=== PATIENT | male | born 1940 | race Caucasian/White ===

== ENCOUNTER 2018-01-10 22:44 | Inpatient (IN) | payer MEDICARE, MEDICAID ==
[~2018-01-10] VITALS: Ht 175.3 cm; Wt 79.4 kg
[2018-01-10 22:50] VITALS: BP 144/75
[2018-01-10] MEDS ORDERED: Isovue-300 100ml vial INJ PRN (23:00)
[2018-01-10 23:45] LABS: BASOPHILS % (AUTO) 0.6 % (0.0-2.0); EOSINOPHILS % (AUTO) 2.5 % (0.0-3.0); HEMATOCRIT 52.2 % (42.0-52.0); HEMOGLOBIN 17.7 G/DL (14.2-18.0); LYMPHOCYTES % (AUTO) 14.5 % (20.0-45.0); MEAN CORPUSCULAR VOLUME 88 FL (80-99); MONOCYTES % (AUTO) 5.3 % (1.0-10.0); NEUTROPHILS % (AUTO) 77.1 % (45.0-75.0); PLATELET COUNT 267 K/UL (150-450); RED BLOOD COUNT 5.91 M/UL (4.70-6.10); RED CELL DISTRIBUTION WIDTH 12.8 % (11.6-14.8); WHITE BLOOD COUNT 11.2 K/UL (4.8-10.8)
[2018-01-10 23:56] LABS: APPEARANCE,URINE CLEAR; BILIRUBIN, URINE NEGATIVE (NEGATIVE); GLUCOSE, URINE (UA) 1+ (NEGATIVE); KETONES,URINE NEGATIVE (NEGATIVE); LEUKOCYTE ESTERASE ,URINE NEGATIVE (NEGATIVE); NITRITE,URINE NEGATIVE (NEGATIVE); PH,URINE 5 (4.5-8.0); PROTEIN,URINE 4+ (NEGATIVE); UROBILINOGEN,URINE NORMAL MG/DL (0.0-1.0)
[2018-01-10 23:57] LABS: ANION GAP 14 mmol/L (5-15); BLOOD UREA NITROGEN 60 mg/dL (7-18); CALCIUM 9.1 MG/DL (8.5-10.1); CARBON DIOXIDE 23 MMOL/L (21-32); CHLORIDE 101 MMOL/L (98-107); CREATININE 2.3 MG/DL (0.55-1.30); POTASSIUM 4.5 MMOL/L (3.5-5.1); SODIUM 138 MMOL/L (136-145)
[2018-01-11 00:01] LABS: ALANINE AMINOTRANSFERASE 31 U/L (12-78); ALBUMIN 3.1 G/DL (3.4-5.0); ALBUMIN/GLOBULIN RATIO 0.5 (1.0-2.7); ALKALINE PHOSPHATASE 80 U/L (46-116); ASPARTATE AMINO TRANSFERASE 36 U/L (15-37); BILIRUBIN,TOTAL 0.6 MG/DL (0.2-1.0)
--- NOTE | 2018-01-11 00:06 | Emergency Room Report ---
History of Present Illness General Chief Complaint: Abdominal Pain Source: Patient Present Illness HPI Patient presents with complaints of abdominal pain reports decreased bowel movement Increased nausea but denies any vomiting Denies any chest pain or shortness of breath Denies any fevers or chills patient has had previous significant abdominal surgery Chronicly debilitated Allergies: Coded Allergies: ATORVASTATIN (Unverified Allergy, Unknown, 01/10/18) ROSUVASTATIN (Unverified Allergy, Unknown, 01/10/18) SITAGLIPTIN (Unverified Allergy, Unknown, 01/10/18) Patient History Past Medical History: see triage record Pertinent Family History: none Reviewed Nursing Documentation: PMH: Agreed; PSxH: Agreed Review of Systems All Other Systems: negative except mentioned in HPI Physical Exam Vital Signs Date Time Temp Pulse Resp B/P (MAP) Pulse Ox O2 Delivery O2 Flow Rate FiO2 01/10/18 22:37 97.9 70 16 144/75 92 Room Air Sp02 EP Interpretation: reviewed, normal General Appearance: no apparent distress Head: normocephalic, atraumatic Eyes: bilateral eye PERRL, bilateral eye EOMI ENT: hearing grossly normal, normal pharynx Neck: supple Respiratory: lungs clear, normal breath sounds Cardiovascular #1: irregularly irregular Gastrointestinal: other - Somewhat distended abdomen decreased bowel sounds significant previous surgical scars Musculoskeletal: other - Skin wounds from previous moving upper extremities equally Neurologic: alert, oriented x3, responsive Skin: other - Multiple skin breakdowns Lymphatic: no adenopathy Medical Decision Making Diagnostic Impression: Primary Impression: Abdominal pain Additional Impression: Adynamic ileus ER Course With the history exam and presentation, multiple differentials considered, including but not limited to appendicitis, gastritis, cholecystitis, diverticulitis CT imaging reveals some questionable ileus versus colitis Patient remains otherwise asymptomatic NG tube has not been placed given the findings And the patient requires further inpatient care Labs Test 01/10/18 23:00 01/10/18 23:06 Urine Color Yellow Urine Appearance Clear Urine pH 5 (4.5-8.0) Urine Specific [place] 1.025 (1.005-1.035) Urine Protein 4+ (NEGATIVE) Urine Glucose (UA) 1+ (NEGATIVE) Urine Ketones Negative (NEGATIVE) Urine Blood Negative (NEGATIVE) Urine Nitrite Negative (NEGATIVE) Urine Bilirubin Negative (NEGATIVE) Urine Urobilinogen Normal MG/DL (0.0-1.0) Urine Leukocyte Esterase Negative (NEGATIVE) Urine RBC 0 /HPF (0 - 0) Urine WBC 0-2 /HPF (0 - 0) Urine Squamous Epithelial Cells None /LPF (NONE/OCC) Urine Amorphous Sediment Many /LPF (NONE) Urine Bacteria Many /HPF (NONE) White Blood Count 11.2 K/UL (4.8-10.8) Red Blood Count 5.91 M/UL (4.70-6.10) Hemoglobin 17.7 G/DL (14.2-18.0) Hematocrit 52.2 % (42.0-52.0) Mean Corpuscular Volume 88 FL (80-99) Mean Corpuscular Hemoglobin 29.9 PG (27.0-31.0) Mean Corpuscular Hemoglobin Concent 33.9 G/DL (32.0-36.0) Red Cell Distribution Width 12.8 % (11.6-14.8) Platelet Count 267 K/UL (150-450) Mean Platelet Volume 7.4 FL (6.5-10.1) Neutrophils (%) (Auto) 77.1 % (45.0-75.0) Lymphocytes (%) (Auto) 14.5 % (20.0-45.0) Monocytes (%) (Auto) 5.3 % (1.0-10.0) Eosinophils (%) (Auto) 2.5 % (0.0-3.0) Basophils (%) (Auto) 0.6 % (0.0-2.0) Sodium Level 138 MMOL/L (136-145) Potassium Level 4.5 MMOL/L (3.5-5.1) Chloride Level 101 MMOL/L (98-107) Carbon Dioxide Level 23 MMOL/L (21-32) Anion Gap 14 mmol/L (5-15) Blood Urea Nitrogen 60 mg/dL (7-18) Creatinine 2.3 MG/DL (0.55-1.30) Estimat Glomerular Filtration Rate mL/min (>60) Glucose Level 308 MG/DL (74-106) Calcium Level 9.1 MG/DL (8.5-10.1) Total Bilirubin 0.6 MG/DL (0.2-1.0) Aspartate Amino Transf (AST/SGOT) 36 U/L (15-37) Alanine Aminotransferase (ALT/SGPT) 31 U/L (12-78) Alkaline Phosphatase 80 U/L (46-116) Total Protein 8.9 G/DL (6.4-8.2) Albumin 3.1 G/DL (3.4-5.0) Globulin 5.8 g/dL Albumin/Globulin Ratio 0.5 (1.0-2.7) Lipase 385 U/L (73-393) CT/MRI/US Diagnostic Results CT/MRI/US Diagnostic Results : Impression CT abdomen pelvis: Ileus versus colitis, referred to the final report for full specifics Last Vital Signs Date Time Temp Pulse Resp B/P (MAP) Pulse Ox O2 Delivery O2 Flow Rate FiO2 01/10/18 22:50 70 16 Room Air 01/10/18 22:50 97.9 144/75 92 Status: improved Disposition: ADMITTED INPATIENT Condition: Serious Referrals: JOSÉ MIGUEL GILES (PCP) Tomasa Dixon DO Jan 11, 2018 00:06
[2018-01-11 00:13] LABS: COLOR,URINE YELLOW
[2018-01-11] MEDS ORDERED: COLACE100 MG ORAL (00:30)
[2018-01-11] MEDS ORDERED: TOPIRAMATE25 M1 ORAL (00:30)
[2018-01-11] MEDS ORDERED: HUMALOG100 UNIT/4 SUBQ (00:30)
[2018-01-11] MEDS ORDERED: LIDOCAINE700 M1 TP (00:30)
[2018-01-11] MEDS ORDERED: ALLOPURINOL100 M1 ORAL (00:30)
[2018-01-11] MEDS ORDERED: LANTUS SOL100 UNIT/1 SUBQ (00:30)
[2018-01-11] MEDS ORDERED: NEURONTIN300 MG ORAL (00:30)
[2018-01-11] MEDS ORDERED: CORRECTOL5 MG PO (00:30)
[2018-01-11] MEDS ORDERED: PRAVASTATIN SOD40 M1 ORAL (00:30)
[2018-01-11] MEDS ORDERED: MIRALAX17 G2 ORAL (00:30)
[2018-01-11] MEDS ORDERED: ASPIR 8181 MG ORAL (00:30)
[2018-01-11] MEDS ORDERED: LATANOPROST 0.7.5 ML OP (00:30)
[2018-01-11 01:40] VITALS: BP 146/74
[2018-01-11 04:00] VITALS: BP 143/62
[2018-01-11] MEDS ORDERED: Promethazine HCl 12.5 MG in NS 55 ML IV PRN (06:30)
[2018-01-11] MEDS ORDERED: Metoclopramide 10mg/2ml Inj IVP PRN (06:30)
[2018-01-11] MEDS ORDERED: Miralax 17gm pkt ORAL PRN (06:30)
[2018-01-11] MEDS ORDERED: Nitroglycerin Subl 0.4mg tab SL PRN (06:30)
[2018-01-11] MEDS ORDERED: Morphine Sulfate 2mg/ml Inj IVP PRN (06:30)
[2018-01-11] MEDS ORDERED: Mylanta II UD 30ml ORAL PRN (06:30)
[2018-01-11] MEDS ORDERED: LORazepam Inj 2mg/ml 1ml IV PRN (06:30)
[2018-01-11] MEDS ORDERED: Promethazine HCl 25 MG in NS 55 ML IV PRN (06:30)
[2018-01-11] MEDS ORDERED: D5 1/2NS 1,000 ML IV SCH (07:00)
[2018-01-11] MEDS ORDERED: Promethazine HCl 25 MG in NS 55 ML IVPB PRN (07:15)
[2018-01-11 08:00] VITALS: BP 142/78
[2018-01-11] MEDS: Heparin 5000 units/ml inj SUBQ SCH ×2 (08:37→20:53)
[2018-01-11] MEDS: NovoLOG Insulin Flexpen SUBQ SCH ×4 (08:38→20:54)
--- NOTE | 2018-01-11 08:53 | Diagnostic Imaging Report ---
Indication: Abdominal pain for 3 days Technique: Spiral acquisitions obtained through the abdomen and pelvis. No oral contrast utilized, per emergency room physician request No IV contrast utilized, per referring physician request.. Multiplanar reconstructions were generated. Total dose length product 937.59 mGycm. CTDIvol(s) 18.6 mGy. Dose reduction achieved using automated exposure control Comparison: None Findings: The appendix is normal. There is no evidence of diverticulosis or diverticulitis. Distal jejunal loops are mildly dilated and fluid-filled. There is gradual tapering to normal caliber or collapsed distal small bowel, without an abrupt transition point. There is a small umbilical hernia which contains only fat. No free or loculated intraperitoneal gas or fluid is evident. The distal esophagus, stomach, duodenum are unremarkable. A small amount of dense material is seen within the stomach, small bowel, and colon, could indicate earlier contrast study at an outside facility. There is a small left inguinal hernia which contains only fat. The liver is unremarkable. The gallbladder is surgically absent. Bile ducts are nondilated. The pancreas, spleen, adrenals are unremarkable. The left kidney demonstrates an upper pole cyst. It demonstrates a few subcentimeter lesions of varying attenuation, too small to characterize. The right kidney demonstrates subcentimeter low-attenuation lesions which are too small to characterize no retroperitoneal or mesenteric mass or adenopathy. The prostate is mildly prominent. The included lung bases demonstrate mild dependent atelectatic changes. The bones demonstrate degenerative spondylosis changes. Impression: Mildly dilated fluid-filled mid to distal jejunal small bowel loops without definite transition point. Findings most likely represent ileus or enteritis changes. Possibility of a low-grade small bowel obstruction not completely excludable, however. Surgically absent gallbladder Bilateral subcentimeter low-attenuation renal lesions, too small to characterize, most likely benign simple cysts. Higher attenuation subcentimeter left renal lesion most likely represents a hyperdense cyst Other findings as noted, including basilar atelectatic changes, degenerative spondylosis, fat-containing left inguinal and umbilical hernias, prominent prostate This agrees with the preliminary interpretation provided overnight by [facility] teleradiology service. The CT scanner at [facility] is accredited by the [employer] and the scans are performed using protocols designed to limit radiation exposure to as low as reasonably achievable to attain images of sufficient resolution adequate for diagnostic evaluation.
--- NOTE | 2018-01-11 09:34 | Consultation ---
Consult Note Consult Note asked to eval for renal failure- Patient presents with complaints of abdominal pain reports decreased bowel movement Increased nausea but denies any vomiting Denies any chest pain or shortness of breath Denies any fevers or chills patient has had previous significant abdominal surgery Chronicly debilitated Allergies: Coded Allergies: ATORVASTATIN (Unverified Allergy, Unknown, 01/10/18) ROSUVASTATIN (Unverified Allergy, Unknown, 01/10/18) SITAGLIPTIN (Unverified Allergy, Unknown, 01/10/18) examined poor historian data reviewed Assessment/Plan Abdominal pain / Ileus Renal failure ( Acute on Chronic) DM / Proteinuria CAD s/p CABGS plan: alicia 1/2 NS Glucose check IV protonox monitor renal parameters urine studies TSH level Per GI discussed with Adan Banerjee MD Jan 11, 2018 09:34
[2018-01-11] MEDS: Pantoprazole Inj IVP SCH (10:31)
--- NOTE | 2018-01-11 11:34 | GI Initial Consult Note ---
History of Present Illness General Date patient seen: Jan 11, 2018 Time patient seen: 11:28 Reason for Hospitalization: Abdominal Pain Referring physician: COLEMAN BERGMAN Reason for Consultation: ABDOMINAL PAIN Present Illness HPI Patient presents with complaints of abdominal pain reports decreased bowel movement Increased nausea but denies any vomiting Denies any chest pain or shortness of breath Denies any fevers or chills patient has had previous significant abdominal surgery Chronically debilitated GI consulted for abdominal pain. Pt seen, NAD noted with mod to severe abdominal distention, firm and tympanic. No reported BM since admission. Labs reviewed; mild leukocytosis, no anemia, renal insufficiency. CT reviewed noted with mildly dilated fluid-filled mid to distal jejunal small bowel loops without definite transition point. Findings most likely represent ileus or enteritis changes with possibility of a low-grade small bowel obstruction. Unknown history of endoscopy, colonoscopy. Home Meds Reported Medications Latanoprost/Pf (Latanoprost 0.005% Eye Drop) 7.5 Ml Drops, 7.5 ML OP QHS, ML 01/11/18 Topiramate (TOPIRAMATE) 25 Mg Cap.sprink, 25 MG ORAL DAILY, #30 CAP 0 Refills 01/11/18 Pravastatin Sod (PRAVASTATIN SOD) 40 Mg Tablet, 40 MG ORAL BEDTIME, TAB 01/11/18 Lidocaine (Lidocaine) 1 Each Adh..patch, 700 MG TP DAILY, PATCH 01/11/18 Gabapentin (Neurontin) 300 Mg Capsule, 300 MG ORAL THREE TIMES A DAY, #15 CAP 0 Refills 01/11/18 Polyethylene Glycol 3350* (MIRALAX*) 17 Gm Powd.pack, 17 GM ORAL DAILY, PACKET 01/11/18 Docusate Sodium* (COLACE*) 100 Mg Capsule, 200 MG ORAL DAILY, CAP 01/11/18 Bisacodyl (CORRECTOL) 5 Mg Tablet, 5 MG PO, TAB 01/11/18 Aspirin* (ASPIR 81*) 81 Mg Tablet.dr, 81 MG ORAL DAILY, TAB 01/11/18 Allopurinol* (ALLOPURINOL*) 100 Mg Tablet, 200 MG ORAL DAILY, TAB 01/11/18 Insulin Glargine (LANTUS) 100 Unit/1 Ml Insuln.pen, 50 SUBQ BID, #1 EA 0 Refills 01/11/18 Insulin Lispro (HUMALOG) 100 Unit/1 Ml Cartridge, 35 SUBQ TID, #1 UNITS 0 Refills 01/11/18 Med list reviewed/reconciled: Yes Allergies: Coded Allergies: ATORVASTATIN (Unverified Allergy, Unknown, 01/10/18) ROSUVASTATIN (Unverified Allergy, Unknown, 01/10/18) SITAGLIPTIN (Unverified Allergy, Unknown, 01/10/18) Patient History History Provided By: Patient, Medical Record PMH Narrative Past Medical History: see triage record Pertinent Family History: none Reviewed Nursing Documentation: PMH: Agreed; PSxH: Agreed Review of Systems All Other Systems: limited Physical Exam Vital Signs Date Time Temp Pulse Resp B/P (MAP) Pulse Ox O2 Delivery O2 Flow Rate FiO2 01/10/18 22:37 97.9 70 16 144/75 92 Room Air Sp02 EP Interpretation: reviewed, normal Labs Laboratory Tests Test 01/10/18 23:00 01/10/18 23:06 01/11/18 06:30 01/11/18 10:20 Urine Color Yellow Urine Appearance Clear Urine pH 5 (4.5-8.0) Urine Specific [place] 1.025 (1.005-1.035) Urine Protein 4+ (NEGATIVE) H Urine Glucose (UA) 1+ (NEGATIVE) H Urine Ketones Negative (NEGATIVE) Urine Blood Negative (NEGATIVE) Urine Nitrite Negative (NEGATIVE) Urine Bilirubin Negative (NEGATIVE) Urine Urobilinogen Normal MG/DL (0.0-1.0) Urine Leukocyte Esterase Negative (NEGATIVE) Urine RBC 0 /HPF (0 - 0) Urine WBC 0-2 /HPF (0 - 0) Urine Squamous Epithelial Cells None /LPF (NONE/OCC) Urine Amorphous Sediment Many /LPF (NONE) H Urine Bacteria Many /HPF (NONE) H White Blood Count 11.2 K/UL (4.8-10.8) H Red Blood Count 5.91 M/UL (4.70-6.10) Hemoglobin 17.7 G/DL (14.2-18.0) Hematocrit 52.2 % (42.0-52.0) H Mean Corpuscular Volume 88 FL (80-99) Mean Corpuscular Hemoglobin 29.9 PG (27.0-31.0) Mean Corpuscular Hemoglobin Concent 33.9 G/DL (32.0-36.0) Red Cell Distribution Width 12.8 % (11.6-14.8) Platelet Count 267 K/UL (150-450) Mean Platelet Volume 7.4 FL (6.5-10.1) Neutrophils (%) (Auto) 77.1 % (45.0-75.0) H Lymphocytes (%) (Auto) 14.5 % (20.0-45.0) L Monocytes (%) (Auto) 5.3 % (1.0-10.0) Eosinophils (%) (Auto) 2.5 % (0.0-3.0) Basophils (%) (Auto) 0.6 % (0.0-2.0) Sodium Level 138 MMOL/L (136-145) Potassium Level 4.5 MMOL/L (3.5-5.1) Chloride Level 101 MMOL/L (98-107) Carbon Dioxide Level 23 MMOL/L (21-32) Anion Gap 14 mmol/L (5-15) Blood Urea Nitrogen 60 mg/dL (7-18) H Creatinine 2.3 MG/DL (0.55-1.30) H Estimat Glomerular Filtration Rate mL/min (>60) Glucose Level 308 MG/DL (74-106) H Calcium Level 9.1 MG/DL (8.5-10.1) Total Bilirubin 0.6 MG/DL (0.2-1.0) Aspartate Amino Transf (AST/SGOT) 36 U/L (15-37) Alanine Aminotransferase (ALT/SGPT) 31 U/L (12-78) Alkaline Phosphatase 80 U/L (46-116) Total Protein 8.9 G/DL (6.4-8.2) H Albumin 3.1 G/DL (3.4-5.0) L Globulin 5.8 g/dL Albumin/Globulin Ratio 0.5 (1.0-2.7) L Lipase 385 U/L (73-393) C-Reactive Protein, Quantitative 3.2 mg/dL (0.00-0.90) H Hemoglobin A1c 8.4 % (4.3-6.0) H Test 01/11/18 10:35 Urine Random Sodium < 20 mmol/L (20-110) L General Appearance: no apparent distress Head: normocephalic EENT: PERRL/EOMI, normal ENT inspection Neck: supple Respiratory: normal breath sounds, no respiratory distress Cardiovascular: normal rate Gastrointestinal: normal inspection, non tender, soft, normal bowel sounds, non -distended, distended Rectal: deferred Genitourinary: deferred Musculoskeletal: normal inspection, back normal Neurologic: normal inspection, alert, oriented x3, responsive Psychiatric: judgement/insight normal Skin: normal inspection, normal color, no rash, warm/dry, palpation normal, well hydrated Lymphatic: normal inspection, no adenopathy Current Medications Current Medications Medications (Trade) Dose Ordered Sig/Diana Route PRN Reason Start Time Stop Time Status Last Admin Dose Admin Acetaminophen (Tylenol) 650 mg Q4H PRN ORAL fever 01/11/18 06:30 02/10/18 06:29 Dextrose (Dextrose 50%) 25 ml Q30M PRN IV Hypoglycemia 01/11/18 06:30 02/10/18 06:29 Dextrose (Dextrose 50%) 50 ml Q30M PRN IV Hypoglycemia 01/11/18 06:30 02/10/18 06:29 Diphenhydramine HCl (Benadryl) 25 mg Q6H PRN ORAL Itching/Pruritis 01/11/18 06:30 02/10/18 06:29 Heparin Sodium (Porcine) (Heparin 5000 units/ml) 5,000 units EVERY 12 HOURS SUBQ 01/11/18 09:00 02/10/18 08:59 01/11/18 08:37 Insulin Aspart (NovoLOG) BEFORE MEALS AND HS SUBQ 01/11/18 07:30 02/10/18 07:29 01/11/18 08:38 Iopamidol (Isovue-300 100ml) 100 ml NOW PRN INJ Radiology Procedure 01/10/18 23:00 Lorazepam (Ativan 2mg/ml 1ml) 1 mg Q4H PRN IV agitation 01/11/18 06:30 01/18/18 06:29 Morphine Sulfate (Morphine Sulfate) 2 mg Q4H PRN IVP severe Pain (Pain Scale 7-10) 01/11/18 06:30 01/18/18 06:29 Nitroglycerin (Ntg) 0.4 mg Q5M X 3 DOSES PRN SL Prn Chest Pain 01/11/18 06:30 02/10/18 06:29 Ondansetron HCl (Zofran) 4 mg Q6H PRN IVP Nausea & Vomiting 01/11/18 06:30 02/10/18 06:29 Pantoprazole (Protonix) 40 mg DAILY IVP 01/11/18 09:32 02/10/18 09:31 01/11/18 10:31 Polyethylene Glycol (Miralax) 17 gm HSPRN PRN ORAL Constipation 01/11/18 06:30 02/10/18 06:29 Promethazine HCl (Phenergan) 25 mg Q6H PRN IM REFRACTORY NV 01/11/18 09:45 02/10/18 09:44 Sodium Chloride 1,000 ml @ 100 mls/hr Q10H IV 01/11/18 09:35 02/10/18 09:34 01/11/18 10:30 Temazepam (Restoril) 15 mg HSPRN PRN ORAL Insomnia 01/11/18 06:30 01/18/18 06:29 GI: Plan Problems: (1) Enteritis (2) Ileus (3) Small bowel obstruction (4) Abdominal pain Plan CT reviewed noted with mildly dilated fluid-filled mid to distal jejunal small bowel loops without definite transition point. Findings most likely represent ileus or enteritis changes with possibility of a low-grade small bowel obstruction. severe abdominal distention concerning for possible SBO >> SBFT ordered trial of non operative management, ex lap if fails. fu surgical recs NPO + IVFs bowel decompression if positive for SBO on SBFT >> NGT to LIS pain mgmt serial monitoring repeat imaging prn abx fu labs Discussed with Dr. Marmolejo. Thank you for this patient referral, we will follow. The patient was seen and examined at bedside and all new and available data was reviewed in the patients chart. I agree with the above findings, impression and plan. (Patient seen earlier today. Signature stamp does not reflect patient encounter time.). - MD Faustina Palumbo,[facility] [employer] Jan 11, 2018 11:34
[2018-01-11 12:00] VITALS: BP 134/78
--- NOTE | 2018-01-11 12:02 | History and Physical ---
History of Present Illness General Date patient seen: Jan 11, 2018 Reason for Hospitalization: Abdominal Pain Present Illness HPI 77 year old male with hx of DM, CAD, CVA, intestinal perforation, Chronically debilitated, half-way resident presented to ER with complaints of abdominal pain reports , decreased bowel movement Increased nausea but denies any vomiting. A CT of abdomen showed Mildly dilated fluid-filled mid to distal jejunal small bowel loops without definite transition point. Findings most likely represent ileus or enteritis changes. Possibility of a low-grade small bowel obstruction not completely excludable. Allergies: Coded Allergies: ATORVASTATIN (Unverified Allergy, Unknown, 01/10/18) ROSUVASTATIN (Unverified Allergy, Unknown, 01/10/18) SITAGLIPTIN (Unverified Allergy, Unknown, 01/10/18) Medication History Scheduled Allopurinol* (Allopurinol*), 200 MG ORAL DAILY, (Reported) Aspirin* (Aspir 81*), 81 MG ORAL DAILY, (Reported) Docusate Sodium* (Colace*), 200 MG ORAL DAILY, (Reported) Gabapentin (Neurontin), 300 MG ORAL THREE TIMES A DAY, (Reported) Insulin Glargine (Lantus), 50 SUBQ BID, (Reported) Insulin Lispro (Humalog), 35 SUBQ TID, (Reported) Latanoprost/Pf (Latanoprost 0.005% Eye Drop), 7.5 ML OP QHS, (Reported) Lidocaine (Lidocaine), 700 MG TP DAILY, (Reported) Polyethylene Glycol 3350* (Miralax*), 17 GM ORAL DAILY, (Reported) Pravastatin Sod (Pravastatin Sod), 40 MG ORAL BEDTIME, (Reported) Topiramate (Topiramate), 25 MG ORAL DAILY, (Reported) Miscellaneous Medications Bisacodyl (Correctol), 5 MG PO, (Reported) Patient History Healthcare decision maker Resuscitation status Full Code Advanced Directive on File No Past Medical/Surgical History Past Medical/Surgical History: (1) History of intestinal surgery (2) HTN (hypertension) (3) Major depression (4) CVA (cerebral vascular accident) (5) Diabetes mellitus (6) CKD (chronic kidney disease) (7) CAD (coronary artery disease) Review of Systems All Other Systems: negative except mentioned in HPI Physical Exam General Appearance: WD/WN Lines, tubes and drains: peripheral HEENT: normocephalic, atraumatic Neck: non-tender, normal alignment Respiratory/Chest: chest wall non-tender, lungs clear Breasts: no masses Cardiovascular/Chest: normal peripheral pulses Abdomen: decreased bowel sounds, tender Genitourinary/Rectal: normal genital exam, normal prostate exam Extremities: normal range of motion Last 24 Hour Vital Signs Date Time Temp Pulse Resp B/P (MAP) Pulse Ox O2 Delivery O2 Flow Rate FiO2 01/11/18 08:22 Room Air 01/11/18 08:00 98.0 77 18 142/78 (99) 94 01/11/18 04:00 97.9 69 17 143/62 (89) 95 01/11/18 02:16 Room Air 01/11/18 01:40 97.6 90 16 144/75 98 Room Air 01/11/18 01:40 97.7 68 16 146/74 (98) 94 01/10/18 22:50 70 16 Room Air 01/10/18 22:50 97.9 96 16 144/75 92 Room Air 01/10/18 22:37 97.9 70 16 144/75 92 Room Air Laboratory Tests Test 01/10/18 23:00 01/10/18 23:06 01/11/18 06:30 01/11/18 10:20 Urine Color Yellow Urine Appearance Clear Urine pH 5 (4.5-8.0) Urine Specific [place] 1.025 (1.005-1.035) Urine Protein 4+ (NEGATIVE) H Urine Glucose (UA) 1+ (NEGATIVE) H Urine Ketones Negative (NEGATIVE) Urine Blood Negative (NEGATIVE) Urine Nitrite Negative (NEGATIVE) Urine Bilirubin Negative (NEGATIVE) Urine Urobilinogen Normal MG/DL (0.0-1.0) Urine Leukocyte Esterase Negative (NEGATIVE) Urine RBC 0 /HPF (0 - 0) Urine WBC 0-2 /HPF (0 - 0) Urine Squamous Epithelial Cells None /LPF (NONE/OCC) Urine Amorphous Sediment Many /LPF (NONE) H Urine Bacteria Many /HPF (NONE) H White Blood Count 11.2 K/UL (4.8-10.8) H Red Blood Count 5.91 M/UL (4.70-6.10) Hemoglobin 17.7 G/DL (14.2-18.0) Hematocrit 52.2 % (42.0-52.0) H Mean Corpuscular Volume 88 FL (80-99) Mean Corpuscular Hemoglobin 29.9 PG (27.0-31.0) Mean Corpuscular Hemoglobin Concent 33.9 G/DL (32.0-36.0) Red Cell Distribution Width 12.8 % (11.6-14.8) Platelet Count 267 K/UL (150-450) Mean Platelet Volume 7.4 FL (6.5-10.1) Neutrophils (%) (Auto) 77.1 % (45.0-75.0) H Lymphocytes (%) (Auto) 14.5 % (20.0-45.0) L Monocytes (%) (Auto) 5.3 % (1.0-10.0) Eosinophils (%) (Auto) 2.5 % (0.0-3.0) Basophils (%) (Auto) 0.6 % (0.0-2.0) Sodium Level 138 MMOL/L (136-145) Potassium Level 4.5 MMOL/L (3.5-5.1) Chloride Level 101 MMOL/L (98-107) Carbon Dioxide Level 23 MMOL/L (21-32) Anion Gap 14 mmol/L (5-15) Blood Urea Nitrogen 60 mg/dL (7-18) H Creatinine 2.3 MG/DL (0.55-1.30) H Estimat Glomerular Filtration Rate mL/min (>60) Glucose Level 308 MG/DL (74-106) H Calcium Level 9.1 MG/DL (8.5-10.1) Total Bilirubin 0.6 MG/DL (0.2-1.0) Aspartate Amino Transf (AST/SGOT) 36 U/L (15-37) Alanine Aminotransferase (ALT/SGPT) 31 U/L (12-78) Alkaline Phosphatase 80 U/L (46-116) Total Protein 8.9 G/DL (6.4-8.2) H Albumin 3.1 G/DL (3.4-5.0) L Globulin 5.8 g/dL Albumin/Globulin Ratio 0.5 (1.0-2.7) L Lipase 385 U/L (73-393) C-Reactive Protein, Quantitative 3.2 mg/dL (0.00-0.90) H Hemoglobin A1c 8.4 % (4.3-6.0) H Test 01/11/18 10:35 Urine Random Sodium < 20 mmol/L (20-110) L Microbiology Date/Time Source Procedure Growth Status 01/11/18 01:20 Rectum Received Height (Feet): 5 Height (Inches): 9.00 Weight (Pounds): 200 Medications Current Medications Medications (Trade) Dose Ordered Sig/Diana Route PRN Reason Start Time Stop Time Status Last Admin Dose Admin Acetaminophen (Tylenol) 650 mg Q4H PRN ORAL fever 01/11/18 06:30 02/10/18 06:29 Dextrose (Dextrose 50%) 25 ml Q30M PRN IV Hypoglycemia 01/11/18 06:30 02/10/18 06:29 Dextrose (Dextrose 50%) 50 ml Q30M PRN IV Hypoglycemia 01/11/18 06:30 02/10/18 06:29 Diphenhydramine HCl (Benadryl) 25 mg Q6H PRN ORAL Itching/Pruritis 01/11/18 06:30 02/10/18 06:29 Heparin Sodium (Porcine) (Heparin 5000 units/ml) 5,000 units EVERY 12 HOURS SUBQ 01/11/18 09:00 02/10/18 08:59 01/11/18 08:37 Insulin Aspart (NovoLOG) BEFORE MEALS AND HS SUBQ 01/11/18 07:30 02/10/18 07:29 01/11/18 08:38 Iopamidol (Isovue-300 100ml) 100 ml NOW PRN INJ Radiology Procedure 01/10/18 23:00 Lorazepam (Ativan 2mg/ml 1ml) 1 mg Q4H PRN IV agitation 01/11/18 06:30 01/18/18 06:29 Morphine Sulfate (Morphine Sulfate) 2 mg Q4H PRN IVP severe Pain (Pain Scale 7-10) 01/11/18 06:30 01/18/18 06:29 Nitroglycerin (Ntg) 0.4 mg Q5M X 3 DOSES PRN SL Prn Chest Pain 01/11/18 06:30 02/10/18 06:29 Ondansetron HCl (Zofran) 4 mg Q6H PRN IVP Nausea & Vomiting 01/11/18 06:30 02/10/18 06:29 Pantoprazole (Protonix) 40 mg DAILY IVP 01/11/18 09:32 02/10/18 09:31 01/11/18 10:31 Polyethylene Glycol (Miralax) 17 gm HSPRN PRN ORAL Constipation 01/11/18 06:30 02/10/18 06:29 Promethazine HCl (Phenergan) 25 mg Q6H PRN IM REFRACTORY NV 01/11/18 09:45 02/10/18 09:44 Sodium Chloride 1,000 ml @ 100 mls/hr Q10H IV 01/11/18 09:35 02/10/18 09:34 01/11/18 10:30 Temazepam (Restoril) 15 mg HSPRN PRN ORAL Insomnia 01/11/18 06:30 01/18/18 06:29 Assessment/Plan Problem List: (1) Enteritis ICD Codes: K52.9 - Noninfective gastroenteritis and colitis, unspecified SNOMED: 04574114 (2) Ileus ICD Codes: K56.7 - Ileus, unspecified SNOMED: 237030218 (3) Small bowel obstruction ICD Codes: K56.609 - Unspecified intestinal obstruction, unspecified as to partial versus complete obstruction SNOMED: 079647361 (4) CAD (coronary artery disease) ICD Codes: I25.10 - Atherosclerotic heart disease of [place] coronary artery without angina pectoris SNOMED: 71985187 (5) CKD (chronic kidney disease) ICD Codes: N18.9 - Chronic kidney disease, unspecified SNOMED: 171358630 (6) Diabetes mellitus ICD Codes: E11.9 - Type 2 diabetes mellitus without complications SNOMED: 80988049 (7) CVA (cerebral vascular accident) ICD Codes: I63.9 - Cerebral infarction, unspecified SNOMED: 467661940 (8) Major depression ICD Codes: F32.9 - Major depressive disorder, single episode, unspecified SNOMED: 666853715 (9) HTN (hypertension) ICD Codes: I10 - Essential (primary) hypertension SNOMED: 32969552 Assessment/Plan npo iv fluids symptomatic treatment check electrolytes sliding scale monitor BP dvt prophylaxis Leslie Campbell MD Jan 11, 2018 12:02
--- NOTE | 2018-01-11 12:16 | Diagnostic Imaging Report ---
Indication: Abdominal pain, vomiting, abnormal lipase Technique: Burnette-scale and duplex images of the upper abdomen were obtained. Doppler interrogation of the hepatic and pancreatic vessels. Comparison: Reference made to CT scan 01/10/2018 Findings: Gallbladder is surgically absent. Common bile duct measures 6 mm in diameter. No intrahepatic biliary ductal dilatation. Liver demonstrates equivocally slightly increased echogenicity, no focal abnormality. Portal vein and hepatic veins are patent. Pancreas is incompletely visualized due to overlying bowel gas, visualized portions are unremarkable. Spleen is unremarkable. Left kidney measures 11.1 cm in length. Right kidney measures 11.8 cm length. Both kidneys demonstrate normal echogenicity. There is no hydronephrosis. There are small cysts seen in the kidneys bilaterally. . Abdominal aorta is obscured by bowel gas . Impression: Surgically absent gallbladder. Negative for dilated ducts Equivocally slightly increased hepatic echogenicity, could indicate hepatocellular disease if real Limited exam; note that and abdominal aorta and portions of the pancreas are obscured by bowel gas Incidental finding bilateral renal cysts
--- NOTE | 2018-01-11 15:55 | Diagnostic Imaging Report ---
Indication: Abdominal pain x3 days, small bowel dilatation demonstrated on recent CT scan Technique: Patient ingested water-soluble contrast, and serial overhead images obtained Comparison: Reference made to CT scan 01/10/2018 Findings: Job Compositor film demonstrates an unusual clip at the superior aspect of the duodenal bulb, possibly an endoluminal GI clip versus unusual cholecystectomy clip in patient status post cholecystectomy. Contrast from presumably an earlier outside bowel contrast study is seen within the colon. A few small bowel loops are mildly distended with gas. A Chamberlain catheter is present within the bladder After contrast ingestion, contrast is seen in highly to moderately dilated proximal small bowel loops. Distal small bowel loops subsequently fill, are less dilated. However, contrast is definitely seen in the colon at 2 hours and probably within the colon at 90 minutes. Impression: Dilated proximal small bowel loops. However, rapid transit of contrast into the colon despite this indicates that small bowel dilatation is probably functional in nature and there is no evidence of small bowel obstruction Other findings as noted
[2018-01-11 16:00] VITALS: BP 132/83
[2018-01-11 20:00] VITALS: BP 139/74
--- NOTE | 2018-01-11 21:31 | Consultation ---
History of Present Illness General Date patient seen: Jan 11, 2018 Chief Complaint: Abdominal Pain Referring physician: COLEMAN BERGMAN Reason for Consultation: ABDOMINAL PAIN Present Illness HPI 77 yo male presents with complaints of abdominal pain reports decreased bowel movement Increased nausea but denies any vomiting. the pt has hx of depression and anxiety. the pt has depressed mood, low energy and anxiety Allergies: Coded Allergies: ATORVASTATIN (Unverified Allergy, Unknown, 01/10/18) ROSUVASTATIN (Unverified Allergy, Unknown, 01/10/18) SITAGLIPTIN (Unverified Allergy, Unknown, 01/10/18) Medication History Scheduled Allopurinol* (Allopurinol*), 200 MG ORAL DAILY, (Reported) Aspirin* (Aspir 81*), 81 MG ORAL DAILY, (Reported) Docusate Sodium* (Colace*), 200 MG ORAL DAILY, (Reported) Gabapentin (Neurontin), 300 MG ORAL THREE TIMES A DAY, (Reported) Insulin Glargine (Lantus), 50 SUBQ BID, (Reported) Insulin Lispro (Humalog), 35 SUBQ TID, (Reported) Latanoprost/Pf (Latanoprost 0.005% Eye Drop), 7.5 ML OP QHS, (Reported) Lidocaine (Lidocaine), 700 MG TP DAILY, (Reported) Polyethylene Glycol 3350* (Miralax*), 17 GM ORAL DAILY, (Reported) Pravastatin Sod (Pravastatin Sod), 40 MG ORAL BEDTIME, (Reported) Topiramate (Topiramate), 25 MG ORAL DAILY, (Reported) Miscellaneous Medications Bisacodyl (Correctol), 5 MG PO, (Reported) Patient History Limited by: medical condition History Provided By: Patient, Medical Record, PMD Healthcare decision maker Resuscitation status Full Code Advanced Directive on File No Past Medical/Surgical History Past Medical/Surgical History: (1) Adynamic ileus (2) Enteritis (3) Ileus (4) Small bowel obstruction (5) Abdominal pain (6) CAD (coronary artery disease) (7) CKD (chronic kidney disease) (8) Diabetes mellitus (9) CVA (cerebral vascular accident) (10) Major depression (11) HTN (hypertension) Review of Systems Psychiatric: Reports: prior hx, anxiety, depressed feelings Physical Exam General Appearance: no apparent distress, alert Neurologic: oriented x 3, responsive, depressed affect Last 24 Hour Vital Signs Date Time Temp Pulse Resp B/P (MAP) Pulse Ox O2 Delivery O2 Flow Rate FiO2 01/11/18 21:00 Room Air 01/11/18 20:00 97.3 81 20 139/74 (95) 93 01/11/18 16:00 98.4 63 18 132/83 (99) 94 01/11/18 12:00 98.2 71 18 134/78 (96) 94 01/11/18 08:22 Room Air 01/11/18 08:00 98.0 77 18 142/78 (99) 94 01/11/18 04:00 97.9 69 17 143/62 (89) 95 01/11/18 02:16 Room Air 01/11/18 01:40 97.6 90 16 144/75 98 Room Air 01/11/18 01:40 97.7 68 16 146/74 (98) 94 01/10/18 22:50 70 16 Room Air 01/10/18 22:50 97.9 96 16 144/75 92 Room Air 01/10/18 22:37 97.9 70 16 144/75 92 Room Air Intake and Output 01/10/18 01/11/18 18:59 06:59 # Bowel Movements 2 Laboratory Tests Test 01/10/18 23:00 01/10/18 23:06 01/11/18 06:30 01/11/18 10:20 Urine Color Yellow Urine Appearance Clear Urine pH 5 (4.5-8.0) Urine Specific [place] 1.025 (1.005-1.035) Urine Protein 4+ (NEGATIVE) H Urine Glucose (UA) 1+ (NEGATIVE) H Urine Ketones Negative (NEGATIVE) Urine Blood Negative (NEGATIVE) Urine Nitrite Negative (NEGATIVE) Urine Bilirubin Negative (NEGATIVE) Urine Urobilinogen Normal MG/DL (0.0-1.0) Urine Leukocyte Esterase Negative (NEGATIVE) Urine RBC 0 /HPF (0 - 0) Urine WBC 0-2 /HPF (0 - 0) Urine Squamous Epithelial Cells None /LPF (NONE/OCC) Urine Amorphous Sediment Many /LPF (NONE) H Urine Bacteria Many /HPF (NONE) H White Blood Count 11.2 K/UL (4.8-10.8) H Red Blood Count 5.91 M/UL (4.70-6.10) Hemoglobin 17.7 G/DL (14.2-18.0) Hematocrit 52.2 % (42.0-52.0) H Mean Corpuscular Volume 88 FL (80-99) Mean Corpuscular Hemoglobin 29.9 PG (27.0-31.0) Mean Corpuscular Hemoglobin Concent 33.9 G/DL (32.0-36.0) Red Cell Distribution Width 12.8 % (11.6-14.8) Platelet Count 267 K/UL (150-450) Mean Platelet Volume 7.4 FL (6.5-10.1) Neutrophils (%) (Auto) 77.1 % (45.0-75.0) H Lymphocytes (%) (Auto) 14.5 % (20.0-45.0) L Monocytes (%) (Auto) 5.3 % (1.0-10.0) Eosinophils (%) (Auto) 2.5 % (0.0-3.0) Basophils (%) (Auto) 0.6 % (0.0-2.0) Sodium Level 138 MMOL/L (136-145) Potassium Level 4.5 MMOL/L (3.5-5.1) Chloride Level 101 MMOL/L (98-107) Carbon Dioxide Level 23 MMOL/L (21-32) Anion Gap 14 mmol/L (5-15) Blood Urea Nitrogen 60 mg/dL (7-18) H Creatinine 2.3 MG/DL (0.55-1.30) H Estimat Glomerular Filtration Rate mL/min (>60) Glucose Level 308 MG/DL (74-106) H Calcium Level 9.1 MG/DL (8.5-10.1) Total Bilirubin 0.6 MG/DL (0.2-1.0) Aspartate Amino Transf (AST/SGOT) 36 U/L (15-37) Alanine Aminotransferase (ALT/SGPT) 31 U/L (12-78) Alkaline Phosphatase 80 U/L (46-116) Total Protein 8.9 G/DL (6.4-8.2) H Albumin 3.1 G/DL (3.4-5.0) L Globulin 5.8 g/dL Albumin/Globulin Ratio 0.5 (1.0-2.7) L Lipase 385 U/L (73-393) C-Reactive Protein, Quantitative 3.2 mg/dL (0.00-0.90) H Hemoglobin A1c 8.4 % (4.3-6.0) H Test 01/11/18 10:35 Urine Random Sodium < 20 mmol/L (20-110) L Microbiology Date/Time Source Procedure Growth Status 01/11/18 01:20 Rectum Received Height (Feet): 5 Height (Inches): 9.00 Weight (Pounds): 200 Medications Current Medications Medications (Trade) Dose Ordered Sig/Diana Route PRN Reason Start Time Stop Time Status Last Admin Dose Admin Acetaminophen (Tylenol) 650 mg Q4H PRN ORAL fever 01/11/18 06:30 02/10/18 06:29 Allopurinol (Zyloprim) 200 mg DAILY ORAL 01/12/18 09:00 02/11/18 08:59 Dextrose (Dextrose 50%) 25 ml Q30M PRN IV Hypoglycemia 01/11/18 06:30 02/10/18 06:29 Dextrose (Dextrose 50%) 50 ml Q30M PRN IV Hypoglycemia 01/11/18 06:30 02/10/18 06:29 Diphenhydramine HCl (Benadryl) 25 mg Q6H PRN ORAL Itching/Pruritis 01/11/18 06:30 02/10/18 06:29 Gabapentin (Neurontin) 600 mg DAILY ORAL 01/11/18 13:00 02/10/18 12:59 01/11/18 15:02 Heparin Sodium (Porcine) (Heparin 5000 units/ml) 5,000 units EVERY 12 HOURS SUBQ 01/11/18 09:00 02/10/18 08:59 01/11/18 20:53 Insulin Aspart (NovoLOG) BEFORE MEALS AND HS SUBQ 01/11/18 07:30 02/10/18 07:29 01/11/18 20:54 Iopamidol (Isovue-300 100ml) 100 ml NOW PRN INJ Radiology Procedure 01/10/18 23:00 Lorazepam (Ativan 2mg/ml 1ml) 1 mg Q4H PRN IV agitation 01/11/18 06:30 01/18/18 06:29 Morphine Sulfate (Morphine Sulfate) 2 mg Q4H PRN IVP severe Pain (Pain Scale 7-10) 01/11/18 06:30 01/18/18 06:29 Nitroglycerin (Ntg) 0.4 mg Q5M X 3 DOSES PRN SL Prn Chest Pain 01/11/18 06:30 02/10/18 06:29 Ondansetron HCl (Zofran) 4 mg Q6H PRN IVP Nausea & Vomiting 01/11/18 06:30 02/10/18 06:29 Pantoprazole (Protonix) 40 mg DAILY IVP 01/11/18 09:32 02/10/18 09:31 01/11/18 10:31 Polyethylene Glycol (Miralax) 17 gm HSPRN PRN ORAL Constipation 01/11/18 06:30 02/10/18 06:29 Promethazine HCl (Phenergan) 25 mg Q6H PRN IM REFRACTORY NV 01/11/18 09:45 02/10/18 09:44 Sodium Chloride 1,000 ml @ 100 mls/hr Q10H IV 01/11/18 09:35 02/10/18 09:34 01/11/18 20:51 Temazepam (Restoril) 15 mg HSPRN PRN ORAL Insomnia 01/11/18 06:30 01/18/18 06:29 Assessment/Plan Problem List: (1) Major depression ICD Codes: F32.9 - Major depressive disorder, single episode, unspecified SNOMED: 182866464 Assessment/Plan lexapro 10mg qam remeron prn Manny Kim MD Jan 11, 2018 21:31
[2018-01-12] VITALS: BP 149/71
[2018-01-12 04:00] VITALS: BP 145/77
[2018-01-12 05:38] LABS: BASOPHILS % (AUTO) 1.1 % (0.0-2.0); EOSINOPHILS % (AUTO) 5.1 % (0.0-3.0); HEMATOCRIT 48.8 % (42.0-52.0); HEMOGLOBIN 15.8 G/DL (14.2-18.0); LYMPHOCYTES % (AUTO) 29.7 % (20.0-45.0); MEAN CORPUSCULAR VOLUME 88 FL (80-99); MONOCYTES % (AUTO) 7.3 % (1.0-10.0); NEUTROPHILS % (AUTO) 56.8 % (45.0-75.0); PLATELET COUNT 225 K/UL (150-450); RED BLOOD COUNT 5.55 M/UL (4.70-6.10); RED CELL DISTRIBUTION WIDTH 12.9 % (11.6-14.8); WHITE BLOOD COUNT 7.6 K/UL (4.8-10.8)
[2018-01-12 06:06] LABS: ALANINE AMINOTRANSFERASE 35 U/L (12-78); ALBUMIN 2.8 G/DL (3.4-5.0); ALBUMIN/GLOBULIN RATIO 0.5 (1.0-2.7); ALKALINE PHOSPHATASE 66 U/L (46-116); AMYLASE 74 U/L (25-115); ANION GAP 9 mmol/L (5-15); ASPARTATE AMINO TRANSFERASE 22 U/L (15-37); BILIRUBIN,TOTAL 0.4 MG/DL (0.2-1.0); BLOOD UREA NITROGEN 49 mg/dL (7-18); CALCIUM 8.6 MG/DL (8.5-10.1); CARBON DIOXIDE 29 MMOL/L (21-32); CHLORIDE 105 MMOL/L (98-107); CHOLESTEROL 125 MG/DL (< 200); HDL CHOLESTEROL 29 MG/DL (40-60); POTASSIUM 3.2 MMOL/L (3.5-5.1); SODIUM 143 MMOL/L (136-145); TRIGLYCERIDES 256 MG/DL (30-150)
[2018-01-12] MEDS: NovoLOG Insulin Flexpen SUBQ SCH ×4 (06:08→20:54)
[2018-01-12 06:27] LABS: PHOSPHORUS 3.4 MG/DL (2.5-4.9)
[2018-01-12 08:00] VITALS: BP 137/72
[2018-01-12] MEDS: Pantoprazole Inj IVP SCH (09:36)
[2018-01-12] MEDS: Allopurinol 100mg Tab ORAL SCH (09:37)
[2018-01-12] MEDS: Heparin 5000 units/ml inj SUBQ SCH ×2 (09:46→20:53)
--- NOTE | 2018-01-12 10:23 | Nephrology Progress Note ---
Assessment/Plan Problem List: (1) CKD (chronic kidney disease) (2) Ileus (3) Diabetes mellitus Assessment: & proteinuria (4) CAD (coronary artery disease) Assessment Abdominal pain / Ileus Renal failure ( Acute on Chronic) DM / Proteinuria CAD s/p CABGS Plan alicia 1/2 NS Glucose check IV protonox monitor renal parameters urine studies TSH level Per GI discussed with RN Subjective ROS Limited/Unobtainable: No Constitutional: Reports: malaise, weakness Objective Objective Last 24 Hour Vital Signs Date Time Temp Pulse Resp B/P (MAP) Pulse Ox O2 Delivery O2 Flow Rate FiO2 01/12/18 08:00 97.0 70 20 137/72 (93) 97 01/12/18 04:00 97.2 72 20 145/77 (99) 93 01/12/18 00:00 97.6 75 20 149/71 (97) 92 01/11/18 21:00 Room Air 01/11/18 20:00 97.3 81 20 139/74 (95) 93 01/11/18 16:00 98.4 63 18 132/83 (99) 94 01/11/18 12:00 98.2 71 18 134/78 (96) 94 Intake and Output 01/11/18 01/12/18 19:00 07:00 Intake Total 880 ml 1350 ml Output Total 700 ml 500 ml Balance 180 ml 850 ml Intake Oral 380 ml 250 ml IV Total 500 ml 1100 ml Output Urine Total 700 ml 500 ml # Bowel Movements 3 Laboratory Tests 01/11/18 10:35: Urine Random Sodium < 20L 01/12/18 05:10: White Blood Count 7.6, Red Blood Count 5.55, Hemoglobin 15.8, Hematocrit 48.8, Mean Corpuscular Volume 88, Mean Corpuscular Hemoglobin 28.5, Mean Corpuscular Hemoglobin Concent 32.4, Red Cell Distribution Width 12.9, Platelet Count 225, Mean Platelet Volume 6.9, Neutrophils (%) (Auto) 56.8, Lymphocytes (%) (Auto) 29.7, Monocytes (%) (Auto) 7.3, Eosinophils (%) (Auto) 5.1H, Basophils (%) (Auto ) 1.1, Erythrocyte Sedimentation Rate 26H, Activated Partial Thromboplast Time 30, Sodium Level 143, Potassium Level 3.2L, Chloride Level 105, Carbon Dioxide Level 29, Anion Gap 9, Blood Urea Nitrogen 49H, Creatinine 2.0H, Estimat Glomerular Filtration Rate , Glucose Level 186#H, Uric Acid 8.5H, Calcium Level 8.6, Phosphorus Level 3.4, Magnesium Level 1.9, Total Bilirubin 0.4, Aspartate Amino Transf (AST/SGOT) 22, Alanine Aminotransferase (ALT/SGPT) 35, Alkaline Phosphatase 66, Troponin I 0.053, C-Reactive Protein, Quantitative 3.0H, Pro-B- Type Natriuretic Peptide 500H, Total Protein 8.0, Albumin 2.8L, Globulin 5.2, Albumin/Globulin Ratio 0.5L, Triglycerides Level 256H, Cholesterol Level 125, LDL Cholesterol 67, HDL Cholesterol 29L, Cholesterol/HDL Ratio 4.3, Amylase Level 74, Lipase 402H, Thyroid Stimulating Hormone (TSH) 0.800 Height (Feet): 5 Height (Inches): 9.00 Weight (Pounds): 200 General Appearance: no apparent distress, lethargic Cardiovascular: tachycardia Respiratory/Chest: decreased breath sounds Abdomen: distended Adan Guzman MD Jan 12, 2018 10:22
[2018-01-12 12:00] VITALS: BP 137/61
[2018-01-12 16:00] VITALS: BP 112/64
--- NOTE | 2018-01-12 17:44 | General Progress Note ---
Assessment/Plan Assessment/Plan Assessment (1) Enteritis (2) Ileus (3) Small bowel obstruction (4) Abdominal pain Plan continue clear liquid diet follow exam surgical fu d/c narcotics PRN serial monitoring repeat KUB fu labs Subjective Allergies: Coded Allergies: ATORVASTATIN (Unverified Allergy, Unknown, 01/10/18) ROSUVASTATIN (Unverified Allergy, Unknown, 01/10/18) SITAGLIPTIN (Unverified Allergy, Unknown, 01/10/18) Subjective above noted does not voice complaints on clears - tolerating abd visibly distended Objective Last 24 Hour Vital Signs Date Time Temp Pulse Resp B/P (MAP) Pulse Ox O2 Delivery O2 Flow Rate FiO2 01/12/18 16:48 97.9 01/12/18 16:00 98.1 73 18 112/64 (80) 93 01/12/18 12:00 97.9 95 16 137/61 (86) 95 01/12/18 09:00 Room Air 01/12/18 08:00 97.0 70 20 137/72 (93) 97 01/12/18 04:00 97.2 72 20 145/77 (99) 93 01/12/18 00:00 97.6 75 20 149/71 (97) 92 01/11/18 21:00 Room Air 01/11/18 20:00 97.3 81 20 139/74 (95) 93 Intake and Output 01/11/18 01/12/18 19:00 07:00 Intake Total 880 ml 1350 ml Output Total 700 ml 500 ml Balance 180 ml 850 ml Intake Oral 380 ml 250 ml IV Total 500 ml 1100 ml Output Urine Total 700 ml 500 ml # Bowel Movements 3 Laboratory Tests 01/12/18 05:10: White Blood Count 7.6, Red Blood Count 5.55, Hemoglobin 15.8, Hematocrit 48.8, Mean Corpuscular Volume 88, Mean Corpuscular Hemoglobin 28.5, Mean Corpuscular Hemoglobin Concent 32.4, Red Cell Distribution Width 12.9, Platelet Count 225, Mean Platelet Volume 6.9, Neutrophils (%) (Auto) 56.8, Lymphocytes (%) (Auto) 29.7, Monocytes (%) (Auto) 7.3, Eosinophils (%) (Auto) 5.1H, Basophils (%) (Auto ) 1.1, Erythrocyte Sedimentation Rate 26H, Activated Partial Thromboplast Time 30, Sodium Level 143, Potassium Level 3.2L, Chloride Level 105, Carbon Dioxide Level 29, Anion Gap 9, Blood Urea Nitrogen 49H, Creatinine 2.0H, Estimat Glomerular Filtration Rate , Glucose Level 186#H, Uric Acid 8.5H, Calcium Level 8.6, Phosphorus Level 3.4, Magnesium Level 1.9, Total Bilirubin 0.4, Aspartate Amino Transf (AST/SGOT) 22, Alanine Aminotransferase (ALT/SGPT) 35, Alkaline Phosphatase 66, Troponin I 0.053, C-Reactive Protein, Quantitative 3.0H, Pro-B- Type Natriuretic Peptide 500H, Total Protein 8.0, Albumin 2.8L, Globulin 5.2, Albumin/Globulin Ratio 0.5L, Triglycerides Level 256H, Cholesterol Level 125, LDL Cholesterol 67, HDL Cholesterol 29L, Cholesterol/HDL Ratio 4.3, Amylase Level 74, Lipase 402H, Thyroid Stimulating Hormone (TSH) 0.800 Height (Feet): 5 Height (Inches): 9.00 Weight (Pounds): 200 Objective WDWN NCAT supple CTA RRR abd distended, tympanitic no edema Chelsea Reed MD Jan 12, 2018 17:44
--- NOTE | 2018-01-12 18:55 | Pulmonology Progress Note ---
Assessment/Plan Assessment/Plan Pulmonary Follow Up HPI 77 year old male with hx of DM, CAD, CVA, intestinal perforation, Chronically debilitated, [facility] resident presented to ER with complaints of abdominal pain reports , decreased bowel movement Increased nausea but denies any vomiting. A CT of abdomen showed Mildly dilated fluid-filled mid to distal jejunal small bowel loops without definite transition point. Findings most likely represent ileus or enteritis changes. Possibility of a low-grade small bowel obstruction not completely excludable. Allergies: Coded Allergies: ATORVASTATIN (Unverified Allergy, Unknown, 01/10/18) ROSUVASTATIN (Unverified Allergy, Unknown, 01/10/18) SITAGLIPTIN (Unverified Allergy, Unknown, 01/10/18) Medication History Scheduled Allopurinol* (Allopurinol*), 200 MG ORAL DAILY, (Reported) Aspirin* (Aspir 81*), 81 MG ORAL DAILY, (Reported) Docusate Sodium* (Colace*), 200 MG ORAL DAILY, (Reported) Gabapentin (Neurontin), 300 MG ORAL THREE TIMES A DAY, (Reported) Insulin Glargine (Lantus), 50 SUBQ BID, (Reported) Insulin Lispro (Humalog), 35 SUBQ TID, (Reported) Latanoprost/Pf (Latanoprost 0.005% Eye Drop), 7.5 ML OP QHS, (Reported) Lidocaine (Lidocaine), 700 MG TP DAILY, (Reported) Polyethylene Glycol 3350* (Miralax*), 17 GM ORAL DAILY, (Reported) Pravastatin Sod (Pravastatin Sod), 40 MG ORAL BEDTIME, (Reported) Topiramate (Topiramate), 25 MG ORAL DAILY, (Reported) Miscellaneous Medications Bisacodyl (Correctol), 5 MG PO, (Reported) Patient History Healthcare decision maker Resuscitation status Full Code Advanced Directive on File No Past Medical/Surgical History Past Medical/Surgical History: (1) History of intestinal surgery (2) HTN (hypertension) (3) Major depression (4) CVA (cerebral vascular accident) (5) Diabetes mellitus (6) CKD (chronic kidney disease) (7) CAD (coronary artery disease) Review of Systems All Other Systems: negative except mentioned in HPI Physical Exam General Appearance: WD/WN Lines, tubes and drains: peripheral HEENT: normocephalic, atraumatic Neck: non-tender, normal alignment Respiratory/Chest: chest wall non-tender, lungs clear Breasts: no masses Cardiovascular/Chest: normal peripheral pulses Abdomen: bowel sounds noted, sofet, no rebound Genitourinary/Rectal: nd Extremities: normal range of motion Vital Signs Noted Laboratory Tests Test 01/10/18 23:00 01/10/18 23:06 01/11/18 06:30 01/11/18 10:20 Urine Color Yellow Urine Appearance Clear Urine pH 5 (4.5-8.0) Urine Specific [place] 1.025 (1.005-1.035) Urine Protein 4+ (NEGATIVE) H Urine Glucose (UA) 1+ (NEGATIVE) H Urine Ketones Negative (NEGATIVE) Urine Blood Negative (NEGATIVE) Urine Nitrite Negative (NEGATIVE) Urine Bilirubin Negative (NEGATIVE) Urine Urobilinogen Normal MG/DL (0.0-1.0) Urine Leukocyte Esterase Negative (NEGATIVE) Urine RBC 0 /HPF (0 - 0) Urine WBC 0-2 /HPF (0 - 0) Urine Squamous Epithelial Cells None /LPF (NONE/OCC) Urine Amorphous Sediment Many /LPF (NONE) H Urine Bacteria Many /HPF (NONE) H White Blood Count 11.2 K/UL (4.8-10.8) H Red Blood Count 5.91 M/UL (4.70-6.10) Hemoglobin 17.7 G/DL (14.2-18.0) Hematocrit 52.2 % (42.0-52.0) H Mean Corpuscular Volume 88 FL (80-99) Mean Corpuscular Hemoglobin 29.9 PG (27.0-31.0) Mean Corpuscular Hemoglobin Concent 33.9 G/DL (32.0-36.0) Red Cell Distribution Width 12.8 % (11.6-14.8) Platelet Count 267 K/UL (150-450) Mean Platelet Volume 7.4 FL (6.5-10.1) Neutrophils (%) (Auto) 77.1 % (45.0-75.0) H Lymphocytes (%) (Auto) 14.5 % (20.0-45.0) L Monocytes (%) (Auto) 5.3 % (1.0-10.0) Eosinophils (%) (Auto) 2.5 % (0.0-3.0) Basophils (%) (Auto) 0.6 % (0.0-2.0) Sodium Level 138 MMOL/L (136-145) Potassium Level 4.5 MMOL/L (3.5-5.1) Chloride Level 101 MMOL/L (98-107) Carbon Dioxide Level 23 MMOL/L (21-32) Anion Gap 14 mmol/L (5-15) Blood Urea Nitrogen 60 mg/dL (7-18) H Creatinine 2.3 MG/DL (0.55-1.30) H Estimat Glomerular Filtration Rate mL/min (>60) Glucose Level 308 MG/DL (74-106) H Calcium Level 9.1 MG/DL (8.5-10.1) Total Bilirubin 0.6 MG/DL (0.2-1.0) Aspartate Amino Transf (AST/SGOT) 36 U/L (15-37) Alanine Aminotransferase (ALT/SGPT) 31 U/L (12-78) Alkaline Phosphatase 80 U/L (46-116) Total Protein 8.9 G/DL (6.4-8.2) H Albumin 3.1 G/DL (3.4-5.0) L Globulin 5.8 g/dL Albumin/Globulin Ratio 0.5 (1.0-2.7) L Lipase 385 U/L (73-393) C-Reactive Protein, Quantitative 3.2 mg/dL (0.00-0.90) H Hemoglobin A1c 8.4 % (4.3-6.0) H Test 01/11/18 10:35 Urine Random Sodium < 20 mmol/L (20-110) L Microbiology Date/Time Source Procedure Growth Status 01/11/18 01:20 Rectum Received Height (Feet): 5 Height (Inches): 9.00 Weight (Pounds): 200 Medications Current Medications Medications (Trade) Dose Ordered Sig/Diana Route PRN Reason Start Time Stop Time Status Last Admin Dose Admin Acetaminophen (Tylenol) 650 mg Q4H PRN ORAL fever 01/11/18 06:30 02/10/18 06:29 Dextrose (Dextrose 50%) 25 ml Q30M PRN IV Hypoglycemia 01/11/18 06:30 02/10/18 06:29 Dextrose (Dextrose 50%) 50 ml Q30M PRN IV Hypoglycemia 01/11/18 06:30 02/10/18 06:29 Diphenhydramine HCl (Benadryl) 25 mg Q6H PRN ORAL Itching/Pruritis 01/11/18 06:30 02/10/18 06:29 Heparin Sodium (Porcine) (Heparin 5000 units/ml) 5,000 units EVERY 12 HOURS SUBQ 01/11/18 09:00 02/10/18 08:59 01/11/18 08:37 Insulin Aspart (NovoLOG) BEFORE MEALS AND HS SUBQ 01/11/18 07:30 02/10/18 07:29 01/11/18 08:38 Iopamidol (Isovue-300 100ml) 100 ml NOW PRN INJ Radiology Procedure 01/10/18 23:00 Lorazepam (Ativan 2mg/ml 1ml) 1 mg Q4H PRN IV agitation 01/11/18 06:30 01/18/18 06:29 Morphine Sulfate (Morphine Sulfate) 2 mg Q4H PRN IVP severe Pain (Pain Scale 7-10) 01/11/18 06:30 01/18/18 06:29 Nitroglycerin (Ntg) 0.4 mg Q5M X 3 DOSES PRN SL Prn Chest Pain 01/11/18 06:30 02/10/18 06:29 Ondansetron HCl (Zofran) 4 mg Q6H PRN IVP Nausea & Vomiting 01/11/18 06:30 02/10/18 06:29 Pantoprazole (Protonix) 40 mg DAILY IVP 01/11/18 09:32 02/10/18 09:31 01/11/18 10:31 Polyethylene Glycol (Miralax) 17 gm HSPRN PRN ORAL Constipation 01/11/18 06:30 02/10/18 06:29 Promethazine HCl (Phenergan) 25 mg Q6H PRN IM REFRACTORY NV 01/11/18 09:45 02/10/18 09:44 Sodium Chloride 1,000 ml @ 100 mls/hr Q10H IV 01/11/18 09:35 02/10/18 09:34 01/11/18 10:30 Temazepam (Restoril) 15 mg HSPRN PRN ORAL Insomnia 01/11/18 06:30 01/18/18 06:29 Assessment/Plan Problem List: (1) Enteritis ICD Codes: K52.9 - Noninfective gastroenteritis and colitis, unspecified SNOMED: 09529433 (2) Ileus ICD Codes: K56.7 - Ileus, unspecified SNOMED: 649695848 (3) Small bowel obstruction ICD Codes: K56.609 - Unspecified intestinal obstruction, unspecified as to partial versus complete obstruction SNOMED: 985676475 (4) CAD (coronary artery disease) ICD Codes: I25.10 - Atherosclerotic heart disease of [place] coronary artery without angina pectoris SNOMED: 26639916 (5) CKD (chronic kidney disease) ICD Codes: N18.9 - Chronic kidney disease, unspecified SNOMED: 229187996 (6) Diabetes mellitus ICD Codes: E11.9 - Type 2 diabetes mellitus without complications SNOMED: 14342118 (7) CVA (cerebral vascular accident) ICD Codes: I63.9 - Cerebral infarction, unspecified SNOMED: 721216423 (8) Major depression ICD Codes: F32.9 - Major depressive disorder, single episode, unspecified SNOMED: 220193393 (9) HTN (hypertension) ICD Codes: I10 - Essential (primary) hypertension SNOMED: 97709427 Assessment/Plan Per GI advance diet as tolerated iv fluids symptomatic treatment monitor electrolytes sliding scale monitor BP dvt prophylaxis Subjective ROS Limited/Unobtainable: No Allergies: Coded Allergies: ATORVASTATIN (Unverified Allergy, Unknown, 01/10/18) ROSUVASTATIN (Unverified Allergy, Unknown, 01/10/18) SITAGLIPTIN (Unverified Allergy, Unknown, 01/10/18) Objective Last 24 Hour Vital Signs Date Time Temp Pulse Resp B/P (MAP) Pulse Ox O2 Delivery O2 Flow Rate FiO2 01/12/18 16:48 97.9 01/12/18 16:00 98.1 73 18 112/64 (80) 93 01/12/18 12:00 97.9 95 16 137/61 (86) 95 01/12/18 09:00 Room Air 01/12/18 08:00 97.0 70 20 137/72 (93) 97 01/12/18 04:00 97.2 72 20 145/77 (99) 93 01/12/18 00:00 97.6 75 20 149/71 (97) 92 01/11/18 21:00 Room Air 01/11/18 20:00 97.3 81 20 139/74 (95) 93 Intake and Output 01/11/18 01/12/18 19:00 07:00 Intake Total 880 ml 1350 ml Output Total 700 ml 500 ml Balance 180 ml 850 ml Intake Oral 380 ml 250 ml IV Total 500 ml 1100 ml Output Urine Total 700 ml 500 ml # Bowel Movements 3 Microbiology Date/Time Source Procedure Growth Status 01/11/18 01:20 Nasal Nares MRSA Culture - Final Staphylococcus Aureus - Mrsa Complete 01/11/18 09:00 Stool Clostridium difficile Toxin Assay - Final Complete 01/10/18 23:00 Urine,Clean Catch Urine Culture - Preliminary Gram Negative Gordon Resulted 01/11/18 01:20 Rectum Received Laboratory Tests 01/12/18 05:10: White Blood Count 7.6, Red Blood Count 5.55, Hemoglobin 15.8, Hematocrit 48.8, Mean Corpuscular Volume 88, Mean Corpuscular Hemoglobin 28.5, Mean Corpuscular Hemoglobin Concent 32.4, Red Cell Distribution Width 12.9, Platelet Count 225, Mean Platelet Volume 6.9, Neutrophils (%) (Auto) 56.8, Lymphocytes (%) (Auto) 29.7, Monocytes (%) (Auto) 7.3, Eosinophils (%) (Auto) 5.1H, Basophils (%) (Auto ) 1.1, Erythrocyte Sedimentation Rate 26H, Activated Partial Thromboplast Time 30, Sodium Level 143, Potassium Level 3.2L, Chloride Level 105, Carbon Dioxide Level 29, Anion Gap 9, Blood Urea Nitrogen 49H, Creatinine 2.0H, Estimat Glomerular Filtration Rate , Glucose Level 186#H, Uric Acid 8.5H, Calcium Level 8.6, Phosphorus Level 3.4, Magnesium Level 1.9, Total Bilirubin 0.4, Aspartate Amino Transf (AST/SGOT) 22, Alanine Aminotransferase (ALT/SGPT) 35, Alkaline Phosphatase 66, Troponin I 0.053, C-Reactive Protein, Quantitative 3.0H, Pro-B- Type Natriuretic Peptide 500H, Total Protein 8.0, Albumin 2.8L, Globulin 5.2, Albumin/Globulin Ratio 0.5L, Triglycerides Level 256H, Cholesterol Level 125, LDL Cholesterol 67, HDL Cholesterol 29L, Cholesterol/HDL Ratio 4.3, Amylase Level 74, Lipase 402H, Thyroid Stimulating Hormone (TSH) 0.800 Current Medications Medications (Trade) Dose Ordered Sig/Diana Route PRN Reason Start Time Stop Time Status Last Admin Dose Admin Acetaminophen (Tylenol) 650 mg Q4H PRN ORAL fever 01/11/18 06:30 02/10/18 06:29 Allopurinol (Zyloprim) 200 mg DAILY ORAL 01/12/18 09:00 02/11/18 08:59 01/12/18 09:37 Dextrose (Dextrose 50%) 25 ml Q30M PRN IV Hypoglycemia 01/11/18 06:30 02/10/18 06:29 Dextrose (Dextrose 50%) 50 ml Q30M PRN IV Hypoglycemia 01/11/18 06:30 02/10/18 06:29 Diphenhydramine HCl (Benadryl) 25 mg Q6H PRN ORAL Itching/Pruritis 01/11/18 06:30 02/10/18 06:29 Gabapentin (Neurontin) 600 mg DAILY ORAL 01/11/18 13:00 02/10/18 12:59 01/12/18 09:37 Heparin Sodium (Porcine) (Heparin 5000 units/ml) 5,000 units EVERY 12 HOURS SUBQ 01/11/18 09:00 02/10/18 08:59 01/12/18 09:46 Insulin Aspart (NovoLOG) BEFORE MEALS AND HS SUBQ 01/11/18 07:30 02/10/18 07:29 01/12/18 16:23 Iopamidol (Isovue-300 100ml) 100 ml NOW PRN INJ Radiology Procedure 01/10/18 23:00 Lorazepam (Ativan 2mg/ml 1ml) 1 mg Q4H PRN IV agitation 01/11/18 06:30 01/18/18 06:29 Mirtazapine (Remeron) 7.5 mg BEDTIME PRN ORAL insomnia 01/11/18 21:45 02/10/18 21:44 Nitroglycerin (Ntg) 0.4 mg Q5M X 3 DOSES PRN SL Prn Chest Pain 01/11/18 06:30 02/10/18 06:29 Ondansetron HCl (Zofran) 4 mg Q6H PRN IVP Nausea & Vomiting 01/11/18 06:30 02/10/18 06:29 Pantoprazole (Protonix) 40 mg DAILY IVP 01/11/18 09:32 02/10/18 09:31 01/12/18 09:36 Polyethylene Glycol (Miralax) 17 gm HSPRN PRN ORAL Constipation 01/11/18 06:30 02/10/18 06:29 Promethazine HCl (Phenergan) 25 mg Q6H PRN IM REFRACTORY NV 01/11/18 09:45 02/10/18 09:44 Sodium Chloride 1,000 ml @ 100 mls/hr Q10H IV 01/11/18 09:35 02/10/18 09:34 01/12/18 15:58 Ottoniel Jiang MD Jan 12, 2018 18:55
[2018-01-12 20:00] VITALS: BP 131/68
--- NOTE | 2018-01-12 22:40 | General Progress Note ---
Assessment/Plan Problem List: (1) Major depression ICD Codes: F32.9 - Major depressive disorder, single episode, unspecified SNOMED: 906391902 Status: stable Assessment/Plan lexapro 10mg qam remeron prn Subjective Neurologic/Psychiatric: Reports: anxiety, depressed Allergies: Coded Allergies: ATORVASTATIN (Unverified Allergy, Unknown, 01/10/18) ROSUVASTATIN (Unverified Allergy, Unknown, 01/10/18) SITAGLIPTIN (Unverified Allergy, Unknown, 01/10/18) Objective Last 24 Hour Vital Signs Date Time Temp Pulse Resp B/P (MAP) Pulse Ox O2 Delivery O2 Flow Rate FiO2 01/12/18 20:00 99.0 64 20 131/68 (89) 95 01/12/18 16:48 97.9 01/12/18 16:00 98.1 73 18 112/64 (80) 93 01/12/18 12:00 97.9 95 16 137/61 (86) 95 01/12/18 09:00 Room Air 01/12/18 08:00 97.0 70 20 137/72 (93) 97 01/12/18 04:00 97.2 72 20 145/77 (99) 93 01/12/18 00:00 97.6 75 20 149/71 (97) 92 Intake and Output 01/11/18 01/12/18 19:00 07:00 Intake Total 880 ml 1350 ml Output Total 700 ml 500 ml Balance 180 ml 850 ml Intake Oral 380 ml 250 ml IV Total 500 ml 1100 ml Output Urine Total 700 ml 500 ml # Bowel Movements 3 Laboratory Tests 01/12/18 05:10: White Blood Count 7.6, Red Blood Count 5.55, Hemoglobin 15.8, Hematocrit 48.8, Mean Corpuscular Volume 88, Mean Corpuscular Hemoglobin 28.5, Mean Corpuscular Hemoglobin Concent 32.4, Red Cell Distribution Width 12.9, Platelet Count 225, Mean Platelet Volume 6.9, Neutrophils (%) (Auto) 56.8, Lymphocytes (%) (Auto) 29.7, Monocytes (%) (Auto) 7.3, Eosinophils (%) (Auto) 5.1H, Basophils (%) (Auto ) 1.1, Erythrocyte Sedimentation Rate 26H, Activated Partial Thromboplast Time 30, Sodium Level 143, Potassium Level 3.2L, Chloride Level 105, Carbon Dioxide Level 29, Anion Gap 9, Blood Urea Nitrogen 49H, Creatinine 2.0H, Estimat Glomerular Filtration Rate , Glucose Level 186#H, Uric Acid 8.5H, Calcium Level 8.6, Phosphorus Level 3.4, Magnesium Level 1.9, Total Bilirubin 0.4, Aspartate Amino Transf (AST/SGOT) 22, Alanine Aminotransferase (ALT/SGPT) 35, Alkaline Phosphatase 66, Troponin I 0.053, C-Reactive Protein, Quantitative 3.0H, Pro-B- Type Natriuretic Peptide 500H, Total Protein 8.0, Albumin 2.8L, Globulin 5.2, Albumin/Globulin Ratio 0.5L, Triglycerides Level 256H, Cholesterol Level 125, LDL Cholesterol 67, HDL Cholesterol 29L, Cholesterol/HDL Ratio 4.3, Amylase Level 74, Lipase 402H, Thyroid Stimulating Hormone (TSH) 0.800 Height (Feet): 5 Height (Inches): 9.00 Weight (Pounds): 200 General Appearance: no apparent distress, alert Neurologic: responsive, depressed affect Manny Kim MD Jan 12, 2018 22:40
[2018-01-13] VITALS: BP 144/76
[2018-01-13 04:00] VITALS: BP 152/77
[2018-01-13] MEDS: NovoLOG Insulin Flexpen SUBQ SCH ×4 (06:08→21:28)
[2018-01-13 08:00] VITALS: BP 158/76
[2018-01-13] MEDS ORDERED: 1/2 NS 1000ml IV ONE (08:16)
[2018-01-13] MEDS: Pantoprazole Inj IVP SCH (09:03)
[2018-01-13] MEDS: Allopurinol 100mg Tab ORAL SCH (09:03)
[2018-01-13] MEDS: Heparin 5000 units/ml inj SUBQ SCH ×2 (09:09→21:29)
--- NOTE | 2018-01-13 10:20 | Diagnostic Imaging Report ---
INDICATION: Abdominal distention COMPARISON: X-ray dated 01/11/18 FINDINGS: Two views of the abdomen demonstrates prominent segments of small bowel throughout, correlation can be obtained with CT. Postoperative changes are noted within the pelvis. Contrast is seen within the rectum. Atherosclerotic vascular disease. No evidence of organomegaly, abnormal calcifications or obvious soft tissue masses. The osseous structures are intact. IMPRESSION: Prominent segments of small bowel throughout, correlation can be obtained with CT. Postoperative changes within the pelvis. Contrast is seen within the rectum.
[2018-01-13 11:20] LABS: ANION GAP 11 mmol/L (5-15); BLOOD UREA NITROGEN 25 mg/dL (7-18); CALCIUM 8.2 MG/DL (8.5-10.1); CARBON DIOXIDE 23 MMOL/L (21-32); CHLORIDE 107 MMOL/L (98-107); CREATININE 1.3 MG/DL (0.55-1.30); POTASSIUM 3.6 MMOL/L (3.5-5.1); SODIUM 141 MMOL/L (136-145)
[2018-01-13 11:24] LABS: ALANINE AMINOTRANSFERASE 27 U/L (12-78); ALBUMIN 2.5 G/DL (3.4-5.0); ALBUMIN/GLOBULIN RATIO 0.5 (1.0-2.7); ALKALINE PHOSPHATASE 64 U/L (46-116); ASPARTATE AMINO TRANSFERASE 20 U/L (15-37); BILIRUBIN,TOTAL 0.5 MG/DL (0.2-1.0); PHOSPHORUS 2.1 MG/DL (2.5-4.9)
[2018-01-13 12:00] VITALS: BP 168/78
--- NOTE | 2018-01-13 13:08 | Nephrology Progress Note ---
Assessment/Plan Problem List: (1) CKD (chronic kidney disease) (2) Ileus (3) Diabetes mellitus Assessment: & proteinuria (4) CAD (coronary artery disease) Assessment Abdominal pain / Ileus Renal failure ( Acute on Chronic) DM / Proteinuria CAD s/p CABGS Plan alicia 1/2 NS Glucose check IV protonox monitor renal parameters urine studies TSH level Per GI discussed with RN Subjective ROS Limited/Unobtainable: No Constitutional: Reports: malaise Objective Objective Last 24 Hour Vital Signs Date Time Temp Pulse Resp B/P (MAP) Pulse Ox O2 Delivery O2 Flow Rate FiO2 01/13/18 09:00 Room Air 01/13/18 08:00 97.4 51 21 158/76 (103) 96 01/13/18 04:00 97.4 77 20 152/77 (102) 93 01/13/18 00:00 99.0 66 18 144/76 (98) 95 01/12/18 21:00 Room Air 01/12/18 20:00 99.0 64 20 131/68 (89) 95 01/12/18 16:48 97.9 01/12/18 16:00 98.1 73 18 112/64 (80) 93 Intake and Output 01/12/18 01/13/18 19:00 07:00 Intake Total 2080 ml 1100 ml Output Total 700 ml 1650 ml Balance 1380 ml -550 ml Intake Oral 680 ml IV Total 1400 ml 1100 ml Output Urine Total 700 ml 1650 ml # Voids 1 # Bowel Movements 1 Laboratory Tests 01/13/18 10:50: Sodium Level 141, Potassium Level 3.6, Chloride Level 107, Carbon Dioxide Level 23, Anion Gap 11, Blood Urea Nitrogen 25H, Creatinine 1.3, Estimat Glomerular Filtration Rate , Glucose Level 174H, Calcium Level 8.2L, Phosphorus Level 2.1L , Magnesium Level 1.7L, Total Bilirubin 0.5, Aspartate Amino Transf (AST/SGOT) 20, Alanine Aminotransferase (ALT/SGPT) 27, Alkaline Phosphatase 64, Total Protein 7.2, Albumin 2.5L, Globulin 4.7, Albumin/Globulin Ratio 0.5L Height (Feet): 5 Height (Inches): 9.00 Weight (Pounds): 200 Cardiovascular: normal rate Respiratory/Chest: decreased breath sounds Abdomen: distended Objective no change Adan Guzman MD Jan 13, 2018 13:08
[2018-01-13 16:00] VITALS: BP 138/77
[2018-01-13] MEDS ORDERED: Potassium Phosphate 20 MM in NS 275 ML IV ONE (16:00)
--- NOTE | 2018-01-13 18:13 | Pulmonology Progress Note ---
Assessment/Plan Assessment/Plan Pulmonary Follow Up HPI 77 year old male with hx of DM, CAD, CVA, intestinal perforation, Chronically debilitated, halfway resident presented to ER with complaints of abdominal pain reports , decreased bowel movement Increased nausea but denies any vomiting. A CT of abdomen showed Mildly dilated fluid-filled mid to distal jejunal small bowel loops without definite transition point. Findings most likely represent ileus or enteritis changes. Possibility of a low-grade small bowel obstruction not completely excludable. On IV fluids per Renal No new issues Allergies: Coded Allergies: ATORVASTATIN (Unverified Allergy, Unknown, 01/10/18) ROSUVASTATIN (Unverified Allergy, Unknown, 01/10/18) SITAGLIPTIN (Unverified Allergy, Unknown, 01/10/18) Medication History Scheduled Allopurinol* (Allopurinol*), 200 MG ORAL DAILY, (Reported) Aspirin* (Aspir 81*), 81 MG ORAL DAILY, (Reported) Docusate Sodium* (Colace*), 200 MG ORAL DAILY, (Reported) Gabapentin (Neurontin), 300 MG ORAL THREE TIMES A DAY, (Reported) Insulin Glargine (Lantus), 50 SUBQ BID, (Reported) Insulin Lispro (Humalog), 35 SUBQ TID, (Reported) Latanoprost/Pf (Latanoprost 0.005% Eye Drop), 7.5 ML OP QHS, (Reported) Lidocaine (Lidocaine), 700 MG TP DAILY, (Reported) Polyethylene Glycol 3350* (Miralax*), 17 GM ORAL DAILY, (Reported) Pravastatin Sod (Pravastatin Sod), 40 MG ORAL BEDTIME, (Reported) Topiramate (Topiramate), 25 MG ORAL DAILY, (Reported) Miscellaneous Medications Bisacodyl (Correctol), 5 MG PO, (Reported) Patient History Healthcare decision maker Resuscitation status Full Code Advanced Directive on File No Past Medical/Surgical History Past Medical/Surgical History: (1) History of intestinal surgery (2) HTN (hypertension) (3) Major depression (4) CVA (cerebral vascular accident) (5) Diabetes mellitus (6) CKD (chronic kidney disease) (7) CAD (coronary artery disease) Review of Systems All Other Systems: negative except mentioned in HPI Physical Exam General Appearance: WD/WN Lines, tubes and drains: peripheral HEENT: normocephalic, atraumatic Neck: non-tender, normal alignment Respiratory/Chest: chest wall non-tender, lungs clear Breasts: no masses Cardiovascular/Chest: normal peripheral pulses Abdomen: bowel sounds noted, sofet, no rebound Genitourinary/Rectal: nd Extremities: normal range of motion Vital Signs Noted Laboratory Tests KUB INDICATION: Abdominal distention COMPARISON: X-ray dated 01/11/18 FINDINGS: Two views of the abdomen demonstrates prominent segments of small bowel throughout, correlation can be obtained with CT. Postoperative changes are noted within the pelvis. Contrast is seen within the rectum. Atherosclerotic vascular disease. No evidence of organomegaly, abnormal calcifications or obvious soft tissue masses. The osseous structures are intact. IMPRESSION: Prominent segments of small bowel throughout, correlation can be obtained with CT. Postoperative changes within the pelvis. Contrast is seen within the rectum. Test 01/10/18 23:00 01/10/18 23:06 01/11/18 06:30 01/11/18 10:20 Urine Color Yellow Urine Appearance Clear Urine pH 5 (4.5-8.0) Urine Specific [place] 1.025 (1.005-1.035) Urine Protein 4+ (NEGATIVE) H Urine Glucose (UA) 1+ (NEGATIVE) H Urine Ketones Negative (NEGATIVE) Urine Blood Negative (NEGATIVE) Urine Nitrite Negative (NEGATIVE) Urine Bilirubin Negative (NEGATIVE) Urine Urobilinogen Normal MG/DL (0.0-1.0) Urine Leukocyte Esterase Negative (NEGATIVE) Urine RBC 0 /HPF (0 - 0) Urine WBC 0-2 /HPF (0 - 0) Urine Squamous Epithelial Cells None /LPF (NONE/OCC) Urine Amorphous Sediment Many /LPF (NONE) H Urine Bacteria Many /HPF (NONE) H White Blood Count 11.2 K/UL (4.8-10.8) H Red Blood Count 5.91 M/UL (4.70-6.10) Hemoglobin 17.7 G/DL (14.2-18.0) Hematocrit 52.2 % (42.0-52.0) H Mean Corpuscular Volume 88 FL (80-99) Mean Corpuscular Hemoglobin 29.9 PG (27.0-31.0) Mean Corpuscular Hemoglobin Concent 33.9 G/DL (32.0-36.0) Red Cell Distribution Width 12.8 % (11.6-14.8) Platelet Count 267 K/UL (150-450) Mean Platelet Volume 7.4 FL (6.5-10.1) Neutrophils (%) (Auto) 77.1 % (45.0-75.0) H Lymphocytes (%) (Auto) 14.5 % (20.0-45.0) L Monocytes (%) (Auto) 5.3 % (1.0-10.0) Eosinophils (%) (Auto) 2.5 % (0.0-3.0) Basophils (%) (Auto) 0.6 % (0.0-2.0) Sodium Level 138 MMOL/L (136-145) Potassium Level 4.5 MMOL/L (3.5-5.1) Chloride Level 101 MMOL/L (98-107) Carbon Dioxide Level 23 MMOL/L (21-32) Anion Gap 14 mmol/L (5-15) Blood Urea Nitrogen 60 mg/dL (7-18) H Creatinine 2.3 MG/DL (0.55-1.30) H Estimat Glomerular Filtration Rate mL/min (>60) Glucose Level 308 MG/DL (74-106) H Calcium Level 9.1 MG/DL (8.5-10.1) Total Bilirubin 0.6 MG/DL (0.2-1.0) Aspartate Amino Transf (AST/SGOT) 36 U/L (15-37) Alanine Aminotransferase (ALT/SGPT) 31 U/L (12-78) Alkaline Phosphatase 80 U/L (46-116) Total Protein 8.9 G/DL (6.4-8.2) H Albumin 3.1 G/DL (3.4-5.0) L Globulin 5.8 g/dL Albumin/Globulin Ratio 0.5 (1.0-2.7) L Lipase 385 U/L (73-393) C-Reactive Protein, Quantitative 3.2 mg/dL (0.00-0.90) H Hemoglobin A1c 8.4 % (4.3-6.0) H Test 01/11/18 10:35 Urine Random Sodium < 20 mmol/L (20-110) L Microbiology Date/Time Source Procedure Growth Status 01/11/18 01:20 Rectum Received Height (Feet): 5 Height (Inches): 9.00 Weight (Pounds): 200 Medications Medications Medications (Trade) Dose Ordered Sig/Diana Route PRN Reason Start Time Stop Time Status Last Admin Dose Admin Acetaminophen (Tylenol) 650 mg Q4H PRN ORAL fever 01/11/18 06:30 02/10/18 06:29 Dextrose (Dextrose 50%) 25 ml Q30M PRN IV Hypoglycemia 01/11/18 06:30 02/10/18 06:29 Dextrose (Dextrose 50%) 50 ml Q30M PRN IV Hypoglycemia 01/11/18 06:30 02/10/18 06:29 Diphenhydramine HCl (Benadryl) 25 mg Q6H PRN ORAL Itching/Pruritis 01/11/18 06:30 02/10/18 06:29 Heparin Sodium (Porcine) (Heparin 5000 units/ml) 5,000 units EVERY 12 HOURS SUBQ 01/11/18 09:00 02/10/18 08:59 01/11/18 08:37 Insulin Aspart (NovoLOG) BEFORE MEALS AND HS SUBQ 01/11/18 07:30 02/10/18 07:29 01/11/18 08:38 Iopamidol (Isovue-300 100ml) 100 ml NOW PRN INJ Radiology Procedure 01/10/18 23:00 Lorazepam (Ativan 2mg/ml 1ml) 1 mg Q4H PRN IV agitation 01/11/18 06:30 01/18/18 06:29 Morphine Sulfate (Morphine Sulfate) 2 mg Q4H PRN IVP severe Pain (Pain Scale 7-10) 01/11/18 06:30 01/18/18 06:29 Nitroglycerin (Ntg) 0.4 mg Q5M X 3 DOSES PRN SL Prn Chest Pain 01/11/18 06:30 02/10/18 06:29 Ondansetron HCl (Zofran) 4 mg Q6H PRN IVP Nausea & Vomiting 01/11/18 06:30 02/10/18 06:29 Pantoprazole (Protonix) 40 mg DAILY IVP 01/11/18 09:32 02/10/18 09:31 01/11/18 10:31 Polyethylene Glycol (Miralax) 17 gm HSPRN PRN ORAL Constipation 01/11/18 06:30 02/10/18 06:29 Promethazine HCl (Phenergan) 25 mg Q6H PRN IM REFRACTORY NV 01/11/18 09:45 02/10/18 09:44 Sodium Chloride 1,000 ml @ 100 mls/hr Q10H IV 01/11/18 09:35 02/10/18 09:34 01/11/18 10:30 Temazepam (Restoril) 15 mg HSPRN PRN ORAL Insomnia 01/11/18 06:30 01/18/18 06:29 Assessment/Plan Problem List: (1) Enteritis ICD Codes: K52.9 - Noninfective gastroenteritis and colitis, unspecified SNOMED: 86658158 (2) Ileus ICD Codes: K56.7 - Ileus, unspecified SNOMED: 241939263 (3) Small bowel obstruction ICD Codes: K56.609 - Unspecified intestinal obstruction, unspecified as to partial versus complete obstruction SNOMED: 453452291 (4) CAD (coronary artery disease) ICD Codes: I25.10 - Atherosclerotic heart disease of [place] coronary artery without angina pectoris SNOMED: 74053286 (5) CKD (chronic kidney disease) ICD Codes: N18.9 - Chronic kidney disease, unspecified SNOMED: 259295444 (6) Diabetes mellitus ICD Codes: E11.9 - Type 2 diabetes mellitus without complications SNOMED: 28301006 (7) CVA (cerebral vascular accident) ICD Codes: I63.9 - Cerebral infarction, unspecified SNOMED: 497799878 (8) Major depression ICD Codes: F32.9 - Major depressive disorder, single episode, unspecified SNOMED: 119123146 (9) HTN (hypertension) ICD Codes: I10 - Essential (primary) hypertension SNOMED: 11032630 Assessment/Plan Per GI advance diet as tolerated iv fluids symptomatic treatment monitor electrolytes sliding scale monitor BP dvt prophylaxis Subjective ROS Limited/Unobtainable: No Allergies: Coded Allergies: ATORVASTATIN (Unverified Allergy, Unknown, 01/10/18) ROSUVASTATIN (Unverified Allergy, Unknown, 01/10/18) SITAGLIPTIN (Unverified Allergy, Unknown, 01/10/18) Objective Last 24 Hour Vital Signs Date Time Temp Pulse Resp B/P (MAP) Pulse Ox O2 Delivery O2 Flow Rate FiO2 01/13/18 16:00 97.3 61 20 138/77 (97) 93 01/13/18 12:00 97.4 60 22 168/78 (108) 95 01/13/18 09:00 Room Air 01/13/18 08:00 97.4 51 21 158/76 (103) 96 01/13/18 04:00 97.4 77 20 152/77 (102) 93 01/13/18 00:00 99.0 66 18 144/76 (98) 95 01/12/18 21:00 Room Air 01/12/18 20:00 99.0 64 20 131/68 (89) 95 Intake and Output 01/12/18 01/13/18 19:00 07:00 Intake Total 2080 ml 1100 ml Output Total 700 ml 1650 ml Balance 1380 ml -550 ml Intake Oral 680 ml IV Total 1400 ml 1100 ml Output Urine Total 700 ml 1650 ml # Voids 1 # Bowel Movements 1 Microbiology Date/Time Source Procedure Growth Status 01/11/18 01:20 Nasal Nares MRSA Culture - Final Staphylococcus Aureus - Mrsa Complete 01/11/18 09:00 Stool Clostridium difficile Toxin Assay - Final Complete 01/10/18 23:00 Urine,Clean Catch Urine Culture - Final Gram Negative Gordon Complete 01/11/18 01:20 Rectum - Final NO CARBAPENEM-RESISTANT ENTEROBACTERI... Complete 01/11/18 01:20 Rectum VRE Culture - Final Enterococcus Faecalis - Vre Complete Laboratory Tests 01/13/18 10:50: Sodium Level 141, Potassium Level 3.6, Chloride Level 107, Carbon Dioxide Level 23, Anion Gap 11, Blood Urea Nitrogen 25H, Creatinine 1.3, Estimat Glomerular Filtration Rate , Glucose Level 174H, Calcium Level 8.2L, Phosphorus Level 2.1L , Magnesium Level 1.7L, Total Bilirubin 0.5, Aspartate Amino Transf (AST/SGOT) 20, Alanine Aminotransferase (ALT/SGPT) 27, Alkaline Phosphatase 64, Total Protein 7.2, Albumin 2.5L, Globulin 4.7, Albumin/Globulin Ratio 0.5L Current Medications Medications (Trade) Dose Ordered Sig/Diana Route PRN Reason Start Time Stop Time Status Last Admin Dose Admin Acetaminophen (Tylenol) 650 mg Q4H PRN ORAL fever 01/11/18 06:30 02/10/18 06:29 Allopurinol (Zyloprim) 200 mg DAILY ORAL 01/12/18 09:00 02/11/18 08:59 01/13/18 09:03 Dextrose (Dextrose 50%) 25 ml Q30M PRN IV Hypoglycemia 01/11/18 06:30 02/10/18 06:29 Dextrose (Dextrose 50%) 50 ml Q30M PRN IV Hypoglycemia 01/11/18 06:30 02/10/18 06:29 Diphenhydramine HCl (Benadryl) 25 mg Q6H PRN ORAL Itching/Pruritis 01/11/18 06:30 02/10/18 06:29 Gabapentin (Neurontin) 200 mg TID ORAL 01/14/18 09:00 02/10/18 12:59 Heparin Sodium (Porcine) (Heparin 5000 units/ml) 5,000 units EVERY 12 HOURS SUBQ 01/11/18 09:00 02/10/18 08:59 01/13/18 09:09 Insulin Aspart (NovoLOG) BEFORE MEALS AND HS SUBQ 01/11/18 07:30 02/10/18 07:29 01/13/18 16:28 Iopamidol (Isovue-300 100ml) 100 ml NOW PRN INJ Radiology Procedure 01/10/18 23:00 Lorazepam (Ativan 2mg/ml 1ml) 1 mg Q4H PRN IV agitation 01/11/18 06:30 01/18/18 06:29 Mirtazapine (Remeron) 7.5 mg BEDTIME PRN ORAL insomnia 01/11/18 21:45 02/10/18 21:44 01/13/18 02:20 Morphine Sulfate (Morphine Sulfate) 2 mg Q4H PRN IVP Severe Pain (Pain Scale 7-10) 01/13/18 14:30 01/20/18 14:29 Nitroglycerin (Ntg) 0.4 mg Q5M X 3 DOSES PRN SL Prn Chest Pain 01/11/18 06:30 02/10/18 06:29 Ondansetron HCl (Zofran) 4 mg Q6H PRN IVP Nausea & Vomiting 01/11/18 06:30 02/10/18 06:29 Pantoprazole (Protonix) 40 mg DAILY ORAL 01/14/18 09:00 02/13/18 08:59 Polyethylene Glycol (Miralax) 17 gm HSPRN PRN ORAL Constipation 01/11/18 06:30 02/10/18 06:29 Potassium Phosphate 20 mm/ Sodium Chloride 281.6667 ml @ 46.944 m... ONCE ONCE IV 01/13/18 16:00 01/13/18 21:59 01/13/18 16:27 Promethazine HCl (Phenergan) 25 mg Q6H PRN IM REFRACTORY NV 01/11/18 09:45 02/10/18 09:44 Sodium Chloride 1,000 ml @ 50 mls/hr Q20H IV 01/13/18 13:15 02/12/18 13:14 01/13/18 13:59 Ottoniel Jiang MD Jan 13, 2018 18:13
[2018-01-13 20:00] VITALS: BP 147/77
[2018-01-13] MEDS: Morphine Sulfate 2mg/ml Inj IVP PRN (21:31)
--- NOTE | 2018-01-13 21:33 | General Progress Note ---
Assessment/Plan Assessment/Plan Assessment (1) Enteritis (2) Ileus (3) Small bowel obstruction - resolved (4) Abdominal pain Plan advance diet follow exam serial monitoring fu labs Subjective Allergies: Coded Allergies: ATORVASTATIN (Unverified Allergy, Unknown, 01/10/18) ROSUVASTATIN (Unverified Allergy, Unknown, 01/10/18) SITAGLIPTIN (Unverified Allergy, Unknown, 01/10/18) Subjective above noted does not voice complaints hundry wants more food (+) BM on clears - tolerating abdomen less distended Objective Last 24 Hour Vital Signs Date Time Temp Pulse Resp B/P (MAP) Pulse Ox O2 Delivery O2 Flow Rate FiO2 01/13/18 16:00 97.3 61 20 138/77 (97) 93 01/13/18 12:00 97.4 60 22 168/78 (108) 95 01/13/18 09:00 Room Air 01/13/18 08:00 97.4 51 21 158/76 (103) 96 01/13/18 04:00 97.4 77 20 152/77 (102) 93 01/13/18 00:00 99.0 66 18 144/76 (98) 95 Intake and Output 01/12/18 01/13/18 19:00 07:00 Intake Total 2080 ml 1100 ml Output Total 700 ml 1650 ml Balance 1380 ml -550 ml Intake Oral 680 ml IV Total 1400 ml 1100 ml Output Urine Total 700 ml 1650 ml # Voids 1 # Bowel Movements 1 Laboratory Tests 01/13/18 10:50: Sodium Level 141, Potassium Level 3.6, Chloride Level 107, Carbon Dioxide Level 23, Anion Gap 11, Blood Urea Nitrogen 25H, Creatinine 1.3, Estimat Glomerular Filtration Rate , Glucose Level 174H, Calcium Level 8.2L, Phosphorus Level 2.1L , Magnesium Level 1.7L, Total Bilirubin 0.5, Aspartate Amino Transf (AST/SGOT) 20, Alanine Aminotransferase (ALT/SGPT) 27, Alkaline Phosphatase 64, Total Protein 7.2, Albumin 2.5L, Globulin 4.7, Albumin/Globulin Ratio 0.5L Height (Feet): 5 Height (Inches): 9.00 Weight (Pounds): 200 Objective WDWN NCAT supple CTA RRR abd distended, tympanitic no edema Chelsea Reed MD Jan 13, 2018 21:33
--- NOTE | 2018-01-13 23:56 | General Progress Note ---
Assessment/Plan Problem List: (1) Major depression ICD Codes: F32.9 - Major depressive disorder, single episode, unspecified SNOMED: 579123732 Assessment/Plan lexapro 10mg qam remeron prn Subjective Neurologic/Psychiatric: Reports: anxiety, depressed Allergies: Coded Allergies: ATORVASTATIN (Unverified Allergy, Unknown, 01/10/18) ROSUVASTATIN (Unverified Allergy, Unknown, 01/10/18) SITAGLIPTIN (Unverified Allergy, Unknown, 01/10/18) Objective Last 24 Hour Vital Signs Date Time Temp Pulse Resp B/P (MAP) Pulse Ox O2 Delivery O2 Flow Rate FiO2 01/13/18 16:00 97.3 61 20 138/77 (97) 93 01/13/18 12:00 97.4 60 22 168/78 (108) 95 01/13/18 09:00 Room Air 01/13/18 08:00 97.4 51 21 158/76 (103) 96 01/13/18 04:00 97.4 77 20 152/77 (102) 93 01/13/18 00:00 99.0 66 18 144/76 (98) 95 Intake and Output 01/12/18 01/13/18 19:00 07:00 Intake Total 2080 ml 1100 ml Output Total 700 ml 1650 ml Balance 1380 ml -550 ml Intake Oral 680 ml IV Total 1400 ml 1100 ml Output Urine Total 700 ml 1650 ml # Voids 1 # Bowel Movements 1 Laboratory Tests 01/13/18 10:50: Sodium Level 141, Potassium Level 3.6, Chloride Level 107, Carbon Dioxide Level 23, Anion Gap 11, Blood Urea Nitrogen 25H, Creatinine 1.3, Estimat Glomerular Filtration Rate , Glucose Level 174H, Calcium Level 8.2L, Phosphorus Level 2.1L , Magnesium Level 1.7L, Total Bilirubin 0.5, Aspartate Amino Transf (AST/SGOT) 20, Alanine Aminotransferase (ALT/SGPT) 27, Alkaline Phosphatase 64, Total Protein 7.2, Albumin 2.5L, Globulin 4.7, Albumin/Globulin Ratio 0.5L Height (Feet): 5 Height (Inches): 9.00 Weight (Pounds): 200 General Appearance: alert, confused, agitated Manny Kim MD Jan 13, 2018 23:56
[2018-01-14] VITALS (7 sets, daily range): BP systolic 140–161; BP diastolic 69–92
[2018-01-14] MEDS: NovoLOG Insulin Flexpen SUBQ SCH ×4 (06:12→20:12)
[2018-01-14] MEDS: Allopurinol 100mg Tab ORAL SCH (08:48)
[2018-01-14] MEDS: Heparin 5000 units/ml inj SUBQ SCH ×2 (08:48→20:11)
--- NOTE | 2018-01-14 10:34 | Pulmonology Progress Note ---
Assessment/Plan Problems: (1) Enteritis (2) Ileus (3) Small bowel obstruction (4) CAD (coronary artery disease) (5) CKD (chronic kidney disease) (6) Diabetes mellitus (7) CVA (cerebral vascular accident) (8) Major depression (9) HTN (hypertension) Assessment/Plan improving check electrolytes sliding scale symptomatic treatment psych to see GI f/u Subjective ROS Limited/Unobtainable: No Constitutional: Reports: no symptoms HEENT: Repors: no symptoms Respiratory: Reports: no symptoms Allergies: Coded Allergies: ATORVASTATIN (Unverified Allergy, Unknown, 01/10/18) ROSUVASTATIN (Unverified Allergy, Unknown, 01/10/18) SITAGLIPTIN (Unverified Allergy, Unknown, 01/10/18) Objective Last 24 Hour Vital Signs Date Time Temp Pulse Resp B/P (MAP) Pulse Ox O2 Delivery O2 Flow Rate FiO2 01/14/18 08:10 Room Air 01/14/18 08:00 98.1 71 20 144/83 (103) 95 01/14/18 04:00 98.0 68 19 140/80 (100) 96 01/14/18 00:00 98.1 65 17 147/92 (110) 95 01/13/18 21:00 Room Air 01/13/18 20:00 98.1 57 18 147/77 (100) 94 01/13/18 16:00 97.3 61 20 138/77 (97) 93 01/13/18 12:00 97.4 60 22 168/78 (108) 95 Intake and Output 01/13/18 01/14/18 19:00 07:00 Intake Total 200 ml 450 ml Output Total 800 ml 1000 ml Balance -600 ml -550 ml Intake Oral 400 ml IV Total 200 ml 50 ml Output Urine Total 800 ml 1000 ml # Bowel Movements 1 General Appearance: WD/WN HEENT: normocephalic, atraumatic Respiratory/Chest: chest wall non-tender, lungs clear Cardiovascular: normal peripheral pulses, normal rate Abdomen: normal bowel sounds, soft, non tender Skin: no rash 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, 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 gait Laboratory Tests 01/13/18 10:50: Sodium Level 141, Potassium Level 3.6, Chloride Level 107, Carbon Dioxide Level 23, Anion Gap 11, Blood Urea Nitrogen 25H, Creatinine 1.3, Estimat Glomerular Filtration Rate , Glucose Level 174H, Calcium Level 8.2L, Phosphorus Level 2.1L , Magnesium Level 1.7L, Total Bilirubin 0.5, Aspartate Amino Transf (AST/SGOT) 20, Alanine Aminotransferase (ALT/SGPT) 27, Alkaline Phosphatase 64, Total Protein 7.2, Albumin 2.5L, Globulin 4.7, Albumin/Globulin Ratio 0.5L Current Medications Medications (Trade) Dose Ordered Sig/Diana Route PRN Reason Start Time Stop Time Status Last Admin Dose Admin Acetaminophen (Tylenol) 650 mg Q4H PRN ORAL fever 01/11/18 06:30 02/10/18 06:29 Allopurinol (Zyloprim) 200 mg DAILY ORAL 01/12/18 09:00 02/11/18 08:59 01/14/18 08:48 Dextrose (Dextrose 50%) 25 ml Q30M PRN IV Hypoglycemia 01/11/18 06:30 02/10/18 06:29 Dextrose (Dextrose 50%) 50 ml Q30M PRN IV Hypoglycemia 01/11/18 06:30 02/10/18 06:29 Diphenhydramine HCl (Benadryl) 25 mg Q6H PRN ORAL Itching/Pruritis 01/11/18 06:30 02/10/18 06:29 Gabapentin (Neurontin) 200 mg TID ORAL 01/14/18 09:00 02/10/18 12:59 01/14/18 08:47 Heparin Sodium (Porcine) (Heparin 5000 units/ml) 5,000 units EVERY 12 HOURS SUBQ 01/11/18 09:00 02/10/18 08:59 01/14/18 08:48 Insulin Aspart (NovoLOG) BEFORE MEALS AND HS SUBQ 01/11/18 07:30 02/10/18 07:29 01/14/18 06:12 Iopamidol (Isovue-300 100ml) 100 ml NOW PRN INJ Radiology Procedure 01/10/18 23:00 Lorazepam (Ativan 2mg/ml 1ml) 1 mg Q4H PRN IV agitation 01/11/18 06:30 01/18/18 06:29 Mirtazapine (Remeron) 7.5 mg BEDTIME PRN ORAL insomnia 01/11/18 21:45 02/10/18 21:44 01/13/18 02:20 Morphine Sulfate (Morphine Sulfate) 2 mg Q4H PRN IVP Severe Pain (Pain Scale 7-10) 01/13/18 14:30 01/20/18 14:29 01/13/18 21:31 Nitroglycerin (Ntg) 0.4 mg Q5M X 3 DOSES PRN SL Prn Chest Pain 01/11/18 06:30 02/10/18 06:29 Ondansetron HCl (Zofran) 4 mg Q6H PRN IVP Nausea & Vomiting 01/11/18 06:30 02/10/18 06:29 Pantoprazole (Protonix) 40 mg DAILY ORAL 01/14/18 09:00 02/13/18 08:59 01/14/18 08:48 Polyethylene Glycol (Miralax) 17 gm HSPRN PRN ORAL Constipation 01/11/18 06:30 02/10/18 06:29 Promethazine HCl (Phenergan) 25 mg Q6H PRN IM REFRACTORY NV 01/11/18 09:45 02/10/18 09:44 Sodium Chloride 1,000 ml @ 50 mls/hr Q20H IV 01/13/18 13:15 02/12/18 13:14 01/13/18 13:59 Leslie Campbell MD Jan 14, 2018 10:34
--- NOTE | 2018-01-14 10:48 | GI Progress Note ---
Assessment/Plan Problems: (1) Ileus ICD Codes: K56.7 - Ileus, unspecified SNOMED: 723906813 (2) Small bowel obstruction ICD Codes: K56.609 - Unspecified intestinal obstruction, unspecified as to partial versus complete obstruction SNOMED: 252643489 (3) Abdominal pain ICD Codes: R10.9 - Unspecified abdominal pain SNOMED: 13516604 (4) Diabetes mellitus ICD Codes: E11.9 - Type 2 diabetes mellitus without complications SNOMED: 29456923 (5) Major depression ICD Codes: F32.9 - Major depressive disorder, single episode, unspecified SNOMED: 623519267 (6) HTN (hypertension) ICD Codes: I10 - Essential (primary) hypertension SNOMED: 84513247 Status: stable Status Narrative Discussed with Dr. Marmolejo. Assessment/Plan advance diet follow exam serial monitoring fu labs Subjective Subjective does not voice complaints hundry wants more food (+) BM on clears - tolerating abdomen less distended Objective Last 24 Hour Vital Signs Date Time Temp Pulse Resp B/P (MAP) Pulse Ox O2 Delivery O2 Flow Rate FiO2 01/14/18 08:10 Room Air 01/14/18 08:00 98.1 71 20 144/83 (103) 95 01/14/18 04:00 98.0 68 19 140/80 (100) 96 01/14/18 00:00 98.1 65 17 147/92 (110) 95 01/13/18 21:00 Room Air 01/13/18 20:00 98.1 57 18 147/77 (100) 94 01/13/18 16:00 97.3 61 20 138/77 (97) 93 01/13/18 12:00 97.4 60 22 168/78 (108) 95 Intake and Output 01/13/18 01/14/18 19:00 07:00 Intake Total 200 ml 450 ml Output Total 800 ml 1000 ml Balance -600 ml -550 ml Intake Oral 400 ml IV Total 200 ml 50 ml Output Urine Total 800 ml 1000 ml # Bowel Movements 1 Laboratory Tests Test 01/13/18 10:50 Sodium Level 141 MMOL/L (136-145) Potassium Level 3.6 MMOL/L (3.5-5.1) Chloride Level 107 MMOL/L (98-107) Carbon Dioxide Level 23 MMOL/L (21-32) Anion Gap 11 mmol/L (5-15) Blood Urea Nitrogen 25 mg/dL (7-18) H Creatinine 1.3 MG/DL (0.55-1.30) Estimat Glomerular Filtration Rate mL/min (>60) Glucose Level 174 MG/DL (74-106) H Calcium Level 8.2 MG/DL (8.5-10.1) L Phosphorus Level 2.1 MG/DL (2.5-4.9) L Magnesium Level 1.7 MG/DL (1.8-2.4) L Total Bilirubin 0.5 MG/DL (0.2-1.0) Aspartate Amino Transf (AST/SGOT) 20 U/L (15-37) Alanine Aminotransferase (ALT/SGPT) 27 U/L (12-78) Alkaline Phosphatase 64 U/L (46-116) Total Protein 7.2 G/DL (6.4-8.2) Albumin 2.5 G/DL (3.4-5.0) L Globulin 4.7 g/dL Albumin/Globulin Ratio 0.5 (1.0-2.7) L Height (Feet): 5 Height (Inches): 9.00 Weight (Pounds): 200 General Appearance: alert Cardiovascular: normal rate Respiratory/Chest: normal breath sounds Abdominal Exam: soft Genitourinary/Rectal: normal rectal exam Extremities: normal range of motion, non-tender, normal inspection Cindy Weems NP Jan 14, 2018 10:48
--- NOTE | 2018-01-14 10:59 | Nephrology Progress Note ---
Assessment/Plan Problem List: (1) CKD (chronic kidney disease) (2) Ileus (3) Diabetes mellitus Assessment: & proteinuria (4) CAD (coronary artery disease) Assessment Abdominal pain / Ileus Renal failure ( Acute on Chronic) DM / Proteinuria CAD s/p CABGS Plan no labs alicia 1/2 NS Glucose check IV protonox monitor renal parameters urine studies TSH level Per GI discussed with RN Subjective ROS Limited/Unobtainable: No Objective Objective Last 24 Hour Vital Signs Date Time Temp Pulse Resp B/P (MAP) Pulse Ox O2 Delivery O2 Flow Rate FiO2 01/14/18 08:10 Room Air 01/14/18 08:00 98.1 71 20 144/83 (103) 95 01/14/18 04:00 98.0 68 19 140/80 (100) 96 01/14/18 00:00 98.1 65 17 147/92 (110) 95 01/13/18 21:00 Room Air 01/13/18 20:00 98.1 57 18 147/77 (100) 94 01/13/18 16:00 97.3 61 20 138/77 (97) 93 01/13/18 12:00 97.4 60 22 168/78 (108) 95 Intake and Output 01/13/18 01/14/18 19:00 07:00 Intake Total 200 ml 450 ml Output Total 800 ml 1000 ml Balance -600 ml -550 ml Intake Oral 400 ml IV Total 200 ml 50 ml Output Urine Total 800 ml 1000 ml # Bowel Movements 1 Height (Feet): 5 Height (Inches): 9.00 Weight (Pounds): 200 General Appearance: no apparent distress Cardiovascular: normal rate Abdomen: soft, distended Objective no change Adan Guzman MD Jan 14, 2018 10:59
--- NOTE | 2018-01-14 12:50 | General Progress Note ---
Assessment/Plan Problem List: (1) Major depression ICD Codes: F32.9 - Major depressive disorder, single episode, unspecified SNOMED: 103788843 Assessment/Plan lexapro 10mg qam remeron prn Subjective Neurologic/Psychiatric: Reports: anxiety, depressed, emotional problems Allergies: Coded Allergies: ATORVASTATIN (Unverified Allergy, Unknown, 01/10/18) ROSUVASTATIN (Unverified Allergy, Unknown, 01/10/18) SITAGLIPTIN (Unverified Allergy, Unknown, 01/10/18) Objective Last 24 Hour Vital Signs Date Time Temp Pulse Resp B/P (MAP) Pulse Ox O2 Delivery O2 Flow Rate FiO2 01/14/18 12:00 96.4 55 20 154/78 (103) 97 01/14/18 08:10 Room Air 01/14/18 08:00 98.1 71 20 144/83 (103) 95 01/14/18 04:00 98.0 68 19 140/80 (100) 96 01/14/18 00:00 98.1 65 17 147/92 (110) 95 01/13/18 21:00 Room Air 01/13/18 20:00 98.1 57 18 147/77 (100) 94 01/13/18 16:00 97.3 61 20 138/77 (97) 93 Intake and Output 01/13/18 01/14/18 19:00 07:00 Intake Total 200 ml 450 ml Output Total 800 ml 1000 ml Balance -600 ml -550 ml Intake Oral 400 ml IV Total 200 ml 50 ml Output Urine Total 800 ml 1000 ml # Bowel Movements 1 Height (Feet): 5 Height (Inches): 9.00 Weight (Pounds): 200 General Appearance: no apparent distress, alert Neurologic: responsive, depressed affect Manny Kim MD Jan 14, 2018 12:50
[2018-01-14] MEDS: Morphine Sulfate 2mg/ml Inj IVP PRN ×2 (17:39→22:14)
[2018-01-15] VITALS: BP 156/87
[2018-01-15 04:00] VITALS: BP 155/84
[2018-01-15] MEDS: NovoLOG Insulin Flexpen SUBQ SCH ×4 (06:29→20:07)
[2018-01-15 08:00] VITALS: BP 177/75
[2018-01-15] MEDS: Allopurinol 100mg Tab ORAL SCH (08:50)
[2018-01-15] MEDS: Heparin 5000 units/ml inj SUBQ SCH ×2 (08:52→20:06)
--- NOTE | 2018-01-15 09:33 | Nephrology Progress Note ---
Assessment/Plan Problem List: (1) CKD (chronic kidney disease) (2) Ileus (3) Diabetes mellitus Assessment: & proteinuria (4) CAD (coronary artery disease) Assessment Abdominal pain / Ileus Renal failure ( Acute on Chronic) DM / Proteinuria CAD s/p CABGS Plan no labs yet alicia 1/2 NS Glucose check IV protonox monitor renal parameters urine studies TSH level Per GI discussed with RN Subjective ROS Limited/Unobtainable: No Objective Objective Last 24 Hour Vital Signs Date Time Temp Pulse Resp B/P (MAP) Pulse Ox O2 Delivery O2 Flow Rate FiO2 01/15/18 08:00 98.2 67 16 177/75 (109) 96 01/15/18 04:00 97.7 73 22 155/84 (107) 97 01/15/18 00:00 98.1 54 24 156/87 (110) 96 01/14/18 21:00 Room Air 01/14/18 20:00 98.4 60 24 144/69 (94) 100 01/14/18 15:52 154/78 (103) 01/14/18 15:38 97.2 61 21 161/82 (108) 97 01/14/18 12:00 96.4 55 20 154/78 (103) 97 Intake and Output 01/14/18 01/15/18 18:59 06:59 Intake Total 1200 ml 50 ml Output Total 1000 ml 2000 ml Balance 200 ml -1950 ml Intake Oral 600 ml IV Total 600 ml 50 ml Output Urine Total 1000 ml 2000 ml # Bowel Movements 1 Laboratory Tests 01/15/18 09:20: White Blood Count [Pending], Red Blood Count [Pending], Hemoglobin [Pending], Hematocrit [Pending], Mean Corpuscular Volume [Pending], Mean Corpuscular Hemoglobin [Pending], Mean Corpuscular Hemoglobin Concent [Pending], Red Cell Distribution Width [Pending], Platelet Count [Pending], Mean Platelet Volume [ Pending], Neutrophils (%) (Auto) [Pending], Lymphocytes (%) (Auto) [Pending], Monocytes (%) (Auto) [Pending], Eosinophils (%) (Auto) [Pending], Basophils (%) (Auto) [Pending], Sodium Level [Pending], Potassium Level [Pending], Chloride Level [Pending], Carbon Dioxide Level [Pending], Blood Urea Nitrogen [Pending], Creatinine [Pending], Estimat Glomerular Filtration Rate [Pending], Glucose Level [Pending], Uric Acid [Pending], Calcium Level [Pending], Phosphorus Level [Pending], Magnesium Level [Pending], Total Bilirubin [Pending], Aspartate Amino Transf (AST/SGOT) [Pending], Alanine Aminotransferase (ALT/SGPT) [Pending] , Alkaline Phosphatase [Pending], C-Reactive Protein, Quantitative [Pending], Pro-B-Type Natriuretic Peptide [Pending], Total Protein [Pending], Albumin [ Pending], Globulin [Pending] Height (Feet): 5 Height (Inches): 9.00 Weight (Pounds): 200 General Appearance: no apparent distress Objective no change Adan Guzman MD Jan 15, 2018 09:33
[2018-01-15 09:44] LABS: BASOPHILS % (AUTO) 0.9 % (0.0-2.0); EOSINOPHILS % (AUTO) 6.3 % (0.0-3.0); HEMATOCRIT 49.5 % (42.0-52.0); HEMOGLOBIN 16.6 G/DL (14.2-18.0); LYMPHOCYTES % (AUTO) 26.5 % (20.0-45.0); MEAN CORPUSCULAR VOLUME 86 FL (80-99); MONOCYTES % (AUTO) 6.1 % (1.0-10.0); NEUTROPHILS % (AUTO) 60.3 % (45.0-75.0); PLATELET COUNT 196 K/UL (150-450); RED BLOOD COUNT 5.73 M/UL (4.70-6.10); RED CELL DISTRIBUTION WIDTH 12.9 % (11.6-14.8); WHITE BLOOD COUNT 8.2 K/UL (4.8-10.8)
[2018-01-15 10:13] LABS: ALANINE AMINOTRANSFERASE 36 U/L (12-78); ALBUMIN 2.6 G/DL (3.4-5.0); ALBUMIN/GLOBULIN RATIO 0.5 (1.0-2.7); ALKALINE PHOSPHATASE 65 U/L (46-116); ANION GAP 13 mmol/L (5-15); ASPARTATE AMINO TRANSFERASE 30 U/L (15-37); BILIRUBIN,TOTAL 0.4 MG/DL (0.2-1.0); BLOOD UREA NITROGEN 20 mg/dL (7-18); CALCIUM 8.9 MG/DL (8.5-10.1); CARBON DIOXIDE 23 MMOL/L (21-32); CHLORIDE 107 MMOL/L (98-107); CREATININE 1.4 MG/DL (0.55-1.30); PHOSPHORUS 3.1 MG/DL (2.5-4.9); SODIUM 143 MMOL/L (136-145)
[2018-01-15 11:55] VITALS: BP 157/81
--- NOTE | 2018-01-15 12:15 | General Progress Note ---
Assessment/Plan Problem List: (1) Major depression ICD Codes: F32.9 - Major depressive disorder, single episode, unspecified SNOMED: 562433487 Assessment/Plan lexapro 10mg qam remeron prn seroquel 50mg qhs Subjective Allergies: Coded Allergies: ATORVASTATIN (Unverified Allergy, Unknown, 01/10/18) ROSUVASTATIN (Unverified Allergy, Unknown, 01/10/18) SITAGLIPTIN (Unverified Allergy, Unknown, 01/10/18) Subjective the pt was agitated last night confused today waxing and waning Objective Last 24 Hour Vital Signs Date Time Temp Pulse Resp B/P (MAP) Pulse Ox O2 Delivery O2 Flow Rate FiO2 01/15/18 11:55 98.7 69 20 157/81 (106) 96 01/15/18 09:00 Room Air 01/15/18 08:00 98.2 67 16 177/75 (109) 96 01/15/18 04:00 97.7 73 22 155/84 (107) 97 01/15/18 00:00 98.1 54 24 156/87 (110) 96 01/14/18 21:00 Room Air 01/14/18 20:00 98.4 60 24 144/69 (94) 100 01/14/18 15:52 154/78 (103) 01/14/18 15:38 97.2 61 21 161/82 (108) 97 Intake and Output 01/14/18 01/15/18 18:59 06:59 Intake Total 1200 ml 50 ml Output Total 1000 ml 2000 ml Balance 200 ml -1950 ml Intake Oral 600 ml IV Total 600 ml 50 ml Output Urine Total 1000 ml 2000 ml # Bowel Movements 1 Laboratory Tests 01/15/18 09:20: White Blood Count 8.2, Red Blood Count 5.73, Hemoglobin 16.6, Hematocrit 49.5, Mean Corpuscular Volume 86, Mean Corpuscular Hemoglobin 28.9, Mean Corpuscular Hemoglobin Concent 33.5, Red Cell Distribution Width 12.9, Platelet Count 196, Mean Platelet Volume 6.8, Neutrophils (%) (Auto) 60.3, Lymphocytes (%) (Auto) 26.5, Monocytes (%) (Auto) 6.1, Eosinophils (%) (Auto) 6.3H, Basophils (%) (Auto ) 0.9, Sodium Level 143, Potassium Level 4.0, Chloride Level 107, Carbon Dioxide Level 23, Anion Gap 13, Blood Urea Nitrogen 20H, Creatinine 1.4H, Estimat Glomerular Filtration Rate , Glucose Level 213H, Uric Acid 6.6, Calcium Level 8.9, Phosphorus Level 3.1, Magnesium Level 1.6L, Total Bilirubin 0.4, Aspartate Amino Transf (AST/SGOT) 30, Alanine Aminotransferase (ALT/SGPT) 36, Alkaline Phosphatase 65, C-Reactive Protein, Quantitative 2.2H, Pro-B-Type Natriuretic Peptide 720H, Total Protein 7.8, Albumin 2.6L, Globulin 5.2, Albumin /Globulin Ratio 0.5L Height (Feet): 5 Height (Inches): 9.00 Weight (Pounds): 200 General Appearance: alert, confused, agitated Manny Kim MD Jan 15, 2018 12:15
--- NOTE | 2018-01-15 15:05 | GI Progress Note ---
Assessment/Plan Problems: (1) Ileus ICD Codes: K56.7 - Ileus, unspecified SNOMED: 342853293 (2) Small bowel obstruction ICD Codes: K56.609 - Unspecified intestinal obstruction, unspecified as to partial versus complete obstruction SNOMED: 841594273 (3) Abdominal pain ICD Codes: R10.9 - Unspecified abdominal pain SNOMED: 35780105 (4) Diabetes mellitus ICD Codes: E11.9 - Type 2 diabetes mellitus without complications SNOMED: 05296092 (5) Major depression ICD Codes: F32.9 - Major depressive disorder, single episode, unspecified SNOMED: 905981063 (6) HTN (hypertension) ICD Codes: I10 - Essential (primary) hypertension SNOMED: 36468768 Status: stable, progressing Status Narrative Discussed with Dr. Marmolejo. Assessment/Plan SBFT reviewed >> no SBO, having BM low fiber/residual diet, tolerating bowel regime turn q2 hours ppi zofran prn fu labs dc planning The patient was seen and examined at bedside and all new and available data was reviewed in the patients chart. I agree with the above findings, impression and plan. (Patient seen earlier today. Signature stamp does not reflect patient encounter time.). - Sen Marmolejo MD Subjective Subjective does not voice complaints hungry wants more food (+) BM on clears - tolerating abdomen less distended Objective Last 24 Hour Vital Signs Date Time Temp Pulse Resp B/P (MAP) Pulse Ox O2 Delivery O2 Flow Rate FiO2 01/15/18 11:55 98.7 69 20 157/81 (106) 96 01/15/18 09:00 Room Air 01/15/18 08:00 98.2 67 16 177/75 (109) 96 01/15/18 04:00 97.7 73 22 155/84 (107) 97 01/15/18 00:00 98.1 54 24 156/87 (110) 96 01/14/18 21:00 Room Air 01/14/18 20:00 98.4 60 24 144/69 (94) 100 01/14/18 15:52 154/78 (103) 01/14/18 15:38 97.2 61 21 161/82 (108) 97 Intake and Output 01/14/18 01/15/18 19:00 07:00 Intake Total 1200 ml 50 ml Output Total 1000 ml 2000 ml Balance 200 ml -1950 ml Intake Oral 600 ml IV Total 600 ml 50 ml Output Urine Total 1000 ml 2000 ml # Bowel Movements 1 Laboratory Tests Test 01/15/18 09:20 White Blood Count 8.2 K/UL (4.8-10.8) Red Blood Count 5.73 M/UL (4.70-6.10) Hemoglobin 16.6 G/DL (14.2-18.0) Hematocrit 49.5 % (42.0-52.0) Mean Corpuscular Volume 86 FL (80-99) Mean Corpuscular Hemoglobin 28.9 PG (27.0-31.0) Mean Corpuscular Hemoglobin Concent 33.5 G/DL (32.0-36.0) Red Cell Distribution Width 12.9 % (11.6-14.8) Platelet Count 196 K/UL (150-450) Mean Platelet Volume 6.8 FL (6.5-10.1) Neutrophils (%) (Auto) 60.3 % (45.0-75.0) Lymphocytes (%) (Auto) 26.5 % (20.0-45.0) Monocytes (%) (Auto) 6.1 % (1.0-10.0) Eosinophils (%) (Auto) 6.3 % (0.0-3.0) H Basophils (%) (Auto) 0.9 % (0.0-2.0) Sodium Level 143 MMOL/L (136-145) Potassium Level 4.0 MMOL/L (3.5-5.1) Chloride Level 107 MMOL/L (98-107) Carbon Dioxide Level 23 MMOL/L (21-32) Anion Gap 13 mmol/L (5-15) Blood Urea Nitrogen 20 mg/dL (7-18) H Creatinine 1.4 MG/DL (0.55-1.30) H Estimat Glomerular Filtration Rate mL/min (>60) Glucose Level 213 MG/DL (74-106) H Uric Acid 6.6 MG/DL (2.6-7.2) Calcium Level 8.9 MG/DL (8.5-10.1) Phosphorus Level 3.1 MG/DL (2.5-4.9) Magnesium Level 1.6 MG/DL (1.8-2.4) L Total Bilirubin 0.4 MG/DL (0.2-1.0) Aspartate Amino Transf (AST/SGOT) 30 U/L (15-37) Alanine Aminotransferase (ALT/SGPT) 36 U/L (12-78) Alkaline Phosphatase 65 U/L (46-116) C-Reactive Protein, Quantitative 2.2 mg/dL (0.00-0.90) H Pro-B-Type Natriuretic Peptide 720 pg/mL (0-125) H Total Protein 7.8 G/DL (6.4-8.2) Albumin 2.6 G/DL (3.4-5.0) L Globulin 5.2 g/dL Albumin/Globulin Ratio 0.5 (1.0-2.7) L Height (Feet): 5 Height (Inches): 9.00 Weight (Pounds): 200 General Appearance: WD/WN, no apparent distress, alert Cardiovascular: normal rate Respiratory/Chest: normal breath sounds, no respiratory distress Abdominal Exam: normal bowel sounds, non tender, soft Extremities: normal range of motion, non-tender Cindy Weems [employer] Jan 15, 2018 15:05
[2018-01-15 15:45] VITALS: BP 157/85
[2018-01-15] MEDS: Docusate 100mg cap ORAL SCH (17:11)
[2018-01-15 20:57] VITALS: BP 149/83
[2018-01-15] MEDS ORDERED: Miralax 17gm pkt ORAL SCH (21:00)
[2018-01-16 00:12] VITALS: BP 162/73
[2018-01-16 04:00] VITALS: BP 158/79
[2018-01-16 06:34] LABS: BASOPHILS % (AUTO) 1.4 % (0.0-2.0); EOSINOPHILS % (AUTO) 7.7 % (0.0-3.0); MEAN CORPUSCULAR VOLUME 86 FL (80-99); MONOCYTES % (AUTO) 6.2 % (1.0-10.0); NEUTROPHILS % (AUTO) 52.7 % (45.0-75.0); PLATELET COUNT 188 K/UL (150-450); RED BLOOD COUNT 5.43 M/UL (4.70-6.10); RED CELL DISTRIBUTION WIDTH 12.6 % (11.6-14.8); WHITE BLOOD COUNT 7.1 K/UL (4.8-10.8)
[2018-01-16 06:42] LABS: ANION GAP 10 mmol/L (5-15); BLOOD UREA NITROGEN 18 mg/dL (7-18); CALCIUM 9.1 MG/DL (8.5-10.1); CARBON DIOXIDE 24 MMOL/L (21-32); CHLORIDE 109 MMOL/L (98-107); CREATININE 1.4 MG/DL (0.55-1.30); POTASSIUM 3.7 MMOL/L (3.5-5.1); SODIUM 143 MMOL/L (136-145)
[2018-01-16] MEDS: NovoLOG Insulin Flexpen SUBQ SCH ×2 (06:43→11:45)
[2018-01-16 08:25] VITALS: BP 159/80
[2018-01-16] MEDS: Allopurinol 100mg Tab ORAL SCH (09:12)
[2018-01-16] MEDS: Docusate 100mg cap ORAL SCH ×2 (09:12→12:13)
[2018-01-16] MEDS: Heparin 5000 units/ml inj SUBQ SCH (09:13)
--- NOTE | 2018-01-16 10:16 | Nephrology Progress Note ---
Assessment/Plan Problem List: (1) CKD (chronic kidney disease) (2) Ileus (3) Diabetes mellitus Assessment: & proteinuria (4) CAD (coronary artery disease) Assessment Abdominal pain / Ileus Renal failure ( Acute on Chronic) DM / Proteinuria CAD s/p CABGS Plan alicia 1/2 NS Glucose check IV protonox monitor renal parameters urine studies TSH level Per GI discussed with RN ? Dc planning? Subjective ROS Limited/Unobtainable: No Constitutional: Reports: malaise Objective Objective Last 24 Hour Vital Signs Date Time Temp Pulse Resp B/P (MAP) Pulse Ox O2 Delivery O2 Flow Rate FiO2 01/16/18 08:25 97.2 54 20 159/80 (106) 97 01/16/18 04:00 97.0 68 22 158/79 (105) 97 01/16/18 00:12 97.3 60 20 162/73 (102) 01/15/18 21:00 Room Air 01/15/18 20:57 97.6 61 20 149/83 (105) 94 01/15/18 15:45 97.5 66 20 157/85 (109) 96 01/15/18 11:55 98.7 69 20 157/81 (106) 96 Intake and Output 01/15/18 01/16/18 18:59 06:59 Intake Total 1170 ml 250 ml Output Total 2000 ml 1700 ml Balance -830 ml -1450 ml Intake Oral 720 ml IV Total 450 ml 250 ml Output Urine Total 2000 ml 1700 ml Laboratory Tests 01/16/18 05:10: White Blood Count 7.1, Red Blood Count 5.43, Hemoglobin 16.0, Hematocrit 47.0, Mean Corpuscular Volume 86, Mean Corpuscular Hemoglobin 29.4, Mean Corpuscular Hemoglobin Concent 34.0, Red Cell Distribution Width 12.6, Platelet Count 188, Mean Platelet Volume 6.7, Neutrophils (%) (Auto) 52.7, Lymphocytes (%) (Auto) 32.0, Monocytes (%) (Auto) 6.2, Eosinophils (%) (Auto) 7.7H, Basophils (%) (Auto ) 1.4, Sodium Level 143, Potassium Level 3.7, Chloride Level 109H, Carbon Dioxide Level 24, Anion Gap 10, Blood Urea Nitrogen 18, Creatinine 1.4H, Estimat Glomerular Filtration Rate , Glucose Level 184H, Calcium Level 9.1, Magnesium Level 1.5L Height (Feet): 5 Height (Inches): 9.00 Weight (Pounds): 175 General Appearance: no apparent distress Cardiovascular: normal rate Respiratory/Chest: lungs clear Abdomen: distended Objective no change Adan Guzman MD Jan 16, 2018 10:16
[2018-01-16] MEDS ORDERED: MIRTAZAPINE15 M3 ORAL (10:55)
[2018-01-16] MEDS ORDERED: SEROQUEL25 MG ORAL (10:55)
--- NOTE | 2018-01-16 10:56 | Pulmonology Progress Note ---
Assessment/Plan Problems: (1) Enteritis (2) Ileus (3) Small bowel obstruction (4) CAD (coronary artery disease) (5) CKD (chronic kidney disease) (6) Diabetes mellitus (7) CVA (cerebral vascular accident) (8) Major depression (9) HTN (hypertension) Assessment/Plan eating well pain is much less d/w GI improving check electrolytes sliding scale symptomatic treatment psych to see GI f/u Subjective ROS Limited/Unobtainable: No Interval Events: late note for 01/15. no new complains Allergies: Coded Allergies: ATORVASTATIN (Unverified Allergy, Unknown, 01/10/18) ROSUVASTATIN (Unverified Allergy, Unknown, 01/10/18) SITAGLIPTIN (Unverified Allergy, Unknown, 01/10/18) Objective Last 24 Hour Vital Signs Date Time Temp Pulse Resp B/P (MAP) Pulse Ox O2 Delivery O2 Flow Rate FiO2 01/16/18 09:00 Room Air 01/16/18 08:25 97.2 54 20 159/80 (106) 97 01/16/18 04:00 97.0 68 22 158/79 (105) 97 01/16/18 00:12 97.3 60 20 162/73 (102) 01/15/18 21:00 Room Air 01/15/18 20:57 97.6 61 20 149/83 (105) 94 01/15/18 15:45 97.5 66 20 157/85 (109) 96 01/15/18 11:55 98.7 69 20 157/81 (106) 96 Intake and Output 01/15/18 01/16/18 18:59 06:59 Intake Total 1170 ml 250 ml Output Total 2000 ml 1700 ml Balance -830 ml -1450 ml Intake Oral 720 ml IV Total 450 ml 250 ml Output Urine Total 2000 ml 1700 ml General Appearance: WD/WN HEENT: normocephalic, anicteric Respiratory/Chest: chest wall non-tender, lungs clear Cardiovascular: normal peripheral pulses, regular rhythm Abdomen: normal bowel sounds, no organomegaly Genitourinary: normal external genitalia Extremities: no clubbing Skin: no rash Laboratory Tests 01/16/18 05:10: White Blood Count 7.1, Red Blood Count 5.43, Hemoglobin 16.0, Hematocrit 47.0, Mean Corpuscular Volume 86, Mean Corpuscular Hemoglobin 29.4, Mean Corpuscular Hemoglobin Concent 34.0, Red Cell Distribution Width 12.6, Platelet Count 188, Mean Platelet Volume 6.7, Neutrophils (%) (Auto) 52.7, Lymphocytes (%) (Auto) 32.0, Monocytes (%) (Auto) 6.2, Eosinophils (%) (Auto) 7.7H, Basophils (%) (Auto ) 1.4, Sodium Level 143, Potassium Level 3.7, Chloride Level 109H, Carbon Dioxide Level 24, Anion Gap 10, Blood Urea Nitrogen 18, Creatinine 1.4H, Estimat Glomerular Filtration Rate , Glucose Level 184H, Calcium Level 9.1, Magnesium Level 1.5L Current Medications Medications (Trade) Dose Ordered Sig/Diana Route PRN Reason Start Time Stop Time Status Last Admin Dose Admin Acetaminophen (Tylenol) 650 mg Q4H PRN ORAL fever 01/11/18 06:30 02/10/18 06:29 Allopurinol (Zyloprim) 200 mg DAILY ORAL 01/12/18 09:00 02/11/18 08:59 01/16/18 09:12 Dextrose (Dextrose 50%) 25 ml Q30M PRN IV Hypoglycemia 01/11/18 06:30 02/10/18 06:29 Dextrose (Dextrose 50%) 50 ml Q30M PRN IV Hypoglycemia 01/11/18 06:30 02/10/18 06:29 Diphenhydramine HCl (Benadryl) 25 mg Q6H PRN ORAL Itching/Pruritis 01/11/18 06:30 02/10/18 06:29 Docusate Sodium (Colace) 100 mg THREE TIMES A DAY ORAL 01/15/18 18:00 02/14/18 17:59 01/16/18 09:12 Gabapentin (Neurontin) 200 mg TID ORAL 01/14/18 09:00 02/10/18 12:59 01/16/18 09:12 Heparin Sodium (Porcine) (Heparin 5000 units/ml) 5,000 units EVERY 12 HOURS SUBQ 01/11/18 09:00 02/10/18 08:59 01/16/18 09:13 Insulin Aspart (NovoLOG) BEFORE MEALS AND HS SUBQ 01/11/18 07:30 02/10/18 07:29 01/16/18 06:43 Iopamidol (Isovue-300 100ml) 100 ml NOW PRN INJ Radiology Procedure 01/10/18 23:00 Lorazepam (Ativan 2mg/ml 1ml) 1 mg Q4H PRN IV agitation 01/11/18 06:30 01/18/18 06:29 Magnesium Sulfate 100 ml @ 100 mls/hr Q1H IVPB 01/16/18 10:30 01/16/18 12:29 Mirtazapine (Remeron) 7.5 mg BEDTIME PRN ORAL insomnia 01/11/18 21:45 02/10/18 21:44 01/13/18 02:20 Morphine Sulfate (Morphine Sulfate) 2 mg Q4H PRN IVP Severe Pain (Pain Scale 7-10) 01/13/18 14:30 01/20/18 14:29 01/14/18 22:14 Nitroglycerin (Ntg) 0.4 mg Q5M X 3 DOSES PRN SL Prn Chest Pain 01/11/18 06:30 02/10/18 06:29 Ondansetron HCl (Zofran) 4 mg Q6H PRN IVP Nausea & Vomiting 01/11/18 06:30 02/10/18 06:29 Pantoprazole (Protonix) 40 mg DAILY ORAL 01/14/18 09:00 02/13/18 08:59 01/16/18 09:12 Polyethylene Glycol (Miralax) 17 gm BEDTIME ORAL 01/15/18 21:00 02/14/18 20:59 01/15/18 20:04 Polyethylene Glycol (Miralax) 17 gm HSPRN PRN ORAL Constipation 01/11/18 06:30 02/10/18 06:29 Promethazine HCl (Phenergan) 25 mg Q6H PRN IM REFRACTORY NV 01/11/18 09:45 02/10/18 09:44 Quetiapine Fumarate (SEROquel) 50 mg BEDTIME ORAL 01/15/18 21:00 02/14/18 20:59 01/15/18 20:04 Sodium Chloride 1,000 ml @ 50 mls/hr Q20H IV 01/13/18 13:15 02/12/18 13:14 01/16/18 05:15 Leslie Campbell MD Jan 16, 2018 10:56
--- NOTE | 2018-01-16 10:57 | Pulmonology Progress Note ---
Assessment/Plan Problems: (1) Enteritis (2) Ileus (3) Small bowel obstruction (4) CAD (coronary artery disease) (5) CKD (chronic kidney disease) (6) Diabetes mellitus (7) CVA (cerebral vascular accident) (8) Major depression (9) HTN (hypertension) Assessment/Plan eating well pain is much less d/w GI improving check electrolytes sliding scale symptomatic treatment psych to see small bowel followthrough was negative last week symptomatic treatment dc planning Subjective ROS Limited/Unobtainable: No Constitutional: Reports: no symptoms HEENT: Repors: no symptoms Respiratory: Reports: no symptoms Allergies: Coded Allergies: ATORVASTATIN (Unverified Allergy, Unknown, 01/10/18) ROSUVASTATIN (Unverified Allergy, Unknown, 01/10/18) SITAGLIPTIN (Unverified Allergy, Unknown, 01/10/18) Objective Last 24 Hour Vital Signs Date Time Temp Pulse Resp B/P (MAP) Pulse Ox O2 Delivery O2 Flow Rate FiO2 01/16/18 09:00 Room Air 01/16/18 08:25 97.2 54 20 159/80 (106) 97 01/16/18 04:00 97.0 68 22 158/79 (105) 97 01/16/18 00:12 97.3 60 20 162/73 (102) 01/15/18 21:00 Room Air 01/15/18 20:57 97.6 61 20 149/83 (105) 94 01/15/18 15:45 97.5 66 20 157/85 (109) 96 01/15/18 11:55 98.7 69 20 157/81 (106) 96 Intake and Output 01/15/18 01/16/18 18:59 06:59 Intake Total 1170 ml 250 ml Output Total 2000 ml 1700 ml Balance -830 ml -1450 ml Intake Oral 720 ml IV Total 450 ml 250 ml Output Urine Total 2000 ml 1700 ml General Appearance: WD/WN HEENT: normocephalic Respiratory/Chest: chest wall non-tender, normal breath sounds Cardiovascular: normal peripheral pulses, normal rate Abdomen: normal bowel sounds, no organomegaly Extremities: no cyanosis Skin: no lesions Laboratory Tests 01/16/18 05:10: White Blood Count 7.1, Red Blood Count 5.43, Hemoglobin 16.0, Hematocrit 47.0, Mean Corpuscular Volume 86, Mean Corpuscular Hemoglobin 29.4, Mean Corpuscular Hemoglobin Concent 34.0, Red Cell Distribution Width 12.6, Platelet Count 188, Mean Platelet Volume 6.7, Neutrophils (%) (Auto) 52.7, Lymphocytes (%) (Auto) 32.0, Monocytes (%) (Auto) 6.2, Eosinophils (%) (Auto) 7.7H, Basophils (%) (Auto ) 1.4, Sodium Level 143, Potassium Level 3.7, Chloride Level 109H, Carbon Dioxide Level 24, Anion Gap 10, Blood Urea Nitrogen 18, Creatinine 1.4H, Estimat Glomerular Filtration Rate , Glucose Level 184H, Calcium Level 9.1, Magnesium Level 1.5L Current Medications Medications (Trade) Dose Ordered Sig/Diana Route PRN Reason Start Time Stop Time Status Last Admin Dose Admin Acetaminophen (Tylenol) 650 mg Q4H PRN ORAL fever 01/11/18 06:30 02/10/18 06:29 Allopurinol (Zyloprim) 200 mg DAILY ORAL 01/12/18 09:00 02/11/18 08:59 01/16/18 09:12 Dextrose (Dextrose 50%) 25 ml Q30M PRN IV Hypoglycemia 01/11/18 06:30 02/10/18 06:29 Dextrose (Dextrose 50%) 50 ml Q30M PRN IV Hypoglycemia 01/11/18 06:30 02/10/18 06:29 Diphenhydramine HCl (Benadryl) 25 mg Q6H PRN ORAL Itching/Pruritis 01/11/18 06:30 02/10/18 06:29 Docusate Sodium (Colace) 100 mg THREE TIMES A DAY ORAL 01/15/18 18:00 02/14/18 17:59 01/16/18 09:12 Gabapentin (Neurontin) 200 mg TID ORAL 01/14/18 09:00 02/10/18 12:59 01/16/18 09:12 Heparin Sodium (Porcine) (Heparin 5000 units/ml) 5,000 units EVERY 12 HOURS SUBQ 01/11/18 09:00 02/10/18 08:59 01/16/18 09:13 Insulin Aspart (NovoLOG) BEFORE MEALS AND HS SUBQ 01/11/18 07:30 02/10/18 07:29 01/16/18 06:43 Iopamidol (Isovue-300 100ml) 100 ml NOW PRN INJ Radiology Procedure 01/10/18 23:00 Lorazepam (Ativan 2mg/ml 1ml) 1 mg Q4H PRN IV agitation 01/11/18 06:30 01/18/18 06:29 Magnesium Sulfate 100 ml @ 100 mls/hr Q1H IVPB 01/16/18 10:30 01/16/18 12:29 Mirtazapine (Remeron) 7.5 mg BEDTIME PRN ORAL insomnia 01/11/18 21:45 02/10/18 21:44 01/13/18 02:20 Morphine Sulfate (Morphine Sulfate) 2 mg Q4H PRN IVP Severe Pain (Pain Scale 7-10) 01/13/18 14:30 01/20/18 14:29 01/14/18 22:14 Nitroglycerin (Ntg) 0.4 mg Q5M X 3 DOSES PRN SL Prn Chest Pain 01/11/18 06:30 02/10/18 06:29 Ondansetron HCl (Zofran) 4 mg Q6H PRN IVP Nausea & Vomiting 01/11/18 06:30 02/10/18 06:29 Pantoprazole (Protonix) 40 mg DAILY ORAL 01/14/18 09:00 02/13/18 08:59 01/16/18 09:12 Polyethylene Glycol (Miralax) 17 gm BEDTIME ORAL 01/15/18 21:00 02/14/18 20:59 01/15/18 20:04 Polyethylene Glycol (Miralax) 17 gm HSPRN PRN ORAL Constipation 01/11/18 06:30 02/10/18 06:29 Promethazine HCl (Phenergan) 25 mg Q6H PRN IM REFRACTORY NV 01/11/18 09:45 02/10/18 09:44 Quetiapine Fumarate (SEROquel) 50 mg BEDTIME ORAL 01/15/18 21:00 02/14/18 20:59 01/15/18 20:04 Sodium Chloride 1,000 ml @ 50 mls/hr Q20H IV 01/13/18 13:15 02/12/18 13:14 01/16/18 05:15 Leslie Campbell MD Jan 16, 2018 10:57
[2018-01-16] MEDS ORDERED: Simethicone 80mg tab ORAL SCH (10:58)
[2018-01-16 12:08] VITALS: BP 137/77
--- NOTE | 2018-01-16 12:14 | GI Progress Note ---
Assessment/Plan Problems: (1) Ileus ICD Codes: K56.7 - Ileus, unspecified SNOMED: 581445493 (2) Small bowel obstruction ICD Codes: K56.609 - Unspecified intestinal obstruction, unspecified as to partial versus complete obstruction SNOMED: 260903211 (3) Abdominal pain ICD Codes: R10.9 - Unspecified abdominal pain SNOMED: 07771830 (4) Diabetes mellitus ICD Codes: E11.9 - Type 2 diabetes mellitus without complications SNOMED: 36168691 (5) Major depression ICD Codes: F32.9 - Major depressive disorder, single episode, unspecified SNOMED: 428907022 (6) HTN (hypertension) ICD Codes: I10 - Essential (primary) hypertension SNOMED: 72036499 Status: stable Status Narrative Discussed with Dr. Marmolejo. Assessment/Plan SBFT reviewed >> no SBO, having BM low fiber/residual diet, tolerating bowel regime turn q2 hours ppi zofran prn fu labs dc planning The patient was seen and examined at bedside and all new and available data was reviewed in the patients chart. I agree with the above findings, impression and plan. (Patient seen earlier today. Signature stamp does not reflect patient encounter time.). - Sen Marmolejo MD Subjective Subjective no complaints Objective Last 24 Hour Vital Signs Date Time Temp Pulse Resp B/P (MAP) Pulse Ox O2 Delivery O2 Flow Rate FiO2 01/16/18 12:08 97.9 54 18 137/77 (97) 95 01/16/18 09:00 Room Air 01/16/18 08:25 97.2 54 20 159/80 (106) 97 01/16/18 04:00 97.0 68 22 158/79 (105) 97 01/16/18 00:12 97.3 60 20 162/73 (102) 01/15/18 21:00 Room Air 01/15/18 20:57 97.6 61 20 149/83 (105) 94 01/15/18 15:45 97.5 66 20 157/85 (109) 96 Intake and Output 01/15/18 01/16/18 18:59 06:59 Intake Total 1170 ml 250 ml Output Total 2000 ml 1700 ml Balance -830 ml -1450 ml Intake Oral 720 ml IV Total 450 ml 250 ml Output Urine Total 2000 ml 1700 ml Laboratory Tests Test 01/16/18 05:10 White Blood Count 7.1 K/UL (4.8-10.8) Red Blood Count 5.43 M/UL (4.70-6.10) Hemoglobin 16.0 G/DL (14.2-18.0) Hematocrit 47.0 % (42.0-52.0) Mean Corpuscular Volume 86 FL (80-99) Mean Corpuscular Hemoglobin 29.4 PG (27.0-31.0) Mean Corpuscular Hemoglobin Concent 34.0 G/DL (32.0-36.0) Red Cell Distribution Width 12.6 % (11.6-14.8) Platelet Count 188 K/UL (150-450) Mean Platelet Volume 6.7 FL (6.5-10.1) Neutrophils (%) (Auto) 52.7 % (45.0-75.0) Lymphocytes (%) (Auto) 32.0 % (20.0-45.0) Monocytes (%) (Auto) 6.2 % (1.0-10.0) Eosinophils (%) (Auto) 7.7 % (0.0-3.0) H Basophils (%) (Auto) 1.4 % (0.0-2.0) Sodium Level 143 MMOL/L (136-145) Potassium Level 3.7 MMOL/L (3.5-5.1) Chloride Level 109 MMOL/L (98-107) H Carbon Dioxide Level 24 MMOL/L (21-32) Anion Gap 10 mmol/L (5-15) Blood Urea Nitrogen 18 mg/dL (7-18) Creatinine 1.4 MG/DL (0.55-1.30) H Estimat Glomerular Filtration Rate mL/min (>60) Glucose Level 184 MG/DL (74-106) H Calcium Level 9.1 MG/DL (8.5-10.1) Magnesium Level 1.5 MG/DL (1.8-2.4) L Height (Feet): 5 Height (Inches): 9.00 Weight (Pounds): 175 General Appearance: WD/WN, no apparent distress, alert Cardiovascular: normal rate Respiratory/Chest: normal breath sounds, no respiratory distress Abdominal Exam: normal bowel sounds, non tender, soft Extremities: normal range of motion, non-tender Weems,Juliette-Bnenett MANAGER [employer]ED Jan 16, 2018 12:14
--- NOTE | 2018-01-16 20:49 | General Progress Note ---
Assessment/Plan Problem List: (1) Major depression ICD Codes: F32.9 - Major depressive disorder, single episode, unspecified SNOMED: 644072509 Assessment/Plan lexapro 10mg qam remeron prn seroquel 50mg qhs Subjective Neurologic/Psychiatric: Reports: anxiety Allergies: Coded Allergies: ATORVASTATIN (Unverified Allergy, Unknown, 01/10/18) ROSUVASTATIN (Unverified Allergy, Unknown, 01/10/18) SITAGLIPTIN (Unverified Allergy, Unknown, 01/10/18) Subjective the pt less confused today waxing and waning Objective Last 24 Hour Vital Signs Date Time Temp Pulse Resp B/P (MAP) Pulse Ox O2 Delivery O2 Flow Rate FiO2 01/16/18 12:08 97.9 54 18 137/77 (97) 95 01/16/18 09:00 Room Air 01/16/18 08:25 97.2 54 20 159/80 (106) 97 01/16/18 04:00 97.0 68 22 158/79 (105) 97 01/16/18 00:12 97.3 60 20 162/73 (102) 01/15/18 21:00 Room Air 01/15/18 20:57 97.6 61 20 149/83 (105) 94 Intake and Output 01/15/18 01/16/18 19:00 07:00 Intake Total 1170 ml 250 ml Output Total 2000 ml 1700 ml Balance -830 ml -1450 ml Intake Oral 720 ml IV Total 450 ml 250 ml Output Urine Total 2000 ml 1700 ml Laboratory Tests 01/16/18 05:10: White Blood Count 7.1, Red Blood Count 5.43, Hemoglobin 16.0, Hematocrit 47.0, Mean Corpuscular Volume 86, Mean Corpuscular Hemoglobin 29.4, Mean Corpuscular Hemoglobin Concent 34.0, Red Cell Distribution Width 12.6, Platelet Count 188, Mean Platelet Volume 6.7, Neutrophils (%) (Auto) 52.7, Lymphocytes (%) (Auto) 32.0, Monocytes (%) (Auto) 6.2, Eosinophils (%) (Auto) 7.7H, Basophils (%) (Auto ) 1.4, Sodium Level 143, Potassium Level 3.7, Chloride Level 109H, Carbon Dioxide Level 24, Anion Gap 10, Blood Urea Nitrogen 18, Creatinine 1.4H, Estimat Glomerular Filtration Rate , Glucose Level 184H, Calcium Level 9.1, Magnesium Level 1.5L Height (Feet): 5 Height (Inches): 9.00 Weight (Pounds): 175 General Appearance: alert Neurologic: oriented x 3, responsive, depressed affect Manny Kim MD Jan 16, 2018 20:49
--- NOTE | 2018-01-17 10:49 | Discharge Summary ---
Discharge Summary Discharge Summary _ DATE OF ADMISSION: 01/11/2018 DATE OF DISCHARGE: 01/16/2018 CONSULTANTS: Dr. Manny Guzman BRIEF HOSPITAL COURSE: Patient is a 77-year-old male, with history of diabetes mellitus, coronary artery disease, CVA, intestinal perforation, chronically debilitated intermediate resident presented to ER with complaints of abdominal pain and decreased bowel movement with associated nausea but no vomiting. On evaluation at ED, vital signs were stable. Abdomen was distended with decreased bowel sounds. Blood work showed WBC 11, hemoglobin and hematocrit were stable. Creatinine was elevated to 2.3, BUN 60. Lipase normal. Urinalysis with no signs of infection. Abdominal ultrasound showed surgically absent gallbladder. Negative dilated ducts. He had a CT imaging of the abdomen that showed mildly dilated fluid-filled mid to distal jejunal small bowel loops without definite transition point. Findings consistent with ileus or enteritis. NG tube was inserted. Patient was admitted for evaluation of abdominal pain, renal failure and ileus. GI was consulted. Patient had severe abdominal distention concerning for small bowel obstruction. He was placed on NPO. NG tube was connected to low intermittent suction. Small bowel follow-through was ordered. Findings showed dilated proximal small bowel loops. However, there was rapid transit of contrast into the colon, indicates small bowel dilatation is probably functional in nature. Kidney function was monitored. He was given IV hydration and was followed by a room service clerk. For the catheter was inserted for accurate fluid measurement. He was given GI protection. Patient had history of depression and anxiety and had depressed mood, low energy and anxiety. He was given Lexapro and Remeron. NGT removed. Diet was advanced. He was started on clear liquids. He was tolerating diet. He had bowel movement and abdomen was less distended. He was recommended low fiber/residue diet. He was given bowel regimen. He was eventually discharged back to intermediate. FINAL DIAGNOSES: Abdominal pain with ileus Acute on chronic renal failure Enteritis Diabetes mellitus with proteinuria Major depressive disorder Hypertension Coronary artery disease Cerebrovascular accident DISPOSITION: Patient was discharged to [facility]. DISCHARGE MEDICATIONS: Refer to Discharge Medication List. I have been assigned to dictate discharge summary on this account, and I was not involved in the patient's management. Arlen Bundy NP Jan 17, 2018 10:49
== END 2018-01-16 15:10 | DRG 389 ==
LOC: EDBD 22:44 → EMR 22:59 → 4E 01-11 00:08 → EDBEDREQ 01-11 00:11 → 4E 01-12 05:50
DX: K56.7 Ileus, unspecified (principal); N17.9 Acute kidney failure, unspecified; I12.9 Hypertensive chronic kidney disease with stage 1 through stage 4 chronic kidney disease, or unspecified chronic kidney disease; E11.22 Type 2 diabetes mellitus with diabetic chronic kidney disease; N18.9 Chronic kidney disease, unspecified; R80.9 Proteinuria, unspecified; K52.9 Noninfective gastroenteritis and colitis, unspecified; F32.9 Major depressive disorder, single episode, unspecified; I25.10 Atherosclerotic heart disease of native coronary artery without angina pectoris; Z86.73 Personal history of transient ischemic attack (TIA), and cerebral infarction without residual deficits; Z88.8 Allergy status to other drugs, medicaments and biological substances; Z95.1 Presence of aortocoronary bypass graft; K56.609 Unspecified intestinal obstruction, unspecified as to partial versus complete obstruction
CPT/HCPCS: 36415; 74018; 74176; 74250; 76700; 80048; 80053; 80061; 81003; 82150; 82962; 83036; 83690; 83735; 83880; 84100; 84300; 84443; 84484; 84550; 85025; 85651; 85730; 86140; 87081; 87086; 87324; 93005; 99285; J1815; J8499

== ENCOUNTER 2019-06-19 09:07 | Inpatient (IN) | payer MEDICARE, MEDICAID ==
[~2019-06-19] VITALS: Ht 160 cm; Wt 100.0 kg
[~2019-06-19 09:07] MED LIST: ALLOPURINOL100 M1 ORAL; ASPIR 8181 MG ORAL; COLACE100 MG ORAL; CORRECTOL5 MG PO; HUMALOG100 UNIT/4 SUBQ; LANTUS SOL100 UNIT/1 SUBQ; LATANOPROST 0.7.5 ML OP; LIDOCAINE700 M1 TP; MIRALAX17 G2 ORAL; MIRTAZAPINE15 M3 ORAL; NEURONTIN300 MG ORAL; PRAVASTATIN SOD40 M1 ORAL; SEROQUEL25 MG ORAL; TOPIRAMATE25 M1 ORAL
[2019-06-19 09:11] VITALS: BP 151/98
--- NOTE | 2019-06-19 09:11 | NUR ---
ED Nurse Note: Pt brought in by RA Francisco from [facility] presents to ED with decreasing oxygen saturation at 80 % in room air. Pt came in on non rebreather mask at 15LPM o2 and sats 98 % at this time. AAO x4, unable to follow commands due to weakness. SOB at rest and upon exertion. Noted distended abdomen and redness on lower extremities.
--- NOTE | 2019-06-19 09:13 | Emergency Room Report ---
History of Present Illness General Chief Complaint: Dyspnea/Respdistress Source: Patient, EMS Present Illness HPI Disclaimer: Please note that this report is being documented using DRAGON technology. This can lead to erroneous entry secondary to incorrect interpretation by the dictating instrument. HPI: 78-year-old male with a history of hypertension, diabetes, CAD, CHF, chronic renal failure presents from [facility] for evaluation of hypoxia. Patient was found awake and alert in his usual state of health with normal vital signs this morning on rounds at 7 AM however when checked again at 8 AM he was found saturating approximately 70% on room air. He improved after oxygen and is currently saturating 100% on nonrebreather by EMS. Patient denies any recent fever, chills, chest pain or shortness of breath. He has no complaints at this time. He has noticed worsening swelling of his feet and ankles. Has a history of CHF. Has been compliant with medications to his knowledge. PMH: CVA, diabetes, hypertension, CAD, CHF, CKD PSH: Multiple abdominal surgeries Allergies: Atorvastatin, rosuvastatin, sitagliptin noted in medical chart Social Hx: Denies drug or alcohol abuse Allergies: Coded Allergies: ATORVASTATIN (Unverified Allergy, Unknown, 01/10/18) ROSUVASTATIN (Unverified Allergy, Unknown, 01/10/18) SITAGLIPTIN (Unverified Allergy, Unknown, 01/10/18) COVID-19 Screening Contact w/high risk pt: Yes Recent Travel to affected area: No Experienced COVID-19 symptoms?: Yes COVID-19 symptoms experienced: Shortness of Breath Nursing Documentation-PMH Hx Cardiac Problems: Yes - Bradycardia, A-fib, hyperlipidemia, heart failure Hx Hypertension: Yes Hx Diabetes: Yes - type 2 Hx Cancer: No Hx Neurological Problems: Yes - cerebral infarction Hx Cerebrovascular Accident: Yes Hx Transient Ischemic Attacks: Yes Review of Systems All Other Systems: negative except mentioned in HPI Physical Exam Vital Signs Date Time Temp Pulse Resp B/P (MAP) Pulse Ox O2 Delivery O2 Flow Rate FiO2 06/19/19 09:01 98 22 97 Non-Rebreather General: Awake and alert, no acute distress HEENT: NC/AT. EOMI. Cardiovascular: RRR. S1 and S2 normal. No murmur appreciated Resp: Arrives on nonrebreather saturating 100%. Normal work of breathing. Abdomen: Abdomen is soft, nondistended. Obese abdomen. Nontender Skin: Intact. No abrasions, laceration or rash over the exposed skin MSK: Normal tone and bulk. Moving all extremities. No obvious deformity. 3+ lower extremity pitting edema. Neuro: Sleepy but easily arousable to voice, GCS 14. Mentating appropriately. Medical Decision Making Diagnostic Impression: Primary Impression: CHF exacerbation Additional Impressions: Elevated troponin Acute on chronic renal insufficiency ER Course Is a 78-year-old male presenting from a rehabilitation facility for hypoxia and shortness of breath. Differential includes but is not limited to viral syndrome , COVID-19, pneumonia, bronchitis, CHF exacerbation, COPD exacerbation, asthma exacerbation, GERD, pancreatitis, ACS, to name a few. He arrives on nonrebreather saturating 100% in no acute respiratory distress. When oxygen was taken off he desaturated to 80% on room air and oxygen was returned. Given the concerns of the COVID-19 pandemic the patient will be placed in isolation and swabs will be ordered. We will also obtain cultures, broad labs, chest x- ray, EKG. He will require admission. Excessive fluids will be avoided as the patient appears to be in a fluid overload state. We will give Nitropaste and Lasix. Laboratory Tests Test 06/19/19 09:05 06/19/19 09:15 Arterial Blood pH 7.260 (7.350-7.450) Arterial Blood Partial Pressure CO2 62.8 mmHg (35.0-45.0) *H Arterial Blood Partial Pressure O2 81.8 mmHg (75.0-100.0) Arterial Blood HCO3 27.5 mmol/L (22.0-26.0) H Arterial Blood Oxygen Saturation 95.0 % (95-100) Arterial Blood Base Excess -1.1 (-2-2) Ramo Test Positive White Blood Count 9.9 K/UL (4.8-10.8) Red Blood Count 5.08 M/UL (4.70-6.10) Hemoglobin 14.6 G/DL (14.2-18.0) Hematocrit 46.0 % (42.0-52.0) Mean Corpuscular Volume 90 FL (80-99) Mean Corpuscular Hemoglobin 28.8 PG (27.0-31.0) Mean Corpuscular Hemoglobin Concent 31.8 G/DL (32.0-36.0) L Red Cell Distribution Width 15.0 % (11.6-14.8) H Platelet Count 200 K/UL (150-450) Mean Platelet Volume 6.7 FL (6.5-10.1) Neutrophils (%) (Auto) 75.9 % (45.0-75.0) H Lymphocytes (%) (Auto) 15.4 % (20.0-45.0) L Monocytes (%) (Auto) 5.8 % (1.0-10.0) Eosinophils (%) (Auto) 2.0 % (0.0-3.0) Basophils (%) (Auto) 0.9 % (0.0-2.0) Prothrombin Time 11.2 SEC (9.30-11.50) Prothrombin Time INR 1.1 (0.9-1.1) Activated Partial Thromboplast Time 30 SEC (23-33) Urine Color Yellow Urine Appearance Clear Urine pH 5 (4.5-8.0) Urine Specific [place] 1.020 (1.005-1.035) Urine Protein 4+ (NEGATIVE) H Urine Glucose (UA) Negative (NEGATIVE) Urine Ketones Negative (NEGATIVE) Urine Blood Negative (NEGATIVE) Urine Nitrite Negative (NEGATIVE) Urine Bilirubin Negative (NEGATIVE) Urine Urobilinogen 1 MG/DL (0.0-1.0) H Urine Leukocyte Esterase Negative (NEGATIVE) Urine RBC 0 /HPF (0 - 0) Urine WBC 0-2 /HPF (0 - 0) Urine Squamous Epithelial Cells Occasional /LPF Urine Amorphous Sediment Occasional /LPF (NONE) Urine Bacteria Occasional /HPF (NONE) Urine Mucus Few /LPF (NONE/OCC) H Sodium Level 142 MMOL/L (136-145) Potassium Level 4.5 MMOL/L (3.5-5.1) Chloride Level 104 MMOL/L (98-107) Carbon Dioxide Level 30 MMOL/L (21-32) Anion Gap 8 mmol/L (5-15) Blood Urea Nitrogen 57 mg/dL (7-18) H Creatinine 2.7 MG/DL (0.55-1.30) H Estimated Glomerular Filtration Rate 23.0 mL/min (>60) Glucose Level 212 MG/DL (74-106) H Lactic Acid Level 0.90 mmol/L (0.4-2.0) Calcium Level 8.9 MG/DL (8.5-10.1) Total Bilirubin 0.6 MG/DL (0.2-1.0) Aspartate Amino Transferase (AST) 20 U/L (15-37) Alanine Aminotransferase (ALT) 21 U/L (12-78) Alkaline Phosphatase 59 U/L (46-116) Total Creatine Kinase 496 U/L (26-308) H Creatine Kinase MB 3.9 NG/ML (0.0-3.6) H Creatine Kinase MB Relative Index 0.7 Troponin I 0.327 ng/mL (0.000-0.056) Pro-B-Type Natriuretic Peptide 1993 pg/mL (0-125) H Total Protein 7.5 G/DL (6.4-8.2) Albumin 3.1 G/DL (3.4-5.0) L Globulin 4.4 g/dL Albumin/Globulin Ratio 0.7 (1.0-2.7) L EKG Diagnostic Results EKG Time: 09:40 Rate: normal Other Impression Sinus rhythm with first-degree AV block. Multiple fusion complexes and PACs. Left axis. Irregular baseline makes it difficult to interpret. Overall morphology unchanged from previous EKG on 01/10/2018 Rhythm Strip Diag. Results Rhythm Strip Time: 09:40 EP Interpretation: yes Rate: 90s Rhythm: other - Multiple PACs and fusion beats Chest X-Ray Diagnostic Results Chest X-Ray Diagnostic Results : Chest X-Ray Ordered: Yes # of Views/Limited/Complete: 1 View Indication: Shortness of Breath EP Interpretation: Yes Interpretation: other - Bilateral vascular congestion and small right pleural effusion Impression: Other - Bilateral vascular congestion, right-sided pleural effusion Electronically Signed by: Electronically signed by Dr. Chester Batres Reevaluation Time: 14:00 Last Vital Signs Date Time Temp Pulse Resp B/P (MAP) Pulse Ox O2 Delivery O2 Flow Rate FiO2 06/19/19 09:01 98 22 97 Non-Rebreather Reevaluation Impression Patient responding well to Lasix. Troponin found to be elevated and chest x- ray concerning for fluid overload. A swab was sent for COVID-19 as well given the patient's symptoms. Will continue diuretics. Troponin was elevated though EKG does not show signs of acute ischemia is overall unchanged from previous EKG in 2018. Aspirin was given. Patient found to have acute on chronic worsening renal failure. He will require admission. Will admit to the assigned hospitalist for his rehab facility, Dr. Downey. Disposition: ADMITTED INPATIENT Condition: Serious Chester Batres MD Jun 19, 2019 09:13
[2019-06-19] MEDS ORDERED: Nitroglycerin 2% oint pkt TOPIC ONE (09:15)
[2019-06-19] MEDS ORDERED: ELIQUIS2.5 MG PO (09:17)
[2019-06-19] MEDS ORDERED: MELATONIN MC (09:17)
[2019-06-19] MEDS ORDERED: LATANOPROST2.5 ML BOTH EYES (09:17)
[2019-06-19] MEDS ORDERED: FAMOTIDINE20 MG ORAL (09:17)
[2019-06-19] MEDS ORDERED: FUROSEMIDE40 MG/5 ML ORAL (09:17)
--- NOTE | 2019-06-19 09:35 | NUR ---
ED Nurse Note: Collected blood, urine, MRSA/VRE/CRE and covid19 swab sent to lab.
[2019-06-19 09:53] LABS: APPEARANCE,URINE CLEAR; BILIRUBIN, URINE NEGATIVE (NEGATIVE); GLUCOSE, URINE (UA) NEGATIVE (NEGATIVE); KETONES,URINE NEGATIVE (NEGATIVE); LEUKOCYTE ESTERASE ,URINE NEGATIVE (NEGATIVE); NITRITE,URINE NEGATIVE (NEGATIVE); PH,URINE 5 (4.5-8.0); PROTEIN,URINE 4+ (NEGATIVE); UROBILINOGEN,URINE 1 MG/DL (0.0-1.0)
[2019-06-19 09:54] LABS: BASOPHILS % (AUTO) 0.9 % (0.0-2.0); HEMOGLOBIN 14.6 G/DL (14.2-18.0); LYMPHOCYTES % (AUTO) 15.4 % (20.0-45.0); MEAN CORPUSCULAR VOLUME 90 FL (80-99); MONOCYTES % (AUTO) 5.8 % (1.0-10.0); NEUTROPHILS % (AUTO) 75.9 % (45.0-75.0); PLATELET COUNT 200 K/UL (150-450); RED BLOOD COUNT 5.08 M/UL (4.70-6.10); WHITE BLOOD COUNT 9.9 K/UL (4.8-10.8)
[2019-06-19 09:57] LABS: COLOR,URINE YELLOW
--- NOTE | 2019-06-19 09:57 | NUR ---
ED Nurse Note: RT at the bed side for ABG.
[2019-06-19 10:03] LABS: INR 1.1 (0.9-1.1)
[2019-06-19 10:18] LABS: ANION GAP 8 mmol/L (5-15); BLOOD UREA NITROGEN 57 mg/dL (7-18); CALCIUM 8.9 MG/DL (8.5-10.1); CARBON DIOXIDE 30 MMOL/L (21-32); CHLORIDE 104 MMOL/L (98-107); CREATININE 2.7 MG/DL (0.55-1.30); POTASSIUM 4.5 MMOL/L (3.5-5.1); SODIUM 142 MMOL/L (136-145)
[2019-06-19 10:31] LABS: ALANINE AMINOTRANSFERASE 21 U/L (12-78); ALBUMIN 3.1 G/DL (3.4-5.0); ALBUMIN/GLOBULIN RATIO 0.7 (1.0-2.7); ALKALINE PHOSPHATASE 59 U/L (46-116); ASPARTATE AMINO TRANSFERASE 20 U/L (15-37); BILIRUBIN,TOTAL 0.6 MG/DL (0.2-1.0); CKMB 3.9 NG/ML (0.0-3.6); CREATINE KINASE 496 U/L (26-308)
--- NOTE | 2019-06-19 10:37 | NUR ---
ED Nurse Note: md aware of troponin results
[2019-06-19] MEDS ORDERED: Aspirin Baby 81mg ORAL ONE (10:45)
--- NOTE | 2019-06-19 11:03 | Diagnostic Imaging Report ---
Indication: Abdominal distention Technique: One view of the chest Comparison: 01/13/2018 Findings: Metallic object projects again to the right of the lumbar spine. There is a loop monitor incidentally noted. Bowel gas pattern is unremarkable. No masses or unusual calcifications. Surgical clips are seen in the right groin Impression: No acute process
[2019-06-19 11:10] VITALS: BP 136/61
--- NOTE | 2019-06-19 11:13 | Diagnostic Imaging Report ---
Indication: Shortness of breath Technique: One view of the chest Comparison: None Findings: There is interstitial and airspace edema versus infiltrates throughout the right lung in a predominantly perihilar distribution as well as in the left lung. In addition, there is a sizable area of fairly dense consolidation of the left lung base. There is suggestion of a right pleural effusion. Heart size is difficult to assess. There is evidence of prior median sternotomy. There is an overlying cardiac loop monitor. Impression: Bilateral infiltrates versus edema, as described Probable right pleural effusion
[2019-06-19] MEDS ORDERED: Albuterol 90mcg Inhaler 8gm INH PRN (11:15)
[2019-06-19 13:20] VITALS: BP 141/74
--- NOTE | 2019-06-19 13:56 | NUR ---
ED Nurse Note: Report given to Jorgito FLORES of SDU.
--- NOTE | 2019-06-19 14:06 | NUR ---
ED Nurse Note: Pt transported to SDU with no belongings sent. Pt with face mask and cover sheet on top of gurney. Transport 19 announced.
--- NOTE | 2019-06-19 14:15 | NUR ---
NURSE NOTES: Received patient from ER Department. Patient is AOx1-2 and lethargic. Patient is on Nonrebreather mask at 15L/min o2 saturation of 98%. Patient placed on library monitor, and in gown. Patient has a Chamberlain catheter draining orange colored urine. Bed is in lowest position, locked and alarmed. Optimal HOB placement, side rails x3, call light within reach will continue to monitor.
[2019-06-19 14:30] VITALS: BP 145/70
[2019-06-19 16:00] VITALS: BP 136/78
[2019-06-19] MEDS ORDERED: Eliquis 2.5mg tablet ORAL SCH (18:00)
--- NOTE | 2019-06-19 19:20 | NUR ---
HAND-OFF: Report given to Jose Francisco Hawthorne RN. Endorsed care.
--- NOTE | 2019-06-19 19:30 | NUR ---
NURSE NOTES: pt report received from nga FLORES. pt is alert and oriented times 1, no acute abnormalities to mentation. pt is on 15L none rebreather able to sat at 97% O2. pt is on hall monitor showing NSR, no acute cardiac distress noted. pt bed is low, locked, armed, call light within reach. bed rails up times 3. will follow plan of care.
--- NOTE | 2019-06-19 19:53 | NUR ---
NURSE NOTES: called doctor loreto to report ABGs. awaiting doctor call back.
[2019-06-19 20:00] VITALS: BP 149/68
[2019-06-19] MEDS ORDERED: Vancomycin 1.5gm/NS Premix q24h IVPB SCH (20:00)
--- NOTE | 2019-06-19 20:03 | NUR ---
NURSE NOTES: doctor avel called back. ordered BIPAP and repeat ABG 1 HR post BIPAP use. talked to RT michael to start pt on BIPAP, and charge nurse delbert and anh about orders.
[2019-06-19] MEDS ORDERED: Latanoprost 0.005% Opth 2.5ml Soln BOTH EYES SCH (21:00)
[2019-06-19] MEDS ORDERED: Piperacillin/Tazobactam 3.375 GM in NS 110 ML IVPB SCH (21:00)
[2019-06-19] MEDS ORDERED: NovoLOG Insulin Flexpen SUBQ SCH (21:00)
--- NOTE | 2019-06-19 22:00 | NUR ---
RESPIRATORY NOTE: MD Flavio ordered to intubate pt post ABG results on 100% NRB mask (see lab). Pt intubated by ER , MD Rodolfo. Pt now intubated w/ ETT 7.5 @ 23cm lipline, secured by anchorfast. Pt placed on AC 15, 400VT, 100%, PEEP +5, per MD Rodolfo. Pt sedated. SXN small to moderate amounts of thick/thin, bloody secretions. Pt transferred to room 238-2. Pt tolerating settings well. Post intubation ABG to be drawn. Vent plugged into red outlet, ambubag at bedside. Will continue to monitor pt.
--- NOTE | 2019-06-19 22:09 | Emergency Room Report ---
History of Present Illness General Chief Complaint: Dyspnea/Respdistress Source: Medical Record Present Illness Allergies: Coded Allergies: ATORVASTATIN (Unverified Allergy, Unknown, 01/10/18) ROSUVASTATIN (Unverified Allergy, Unknown, 01/10/18) SITAGLIPTIN (Unverified Allergy, Unknown, 01/10/18) COVID-19 Screening Contact w/high risk pt: No Recent Travel to affected area: No Experienced COVID-19 symptoms?: Yes COVID-19 symptoms experienced: Shortness of Breath Nursing Documentation-[facility] Past Medical History Deferred: Pt Cognitively Impaired Past Medical History: Deferred Hx Cardiac Problems: Yes (Atrial Flutter) Hx Hypertension: Yes Hx Diabetes: Yes Hx Cancer: No Hx Gastrointestinal Problems: Yes Hx Neurological Problems: Yes Hx Cerebrovascular Accident: Yes Hx Transient Ischemic Attacks: Yes Hx Weakness: Yes Physical Exam Vital Signs Date Time Temp Pulse Resp B/P (MAP) Pulse Ox O2 Delivery O2 Flow Rate FiO2 06/19/19 09:01 98 22 133/78 (96) 97 Non-Rebreather 06/19/19 09:11 15.0 06/19/19 11:10 97.9 06/19/19 19:35 100 Procedures Intubation Intubation : Consent: Emergent Time of Intubation: 21:37 Intubation Method: orotracheal Tube Size (cm): 7.5 Medications: Etomidate, Rocuronium Breath Sounds after Intubation: equal Intubation Complications: no complications, oral-unsuccessful attempt Post Intubation Xray: Yes Attempts: Other (5) Patient Tolerated: Well Complications: Other (Bleeding to the posterior oropharynx. ) Progress Patient has fairly large tongue and large amount of secretions in the airway. Patient was noted to have increased bleeding to the posterior pharynx after intubation. Medical Decision Making Diagnostic Impression: Primary Impression: CHF exacerbation Additional Impressions: Elevated troponin Acute on chronic renal insufficiency Last Vital Signs Date Time Temp Pulse Resp B/P (MAP) Pulse Ox O2 Delivery O2 Flow Rate FiO2 06/19/19 21:50 98 17 100 06/19/19 19:35 97 Non-Rebreather 15.0 06/19/19 16:00 98.2 136/78 (97) Disposition: ADMITTED INPATIENT Condition: Serious Referrals: JOSÉ MIGUEL GILES (PCP) Jarocho Reynolds MD Jun 19, 2019 22:09
--- NOTE | 2019-06-19 22:23 | Diagnostic Imaging Report ---
EXAM: XR Chest, 1 View CLINICAL HISTORY: ABN LABS TECHNIQUE: Frontal view of the chest. COMPARISON: Chest x-ray dated 06/19/2019 at 9:55 AM FINDINGS: Lungs: Diffuse airspace opacities, which appears slightly improved as compared to the prior. Pleural space: Probable trace bilateral pleural effusions. Heart: Heart is enlarged. Mediastinum: Unremarkable. Bones/joints: Evidence of prior median sternotomy. Tubes, lines and devices: Endotracheal tube with tip in the thoracic inlet. IMPRESSION: 1. Endotracheal tube with tip in the thoracic inlet. 2. Diffuse airspace opacities, which appears slightly improved as compared to the prior.
--- NOTE | 2019-06-19 23:40 | NUR ---
HAND-OFF: Report given to NITESH FLORES ICU.
[2019-06-20] VITALS (24 sets, daily range): BP systolic 104–154; BP diastolic 54–79
--- NOTE | 2019-06-20 | NUR ---
NURSE NOTES: received report from miranda rn pt orally intubated -vent o2 sat 100 % sadated responsive to painful stimuli bed bath done reposition and suction
[2019-06-20] MEDS ORDERED: Albuterol 90mcg Inhaler 8gm INH PRN (00:15)
--- NOTE | 2019-06-20 02:00 | NUR ---
NURSE NOTES: dr sanchez was notify regarding abg result post intubationwith order
--- NOTE | 2019-06-20 02:00 | NUR ---
NURSE NOTES: dr sanchez was notify regarding post intubation abg result with order made ac at22
--- NOTE | 2019-06-20 03:42 | NUR ---
NURSE NOTES: DOCTOR Abigail called back. stated it is ok to order/ have restraints on pt. bilateral wrist, soft for post intubation. doctor ordered AC mode changed to 22 in vent settings. Chest X ray in AM, and ABG in AM. doctor is aware pt does not have a diet ordered and is NPO, no fluids ordered. Doctor ordered Propofol for IV sedation, orderer in, to be started by DIAGNOSTIC SALES SPECIALIST TIN. endorsed Tin DIAGNOSTIC SALES SPECIALIST.
--- NOTE | 2019-06-20 03:53 | NUR ---
RESPIRATORY NOTE: Vent settings changed per MD Flavio. Pt now on AC 22, 400VT, 100%, PEEP +5. Pt tolerating well. Will continue to monitor pt.
--- NOTE | 2019-06-20 04:00 | NUR ---
NURSE NOTES: complete bed oral care and back care reposition and suction
--- NOTE | 2019-06-20 05:14 | Consultation ---
DATE OF CONSULTATION: 06/19/2019 CARDIOLOGY CONSULTATION CONSULTING PHYSICIAN: Ottoniel Devi MD. REQUESTING PHYSICIAN: Juanpablo Downey MD. REASON FOR CONSULTATION: Respiratory failure. HISTORY OF PRESENT ILLNESS: This is a 78-year-old male who has multiple medical problems and resides in a [place] [facility] facility. He developed increasing hypoxia and shortness of breath this morning. He improved after oxygen therapy but still was saturating poorly. He also was noted to have some increasing lower extremity edema and was referred to the hospital for optimal care. The patient was admitted following emergency room evaluation. Subsequently an arterial blood gas was obtained and revealed significant respiratory acidosis. This was reported to me and I ordered a BiPAP treatment. The patient failed to improve. However after over an hour of BiPAP, remaining with life-threatening acidosis and in consultation with Dr. Muniz, intubation and mechanical ventilation was initiated. The patient has not had any fevers or chills prior to admission or subsequent to admission or any other constitutional symptoms. PAST MEDICAL HISTORY: Includes cerebrovascular disease with history of cerebrovascular accident, hypertension with hypertensive heart disease, coronary artery disease, history of congestive heart failure, chronic kidney disease, type 2 diabetes mellitus, hyperlipidemia, paroxysmal atrial fibrillation. ALLERGIES: Include certain statin drugs. SOCIAL HISTORY: Negative for alcohol or substance abuse. He does have a smoking history. REVIEW OF SYSTEMS: No fevers or chills. No history of retinopathy. He is intolerant of most statin drugs. Prior stroke. No history of seizures. No history of thyroid disorder. Diabetes is managed with oral drugs. He has not had any change in bowel habits. He does have diabetic nephropathy. He does have stable angina, prior coronary disease, paroxysmal atrial fibrillation. PHYSICAL EXAMINATION: VITAL SIGNS: Blood pressure 136/78, pule 75, respiratory rate 22, saturation 96% on a non-rebreather mask. LUNGS: Diminished breath sounds. LUNGS: Expiratory wheezes. Scattered rhonchi. CARDIAC: Irregularly irregular rhythm. Normal S1 and S2. ABDOMEN: Soft. EXTREMITIES: No edema. LABORATORY DATA: White count 9.9, hemoglobin 14.6. ABG 7.15, 92, 82. Repeated 7.19, 65, 91. BUN 57. Creatinine 2.7. Troponin 0.327. Natriuretic peptide 1993. Sodium 142, potassium 4.5. IMPRESSION: 1. Acute respiratory failure. 2. Acute on chronic respiratory acidosis. 3. Hypoxia. 4. Acute myocardial ischemia and possible non-ST elevation infarction. 5. Acute on chronic congestive heart failure. 6. Type 2 diabetes mellitus with hyperglycemia. 7. Acute on chronic renal failure. 8. Mild protein-calorie malnutrition. 9. Possible healthcare associated pneumonia. PLAN: 1. Ventilator support. 2. Monitor acid-base parameters. 3. Serial troponin levels. 4. Anti-platelet therapy. 5. Avoid beta-blockers due to bronchospasm. 6. Diuresis. 7. Insulin coverage by sliding scale. 8. Cardiac monitoring. 9. ICU care. 10. Empiric antimicrobials. 11. Topical nitrates. Ottoniel Devi M.D. DR: Helen JOB#: [id number] CC:
--- NOTE | 2019-06-20 06:00 | NUR ---
NURSE NOTES: DR HAN IN AND SEEN PT NOTIFY BLOODY SECRETION HOLDING GLADIS
[2019-06-20 06:18] LABS: BASOPHILS % (AUTO) 0.8 % (0.0-2.0); EOSINOPHILS % (AUTO) 1.6 % (0.0-3.0); HEMATOCRIT 44.2 % (42.0-52.0); HEMOGLOBIN 14.2 G/DL (14.2-18.0); MEAN CORPUSCULAR VOLUME 90 FL (80-99); MONOCYTES % (AUTO) 9.4 % (1.0-10.0); NEUTROPHILS % (AUTO) 74.2 % (45.0-75.0); PLATELET COUNT 191 K/UL (150-450); RED CELL DISTRIBUTION WIDTH 15.2 % (11.6-14.8); WHITE BLOOD COUNT 11.4 K/UL (4.8-10.8)
[2019-06-20] MEDS: NovoLOG Insulin Flexpen SUBQ SCH ×4 (06:19→21:17)
[2019-06-20] MEDS ORDERED: Heparin1,000 units/500ml Premix(Conc:2 units/ml) IV PRN (06:45)
[2019-06-20] MEDS ORDERED: Lidocaine 1% Plain 30 ml INJ PRN (06:45)
[2019-06-20 06:53] LABS: ALANINE AMINOTRANSFERASE 17 U/L (12-78); ALBUMIN 2.8 G/DL (3.4-5.0); ALBUMIN/GLOBULIN RATIO 0.7 (1.0-2.7); ALKALINE PHOSPHATASE 59 U/L (46-116); ANION GAP 8 mmol/L (5-15); ASPARTATE AMINO TRANSFERASE 23 U/L (15-37); BILIRUBIN,TOTAL 0.9 MG/DL (0.2-1.0); BLOOD UREA NITROGEN 67 mg/dL (7-18); CALCIUM 8.8 MG/DL (8.5-10.1); CARBON DIOXIDE 29 MMOL/L (21-32); CHLORIDE 106 MMOL/L (98-107); POTASSIUM 4.6 MMOL/L (3.5-5.1); SODIUM 143 MMOL/L (136-145)
--- NOTE | 2019-06-20 07:11 | NUR ---
HAND-OFF: Report given to ELLIE USING SBAR.
--- NOTE | 2019-06-20 07:12 | NUR ---
NURSE NOTES: Received report from MARK Blankenship. Patient is obtunded. ETT 7.5/23cm at lip line with vent setting AC 22, VT 400, Peep 5 and FiO2 100%. NPO. Right NGT intact and clamped, waiting for xray confirmation of placement. Chamberlain intact and draining with yellow color urine. Right FA 20G IV intact and clean with TKO. Bilateral soft wrist bands restraints on. Both hands are warm to touch. Kept dry, clean, comfortable and HOB>30. Will continue plan of care.
--- NOTE | 2019-06-20 07:26 | NUR ---
NURSE NOTES: Called Lab if they can add TG to morning labs. She said she will add as soon as she see the order.
--- NOTE | 2019-06-20 08:08 | NUR ---
NURSE NOTES: lab technologist informed right FA 20IV pulled out accidently. Will insert new IV.
--- NOTE | 2019-06-20 08:10 | NUR ---
NURSE NOTES: Ramos Marlon/ consented for PICC placement.
[2019-06-20] MEDS: Aspirin Baby 81mg NG SCH (08:11)
[2019-06-20] MEDS: Allopurinol 100mg Tab NG SCH (08:11)
[2019-06-20] MEDS: Piperacillin/Tazobactam 3.375 GM in NS 110 ML IVPB SCH ×2 (08:11→21:13)
[2019-06-20] MEDS: Eliquis 2.5mg tablet NG SCH ×2 (08:11→17:03)
--- NOTE | 2019-06-20 08:35 | Critical Care Progress Note ---
Assessment/Plan Assessment/Plan Hypoxemia Hypercapnic respiratory failure pulmonary edema possible ARDS possible COVID renal failure toxic met encephalopathy PLAN vent as is monitor ABG reduce AC rate PEEP taper FIO2 ID follow up await further results medications/laboratory data/nursing notes/ICU care reviewed in detail note reviewed and edited care discussed with RN and RT ICU time spent >40 minutes Critical Care - Subjective Interval Events: remains ill intubated tight airway per ERMD ROS Limited/Unobtainable: Yes Condition: critical EKG Rhythm: Sinus Rhythm I&O: Intake and Output 06/19/19 06/20/19 19:00 07:00 Intake Total 275.0 ml Output Total 900 ml 770 ml Balance -900 ml -495.0 ml Intake Oral 0 ml IV Total 275.0 ml Output Urine Total 900 ml 770 ml # Voids 1 Critical Care - Objective ET-Tube: 7.5 ET Position: 23 Last 24 Hour Vital Signs Date Time Temp Pulse Resp B/P (MAP) Pulse Ox O2 Delivery O2 Flow Rate FiO2 06/20/19 06:00 70 20 107/74 (85) 100 06/20/19 05:30 72 22 100 06/20/19 05:00 98.8 82 20 118/56 (76) 100 06/20/19 04:00 98.8 84 20 116/64 (81) 100 06/20/19 04:00 87 06/20/19 04:00 Mechanical Ventilator 100.0 06/20/19 04:00 100 06/20/19 03:52 75 22 100 06/20/19 03:00 82 20 120/56 (77) 100 06/20/19 02:00 72 20 120/66 (84) 100 06/20/19 01:00 77 22 134/54 (80) 100 06/20/19 00:55 72 15 100 06/20/19 00:00 100 06/20/19 00:00 100 06/20/19 00:00 98.4 20 154/71 (98) 97 06/20/19 00:00 Mechanical Ventilator 100.0 06/20/19 00:00 90 06/19/19 23:35 89 15 100 06/19/19 21:50 92 17 95 Mechanical Ventilator 100 06/19/19 21:50 98 17 100 06/19/19 20:00 98.1 70 21 149/68 (95) 98 06/19/19 20:00 Non-Rebreather 15.0 06/19/19 19:35 97 Non-Rebreather 15.0 100 06/19/19 16:00 98.2 75 22 136/78 (97) 96 06/19/19 16:00 Non-Rebreather 15.0 06/19/19 15:39 77 06/19/19 14:57 15.0 06/19/19 14:49 Non-Rebreather 15.0 06/19/19 14:30 97.7 85 23 145/70 (95) 96 06/19/19 14:06 97.9 95 16 148/89 100 Non-Rebreather 15.0 06/19/19 13:20 87 17 141/74 99 Non-Rebreather 15.0 06/19/19 11:10 97.9 86 17 136/61 99 Non-Rebreather 15.0 06/19/19 09:22 120/70 06/19/19 09:11 95 22 Non-Rebreather 15.0 06/19/19 09:11 95 22 151/98 98 Non-Rebreather 15.0 06/19/19 09:01 98 22 133/78 (96) 97 Non-Rebreather Labs: Labs Test 06/19/19 09:05 06/19/19 09:15 06/19/19 19:35 06/19/19 22:41 Arterial Blood pH 7.260 (7.350-7.450) 7.159 (7.350-7.450) 7.192 (7.350-7.450) Arterial Blood Partial Pressure CO2 62.8 mmHg (35.0-45.0) 92.4 mmHg (35.0-45.0) 65.3 mmHg (35.0-45.0) Arterial Blood Partial Pressure O2 81.8 mmHg (75.0-100.0) 82.8 mmHg (75.0-100.0) 90.6 mmHg (75.0-100.0) Arterial Blood HCO3 27.5 mmol/L (22.0-26.0) 32.1 mmol/L (22.0-26.0) 24.5 mmol/L (22.0-26.0) Arterial Blood Oxygen Saturation 95.0 % (95-100) 94.7 % (95-100) 96.2 % (95-100) Arterial Blood Base Excess -1.1 (-2-2) 0.1 (-2-2) -5.1 (-2-2) Ramo Test Positive White Blood Count 9.9 K/UL (4.8-10.8) Red Blood Count 5.08 M/UL (4.70-6.10) Hemoglobin 14.6 G/DL (14.2-18.0) Hematocrit 46.0 % (42.0-52.0) Mean Corpuscular Volume 90 FL (80-99) Mean Corpuscular Hemoglobin 28.8 PG (27.0-31.0) Mean Corpuscular Hemoglobin Concent 31.8 G/DL (32.0-36.0) Red Cell Distribution Width 15.0 % (11.6-14.8) Platelet Count 200 K/UL (150-450) Mean Platelet Volume 6.7 FL (6.5-10.1) Neutrophils (%) (Auto) 75.9 % (45.0-75.0) Lymphocytes (%) (Auto) 15.4 % (20.0-45.0) Monocytes (%) (Auto) 5.8 % (1.0-10.0) Eosinophils (%) (Auto) 2.0 % (0.0-3.0) Basophils (%) (Auto) 0.9 % (0.0-2.0) Prothrombin Time 11.2 SEC (9.30-11.50) Prothromb Time International Ratio 1.1 (0.9-1.1) Activated Partial Thromboplast Time 30 SEC (23-33) Urine Color Yellow Urine Appearance Clear Urine pH 5 (4.5-8.0) Urine Specific Agness 1.020 (1.005-1.035) Urine Protein 4+ (NEGATIVE) Urine Glucose (UA) Negative (NEGATIVE) Urine Ketones Negative (NEGATIVE) Urine Blood Negative (NEGATIVE) Urine Nitrite Negative (NEGATIVE) Urine Bilirubin Negative (NEGATIVE) Urine Urobilinogen 1 MG/DL (0.0-1.0) Urine Leukocyte Esterase Negative (NEGATIVE) Urine RBC 0 /HPF (0 - 0) Urine WBC 0-2 /HPF (0 - 0) Urine Squamous Epithelial Cells Occasional /LPF Urine Amorphous Sediment Occasional /LPF (NONE) Urine Bacteria Occasional /HPF (NONE) Urine Mucus Few /LPF (NONE/OCC) Sodium Level 142 MMOL/L (136-145) Potassium Level 4.5 MMOL/L (3.5-5.1) Chloride Level 104 MMOL/L (98-107) Carbon Dioxide Level 30 MMOL/L (21-32) Anion Gap 8 mmol/L (5-15) Blood Urea Nitrogen 57 mg/dL (7-18) Creatinine 2.7 MG/DL (0.55-1.30) Estimat Glomerular Filtration Rate 23.0 mL/min (>60) Glucose Level 212 MG/DL (74-106) Lactic Acid Level 0.90 mmol/L (0.4-2.0) Calcium Level 8.9 MG/DL (8.5-10.1) Total Bilirubin 0.6 MG/DL (0.2-1.0) Aspartate Amino Transf (AST/SGOT) 20 U/L (15-37) Alanine Aminotransferase (ALT/SGPT) 21 U/L (12-78) Alkaline Phosphatase 59 U/L (46-116) Total Creatine Kinase 496 U/L (26-308) Creatine Kinase MB 3.9 NG/ML (0.0-3.6) Creatine Kinase MB Relative Index 0.7 Troponin I 0.327 ng/mL (0.000-0.056) Pro-B-Type Natriuretic Peptide 1993 pg/mL (0-125) Total Protein 7.5 G/DL (6.4-8.2) Albumin 3.1 G/DL (3.4-5.0) Globulin 4.4 g/dL Albumin/Globulin Ratio 0.7 (1.0-2.7) Test 06/20/19 05:40 06/20/19 07:55 White Blood Count 11.4 K/UL (4.8-10.8) Red Blood Count 4.90 M/UL (4.70-6.10) Hemoglobin 14.2 G/DL (14.2-18.0) Hematocrit 44.2 % (42.0-52.0) Mean Corpuscular Volume 90 FL (80-99) Mean Corpuscular Hemoglobin 29.1 PG (27.0-31.0) Mean Corpuscular Hemoglobin Concent 32.2 G/DL (32.0-36.0) Red Cell Distribution Width 15.2 % (11.6-14.8) Platelet Count 191 K/UL (150-450) Mean Platelet Volume 6.7 FL (6.5-10.1) Neutrophils (%) (Auto) 74.2 % (45.0-75.0) Lymphocytes (%) (Auto) 14.0 % (20.0-45.0) Monocytes (%) (Auto) 9.4 % (1.0-10.0) Eosinophils (%) (Auto) 1.6 % (0.0-3.0) Basophils (%) (Auto) 0.8 % (0.0-2.0) Sodium Level 143 MMOL/L (136-145) Potassium Level 4.6 MMOL/L (3.5-5.1) Chloride Level 106 MMOL/L (98-107) Carbon Dioxide Level 29 MMOL/L (21-32) Anion Gap 8 mmol/L (5-15) Blood Urea Nitrogen 67 mg/dL (7-18) Creatinine 3.0 MG/DL (0.55-1.30) Estimat Glomerular Filtration Rate 20.4 mL/min (>60) Glucose Level 186 MG/DL (74-106) Calcium Level 8.8 MG/DL (8.5-10.1) Magnesium Level 2.3 MG/DL (1.8-2.4) Total Bilirubin 0.9 MG/DL (0.2-1.0) Aspartate Amino Transf (AST/SGOT) 23 U/L (15-37) Alanine Aminotransferase (ALT/SGPT) 17 U/L (12-78) Alkaline Phosphatase 59 U/L (46-116) Troponin I 0.917 ng/mL (0.000-0.056) Total Protein 6.6 G/DL (6.4-8.2) Albumin 2.8 G/DL (3.4-5.0) Globulin 3.8 g/dL Albumin/Globulin Ratio 0.7 (1.0-2.7) Arterial Blood pH 7.422 (7.350-7.450) Arterial Blood Partial Pressure CO2 43.1 mmHg (35.0-45.0) Arterial Blood Partial Pressure O2 71.5 mmHg (75.0-100.0) Arterial Blood HCO3 27.5 mmol/L (22.0-26.0) Arterial Blood Oxygen Saturation 95.3 % (95-100) Arterial Blood Base Excess 2.6 (-2-2) Ramo Test Positive Objective: WDWN sedated orally intubated reduced breath sounds bilaterally without rhonchi or wheeze [id number] without MRG NABS nontender no HSM no CC some edema nonfocal Micro: Microbiology Date/Time Source Procedure Growth Status 06/19/19 16:30 Rectum Received Accucheck: 194 Paul Muniz MD Jun 20, 2019 08:35
--- NOTE | 2019-06-20 08:40 | NUR ---
NURSE NOTES: Inserted left hand 22G IV and right hand 22G IV.
[2019-06-20] MEDS ORDERED: Allopurinol 100mg Tab ORAL SCH (09:00)
[2019-06-20] MEDS ORDERED: Aspirin EC 81mg tab ORAL SCH ×2 (09:00)
[2019-06-20] MEDS ORDERED: Eliquis 2.5mg tablet ORAL SCH (09:00)
--- NOTE | 2019-06-20 09:01 | NUR ---
CASE MANAGEMENT: INITIAL REVIEW 78 YO M DEON FROM [facility] CC: DYSPNEA PMHx: CVA, diabetes, hypertension, CAD, CHF, CKD SI:HYPOXIA HR 98 RR 22 SATS 97% ON 15L/NRB LABS: 57 CR 2.7 GLU 212 TOTAL CK 496 CKMB 3.9 TROPONIN 0.327 BNP 1992 ABGs PH 7.260 PCO2 62.8 HCO3 27.5 IS: NITROGLYCERIN TOP X1 LASIX IV X1 CXR Impression: Bilateral infiltrates versus edema KUB Impression: No acute process PATIENT ADMITTED TO SDU 06/19/2019 @ 0934 DCP: SNF PLAN OF CARE: SSW CONSULT>>> LOCATE FAMILY CXR INTUBATE Addendum: 06/20/19 at 0917 by Ladonna Lovell CM INTERQUAL MET
--- NOTE | 2019-06-20 09:18 | Diagnostic Imaging Report ---
Indication: Post orogastric tube placement, shortness of breath Technique: One view of the chest Comparison: 06/19/2019 Findings: Placement of an orogastric tube, tip which projects at the level gastric fundus, proximal port just beyond the gastroesophageal junction. Stable satisfactory position of endotracheal tube. Bilateral interstitial and airspace infiltrates versus edema persists. There is increasing opacity at the right lung base. The heart is enlarged. Impression: Satisfactory orogastric intubation Increasing right basilar opacity may indicate increasing pleural fluid or infiltrate.
--- NOTE | 2019-06-20 09:32 | NUR ---
FRUCTOSE LOADER NOTE SW received a consult for locating family. GHAZAL spoke w/ Gina from [facility] [phone]- that pt's brother Clay Camilo is the primary contact/next of kin. GHAZAL spoke w/ Patricia Gar[place]ord, of Clay Camilo [phone] that Clay is currently hospitalized d/t COVID-19 and he will not be able to make a decision/get in contact at this time. Patricia informs pt's , Almaz Ramos [phone] will be the point of contact. Per chart review, pt is . Patricia confirms pt is for long time but still legally . SW spoke w/ Almaz Ramos and confirms she will be the decision maker until pt recovers. Pt has one adult son. Other emergency contact: Madeleine Reynoso (manager budget/pt's friend) [phone]
--- NOTE | 2019-06-20 10:10 | NUR ---
RD ASSESSMENT & RECOMMENDATIONS SEE CARE ACTIVITY FOR COMPLETE ASSESSMENT DAILY ESTIMATED NEEDS: Needs based on Critical care/ 66kg 22-28 kcals/kg 6609-7828 total kcals 1-1.5 (increase w/ improved renal fxn) g protein/kg 66-99 g total protein 20-25 mL/kg 1891-1084 total fluid mLs NUTRITION DIAGNOSIS: * Swallowing difficulty R/T respiratory failure as evidenced by pt orally intubated, NPO at this time. CURRENT TF: NPO PO DIET RECOMMENDATIONS: ASSOCIATE PRINCIPAL EVAL POST EXTUBATION ENTERAL NUTRITION RECOMMENDATIONS: Vital AF 1.2 @ 55ml/hr x 24 hrs to provide 1320ml, 1584kcal, 99g prot, 1070ml free water * As medically appropriate, initiate TF * Rec Vital AF for critical care and carb control * Initiate Vital AF 1.2 @ 25ml/hr x 6hrs, advance 10ml q 4-6 hrs as tolerated to goal rate * HOB over 30 degrees/ water flush per MD ADDITIONAL RECOMMENDATIONS: * Per SNF: HT=64" BH=594exx (as of 06/03/19) -> obtain calibrated bedscale wt * Initiate feeding as able -> rec as above * Monitor BGs w/ TF, need for long acting insulin * Monitor lytes, replete as needed * Monitor renal fxn (Creat 2.7-> 3.0) -> consider gentle IVF while pt is NPO
--- NOTE | 2019-06-20 10:29 | Consultation ---
DATE OF CONSULTATION: 06/19/2019 PULMONARY CONSULTATION CONSULTING PHYSICIAN: Paul Muniz MD REASON FOR CONSULTATION: Respiratory failure. HISTORY OF PRESENT ILLNESS: This is a 78-year-old male with a history of coronary artery disease, CHF. Patient currently presents from a [facility] for significant hypoxemia. He was found to be initially awake and alert and noted to have respiratory distress, significant oxygen desaturation down to 70%. Patient was brought to the emergency room and placed on non-rebreather with O2 saturation poor. The patient was noted to have worsening CO2 retention, worsening hypoxemia, now on a non-rebreather with poor PaO2 and worsening CO2 retention and remained in respiratory distress. I was called to evaluate and recommend further. The patient was noted to have pulmonary edema, history of CHF. Unclear if COVID-related symptoms. PAST MEDICAL HISTORY: Notable for CVA, diabetes, hypertension, CAD, CHF, CKD. PAST SURGICAL HISTORY: Multiple abdominal surgeries. ALLERGIES: Reviewed. SOCIAL HISTORY: [facility] patient. medical status unclear. ALLERGIES: Multiple. REVIEW OF SYSTEMS: Difficult to obtain. Patient does have a history of atrial fibrillation, hyperlipidemia, pulmonary edema, CVA. PHYSICAL EXAMINATION: GENERAL: Ill-appearing male, in respiratory distress. VITAL SIGNS: Reviewed. Blood pressure 136/78, saturations 96%, pulse rate 75, temperature 98.2. HEENT: Negative. NECK: Supple. LUNGS: Crackles at both bases. Rhonchi anteriorly. CARDIAC: S1, S2. Patient has a soft systolic murmur noted. The patient is in atrial fibrillation. ABDOMEN: Soft, nontender. EXTREMITIES: No edema. NEUROLOGICAL: Difficult to fully assess. LABORATORY DATA: Reviewed. CBC fairly negative. Chemistries reviewed. Troponin 0.327. BNP 1993. Albumin 3.1. Blood gases, pH 7.15, pCO2 22, pO2 82 on 100%. IMPRESSION: Pulmonary edema, possible pneumonia, acute on chronic respiratory failure, acute hypoxemic respiratory failure, chronic renal failure, congestive heart failure per history, protein-calorie malnutrition, possible non-STEMI. RECOMMENDATIONS: Patient requires intubation. Care discussed with ER doctor with plans to intubate. Diurese. Continue antibiotic. BiPAP orders given. Empiric antibiotics. DVT prophylaxis. Monitor sliding scale. NG tube placement and observe clinically for further changes. Patient is critical at present, requires some care. Case discussed with the nursing public relations account supervisor. Patient is aware of the need for transfer to higher level care. Paul Muniz M.D. DR: TAMIKA JOB#: [id number] CC: TEODORA
--- NOTE | 2019-06-20 11:00 | NUR ---
NURSE NOTES: Informed Dr. Downey of patient's troponin level. No new order at this time.
--- NOTE | 2019-06-20 12:00 | History and Physical Report ---
DATE OF ADMISSION: 06/19/2019 CHIEF COMPLAINT: Respiratory failure and CHF exacerbation. HISTORY OF PRESENT ILLNESS: The patient is a 78-year-old male. He has a history of congestive heart failure, hypercapnic respiratory failure, atrial flutter, diabetes, ischemic cardiomyopathy, angina, hypertension, and chronic kidney disease, who presented from a senior care facility with complaints of shortness of breath. According to the senior care facility, the patient is on chronic BiPAP. He has some chronic shortness of breath, but on the day of transfer was hypoxic into the 70s. There are no reports of any fevers or chills. No cough or congestion. On evaluation in the emergency room, the patient was placed on a non-rebreather mask because of hypoxia. He had worsening respiratory acidosis, eventually requiring intubation. He is now currently intubated. PAST MEDICAL HISTORY: As above. PAST SURGICAL HISTORY: Unknown. CURRENT MEDICATIONS: Reconciled and reviewed. ALLERGIES: Include Lipitor and Januvia. FAMILY HISTORY: Noncontributory. SOCIAL HISTORY: There is no known history of tobacco, ethanol, or drugs. REVIEW OF SYSTEMS: Unobtainable as the patient is currently intubated. PHYSICAL EXAMINATION: VITAL SIGNS: Temperature 98.8, pulse 84, respirations 20, and blood pressure 116/64. GENERAL: The patient is a well-developed, overweight male, in no apparent distress. HEENT: Pupils are equal, round, and reactive to light. Oropharynx is orally intubated. NECK: Supple. There is no jugular venous distention noted. HEART: Regular rate and rhythm. LUNGS: . Significant for scattered rhonchi. ABDOMEN: Soft, nontender, and nondistended. Obese. EXTREMITIES: No clubbing or cyanosis. There is no edema noted. PERTINENT DATA: ABG initially showed a pH of 7.26, pCO2 of 62, pO2 of 81, bicarb of 25. White count was 10, hemoglobin 14, hematocrit 46, platelets of 200. Sodium 142, creatinine was 2.7. Urine was clear. Chest x-ray showed bilateral infiltrates versus CHF. ASSESSMENT: This is an elderly male with multiple medical problems including history of hypertension, atrial flutter, ischemic cardiomyopathy, admitted with complaints of shortness of breath secondary to CHF exacerbation, cannot rule out underlying pneumonia. PLAN: Continue vent support. Wean as able. Aggressive diuresis with close monitoring of electrolytes and renal function. Trend troponin. Continue antiplatelet treatment, empiric antibiotic therapy to cover for pneumonia. We will try to contact the patient's family. His current status is critical and guarded. Pulmonary and Cardiology evaluation has been obtained. Juanpablo Downey M.D. DR: TERENCE JOB#: [id number] CC:
--- NOTE | 2019-06-20 12:02 | NUR ---
NURSE NOTES: Repositioned patient. Kept dry, clean and comfortable.
--- NOTE | 2019-06-20 12:50 | NUR ---
RADIOLOGY DEPT., CHEST X-RAY DONE.-P.DYE
--- NOTE | 2019-06-20 14:20 | NUR ---
NURSE NOTES: Oral and ETT suction provided.
--- NOTE | 2019-06-20 16:02 | NUR ---
NURSE NOTES: Repositioned positioned.
[2019-06-20] MEDS: Acetaminophen 650mg/20.3ml NG PRN (17:35)
--- NOTE | 2019-06-20 18:02 | NUR ---
NURSE NOTES: bed bath given.
--- NOTE | 2019-06-20 18:30 | NUR ---
NURSE NOTES: Left upper arm PICC inserted.
--- NOTE | 2019-06-20 18:44 | Consultation ---
DATE OF CONSULTATION: 06/20/2019 INFECTIOUS DISEASES CONSULTATION CONSULTING PHYSICIAN: Omar Canales MD. REFERRING PHYSICIAN: Juanpablo Downey MD. REASON FOR CONSULTATION: Pneumonia. HISTORY OF PRESENTING ILLNESS: This is a 78-year-old gentleman with history of coronary artery disease, congestive heart failure, who [facility] with hypoxia. He has been intubated and an Infectious Diseases consultation has been obtained for antibiotics and to rule out COVID-19 pneumonia. PAST MEDICAL HISTORY: 1. History of diabetes. 2. Hypertension. 3. Coronary artery disease. 4. Congestive heart failure. 5. CVA. 6. Chronic kidney disease. SOCIAL HISTORY: Unknown. FAMILY HISTORY: Unknown. REVIEW OF SYSTEMS: Unable to obtain currently. MEDICATIONS: As an inpatient, he is on Xalatan drops, Remeron, chlorhexidine gluconate, Zosyn, allopurinol, vancomycin, Lasix, Eliquis, Pepcid, aspirin, lidocaine, subcu heparin, insulin, propofol, and albuterol. ALLERGIES: 1. Atorvastatin. 2. Rosuvastatin. 3. Sitagliptin. PHYSICAL EXAMINATION: VITAL SIGNS: Temperature of 98.4, T-max of 98.8, pulse of 70, respiratory rate 18, blood pressure 105/63, O2 saturation of 97%. GENERAL: Examination deferred due to possibility of COVID-19. LABORATORY AND DIAGNOSTIC DATA: White count 11.4, hemoglobin 14.2, hematocrit 44.2, MCV 90, platelet count of 191,000; neutrophils of 74%. Sodium 143, potassium 4.6, chloride 106, bicarb 29, BUN 67, creatinine 3, glucose 186, calcium 8.8. Total bilirubin 0.9, AST 23, ALT 17, alkaline phosphatase 59. Total protein 6.6, albumin 2.8. Troponin 0.917. Beta-natriuretic peptide 1993. CK of , CK-MB 3.9. UA is showing 0-2 white cells. Chest x-ray is showing increasing right base opacity may indicate increasing pleural fluid or infiltrate. Abdominal x-ray is showing no acute process. ASSESSMENT: This is a 78-year-old gentleman with history of diabetes, hypertension, congestive heart failure, coronary artery disease, chronic kidney disease, who comes in with respiratory distress and shortness of breath and has been intubated. 1. We would like to rule out COVID-19 pneumonia. 2. We would also like to rule out aspiration pneumonia. 3. Diabetes. 4. Hypertension. 5. Renal failure. 6. Congestive heart failure. PLAN: 1. Continue Zosyn. 2. Discontinue IV vancomycin. 3. We will order COVID-19 testing. 4. We will order sputum for Gram stain and culture. 5. We would recommend isolation. I would like to thank, Dr. Downey, for this consultation. Omar Canales M.D. DR: Marie JOB#: [id number] CC: Juanpablo Downey MD
--- NOTE | 2019-06-20 18:45 | Brief Operative Note ---
Immediate Post Operative Note Operative Note Pre-op Diagnosis: needs terminal press operator IV access Procedure: PICC Post-op Diagnosis: same as pre-op Surgeon: Marah Rodriguez Anesthesia: local Specimen: none Complications: none Fluids: none Implant(s) used?: No Merritt Rodriguez MD Jun 20, 2019 18:45
[2019-06-20] MEDS ORDERED: MELATONIN 5 MG1 EAC1 ORAL (19:12)
--- NOTE | 2019-06-20 19:14 | Diagnostic Imaging Report ---
Indications: Needs long-term IV access Technique: Procedure performed at bedside. Procedural timeout performed. Ultrasound confirms patent compressible left basilic vein. Total sterile technique, including sterile probe cover and sterile gel, sterile gloves, hand hygiene, hat, mask,, sterile gown, large sterile drape, and preparation with 2% chlorhexidine utilized. Local anesthesia with 1% lidocaine. Under real-time ultrasound guidance, puncture left basilic vein using 21-gauge needle, passage 0.018 guidewire, exchange for 4 Dutch peel-away sheath. 4 Dutch Bard dual-lumen power PICC cut to 40 cm. It was inserted through the peel-away sheath. Peel-away sheath and guidewire removed. Catheter fixed to the skin. Both catheter ports aspirated and flushed. Patient tolerated procedure well, without immediate complication. Followup chest x-ray obtained, documents catheter tip position at the cavoatrial junction Impression: Successful bedside placement of left arm PICC under sonographic guidance, as described above.
[2019-06-20] MEDS ORDERED: GABAPENTIN100 MG ORAL (19:25)
[2019-06-20] MEDS ORDERED: DUONEB 0.5-3(2.53 ML HHN (19:30)
--- NOTE | 2019-06-20 19:35 | NUR ---
HAND-OFF: Report given to MARK Mcgraw. Endorsed plan of care.
[2019-06-20] MEDS ORDERED: OMEGA-3 ACID ETH1 GM PO (19:39)
[2019-06-20] MEDS ORDERED: MOM30 ML ORAL (19:39)
[2019-06-20] MEDS ORDERED: [UNRECOGNIZED DRUG - OTHER] TP ×2 (19:39→19:40)
[2019-06-20] MEDS ORDERED: TYLENOL WITH C1 EACH ORAL (19:44)
[2019-06-20] MEDS ORDERED: TOPIRAMATE25 M1 ORAL (19:44)
--- NOTE | 2019-06-20 20:00 | NUR ---
NURSE NOTES: Suctioned blood tinged secretions moderate in amt. Oral care done. Bilateral soft wrist restraints maintained for safety to avoid self extubation.
[2019-06-20] MEDS: Dyna-Hex 2% Top Sol 2oz TOPIC SCH (20:21)
[2019-06-20] MEDS: Latanoprost 0.005% Opth 2.5ml Soln BOTH EYES SCH (21:12)
--- NOTE | 2019-06-20 22:00 | NUR ---
NURSE NOTES: Diuresing well after lasix 40mg IVP. Monitor I and o. monitor lytes.
[2019-06-21] VITALS (22 sets, daily range): BP systolic 105–183; BP diastolic 51–90
--- NOTE | 2019-06-21 | NUR ---
NURSE NOTES: Still on afib controlled rate. Bp stable. afebrile.
--- NOTE | 2019-06-21 02:00 | NUR ---
NURSE NOTES: Complete bath with bed changed was done.
[2019-06-21 04:14] LABS: BASOPHILS % (AUTO) 0.7 % (0.0-2.0); EOSINOPHILS % (AUTO) 0.4 % (0.0-3.0); HEMATOCRIT 43.5 % (42.0-52.0); HEMOGLOBIN 14.1 G/DL (14.2-18.0); LYMPHOCYTES % (AUTO) 7.3 % (20.0-45.0); MEAN CORPUSCULAR VOLUME 89 FL (80-99); MONOCYTES % (AUTO) 6.9 % (1.0-10.0); NEUTROPHILS % (AUTO) 84.8 % (45.0-75.0); PLATELET COUNT 182 K/UL (150-450); RED BLOOD COUNT 4.89 M/UL (4.70-6.10); RED CELL DISTRIBUTION WIDTH 14.8 % (11.6-14.8)
[2019-06-21 04:53] LABS: ALANINE AMINOTRANSFERASE 23 U/L (12-78); ALBUMIN 2.5 G/DL (3.4-5.0); ALBUMIN/GLOBULIN RATIO 0.6 (1.0-2.7); ALKALINE PHOSPHATASE 53 U/L (46-116); ANION GAP 12 mmol/L (5-15); ASPARTATE AMINO TRANSFERASE 23 U/L (15-37); BLOOD UREA NITROGEN 78 mg/dL (7-18); CALCIUM 8.4 MG/DL (8.5-10.1); CARBON DIOXIDE 29 MMOL/L (21-32); CHLORIDE 109 MMOL/L (98-107); CREATININE 3.2 MG/DL (0.55-1.30); POTASSIUM 3.9 MMOL/L (3.5-5.1); SODIUM 150 MMOL/L (136-145)
[2019-06-21] MEDS: NovoLOG Insulin Flexpen SUBQ SCH ×4 (05:54→21:18)
--- NOTE | 2019-06-21 06:00 | NUR ---
NURSE NOTES: Accucheck 223mg/dl covered with 3 units Novolog sbcut.
--- NOTE | 2019-06-21 06:35 | NUR ---
NURSE NOTES: Received pt with eyes close respond to pain stimuli only. Orally intubated on ac mode. NPO . NGT clamped. Bilateral soft wrist restraints on for safety to avoid self extubation.. Afib on the monitor, controlled rate. Bp stable. afebrile. will continue to monitor. Addendum: 06/21/19 at 0638 by BINH AGOSTO RN notes at 1930
--- NOTE | 2019-06-21 07:16 | NUR ---
HAND-OFF: Report given to Enrike FLORES.
--- NOTE | 2019-06-21 07:17 | NUR ---
NURSE NOTES: Received patient from Mariluz FLORES. Patient is obtunded. A. Flutter on the heart monitor, HR 67. Receiving oxygen via ET Tube 7.5 23cm at the lip line, vent settings: AC 18, TV 450, FiO2 100%, PEEP 10. Right NGT is intact and clamped. IV site is Left Upper arm PICC, intact and asymptomatic, Left hand 22g and Right Hand 22g both intact and patent. Chamberlain catheter is intact and draining. Bed is locked, placed in lowest position, side rails up x3, bed alarm on, call light within reach. Will continue to monitor.
[2019-06-21] MEDS: Piperacillin/Tazobactam 3.375 GM in NS 110 ML IVPB SCH ×2 (08:43→20:40)
[2019-06-21] MEDS: Allopurinol 100mg Tab NG SCH (08:43)
[2019-06-21] MEDS: Eliquis 2.5mg tablet NG SCH ×2 (08:44→17:32)
[2019-06-21] MEDS: Aspirin Baby 81mg NG SCH (08:44)
--- NOTE | 2019-06-21 08:59 | Progress Note ---
DATE: 06/20/2019 CARDIOLOGY PROGRESS NOTE SUBJECTIVE: The patient remains on ventilator support following intubation last night due to progressive acute on chronic respiratory acidosis. OBJECTIVE: VITAL SIGNS: Blood pressure 104/61, heart rate 78, respirations 18, temperature 100.7. LUNGS: Bilateral breath sounds. Rhonchi. Expiratory wheezes. CARDIAC: Irregularly irregular rhythm. Normal S1, S2. ABDOMEN: Soft. EXTREMITIES: No edema. LABORATORY DATA: White count 11.4, hemoglobin 14.2. ABG - 7.42, 43, 71. Sodium 143, potassium 4.6, bicarb 29, BUN 67, creatinine 3. Troponin 0.917. Albumin 2.8. Chest x-ray reveals right basilar opacity and increasing effusion. IMPRESSION: 1. Critical and guarded. 2. Respiratory failure. 3. Acute on chronic respiratory acidosis. 4. Acute myocardial infarction. 5. Paroxysmal atrial fibrillation. 6. Acute diastolic congestive heart failure. 7. Healthcare-associated pneumonia with pleural effusion. 8. Acute renal failure with underlying chronic kidney disease suspected. PLAN: 1. No beta-blockers in view of bronchospasm. 2. Continue anti-platelet therapy. 3. Check lipid panel. 4. DVT prophylaxis. 5. Antimicrobials. 6. Respiratory hygiene. 7. Cautious diuresis. 8. Apixaban for cardioembolic prophylaxis. 9. Await COVID-19 swab. Ottonile Devi M.D. DR: BULMARO JOB#: [id number] CC:
--- NOTE | 2019-06-21 09:10 | NUR ---
NURSE NOTES: Gave patient medication as prescribed, no adverse reaction. Oral care given, thick mucous secretions suctioned orally, scant amount via ET tube suction. Turned and repositioned patient, patient reacts to light pain, will continue to monitor.
--- NOTE | 2019-06-21 11:31 | General Progress Note ---
Assessment/Plan Problem List: (1) Atrial flutter ICD Codes: I48.92 - Unspecified atrial flutter SNOMED: 0623683 (2) Aspiration pneumonia ICD Codes: J69.0 - Pneumonitis due to inhalation of food and vomit SNOMED: 708558652 (3) Hypoxia ICD Codes: R09.02 - Hypoxemia SNOMED: 569083210 (4) Elevated troponin ICD Codes: R79.89 - Other specified abnormal findings of blood chemistry SNOMED: 581126023, 311930148, 634076465 (5) Acute on chronic renal insufficiency ICD Codes: N28.9 - Disorder of kidney and ureter, unspecified; N18.9 - Chronic kidney disease, unspecified SNOMED: 882836953, 128536528, 892262948 (6) CHF exacerbation ICD Codes: I50.9 - Heart failure, unspecified SNOMED: 427955800, 58126938220227, 551516731 (7) CAD (coronary artery disease) ICD Codes: I25.10 - Atherosclerotic heart disease of [place] coronary artery without angina pectoris SNOMED: 97841251 (8) CVA (cerebral vascular accident) ICD Codes: I63.9 - Cerebral infarction, unspecified SNOMED: 439586209 (9) HTN (hypertension) ICD Codes: I10 - Essential (primary) hypertension SNOMED: 36675896 Status: stable, unchanged Assessment/Plan: Continue vent support. Respiratory treatments. Wean as able IV diuresis. Hypotonic fluids Her chest x-ray Holding anticoagulant agent due to oral bleeding. Will reassess. IV antibiotics per ID Await COVID-19 PCR Isolation precautions Remains critical and guarded. Subjective ROS Limited/Unobtainable: Yes Constitutional: Reports: malaise, weakness HEENT: Reports: no symptoms Cardiovascular: Reports: no symptoms Respiratory: Reports: shortness of breath Gastrointestinal/Abdominal: Reports: difficulty swallowing Genitourinary: Reports: no symptoms Neurologic/Psychiatric: Reports: no symptoms Endocrine: Reports: no symptoms Hematologic/Lymphatic: Reports: anemia Allergies: Coded Allergies: ATORVASTATIN (Unverified Allergy, Unknown, 01/10/18) ROSUVASTATIN (Unverified Allergy, Unknown, 01/10/18) SITAGLIPTIN (Unverified Allergy, Unknown, 01/10/18) All Systems: reviewed and negative except above Subjective No overnight events. Remained stable on the ventilator. Sodium level trending up. Chest x-ray done yesterday shows increasing infiltrate. No fevers noted. ABG is improved. No bleeding from the mouth. Objective Last 24 Hour Vital Signs Date Time Temp Pulse Resp B/P (MAP) Pulse Ox O2 Delivery O2 Flow Rate FiO2 06/21/19 11:00 58 18 100 06/21/19 11:00 54 18 120/59 (79) 98 06/21/19 10:00 57 18 120/56 (77) 96 06/21/19 09:00 70 18 183/90 (121) 83 06/21/19 08:01 68 06/21/19 08:00 Mechanical Ventilator 06/21/19 08:00 99.0 71 18 83 06/21/19 08:00 100 06/21/19 07:05 88 19 100 06/21/19 07:00 87 18 83 06/21/19 06:00 67 18 149/70 (96) 97 06/21/19 05:00 99.8 67 18 156/80 (105) 97 06/21/19 04:00 Mechanical Ventilator 06/21/19 04:00 100 06/21/19 04:00 72 06/21/19 04:00 100.0 73 18 158/72 (100) 97 06/21/19 03:20 67 18 100 06/21/19 03:00 88 18 158/72 (100) 97 06/21/19 02:00 90 18 152/69 (96) 97 06/21/19 01:01 100 06/21/19 01:00 88 18 146/69 (94) 97 06/21/19 00:00 Mechanical Ventilator 06/21/19 00:00 98.2 87 18 160/79 (106) 97 06/21/19 00:00 100 06/21/19 00:00 70 06/20/19 23:00 87 18 150/79 (102) 97 06/20/19 22:57 86 25 100 06/20/19 22:00 61 18 146/63 (90) 97 06/20/19 21:00 73 18 116/63 (80) 97 06/20/19 20:00 100 06/20/19 20:00 98.4 63 18 120/60 (80) 97 06/20/19 20:00 Mechanical Ventilator 06/20/19 20:00 68 4/24/20 19:09 74 18 100 06/20/19 19:00 78 18 104/61 (75) 96 06/20/19 18:05 100.7 06/20/19 18:00 100.6 71 18 120/62 (81) 96 06/20/19 17:10 66 18 100 06/20/19 17:00 75 18 117/66 (83) 96 06/20/19 16:00 Mechanical Ventilator 06/20/19 16:00 84 06/20/19 16:00 101.2 77 18 136/72 (93) 96 06/20/19 16:00 100 06/20/19 15:00 71 18 141/66 (91) 96 06/20/19 14:00 75 18 131/61 (84) 97 06/20/19 13:00 70 18 137/72 (93) 97 06/20/19 12:00 Mechanical Ventilator 06/20/19 12:00 98.0 69 18 131/69 (89) 97 06/20/19 12:00 67 Intake and Output 06/20/19 06/21/19 19:00 07:00 Intake Total 210.0 ml 30 ml Output Total 595 ml 1090 ml Balance -385.0 ml -1060 ml Intake Oral 0 ml 0 ml Free Water 100 ml 30 ml IV Total 110.0 ml Output Urine Total 595 ml 1090 ml Laboratory Tests 06/20/19 12:10: Random Vancomycin Level 16.8 06/21/19 03:13: White Blood Count 13.0H, Red Blood Count 4.89, Hemoglobin 14.1L, Hematocrit 43.5 , Mean Corpuscular Volume 89, Mean Corpuscular Hemoglobin 28.8, Mean Corpuscular Hemoglobin Concent 32.4, Red Cell Distribution Width 14.8, Platelet Count 182, Mean Platelet Volume 6.1L, Neutrophils (%) (Auto) 84.8H, Lymphocytes (%) (Auto) 7.3L, Monocytes (%) (Auto) 6.9, Eosinophils (%) (Auto) 0.4, Basophils (%) (Auto) 0.7, Sodium Level 150H, Potassium Level 3.9, Chloride Level 109H, Carbon Dioxide Level 29, Anion Gap 12, Blood Urea Nitrogen 78H, Creatinine 3.2H, Estimat Glomerular Filtration Rate 18.9, Glucose Level 227H, Calcium Level 8.4L, Magnesium Level 2.5H, Total Bilirubin 1.0, Aspartate Amino Transf (AST/SGOT) 23, Alanine Aminotransferase (ALT/SGPT) 23, Alkaline Phosphatase 53, Troponin I 0.651H, Pro-B-Type Natriuretic Peptide 1609H, Total Protein 6.6, Albumin 2.5L, Globulin 4.1, Albumin/Globulin Ratio 0.6L Height (Feet): 5 Height (Inches): 3.00 Weight (Pounds): 229 General Appearance: WD/WN, alert Neck: supple Cardiovascular: normal rate, regular rhythm Respiratory/Chest: chest wall non-tender, lungs clear, normal breath sounds, no respiratory distress Abdomen: normal bowel sounds, non tender, soft, no organomegaly, no mass Edema: mild edema Neurologic: unresponsive Skin: normal pigmentation Juanpablo Downey MD Jun 21, 2019 11:31
--- NOTE | 2019-06-21 12:28 | NUR ---
NURSE NOTES: Patient turned and repositioned, fingerstick glucose check read 228mg/dL. Patient was started on D5W at 50cc/hr, then 3 units of prescribed Novolog given, patient is asymptomatic. Will continue to monitor.
--- NOTE | 2019-06-21 17:01 | Critical Care Progress Note ---
Assessment/Plan Assessment/Plan Hypoxemia Hypercapnic respiratory failure pulmonary edema possible ARDS possible COVID renal failure toxic met encephalopathy PLAN vent as is monitor ABG monitor AC rate PEEP taper FIO2 as able ID follow up await further results not ready for wean medications/laboratory data/nursing notes/ICU care reviewed in detail note reviewed and edited care discussed with RN and RT ICU time spent >40 minutes Critical Care - Subjective I&O: Intake and Output 06/20/19 06/21/19 19:00 07:00 Intake Total 210.0 ml 30 ml Output Total 595 ml 1090 ml Balance -385.0 ml -1060 ml Intake Oral 0 ml 0 ml Free Water 100 ml 30 ml IV Total 110.0 ml Output Urine Total 595 ml 1090 ml Critical Care - Objective ET-Tube: 7.5 ET Position: 23 Last 24 Hour Vital Signs Date Time Temp Pulse Resp B/P (MAP) Pulse Ox O2 Delivery O2 Flow Rate FiO2 06/21/19 16:00 55 18 128/66 (86) 97 06/21/19 16:00 100 06/21/19 16:00 Mechanical Ventilator 06/21/19 15:59 54 06/21/19 15:00 55 19 131/66 (87) 97 06/21/19 14:00 66 19 147/82 (103) 96 06/21/19 13:00 58 18 153/72 (99) 98 06/21/19 12:00 Mechanical Ventilator 06/21/19 12:00 98.2 57 18 105/51 (69) 96 06/21/19 12:00 100 06/21/19 11:40 67 06/21/19 11:00 58 18 100 06/21/19 11:00 54 18 120/59 (79) 98 06/21/19 10:00 57 18 120/56 (77) 96 06/21/19 09:00 70 18 183/90 (121) 83 06/21/19 08:01 68 06/21/19 08:00 Mechanical Ventilator 06/21/19 08:00 99.0 71 18 83 06/21/19 08:00 100 06/21/19 07:05 88 19 100 06/21/19 07:00 87 18 83 06/21/19 06:00 67 18 149/70 (96) 97 06/21/19 05:00 99.8 67 18 156/80 (105) 97 06/21/19 04:00 Mechanical Ventilator 06/21/19 04:00 100 06/21/19 04:00 72 06/21/19 04:00 100.0 73 18 158/72 (100) 97 06/21/19 03:20 67 18 100 06/21/19 03:00 88 18 158/72 (100) 97 06/21/19 02:00 90 18 152/69 (96) 97 06/21/19 01:01 100 06/21/19 01:00 88 18 146/69 (94) 97 06/21/19 00:00 Mechanical Ventilator 06/21/19 00:00 98.2 87 18 160/79 (106) 97 06/21/19 00:00 100 06/21/19 00:00 70 06/20/19 23:00 87 18 150/79 (102) 97 06/20/19 22:57 86 25 100 06/20/19 22:00 61 18 146/63 (90) 97 06/20/19 21:00 73 18 116/63 (80) 97 06/20/19 20:00 100 06/20/19 20:00 98.4 63 18 120/60 (80) 97 06/20/19 20:00 Mechanical Ventilator 06/20/19 20:00 68 06/20/19 19:09 74 18 100 06/20/19 19:00 78 18 104/61 (75) 96 06/20/19 18:05 100.7 06/20/19 18:00 100.6 71 18 120/62 (81) 96 06/20/19 17:10 66 18 100 Labs: Laboratory Tests Test 06/21/19 03:13 White Blood Count 13.0 K/UL (4.8-10.8) H Red Blood Count 4.89 M/UL (4.70-6.10) Hemoglobin 14.1 G/DL (14.2-18.0) L Hematocrit 43.5 % (42.0-52.0) Mean Corpuscular Volume 89 FL (80-99) Mean Corpuscular Hemoglobin 28.8 PG (27.0-31.0) Mean Corpuscular Hemoglobin Concent 32.4 G/DL (32.0-36.0) Red Cell Distribution Width 14.8 % (11.6-14.8) Platelet Count 182 K/UL (150-450) Mean Platelet Volume 6.1 FL (6.5-10.1) L Neutrophils (%) (Auto) 84.8 % (45.0-75.0) H Lymphocytes (%) (Auto) 7.3 % (20.0-45.0) L Monocytes (%) (Auto) 6.9 % (1.0-10.0) Eosinophils (%) (Auto) 0.4 % (0.0-3.0) Basophils (%) (Auto) 0.7 % (0.0-2.0) Sodium Level 150 MMOL/L (136-145) H Potassium Level 3.9 MMOL/L (3.5-5.1) Chloride Level 109 MMOL/L (98-107) H Carbon Dioxide Level 29 MMOL/L (21-32) Anion Gap 12 mmol/L (5-15) Blood Urea Nitrogen 78 mg/dL (7-18) H Creatinine 3.2 MG/DL (0.55-1.30) H Estimat Glomerular Filtration Rate 18.9 mL/min (>60) Glucose Level 227 MG/DL (74-106) H Calcium Level 8.4 MG/DL (8.5-10.1) L Magnesium Level 2.5 MG/DL (1.8-2.4) H Total Bilirubin 1.0 MG/DL (0.2-1.0) Aspartate Amino Transf (AST/SGOT) 23 U/L (15-37) Alanine Aminotransferase (ALT/SGPT) 23 U/L (12-78) Alkaline Phosphatase 53 U/L (46-116) Troponin I 0.651 ng/mL (0.000-0.056) Pro-B-Type Natriuretic Peptide 1609 pg/mL (0-125) H Total Protein 6.6 G/DL (6.4-8.2) Albumin 2.5 G/DL (3.4-5.0) L Globulin 4.1 g/dL Albumin/Globulin Ratio 0.6 (1.0-2.7) L Objective: WDWN sedated orally intubated reduced breath sounds bilaterally without rhonchi or wheeze [id number] without MRG NABS nontender no HSM no CC some edema nonfocal Micro: Microbiology Date/Time Source Procedure Growth Status 06/19/19 09:15 Blood Blood Culture - Preliminary NO GROWTH AFTER 24 HOURS Resulted 06/19/19 09:15 Blood Blood Culture - Preliminary NO GROWTH AFTER 24 HOURS Resulted 06/20/19 11:15 Sputum Gram Stain - Final Resulted 06/20/19 11:15 Sputum Sputum Culture - Preliminary NO GROWTH Resulted 06/19/19 16:30 Nasal Nares MRSA Culture - Final NO METHICILLIN RESISTANT STAPH AUREUS... Complete 06/19/19 09:15 Nasopharynx Coronavirus COVID-19 PCR (BETO) - Final Complete 06/19/19 16:30 Rectum VRE Culture - Final NO VANCOMYCIN RESISTANT ENTEROCOCCUS ... Complete 06/19/19 16:30 Rectum Received Accucheck: 200 Paul Muniz MD Jun 21, 2019 17:01
--- NOTE | 2019-06-21 17:17 | NUR ---
NURSE NOTES: Patient is afebrile resting comfortably in bed, turned and repositioned. Will continue to monitor.
--- NOTE | 2019-06-21 18:00 | NUR ---
NURSE NOTES: Gave bed bath to patient, patient showing no signs of distress, patient is afebrile. Turned and repositioned. Will continue to monitor.
--- NOTE | 2019-06-21 19:10 | NUR ---
HAND-OFF: Report given to Mariluz FLORES.
--- NOTE | 2019-06-21 19:30 | NUR ---
NURSE NOTES: Received pt with eyes close but combative and agitated when pt care is done , orally intubated on ac mode . Afib- Flutter controlled rate on the monitor. bp stable. afebrile. D%W at 50 mll/hr been infusing well to CAMMIE PICC line. site with drsg dry and intact. Bilateral soft wrist restraints on for safety to avoid self extubation. Chamberlain to gravity with smooth yellow urine moderate in amt. NGT clamped. PT is NPO . Oral care done. Monitor I and O. Monitor lytes.
[2019-06-21] MEDS: Dyna-Hex 2% Top Sol 2oz TOPIC SCH (19:53)
[2019-06-21] MEDS: Latanoprost 0.005% Opth 2.5ml Soln BOTH EYES SCH (21:15)
--- NOTE | 2019-06-21 21:30 | NUR ---
NURSE NOTES: Suctioned tk beige to blood stained secretions lg in amt.. Oral care done.
--- NOTE | 2019-06-21 22:00 | NUR ---
NURSE NOTES: Diuresing lg amt of smooth yellow urine after Lasix 40mg iv.
[2019-06-22] VITALS (24 sets, daily range): BP systolic 119–179; BP diastolic 47–102
--- NOTE | 2019-06-22 | NUR ---
NURSE NOTES: Turned q 2hrs prn with good skin care done.
--- NOTE | 2019-06-22 02:00 | NUR ---
NURSE NOTES: Remained on a flutter on controlled rate. bp stable. afebrile. skin is intact.
--- NOTE | 2019-06-22 04:00 | NUR ---
NURSE NOTES: Complete bed bath with bed changed was done,
--- NOTE | 2019-06-22 06:00 | NUR ---
NURSE NOTES: No resp. distress noted. vss.
[2019-06-22 06:23] LABS: ALANINE AMINOTRANSFERASE 20 U/L (12-78); ALBUMIN 2.5 G/DL (3.4-5.0); ALBUMIN/GLOBULIN RATIO 0.6 (1.0-2.7); ALKALINE PHOSPHATASE 59 U/L (46-116); ANION GAP 12 mmol/L (5-15); ASPARTATE AMINO TRANSFERASE 19 U/L (15-37); BILIRUBIN,TOTAL 0.9 MG/DL (0.2-1.0); BLOOD UREA NITROGEN 80 mg/dL (7-18); CALCIUM 8.5 MG/DL (8.5-10.1); CARBON DIOXIDE 30 MMOL/L (21-32); CHLORIDE 108 MMOL/L (98-107); CREATININE 2.9 MG/DL (0.55-1.30); POTASSIUM 3.2 MMOL/L (3.5-5.1); SODIUM 150 MMOL/L (136-145)
[2019-06-22] MEDS: NovoLOG Insulin Flexpen SUBQ SCH ×4 (06:37→21:00)
--- NOTE | 2019-06-22 07:30 | NUR ---
HAND-OFF: Report given to Enrike FLORES.
--- NOTE | 2019-06-22 07:31 | NUR ---
NURSE NOTES: Received patient from Mariluz FLORES. Patient is obtunded. A. Flutter on the heart monitor, HR 54. Receiving oxygen via ET Tube 7.5 23cm at the lip line, vent settings: AC 18, TV 450, FiO2 100%, PEEP 10. Right NGT is intact and clamped. IV site is Left Upper arm PICC, intact and receiving D5W at 50cc/hr. Left hand 22g and Right Hand 22g both intact and patent. Chamberlain catheter is intact and draining. Bed is locked, placed in lowest position, side rails up x3, bed alarm on, call light within reach. Will continue to monitor.
[2019-06-22] MEDS: Eliquis 2.5mg tablet NG SCH ×2 (08:35→16:58)
[2019-06-22] MEDS: Allopurinol 100mg Tab NG SCH (08:35)
[2019-06-22] MEDS: Aspirin Baby 81mg NG SCH (08:36)
[2019-06-22] MEDS: Piperacillin/Tazobactam 3.375 GM in NS 110 ML IVPB SCH ×2 (08:38→21:16)
--- NOTE | 2019-06-22 09:00 | General Progress Note ---
Assessment/Plan Problem List: (1) Atrial flutter ICD Codes: I48.92 - Unspecified atrial flutter SNOMED: 1752996 (2) Aspiration pneumonia ICD Codes: J69.0 - Pneumonitis due to inhalation of food and vomit SNOMED: 953025368 (3) Hypoxia ICD Codes: R09.02 - Hypoxemia SNOMED: 007613422 (4) Elevated troponin ICD Codes: R79.89 - Other specified abnormal findings of blood chemistry SNOMED: 368024884, 353756305, 769683436 (5) Acute on chronic renal insufficiency ICD Codes: N28.9 - Disorder of kidney and ureter, unspecified; N18.9 - Chronic kidney disease, unspecified SNOMED: 029285527, 393575190, 421214222 (6) CHF exacerbation ICD Codes: I50.9 - Heart failure, unspecified SNOMED: 932661977, 28624612074201, 224090845 (7) CAD (coronary artery disease) ICD Codes: I25.10 - Atherosclerotic heart disease of [place] coronary artery without angina pectoris SNOMED: 69721278 (8) CVA (cerebral vascular accident) ICD Codes: I63.9 - Cerebral infarction, unspecified SNOMED: 231902564 (9) HTN (hypertension) ICD Codes: I10 - Essential (primary) hypertension SNOMED: 31584046 Status: stable, unchanged Assessment/Plan: Continue vent support. wean per pulm Respiratory treatments IV diuresis. Hypotonic fluids monitor chest x-ray Holding anticoagulant agent due to oral bleeding. Will reassess. IV antibiotics per ID Await COVID-19 PCR Isolation precautions Remains critical and guarded. Subjective ROS Limited/Unobtainable: No Constitutional: Reports: malaise, weakness HEENT: Reports: no symptoms Cardiovascular: Reports: edema Respiratory: Reports: shortness of breath Gastrointestinal/Abdominal: Reports: no symptoms Genitourinary: Reports: no symptoms Neurologic/Psychiatric: Reports: no symptoms Endocrine: Reports: no symptoms Hematologic/Lymphatic: Reports: anemia Allergies: Coded Allergies: ATORVASTATIN (Unverified Allergy, Unknown, 01/10/18) ROSUVASTATIN (Unverified Allergy, Unknown, 01/10/18) SITAGLIPTIN (Unverified Allergy, Unknown, 01/10/18) All Systems: reviewed and negative except above Subjective No overnight events. Remained stable on the ventilator. Still high. No fevers. Cr remains elevated. d/w night rn. Objective Last 24 Hour Vital Signs Date Time Temp Pulse Resp B/P (MAP) Pulse Ox O2 Delivery O2 Flow Rate FiO2 06/22/19 07:00 53 18 131/71 (91) 99 06/22/19 06:00 70 18 129/50 (76) 99 06/22/19 05:26 72 21 100 06/22/19 05:00 72 18 130/47 (74) 99 06/22/19 04:00 72 06/22/19 04:00 Mechanical Ventilator 06/22/19 04:00 100 06/22/19 04:00 98.0 73 18 128/69 (88) 99 06/22/19 03:35 62 06/22/19 03:02 74 20 100 06/22/19 03:00 64 18 154/72 (99) 99 06/22/19 02:00 70 18 119/61 (80) 99 06/22/19 01:04 71 20 100 06/22/19 01:00 100 06/22/19 01:00 72 18 149/75 (99) 99 06/22/19 00:00 100 06/22/19 00:00 98.2 73 18 143/78 (99) 99 06/22/19 00:00 Mechanical Ventilator 06/21/19 23:28 73 06/21/19 23:00 112 19 114/54 (74) 99 06/21/19 22:45 69 22 100 06/21/19 22:00 103 18 132/60 (84) 97 06/21/19 21:05 67 21 100 06/21/19 21:00 81 18 142/66 (91) 97 06/21/19 20:00 100 06/21/19 20:00 Mechanical Ventilator 06/21/19 20:00 98.0 56 18 125/66 (85) 97 06/21/19 19:20 63 06/21/19 19:00 60 18 140/78 (98) 97 06/21/19 18:56 64 19 100 06/21/19 18:00 62 19 147/75 (99) 98 06/21/19 17:00 98.2 75 18 129/61 (83) 98 06/21/19 16:00 55 18 128/66 (86) 97 06/21/19 16:00 100 06/21/19 16:00 Mechanical Ventilator 06/21/19 15:59 54 06/21/19 15:00 55 19 131/66 (87) 97 06/21/19 14:40 56 20 100 06/21/19 14:00 66 19 147/82 (103) 96 06/21/19 13:00 58 18 153/72 (99) 98 06/21/19 12:00 Mechanical Ventilator 06/21/19 12:00 98.2 57 18 105/51 (69) 96 06/21/19 12:00 100 06/21/19 11:40 67 06/21/19 11:00 58 18 100 06/21/19 11:00 54 18 120/59 (79) 98 06/21/19 10:00 57 18 120/56 (77) 96 06/21/19 09:00 70 18 183/90 (121) 83 Intake and Output 06/21/19 06/22/19 19:00 07:00 Intake Total 475.83 ml 660 ml Output Total 1015 ml 1260 ml Balance -539.17 ml -600 ml Intake Oral 0 ml 0 ml Free Water 60 ml IV Total 475.83 ml 600 ml Output Urine Total 1015 ml 1260 ml Laboratory Tests 06/22/19 04:30: Sodium Level 150H, Potassium Level 3.2L, Chloride Level 108H, Carbon Dioxide Level 30, Anion Gap 12, Blood Urea Nitrogen 80H, Creatinine 2.9H, Estimat Glomerular Filtration Rate 21.2, Glucose Level 197H, Calcium Level 8.5, Total Bilirubin 0.9, Aspartate Amino Transf (AST/SGOT) 19, Alanine Aminotransferase ( ALT/SGPT) 20, Alkaline Phosphatase 59, Total Protein 6.9, Albumin 2.5L, Globulin 4.4, Albumin/Globulin Ratio 0.6L Height (Feet): 5 Height (Inches): 3.00 Weight (Pounds): 229 General Appearance: WD/WN, lethargic, confused EENT: normal ENT inspection Neck: non-tender, normal alignment, supple Cardiovascular: normal peripheral pulses, normal rate, regular rhythm Respiratory/Chest: chest wall non-tender, lungs clear, normal breath sounds, no respiratory distress, no accessory muscle use Abdomen: normal bowel sounds, non tender, soft, no organomegaly Edema: trace edema Neurologic: disoriented, unresponsive Juanpablo Downey MD Jun 22, 2019 09:00
--- NOTE | 2019-06-22 09:06 | NUR ---
NURSE NOTES: Turned and repositioned patient, patient is afebrile, able to follow commands and respond by nodding or shaking head. No signs of acute distress noted. Medications given as prescribed, no adverse reaction. Oral care given. Will continue to monitor.
--- NOTE | 2019-06-22 10:09 | Critical Care Progress Note ---
Assessment/Plan Assessment/Plan Hypoxemia Hypercapnic respiratory failure pulmonary edema possible ARDS possible COVID renal failure toxic met encephalopathy hypernatremia CRF leukocytosis possible sepsis PLAN vent as is monitor ABG monitor AC rate PEEP taper FIO2 as able ID follow up await further results- COVID x 1 negative not ready for wean medications/laboratory data/nursing notes/ICU care reviewed in detail note reviewed and edited care discussed with RN and RT ICU time spent >40 minutes Critical Care - Subjective Interval Events: remains on 100% still ill on vent remains critical ROS Limited/Unobtainable: Yes Condition: critical EKG Rhythm: Sinus Rhythm I&O: Intake and Output 06/21/19 06/22/19 19:00 07:00 Intake Total 475.83 ml 660 ml Output Total 1015 ml 1260 ml Balance -539.17 ml -600 ml Intake Oral 0 ml 0 ml Free Water 60 ml IV Total 475.83 ml 600 ml Output Urine Total 1015 ml 1260 ml Critical Care - Objective ET-Tube: 7.5 ET Position: 23 Last 24 Hour Vital Signs Date Time Temp Pulse Resp B/P (MAP) Pulse Ox O2 Delivery O2 Flow Rate FiO2 06/22/19 09:00 53 19 127/69 (88) 99 06/22/19 08:00 98.1 54 18 144/67 (92) 96 06/22/19 07:59 54 06/22/19 07:30 74 20 100 06/22/19 07:00 53 18 131/71 (91) 99 06/22/19 06:00 70 18 129/50 (76) 99 06/22/19 05:26 72 21 100 06/22/19 05:00 72 18 130/47 (74) 99 06/22/19 04:00 72 06/22/19 04:00 Mechanical Ventilator 06/22/19 04:00 100 06/22/19 04:00 98.0 73 18 128/69 (88) 99 06/22/19 03:35 62 06/22/19 03:02 74 20 100 06/22/19 03:00 64 18 154/72 (99) 99 06/22/19 02:00 70 18 119/61 (80) 99 06/22/19 01:04 71 20 100 06/22/19 01:00 100 06/22/19 01:00 72 18 149/75 (99) 99 06/22/19 00:00 100 06/22/19 00:00 98.2 73 18 143/78 (99) 99 06/22/19 00:00 Mechanical Ventilator 06/21/19 23:28 73 06/21/19 23:00 112 19 114/54 (74) 99 06/21/19 22:45 69 22 100 06/21/19 22:00 103 18 132/60 (84) 97 06/21/19 21:05 67 21 100 06/21/19 21:00 81 18 142/66 (91) 97 06/21/19 20:00 100 06/21/19 20:00 Mechanical Ventilator 06/21/19 20:00 98.0 56 18 125/66 (85) 97 06/21/19 19:20 63 06/21/19 19:00 60 18 140/78 (98) 97 06/21/19 18:56 64 19 100 06/21/19 18:00 62 19 147/75 (99) 98 06/21/19 17:00 98.2 75 18 129/61 (83) 98 06/21/19 16:00 55 18 128/66 (86) 97 06/21/19 16:00 100 06/21/19 16:00 Mechanical Ventilator 06/21/19 15:59 54 06/21/19 15:00 55 19 131/66 (87) 97 06/21/19 14:40 56 20 100 06/21/19 14:00 66 19 147/82 (103) 96 06/21/19 13:00 58 18 153/72 (99) 98 06/21/19 12:00 Mechanical Ventilator 06/21/19 12:00 98.2 57 18 105/51 (69) 96 06/21/19 12:00 100 06/21/19 11:40 67 06/21/19 11:00 58 18 100 06/21/19 11:00 54 18 120/59 (79) 98 Labs: Laboratory Tests Test 06/22/19 04:30 Sodium Level 150 MMOL/L (136-145) H Potassium Level 3.2 MMOL/L (3.5-5.1) L Chloride Level 108 MMOL/L (98-107) H Carbon Dioxide Level 30 MMOL/L (21-32) Anion Gap 12 mmol/L (5-15) Blood Urea Nitrogen 80 mg/dL (7-18) H Creatinine 2.9 MG/DL (0.55-1.30) H Estimat Glomerular Filtration Rate 21.2 mL/min (>60) Glucose Level 197 MG/DL (74-106) H Calcium Level 8.5 MG/DL (8.5-10.1) Total Bilirubin 0.9 MG/DL (0.2-1.0) Aspartate Amino Transf (AST/SGOT) 19 U/L (15-37) Alanine Aminotransferase (ALT/SGPT) 20 U/L (12-78) Alkaline Phosphatase 59 U/L (46-116) Total Protein 6.9 G/DL (6.4-8.2) Albumin 2.5 G/DL (3.4-5.0) L Globulin 4.4 g/dL Albumin/Globulin Ratio 0.6 (1.0-2.7) L Objective: WDWN sedated orally intubated reduced breath sounds bilaterally without rhonchi or wheeze [id number] without MRG NABS nontender no HSM no CC some edema nonfocal reviewed and edited Micro: Microbiology Date/Time Source Procedure Growth Status 06/20/19 11:15 Sputum Gram Stain - Final Complete 06/20/19 11:15 Sputum Sputum Culture - Final NORMAL UPPER RESPIRATORY CARLOTTA PRESENT Complete 06/19/19 16:30 Nasal Nares MRSA Culture - Final NO METHICILLIN RESISTANT STAPH AUREUS... Complete 06/19/19 16:30 Rectum VRE Culture - Final NO VANCOMYCIN RESISTANT ENTEROCOCCUS ... Complete 06/19/19 16:30 Rectum - Final NO CARBAPENEM-RESISTANT ENTEROBACTERI... Complete Accucheck: 2 Paul Muniz MD Jun 22, 2019 10:09
--- NOTE | 2019-06-22 11:27 | Infectious Diseases Prog Note ---
Assessment/Plan Assessment/Plan A; 1. Aspiration pneumonia. 2. Hypercapnic, hypoxemic respiratory failure 3. Diabetes. 4. Hypertension. 5. Renal failure. 6. Congestive heart failure. PLAN: 1. Continue Zosyn. 2. COVID19 test X 1: negative 3. We will repeat COVID-19 testing. 4. Case was D/W RN Subjective ROS Limited/Unobtainable: Yes Constitutional: Denies: fever Neurologic: Reports: other - on restraint Allergies: Coded Allergies: ATORVASTATIN (Unverified Allergy, Unknown, 01/10/18) ROSUVASTATIN (Unverified Allergy, Unknown, 01/10/18) SITAGLIPTIN (Unverified Allergy, Unknown, 01/10/18) Objective Vital Signs Last 24 Hour Vital Signs Date Time Temp Pulse Resp B/P (MAP) Pulse Ox O2 Delivery O2 Flow Rate FiO2 06/22/19 09:00 53 19 127/69 (88) 99 06/22/19 08:00 Mechanical Ventilator 06/22/19 08:00 100 06/22/19 08:00 98.1 54 18 144/67 (92) 96 06/22/19 07:59 54 06/22/19 07:30 74 20 100 06/22/19 07:00 53 18 131/71 (91) 99 06/22/19 06:00 70 18 129/50 (76) 99 06/22/19 05:26 72 21 100 06/22/19 05:00 72 18 130/47 (74) 99 06/22/19 04:00 72 06/22/19 04:00 Mechanical Ventilator 06/22/19 04:00 100 06/22/19 04:00 98.0 73 18 128/69 (88) 99 06/22/19 03:35 62 06/22/19 03:02 74 20 100 06/22/19 03:00 64 18 154/72 (99) 99 06/22/19 02:00 70 18 119/61 (80) 99 06/22/19 01:04 71 20 100 06/22/19 01:00 100 06/22/19 01:00 72 18 149/75 (99) 99 06/22/19 00:00 100 06/22/19 00:00 98.2 73 18 143/78 (99) 99 06/22/19 00:00 Mechanical Ventilator 06/21/19 23:28 73 06/21/19 23:00 112 19 114/54 (74) 99 06/21/19 22:45 69 22 100 06/21/19 22:00 103 18 132/60 (84) 97 06/21/19 21:05 67 21 100 06/21/19 21:00 81 18 142/66 (91) 97 06/21/19 20:00 100 06/21/19 20:00 Mechanical Ventilator 06/21/19 20:00 98.0 56 18 125/66 (85) 97 06/21/19 19:20 63 06/21/19 19:00 60 18 140/78 (98) 97 06/21/19 18:56 64 19 100 06/21/19 18:00 62 19 147/75 (99) 98 06/21/19 17:00 98.2 75 18 129/61 (83) 98 06/21/19 16:00 55 18 128/66 (86) 97 06/21/19 16:00 100 06/21/19 16:00 Mechanical Ventilator 06/21/19 15:59 54 06/21/19 15:00 55 19 131/66 (87) 97 06/21/19 14:40 56 20 100 06/21/19 14:00 66 19 147/82 (103) 96 06/21/19 13:00 58 18 153/72 (99) 98 06/21/19 12:00 Mechanical Ventilator 06/21/19 12:00 98.2 57 18 105/51 (69) 96 06/21/19 12:00 100 06/21/19 11:40 67 Height (Feet): 5 Height (Inches): 3.00 Weight (Pounds): 229 General Appearance: other - obese HEENT: other - orally intubated Respiratory/Chest: other Cardiovascular: bradycardia Abdomen: soft, non tender, other - NG tube Skin: other - hyperpigmention of legs Neurologic/Psychiatric: unresponsiveness Microbiology Date/Time Source Procedure Growth Status 06/20/19 11:15 Sputum Gram Stain - Final Complete 06/20/19 11:15 Sputum Sputum Culture - Final NORMAL UPPER RESPIRATORY CARLOTTA PRESENT Complete 06/19/19 16:30 Nasal Nares MRSA Culture - Final NO METHICILLIN RESISTANT STAPH AUREUS... Complete 06/19/19 16:30 Rectum VRE Culture - Final NO VANCOMYCIN RESISTANT ENTEROCOCCUS ... Complete 06/19/19 16:30 Rectum - Final NO CARBAPENEM-RESISTANT ENTEROBACTERI... Complete Laboratory Tests Test 06/22/19 04:30 Sodium Level 150 MMOL/L (136-145) H Potassium Level 3.2 MMOL/L (3.5-5.1) L Chloride Level 108 MMOL/L (98-107) H Carbon Dioxide Level 30 MMOL/L (21-32) Anion Gap 12 mmol/L (5-15) Blood Urea Nitrogen 80 mg/dL (7-18) H Creatinine 2.9 MG/DL (0.55-1.30) H Estimat Glomerular Filtration Rate 21.2 mL/min (>60) Glucose Level 197 MG/DL (74-106) H Calcium Level 8.5 MG/DL (8.5-10.1) Total Bilirubin 0.9 MG/DL (0.2-1.0) Aspartate Amino Transf (AST/SGOT) 19 U/L (15-37) Alanine Aminotransferase (ALT/SGPT) 20 U/L (12-78) Alkaline Phosphatase 59 U/L (46-116) Total Protein 6.9 G/DL (6.4-8.2) Albumin 2.5 G/DL (3.4-5.0) L Globulin 4.4 g/dL Albumin/Globulin Ratio 0.6 (1.0-2.7) L Current Medications Medications (Trade) Dose Ordered Sig/Diana Route PRN Reason Start Time Stop Time Status Last Admin Dose Admin Acetaminophen (Tylenol) 650 mg Q6H PRN NG Temp >100.5 06/20/19 17:15 07/20/19 17:14 06/20/19 17:35 Albuterol Sulfate (Proventil MDI) 2 puff Q4H PRN INH Shortness of Breath 06/20/19 00:15 09/17/19 00:14 Allopurinol (Zyloprim) 100 mg DAILY NG 06/20/19 09:00 07/20/19 08:59 06/22/19 08:35 Apixaban (Eliquis) 2.5 mg BID NG 06/20/19 09:00 09/17/19 17:59 06/22/19 08:35 Aspirin (ASA) 81 mg DAILY NG 06/20/19 09:00 08/04/19 08:59 06/22/19 08:36 Chlorhexidine Gluconate (Jesica-Hex 2%) 1 applic DAILY@2000 TOPIC 06/20/19 20:00 09/18/19 19:59 06/21/19 19:53 Dextrose 1,000 ml @ 75 mls/hr [id number] IV 06/22/19 11:30 07/22/19 11:29 Dextrose (Dextrose 50%) 25 ml Q30M PRN IV Hypoglycemia 06/20/19 00:15 09/17/19 16:44 Dextrose (Dextrose 50%) 50 ml Q30M PRN IV Hypoglycemia 06/20/19 00:15 09/17/19 16:44 Famotidine (Pepcid) 20 mg DAILY GT 06/20/19 09:00 09/18/19 08:59 06/22/19 08:35 Furosemide (Lasix) 40 mg EVERY 12 HOURS IV 06/20/19 09:00 07/19/19 20:59 06/21/19 20:40 Insulin Aspart (NovoLOG) BEFORE MEALS AND HS SUBQ 06/20/19 06:30 09/17/19 20:59 06/22/19 06:37 Latanoprost (Xalatan) 1 drop BEDTIME BOTH EYES 06/20/19 21:00 07/19/19 20:59 06/21/19 21:15 Mirtazapine (Remeron) 7.5 mg BEDTIME NG 06/20/19 21:00 09/17/19 20:59 06/21/19 20:40 Piperacillin Sod/ Tazobactam Sod 3.375 gm/Sodium Chloride 110 ml @ 27.5 mls/hr Q12HR IVPB 06/20/19 09:00 06/26/19 20:59 06/22/19 08:38 Harley Taylor MD Jun 22, 2019 11:27
--- NOTE | 2019-06-22 14:28 | NUR ---
HAND-OFF: Report given to Valeria FLORES.
--- NOTE | 2019-06-22 14:31 | NUR ---
NURSE NOTES: Patient transferred from SDU (ICU overflow) to ICU bed F via hospital bed, accompanied by com writer, 2 RNs and RT; ACLS protocol. Received bedside report from Enrike Hawthorne RN. Patient is awake, opens eyes to verbal stimuli, responds to name. Patient is orally intubated with ETT 7.5 at 23cm right lip line with vent settings AC18, TV 450, FiO2 100%, and PEEP 10. Patient has right nares NGT, clamped. Patient is NPO at this time. PICC line noted on the left upper arm, intact, patent, asymptomatic, infusing D5W at 75ml/hr. Peripheral IV on left and right hand both are 22g. Patient's abdomen is round and distended. Chamberlain catheter noted, draining to gravity with light smooth urine output noted. Patient has bilateral wrist restraints to avoid self extubation. Skin discolorations/ecchymosis and edema noted on bilateral lower extremities. BLE elevated with pillows, bilateral heels floating. Patient is clean and dry at this time. Safety precautions in place, bed locked, alarmed, and in lowest position, side rails up x3, and call light left within reach. Will continue plan of care and will continue to monitor patient.
[2019-06-22] MEDS ORDERED: D5NS 1000ml IV ONE (15:46)
--- NOTE | 2019-06-22 16:00 | NUR ---
NURSE NOTES: Patient appears to be sleeping, no distress noted. Tolerating vent settings. VSS on the monitor. Will continue to monitor.
--- NOTE | 2019-06-22 18:15 | NUR ---
NURSE NOTES: Patient given complete bed bath, linen changed, and placed in clean hospital gown. NGT in place. Patent. Patient remains NPO. No BM noted at this time. Chamberlain catheter remains in place. Patient remained afebrile. D5W infusing at 75ml/hr on left upper arm PICC line. Patient remained afebrile. No distress noted. Will continue to monitor.
--- NOTE | 2019-06-22 19:08 | NUR ---
HAND-OFF: Report given to MARK Mcgraw. Endorsed plan of care.
--- NOTE | 2019-06-22 19:30 | NUR ---
NURSE NOTES: Received pt with eyes close but arousable to tactile stimulation. Orally intubated on ac mode bilateral soft wrist restraints on for safety to avoid self extubation, Afib- flutter on the monitor, bp stable afebrile, NPO at this time NGT clamped. D5W at 75ml/hr, infusing well per CAMMIE PICC line. site with drsg dry and intact. Chamberlain to gravity with smooth yellow urine Moderate in amt. Monitor I and O. Monitor lytes. Will continue to monitor.
[2019-06-22] MEDS: Dyna-Hex 2% Top Sol 2oz TOPIC SCH (20:23)
--- NOTE | 2019-06-22 21:30 | NUR ---
NURSE NOTES: Suctioned tk beige secretions lg in amt. oral care done.
[2019-06-22] MEDS: Latanoprost 0.005% Opth 2.5ml Soln BOTH EYES SCH (21:31)
--- NOTE | 2019-06-22 23:00 | NUR ---
NURSE NOTES: turned q 2hrs prn with good skin care done.
[2019-06-23] VITALS (23 sets, daily range): BP systolic 109–147; BP diastolic 59–82
--- NOTE | 2019-06-23 01:00 | NUR ---
NURSE NOTES: Had x1 lg bowel movement, cleaned up pt.
--- NOTE | 2019-06-23 03:00 | NUR ---
NURSE NOTES: Complete bed bath with bed changed was done.
--- NOTE | 2019-06-23 04:29 | Progress Note ---
DATE: 06/22/2019 CARDIOLOGY PROGRESS NOTE SUBJECTIVE: The patient remains on ventilator support. Monitored rhythm atrial flutter with variable block. Negative fluid balance over the past several days. OBJECTIVE: VITAL SIGNS: Blood pressure 131/71, heart rate 53 to 72, respiratory 18 to 21, afebrile. LUNGS: Coarse breath sounds. Rales bilaterally, but decreased. CARDIAC: Irregularly irregular rhythm. No new murmur. ABDOMEN: Soft. EXTREMITIES: No edema. No new bleeding noted. LABORATORY STUDIES: Sodium 150, potassium 3.2, BUN 80, creatinine 2.9, and bicarb 30. White count 13 and hemoglobin 14. IMPRESSION: 1. Acute non-ST elevation myocardial infarction. 2. Paroxysmal atrial flutter with variable block. 3. Healthcare-associated pneumonia ____ respiratory failure. 4. Acute on chronic renal failure. 5. Acute on chronic diastolic congestive heart failure. 6. Cerebrovascular disease. 7. Hypertensive heart disease. 8. Ischemic cardiomyopathy. 9. Hypernatremia. 10. Dehydration. 11. Hypokalemia. PLAN: 1. Isolation. 2. Ventilator support. 3. Discontinue aspirin. 4. Maintain apixaban for cardioembolic prophylaxis. His lungs have no bleeding noted. 5. Hold diuresis. 6. Free water replacement by IV route. 7. Potassium replacement. 8. Check magnesium level. 9. Remains critical and guarded. Ottoniel Devi M.D. DR: KERRI JOB#: [id number] CC:
--- NOTE | 2019-06-23 05:00 | NUR ---
NURSE NOTES: Bilateral soft wrist restraints on. maintained for safety to avoid self extubation.
--- NOTE | 2019-06-23 05:14 | Progress Note ---
DATE: 06/21/2019 CARDIOLOGY PROGRESS NOTE SUBJECTIVE: The patient remains in the intensive care unit. Orally intubated. Mechanically ventilated. Off anticoagulation due to mouth bleeding, still on isolation. Monitor reveals atrial flutter with variable block. OBJECTIVE: VITALS: Blood pressure 120/59, heart rate 54 to 88, respiratory rate 18. The patient's maximal temperature is 100.7 yesterday evening, now 99. LUNGS: Bilateral breath sounds. Rhonchi and rales. CARDIAC: Irregularly irregular rhythm. Normal S1 and S2. 1/6 systolic murmur at apex. ABDOMEN: Soft. EXTREMITIES: Trace edema. LABORATORY DATA: White count 13 and hemoglobin 14. Sodium 150, potassium 3.9, bicarb 29, BUN 78, and creatinine 3.2. Pro-natriuretic peptide 1600. Albumin 2.5. IMPRESSION: 1. Critical and guarded. 2. Respiratory failure. 3. Acute myocardial infarction. 4. Acute on chronic respiratory acidosis. 5. Paroxysmal atrial flutter. 6. Acute diastolic congestive heart failure. 7. Acute on chronic renal failure. 8. Paroxysmal bronchospasm. 9. Oral bleeding. PLAN: 1. Hold anti-platelet therapy. 2. Cautious diuresis. 3. Isolation precautions. 4. Weaning efforts. 5. Trend natriuretic peptide assay. 6. Follow up troponin level. Ottoniel Devi M.D. DR: Fina JOB#: [id number] CC:
[2019-06-23 05:39] LABS: BASOPHILS % (AUTO) 0.7 % (0.0-2.0); EOSINOPHILS % (AUTO) 3.6 % (0.0-3.0); HEMATOCRIT 41.1 % (42.0-52.0); HEMOGLOBIN 13.5 G/DL (14.2-18.0); MEAN CORPUSCULAR VOLUME 88 FL (80-99); MONOCYTES % (AUTO) 5.2 % (1.0-10.0); NEUTROPHILS % (AUTO) 80.5 % (45.0-75.0); PLATELET COUNT 183 K/UL (150-450); RED BLOOD COUNT 4.65 M/UL (4.70-6.10); RED CELL DISTRIBUTION WIDTH 14.2 % (11.6-14.8); WHITE BLOOD COUNT 12.5 K/UL (4.8-10.8)
[2019-06-23 05:57] LABS: ALANINE AMINOTRANSFERASE 22 U/L (12-78); ALBUMIN 2.4 G/DL (3.4-5.0); ALBUMIN/GLOBULIN RATIO 0.5 (1.0-2.7); ALKALINE PHOSPHATASE 55 U/L (46-116); ANION GAP 9 mmol/L (5-15); ASPARTATE AMINO TRANSFERASE 23 U/L (15-37); BILIRUBIN,TOTAL 0.9 MG/DL (0.2-1.0); BLOOD UREA NITROGEN 71 mg/dL (7-18); CARBON DIOXIDE 31 MMOL/L (21-32); CHLORIDE 106 MMOL/L (98-107); CREATININE 2.6 MG/DL (0.55-1.30); POTASSIUM 3.2 MMOL/L (3.5-5.1); SODIUM 146 MMOL/L (136-145)
[2019-06-23] MEDS: NovoLOG Insulin Flexpen SUBQ SCH ×4 (06:14→21:00)
--- NOTE | 2019-06-23 07:01 | NUR ---
HAND-OFF: Report given to Valeria FLORES.
--- NOTE | 2019-06-23 07:05 | NUR ---
NURSE NOTES: Received report from MARK Mcgraw. Observed patient in bed, appears to be sleeping. Patient is orally intubated with vent settings as follows: AC 18, TV 450, FiO2 100% and PEEP 10. Patient is saturating 97% at this time, no apparent respiratory distress noted. NGT on the right nares in place, patient remains NPO. PICC line on the left upper arm noted, intact, patent, asymptomatic. Bilateral soft wrist restraints noted to avoid self extubation. Chamberlain catheter noted, draining well to gravity with light smooth urine output noted. Safety precautions in place, bed locked, alarmed, and in lowest position, side rails up x3, and call light left within reach. Will continue assessment and will continue to monitor patient.
[2019-06-23] MEDS: Allopurinol 100mg Tab NG SCH (08:04)
[2019-06-23] MEDS: Piperacillin/Tazobactam 3.375 GM in NS 110 ML IVPB SCH ×2 (08:04→21:24)
[2019-06-23] MEDS: Aspirin Baby 81mg NG SCH (08:05)
[2019-06-23] MEDS: Eliquis 2.5mg tablet NG SCH ×2 (08:05→16:50)
--- NOTE | 2019-06-23 09:49 | NUR ---
NURSE NOTES: Patient is awake, resistive to care, trying to pull out ETT and NGT during restraint care. Patient remains orally intubated with previous settings, no distress at this time. Dr Muniz was present in the unit, seen patient. No new verbal orders received. Scheduled medications given to patient. D5 KCL 20mEq infusing at 100ml/hr on left upper arm PICC line. No s/s of pain at this time. Safety precautions in place; reoriented patient. Unable to verbalize/demonstrate understanding at this time.
--- NOTE | 2019-06-23 10:34 | General Progress Note ---
Assessment/Plan Problem List: (1) Atrial flutter ICD Codes: I48.92 - Unspecified atrial flutter SNOMED: 1347658 (2) Aspiration pneumonia ICD Codes: J69.0 - Pneumonitis due to inhalation of food and vomit SNOMED: 718671819 (3) Hypoxia ICD Codes: R09.02 - Hypoxemia SNOMED: 245801275 (4) Elevated troponin ICD Codes: R79.89 - Other specified abnormal findings of blood chemistry SNOMED: 557955469, 873386983, 781982250 (5) Acute on chronic renal insufficiency ICD Codes: N28.9 - Disorder of kidney and ureter, unspecified; N18.9 - Chronic kidney disease, unspecified SNOMED: 482354077, 693442156, 108658852 (6) CHF exacerbation ICD Codes: I50.9 - Heart failure, unspecified SNOMED: 323032464, 80036518057292, 529078733 (7) CAD (coronary artery disease) ICD Codes: I25.10 - Atherosclerotic heart disease of [place] coronary artery without angina pectoris SNOMED: 86532007 (8) CVA (cerebral vascular accident) ICD Codes: I63.9 - Cerebral infarction, unspecified SNOMED: 849017990 (9) HTN (hypertension) ICD Codes: I10 - Essential (primary) hypertension SNOMED: 71872846 Status: stable, unchanged Assessment/Plan: Continue vent support. wean per pulm Respiratory treatments diuresis per cards Hypotonic fluids monitor chest x-ray Holding anticoagulant agent due to oral bleeding. Will reassess. IV antibiotics per ID COVID-19 PCR neg Isolation precautions feeds ordered Remains critical and guarded. Subjective ROS Limited/Unobtainable: No Constitutional: Reports: malaise, weakness HEENT: Reports: no symptoms Cardiovascular: Reports: no symptoms Respiratory: Reports: shortness of breath Gastrointestinal/Abdominal: Reports: difficulty swallowing Genitourinary: Reports: no symptoms Neurologic/Psychiatric: Reports: no symptoms Endocrine: Reports: no symptoms Hematologic/Lymphatic: Reports: anemia Allergies: Coded Allergies: ATORVASTATIN (Unverified Allergy, Unknown, 01/10/18) ROSUVASTATIN (Unverified Allergy, Unknown, 01/10/18) SITAGLIPTIN (Unverified Allergy, Unknown, 01/10/18) All Systems: reviewed and negative except above Subjective No overnight events. Remained stable on the ventilator. still on 100%. Na Still high but trending down. No fevers. Cr remains elevated. Objective Last 24 Hour Vital Signs Date Time Temp Pulse Resp B/P (MAP) Pulse Ox O2 Delivery O2 Flow Rate FiO2 06/23/19 10:00 72 18 133/68 (89) 98 06/23/19 09:00 72 18 109/59 (76) 97 06/23/19 08:05 72 20 100 06/23/19 08:00 98.7 70 18 129/62 (84) 97 06/23/19 08:00 72 06/23/19 08:00 100 06/23/19 08:00 Mechanical Ventilator 06/23/19 07:00 68 20 128/69 (88) 97 06/23/19 06:00 70 19 126/77 (93) 98 06/23/19 05:00 68 16 115/82 (93) 99 06/23/19 04:00 70 06/23/19 04:00 98.0 70 18 128/70 (89) 97 06/23/19 04:00 100 06/23/19 04:00 Mechanical Ventilator 06/23/19 03:00 71 21 147/68 (94) 97 06/23/19 02:00 75 17 130/60 (83) 98 06/23/19 01:00 100 06/23/19 01:00 68 17 132/60 (84) 98 06/23/19 00:00 76 06/23/19 00:00 100 06/23/19 00:00 98.4 69 18 136/61 (86) 100 06/23/19 00:00 Mechanical Ventilator 06/22/19 23:00 67 19 151/63 (92) 100 06/22/19 22:00 61 18 133/59 (83) 99 06/22/19 21:00 55 18 132/62 (85) 100 06/22/19 20:00 98.0 59 18 143/64 (90) 98 06/22/19 20:00 Mechanical Ventilator 06/22/19 19:05 72 19 100 06/22/19 19:00 55 17 142/66 (91) 99 06/22/19 18:00 65 18 135/79 (97) 98 06/22/19 17:00 98.3 55 18 138/66 (90) 98 06/22/19 16:00 100 06/22/19 16:00 72 06/22/19 16:00 Mechanical Ventilator 06/22/19 16:00 66 18 131/102 (112) 98 06/22/19 15:25 50 18 100 06/22/19 15:00 69 18 136/72 (93) 100 06/22/19 14:15 54 18 179/73 (108) 100 06/22/19 13:00 53 18 164/80 (108) 99 06/22/19 12:00 Mechanical Ventilator 06/22/19 12:00 100 06/22/19 12:00 97.8 71 18 125/69 (87) 98 06/22/19 11:40 83 06/22/19 11:00 72 18 127/85 (99) 97 06/22/19 11:00 72 21 100 Intake and Output 06/22/19 06/23/19 19:00 07:00 Intake Total 350 ml 525 ml Output Total 555 ml 1110 ml Balance -205 ml -585 ml Intake Oral 0 ml 0 ml IV Total 300 ml 525 ml Other 50 ml Output Urine Total 555 ml 1110 ml # Bowel Movements 1 Laboratory Tests 06/23/19 04:00: White Blood Count 12.5H, Red Blood Count 4.65L, Hemoglobin 13.5L, Hematocrit 41.1L, Mean Corpuscular Volume 88, Mean Corpuscular Hemoglobin 29.1, Mean Corpuscular Hemoglobin Concent 32.9, Red Cell Distribution Width 14.2, Platelet Count 183, Mean Platelet Volume 6.5, Neutrophils (%) (Auto) 80.5H, Lymphocytes ( %) (Auto) 10.0L, Monocytes (%) (Auto) 5.2, Eosinophils (%) (Auto) 3.6H, Basophils (%) (Auto) 0.7, Sodium Level 146H, Potassium Level 3.2L, Chloride Level 106, Carbon Dioxide Level 31, Anion Gap 9, Blood Urea Nitrogen 71H, Creatinine 2.6H, Estimat Glomerular Filtration Rate 24.1, Glucose Level 184H, Calcium Level 8.0L, Magnesium Level 2.3, Total Bilirubin 0.9, Aspartate Amino Transf (AST/SGOT) 23, Alanine Aminotransferase (ALT/SGPT) 22, Alkaline Phosphatase 55, Troponin I 0.271H, Pro-B-Type Natriuretic Peptide 1569H, Total Protein 6.8, Albumin 2.4L, Globulin 4.4, Albumin/Globulin Ratio 0.5L Height (Feet): 5 Height (Inches): 3.00 Weight (Pounds): 229 General Appearance: WD/WN, lethargic, confused EENT: normal ENT inspection Neck: non-tender, normal alignment, supple Cardiovascular: normal peripheral pulses, normal rate, regular rhythm Respiratory/Chest: chest wall non-tender, lungs clear, normal breath sounds, no respiratory distress, no accessory muscle use Abdomen: normal bowel sounds, non tender, soft, no organomegaly, no mass Neurologic: disoriented, unresponsive Skin: normal pigmentation Juanpablo Downey MD Jun 23, 2019 10:34
--- NOTE | 2019-06-23 10:48 | Diagnostic Imaging Report ---
Indication: Shortness of breath Technique: One view of the chest Comparison: 06/20/2019 Findings: The heart is enlarged. There is bilateral interstitial and airspace edema again demonstrated. There may be decreased pleural fluid on the right. Endotracheal and orogastric tubes, left arm PICC remain in stable positions. 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 Impression: Unchanged, over one day, findings as above.
--- NOTE | 2019-06-23 11:00 | Infectious Diseases Prog Note ---
Assessment/Plan Assessment/Plan antibiotics : zosyn 06.19.19 - A 1. pneumonia COVID 19 test negative 06.19.19 2. respiratory failure 3. leucocytosis 4. diabetes mellitus 5. hypertension 6. CHF 7. renal failure improving P 1. continue zosyn 2. will follow up cultures Subjective ROS Limited/Unobtainable: Yes Allergies: Coded Allergies: ATORVASTATIN (Unverified Allergy, Unknown, 01/10/18) ROSUVASTATIN (Unverified Allergy, Unknown, 01/10/18) SITAGLIPTIN (Unverified Allergy, Unknown, 01/10/18) Objective Vital Signs Last 24 Hour Vital Signs Date Time Temp Pulse Resp B/P (MAP) Pulse Ox O2 Delivery O2 Flow Rate FiO2 06/23/19 10:00 72 18 133/68 (89) 98 06/23/19 09:00 72 18 109/59 (76) 97 06/23/19 08:05 72 20 100 06/23/19 08:00 98.7 70 18 129/62 (84) 97 06/23/19 08:00 72 06/23/19 08:00 100 06/23/19 08:00 Mechanical Ventilator 06/23/19 07:00 68 20 128/69 (88) 97 06/23/19 06:00 70 19 126/77 (93) 98 06/23/19 05:00 68 16 115/82 (93) 99 06/23/19 04:00 70 06/23/19 04:00 98.0 70 18 128/70 (89) 97 06/23/19 04:00 100 06/23/19 04:00 Mechanical Ventilator 06/23/19 03:00 71 21 147/68 (94) 97 06/23/19 02:00 75 17 130/60 (83) 98 06/23/19 01:00 100 06/23/19 01:00 68 17 132/60 (84) 98 06/23/19 00:00 76 06/23/19 00:00 100 06/23/19 00:00 98.4 69 18 136/61 (86) 100 06/23/19 00:00 Mechanical Ventilator 06/22/19 23:00 67 19 151/63 (92) 100 06/22/19 22:00 61 18 133/59 (83) 99 06/22/19 21:00 55 18 132/62 (85) 100 06/22/19 20:00 98.0 59 18 143/64 (90) 98 06/22/19 20:00 Mechanical Ventilator 06/22/19 19:05 72 19 100 06/22/19 19:00 55 17 142/66 (91) 99 06/22/19 18:00 65 18 135/79 (97) 98 06/22/19 17:00 98.3 55 18 138/66 (90) 98 06/22/19 16:00 100 06/22/19 16:00 72 06/22/19 16:00 Mechanical Ventilator 06/22/19 16:00 66 18 131/102 (112) 98 06/22/19 15:25 50 18 100 06/22/19 15:00 69 18 136/72 (93) 100 06/22/19 14:15 54 18 179/73 (108) 100 06/22/19 13:00 53 18 164/80 (108) 99 06/22/19 12:00 Mechanical Ventilator 06/22/19 12:00 100 06/22/19 12:00 97.8 71 18 125/69 (87) 98 06/22/19 11:40 83 06/22/19 11:00 72 18 127/85 (99) 97 06/22/19 11:00 72 21 100 Height (Feet): 5 Height (Inches): 3.00 Weight (Pounds): 229 HEENT: other - intubated Microbiology Date/Time Source Procedure Growth Status 06/20/19 11:15 Sputum Gram Stain - Final Complete 06/20/19 11:15 Sputum Sputum Culture - Final NORMAL UPPER RESPIRATORY CARLOTTA PRESENT Complete Laboratory Tests Test 06/23/19 04:00 White Blood Count 12.5 K/UL (4.8-10.8) H Red Blood Count 4.65 M/UL (4.70-6.10) L Hemoglobin 13.5 G/DL (14.2-18.0) L Hematocrit 41.1 % (42.0-52.0) L Mean Corpuscular Volume 88 FL (80-99) Mean Corpuscular Hemoglobin 29.1 PG (27.0-31.0) Mean Corpuscular Hemoglobin Concent 32.9 G/DL (32.0-36.0) Red Cell Distribution Width 14.2 % (11.6-14.8) Platelet Count 183 K/UL (150-450) Mean Platelet Volume 6.5 FL (6.5-10.1) Neutrophils (%) (Auto) 80.5 % (45.0-75.0) H Lymphocytes (%) (Auto) 10.0 % (20.0-45.0) L Monocytes (%) (Auto) 5.2 % (1.0-10.0) Eosinophils (%) (Auto) 3.6 % (0.0-3.0) H Basophils (%) (Auto) 0.7 % (0.0-2.0) Sodium Level 146 MMOL/L (136-145) H Potassium Level 3.2 MMOL/L (3.5-5.1) L Chloride Level 106 MMOL/L (98-107) Carbon Dioxide Level 31 MMOL/L (21-32) Anion Gap 9 mmol/L (5-15) Blood Urea Nitrogen 71 mg/dL (7-18) H Creatinine 2.6 MG/DL (0.55-1.30) H Estimat Glomerular Filtration Rate 24.1 mL/min (>60) Glucose Level 184 MG/DL (74-106) H Calcium Level 8.0 MG/DL (8.5-10.1) L Magnesium Level 2.3 MG/DL (1.8-2.4) Total Bilirubin 0.9 MG/DL (0.2-1.0) Aspartate Amino Transf (AST/SGOT) 23 U/L (15-37) Alanine Aminotransferase (ALT/SGPT) 22 U/L (12-78) Alkaline Phosphatase 55 U/L (46-116) Troponin I 0.271 ng/mL (0.000-0.056) Pro-B-Type Natriuretic Peptide 1569 pg/mL (0-125) H Total Protein 6.8 G/DL (6.4-8.2) Albumin 2.4 G/DL (3.4-5.0) L Globulin 4.4 g/dL Albumin/Globulin Ratio 0.5 (1.0-2.7) L Current Medications Medications (Trade) Dose Ordered Sig/Diana Route PRN Reason Start Time Stop Time Status Last Admin Dose Admin Acetaminophen (Tylenol) 650 mg Q6H PRN NG Temp >100.5 06/20/19 17:15 07/20/19 17:14 06/20/19 17:35 Albuterol Sulfate (Proventil MDI) 2 puff Q4H PRN INH Shortness of Breath 06/20/19 00:15 09/17/19 00:14 Allopurinol (Zyloprim) 100 mg DAILY NG 06/20/19 09:00 07/20/19 08:59 06/23/19 08:04 Apixaban (Eliquis) 2.5 mg BID NG 06/20/19 09:00 09/17/19 17:59 06/23/19 08:05 Aspirin (ASA) 81 mg DAILY NG 06/20/19 09:00 08/04/19 08:59 06/23/19 08:05 Chlorhexidine Gluconate (Jesica-Hex 2%) 1 applic DAILY@2000 TOPIC 06/20/19 20:00 09/18/19 19:59 06/22/19 20:23 Clonidine HCl (Catapres Tab) 0.1 mg Q4H PRN ORAL For High Blood Pressure 06/22/19 14:30 09/20/19 14:29 Dextrose (Dextrose 50%) 25 ml Q30M PRN IV Hypoglycemia 06/20/19 00:15 09/17/19 16:44 Dextrose (Dextrose 50%) 50 ml Q30M PRN IV Hypoglycemia 06/20/19 00:15 09/17/19 16:44 Famotidine (Pepcid) 20 mg DAILY GT 06/20/19 09:00 09/18/19 08:59 06/23/19 08:04 Insulin Aspart (NovoLOG) BEFORE MEALS AND HS SUBQ 06/20/19 06:30 09/17/19 20:59 06/23/19 06:14 Latanoprost (Xalatan) 1 drop BEDTIME BOTH EYES 06/20/19 21:00 07/19/19 20:59 06/22/19 21:31 Mirtazapine (Remeron) 7.5 mg BEDTIME NG 06/20/19 21:00 09/17/19 20:59 06/22/19 21:15 Piperacillin Sod/ Tazobactam Sod 3.375 gm/Sodium Chloride 110 ml @ 27.5 mls/hr Q12HR IVPB 06/20/19 09:00 06/26/19 20:59 06/23/19 08:04 Potassium Chloride 20 meq/ Dextrose 1,010 ml @ 100 mls/hr Q10H6M IV 06/23/19 07:00 07/23/19 06:59 06/23/19 08:00 Omar Canales MD Jun 23, 2019 11:00
--- NOTE | 2019-06-23 11:27 | Critical Care Progress Note ---
Assessment/Plan Assessment/Plan Hypoxemia Hypercapnic respiratory failure pulmonary edema possible ARDS negative COVID x1 renal failure toxic met encephalopathy hypernatremia CRF leukocytosis possible sepsis PLAN vent as is monitor ABG monitor AC rate PEEP as is taper FIO2 as able ID follow up not ready for wean medications/laboratory data/nursing notes/ICU care reviewed in detail note reviewed and edited care discussed with RN and RT ICU time spent >40 minutes Critical Care - Subjective Interval Events: remains ill on vent still on 100% ROS Limited/Unobtainable: Yes Condition: critical EKG Rhythm: Sinus Rhythm I&O: Intake and Output 06/22/19 06/23/19 19:00 07:00 Intake Total 350 ml 525 ml Output Total 555 ml 1110 ml Balance -205 ml -585 ml Intake Oral 0 ml 0 ml IV Total 300 ml 525 ml Other 50 ml Output Urine Total 555 ml 1110 ml # Bowel Movements 1 Critical Care - Objective ET-Tube: 7.5 ET Position: 23 Last 24 Hour Vital Signs Date Time Temp Pulse Resp B/P (MAP) Pulse Ox O2 Delivery O2 Flow Rate FiO2 06/23/19 11:23 80 24 100 06/23/19 11:00 60 19 131/73 (92) 97 06/23/19 10:00 72 18 133/68 (89) 98 06/23/19 09:00 72 18 109/59 (76) 97 06/23/19 08:05 72 20 100 06/23/19 08:00 98.7 70 18 129/62 (84) 97 06/23/19 08:00 72 06/23/19 08:00 100 06/23/19 08:00 Mechanical Ventilator 06/23/19 07:00 68 20 128/69 (88) 97 06/23/19 06:00 70 19 126/77 (93) 98 06/23/19 05:00 68 16 115/82 (93) 99 06/23/19 04:00 70 06/23/19 04:00 98.0 70 18 128/70 (89) 97 06/23/19 04:00 100 06/23/19 04:00 Mechanical Ventilator 06/23/19 03:00 71 21 147/68 (94) 97 06/23/19 02:00 75 17 130/60 (83) 98 06/23/19 01:00 100 06/23/19 01:00 68 17 132/60 (84) 98 06/23/19 00:00 76 06/23/19 00:00 100 06/23/19 00:00 98.4 69 18 136/61 (86) 100 06/23/19 00:00 Mechanical Ventilator 06/22/19 23:00 67 19 151/63 (92) 100 06/22/19 22:00 61 18 133/59 (83) 99 06/22/19 21:00 55 18 132/62 (85) 100 06/22/19 20:00 98.0 59 18 143/64 (90) 98 06/22/19 20:00 Mechanical Ventilator 06/22/19 19:05 72 19 100 06/22/19 19:00 55 17 142/66 (91) 99 06/22/19 18:00 65 18 135/79 (97) 98 06/22/19 17:00 98.3 55 18 138/66 (90) 98 06/22/19 16:00 100 06/22/19 16:00 72 06/22/19 16:00 Mechanical Ventilator 06/22/19 16:00 66 18 131/102 (112) 98 06/22/19 15:25 50 18 100 06/22/19 15:00 69 18 136/72 (93) 100 06/22/19 14:15 54 18 179/73 (108) 100 06/22/19 13:00 53 18 164/80 (108) 99 06/22/19 12:00 Mechanical Ventilator 06/22/19 12:00 100 06/22/19 12:00 97.8 71 18 125/69 (87) 98 06/22/19 11:40 83 Labs: Laboratory Tests Test 06/23/19 04:00 06/23/19 11:10 White Blood Count 12.5 K/UL (4.8-10.8) H Red Blood Count 4.65 M/UL (4.70-6.10) L Hemoglobin 13.5 G/DL (14.2-18.0) L Hematocrit 41.1 % (42.0-52.0) L Mean Corpuscular Volume 88 FL (80-99) Mean Corpuscular Hemoglobin 29.1 PG (27.0-31.0) Mean Corpuscular Hemoglobin Concent 32.9 G/DL (32.0-36.0) Red Cell Distribution Width 14.2 % (11.6-14.8) Platelet Count 183 K/UL (150-450) Mean Platelet Volume 6.5 FL (6.5-10.1) Neutrophils (%) (Auto) 80.5 % (45.0-75.0) H Lymphocytes (%) (Auto) 10.0 % (20.0-45.0) L Monocytes (%) (Auto) 5.2 % (1.0-10.0) Eosinophils (%) (Auto) 3.6 % (0.0-3.0) H Basophils (%) (Auto) 0.7 % (0.0-2.0) Sodium Level 146 MMOL/L (136-145) H Potassium Level 3.2 MMOL/L (3.5-5.1) L Chloride Level 106 MMOL/L (98-107) Carbon Dioxide Level 31 MMOL/L (21-32) Anion Gap 9 mmol/L (5-15) Blood Urea Nitrogen 71 mg/dL (7-18) H Creatinine 2.6 MG/DL (0.55-1.30) H Estimat Glomerular Filtration Rate 24.1 mL/min (>60) Glucose Level 184 MG/DL (74-106) H Calcium Level 8.0 MG/DL (8.5-10.1) L Magnesium Level 2.3 MG/DL (1.8-2.4) Total Bilirubin 0.9 MG/DL (0.2-1.0) Aspartate Amino Transf (AST/SGOT) 23 U/L (15-37) Alanine Aminotransferase (ALT/SGPT) 22 U/L (12-78) Alkaline Phosphatase 55 U/L (46-116) Troponin I 0.271 ng/mL (0.000-0.056) Pro-B-Type Natriuretic Peptide 1569 pg/mL (0-125) H Total Protein 6.8 G/DL (6.4-8.2) Albumin 2.4 G/DL (3.4-5.0) L Globulin 4.4 g/dL Albumin/Globulin Ratio 0.5 (1.0-2.7) L Arterial Blood pH 7.480 (7.350-7.450) Arterial Blood Partial Pressure CO2 35.8 mmHg (35.0-45.0) Arterial Blood Partial Pressure O2 131.3 mmHg (75.0-100.0) H Arterial Blood HCO3 26.1 mmol/L (22.0-26.0) H Arterial Blood Oxygen Saturation 98.6 % (95-100) Arterial Blood Base Excess 2.8 (-2-2) H Ramo Test Positive Objective: WDWN sedated orally intubated reduced breath sounds bilaterally without rhonchi or wheeze [id number] without MRG NABS nontender no HSM no CC some edema nonfocal reviewed and edited Accucheck: 153 Paul Muniz MD Jun 23, 2019 11:27
--- NOTE | 2019-06-23 11:50 | NUR ---
NURSE NOTES: Dr Downey notified regarding ABG results, ok to titrate FiO2. RT aware. Will carry out and will continue to monitor patient.
--- NOTE | 2019-06-23 12:00 | NUR ---
NURSE NOTES: Patient is awake, resistive to care. Repositioned and provided oral care. Suctioned via ETT with thick, white sputum with specks of blood noted. Blood sugar checked, insulin given per sliding scale. ABG results notified to Dr Downey. Patient's FiO2 adjusted down to 50% by RT, saturating 93-95%. TF started, Vital AF 1.2 at 25ml/hr. Placed patient's HOB elevated. PICC line on the left upper arm intact, patent, D5 20mEq KCL infusing at 100ml/hr. Chamberlain draining to gravity. Restraints care provided; released, noted patient to be pulling on the ETT. Reapplied after skin and circulation check. Bed locked, alarmed, and in lowest position. Will continue to monitor.
--- NOTE | 2019-06-23 12:49 | NUR ---
CASE MANAGEMENT: REVIEW SI: HYPOXEMIA . RESP FAILURE . RENAL FAILURE T 98.7 HR 70 RR 21 BP 146/68 SAT 97% MECH VENT FIO2 100% WBC 12.5 NA 146 K 3.2 BUN 71 CR 2.6 TROP I 0.271 IS: ZOSYN IV Q12HR KCl IVF @100ML/HR LASIX 40MG IV Q12HR NGT FEEDING ICU STATUS DCP: PATIENT IS FROM [facility]
--- NOTE | 2019-06-23 14:00 | NUR ---
NURSE NOTES: Patient appears to be sleeping with eyes closed. No s/s of distress at this time. Will continue to monitor.
--- NOTE | 2019-06-23 16:25 | NUR ---
NURSE NOTES: Patient appears to be sleeping, no s/s of distress. Patient is tolerating vent settings. VSS. Will continue to monitor.
--- NOTE | 2019-06-23 18:00 | NUR ---
NURSE NOTES: Bed bath given, repositioned patient. No BM noted at this time Suctioned via ETT with moderate amount of thick, reddish sputum. Patient resistive to suctioning and oral care. Left upper arm PICC line intact and patent, D5 20mEq KCL infusing at 100ml/hr. Blood glucose checked, insulin given per sliding scale. TF increased to 35ml/hr. HOB remains elevated to avoid aspiration precautions. Restraints care provided, patient is still combative and resistive to care. Skin and circulation intact, reapplied restraints after care. Chamberlani catheter intact, draining well to gravity. Safety precautions in place. Bed locked, alarmed, and in lowest position. Will continue to monitor.
--- NOTE | 2019-06-23 19:16 | NUR ---
HAND-OFF: Report given to MARK Zimmerman and MARK Blankenship. Endorsed plan of care.
--- NOTE | 2019-06-23 21:00 | NUR ---
NURSE NOTES: Received pt. orallly intubated on ac mode, SR with 1st degree AVB , Bp stable afebrile, Bilateral soft wrist restraints maintained for safety to avoid self extubation. Suctioned tk beige tk secretions lg in amt. HOB kept elevated, watch for any resp. distress. Will continue to monitor.
[2019-06-23] MEDS: Latanoprost 0.005% Opth 2.5ml Soln BOTH EYES SCH (21:26)
[2019-06-23] MEDS: Dyna-Hex 2% Top Sol 2oz TOPIC SCH (21:29)
--- NOTE | 2019-06-23 23:00 | NUR ---
NURSE NOTES: Turned q 2hrs prn with good skin care done.
[2019-06-24] VITALS (24 sets, daily range): BP systolic 96–160; BP diastolic 55–87
--- NOTE | 2019-06-24 | NUR ---
NURSE NOTES: Pt was combative and resistive with pts care. set limits for inappropriate behavior.
--- NOTE | 2019-06-24 02:00 | NUR ---
NURSE NOTES: VSS. Resting well at this time.
--- NOTE | 2019-06-24 04:00 | NUR ---
NURSE NOTES: Am labs drawn , had x1 soft bowel movement. Cleaned up pt.
--- NOTE | 2019-06-24 05:00 | NUR ---
NURSE NOTES: Pt had x1 lg brownish soft stool. cleaned up pt.
--- NOTE | 2019-06-24 06:15 | Progress Note ---
DATE: 06/23/2019 CARDIOLOGY PROGRESS NOTE SUBJECTIVE: The patient is on ventilator support. Monitored rhythm, atrial flutter with variable block and occasional ventricular ectopy. OBJECTIVE: VITAL SIGNS: Blood pressure 133/68, heart rate 72, respiratory rate 18. LUNGS: Scattered rhonchi with no wheezing. Thin secretions. CARDIAC: Irregularly irregular rhythm. Normal S1 and S2. ABDOMEN: Soft with G-tube. EXTREMITIES: No edema. LABORATORY DATA: White count 12.5 and hemoglobin 13.5. Sodium 146, potassium 3.2, BUN 71, creatinine 2.6, and troponin 0.271. Pro-natriuretic peptide 1500. ABG, 7.48, 36, 131. IMPRESSION: 1. Respiratory failure. 2. Acute on chronic respiratory acidosis, recovered. 3. Healthcare-acquired pneumonia. 4. Atrial fibrillation/flutter, which is rate controlled. 5. Nonsustained ventricular ectopy. 6. Acute diastolic congestive heart failure, improved. 7. Non ST-elevation myocardial infarction. PLAN: 1. Continue cautious diuresis. 2. Trend natriuretic peptide assay. 3. Follow up troponin level. 4. Titrate anti-anginal and anti-failure regimen accordingly. 5. Anti-platelet therapy. 6. Condition remains critical with guarded prognosis. Ottoniel Devi M.D. DR: UTE JOB#: [id number] CC:
[2019-06-24 06:20] LABS: EOSINOPHILS % (AUTO) 3.8 % (0.0-3.0); HEMATOCRIT 40.2 % (42.0-52.0); HEMOGLOBIN 13.1 G/DL (14.2-18.0); LYMPHOCYTES % (AUTO) 10.1 % (20.0-45.0); MEAN CORPUSCULAR VOLUME 88 FL (80-99); NEUTROPHILS % (AUTO) 80.2 % (45.0-75.0); PLATELET COUNT 186 K/UL (150-450); RED BLOOD COUNT 4.55 M/UL (4.70-6.10); RED CELL DISTRIBUTION WIDTH 14.7 % (11.6-14.8); WHITE BLOOD COUNT 10.9 K/UL (4.8-10.8)
[2019-06-24] MEDS: Nitroglycerin 2% oint pkt TOPIC SCH ×3 (06:25→17:30)
[2019-06-24] MEDS: NovoLOG Insulin Flexpen SUBQ SCH ×4 (06:27→20:43)
[2019-06-24 06:49] LABS: ALANINE AMINOTRANSFERASE 28 U/L (12-78); ALBUMIN 2.3 G/DL (3.4-5.0); ALBUMIN/GLOBULIN RATIO 0.5 (1.0-2.7); ALKALINE PHOSPHATASE 69 U/L (46-116); ANION GAP 9 mmol/L (5-15); ASPARTATE AMINO TRANSFERASE 26 U/L (15-37); BILIRUBIN,TOTAL 0.9 MG/DL (0.2-1.0); BLOOD UREA NITROGEN 64 mg/dL (7-18); CALCIUM 8.2 MG/DL (8.5-10.1); CARBON DIOXIDE 29 MMOL/L (21-32); CHLORIDE 103 MMOL/L (98-107); CREATININE 2.6 MG/DL (0.55-1.30); POTASSIUM 3.8 MMOL/L (3.5-5.1); SODIUM 141 MMOL/L (136-145)
--- NOTE | 2019-06-24 07:00 | NUR ---
NURSE NOTES: PICC CAMMIE garcía was changed. Dr Downey was here and updated with pts condition.
--- NOTE | 2019-06-24 07:29 | NUR ---
HAND-OFF: Report given to Sulma FLORES for continuity of care..
--- NOTE | 2019-06-24 07:30 | NUR ---
NURSE NOTES: Received patient in bed from Mariluz FLORES. Patient in bed, eyes closed, in no acute distress. Patient is orally intubated with vent settings AC 18, TV 450, FiO2 50% and PEEP 10. patient is tolerating without complication at this time, O2 saturation noted to be 95%. patient has NGT on the right nare, tolerating the tube feeding vital AF 1.2 running at 45ml, will increase it to 55ml in 1 hour. Patient's PICC dressing on left upper arm intact and dry, PICC patent and asymptomatic. Patient has bilateral soft wrist restraints noted to avoid self-extubation. Patient's Chamberlain catheter intact, draining yellow/light smooth urine without complications. Safety precautions applied, bed locked in lowest position, bed alarm on, side rails up x3, call light within reach. Will continue to monitor.
[2019-06-24] MEDS: Eliquis 2.5mg tablet NG SCH ×2 (08:56→17:30)
[2019-06-24] MEDS: Furosemide 40mg tab GT SCH (08:56)
[2019-06-24] MEDS: Allopurinol 100mg Tab NG SCH (08:56)
[2019-06-24] MEDS: Aspirin Baby 81mg NG SCH (08:56)
[2019-06-24] MEDS: Piperacillin/Tazobactam 3.375 GM in NS 110 ML IVPB SCH ×2 (08:57→20:44)
--- NOTE | 2019-06-24 09:16 | Critical Care Progress Note ---
Assessment/Plan Assessment/Plan Hypoxemia Hypercapnic respiratory failure pulmonary edema possible ARDS negative COVID x2 renal failure toxic met encephalopathy hypernatremia CRF leukocytosis possible sepsis PLAN vent as is ? dc isolation monitor ABG monitor AC rate PEEP as is taper FIO2 - now on 50% ID follow up possible weaning trials medications/laboratory data/nursing notes/ICU care reviewed in detail note reviewed and edited care discussed with RN and RT ICU time spent >40 minutes Critical Care - Subjective Interval Events: oxygenation better on vent COVID negative x2 ROS Limited/Unobtainable: Yes Condition: critical EKG Rhythm: Sinus Rhythm I&O: Intake and Output 06/23/19 06/24/19 19:00 07:00 Intake Total 1370.0 ml 1670 ml Output Total 550 ml 640 ml Balance 820.0 ml 1030 ml Intake Oral 0 ml Free Water 90 ml IV Total 1110.0 ml 1100 ml Tube Feeding 210 ml 480 ml Other 50 ml Output Urine Total 550 ml 640 ml # Bowel Movements 2 Critical Care - Objective ET-Tube: 7.5 ET Position: 23 Last 24 Hour Vital Signs Date Time Temp Pulse Resp B/P (MAP) Pulse Ox O2 Delivery O2 Flow Rate FiO2 06/24/19 08:00 Mechanical Ventilator 06/24/19 07:20 75 21 50 06/24/19 06:25 134/70 06/24/19 06:00 74 21 134/67 (89) 94 06/24/19 05:30 70 20 50 06/24/19 05:00 71 22 145/78 (100) 95 06/24/19 04:00 79 06/24/19 04:00 Mechanical Ventilator 06/24/19 04:00 50 06/24/19 04:00 99.8 71 23 135/72 (93) 93 06/24/19 03:27 73 22 50 06/24/19 03:00 75 24 139/72 (94) 93 06/24/19 02:00 79 21 160/87 (111) 95 06/24/19 01:00 73 22 153/68 (96) 93 06/24/19 00:58 71 21 50 06/24/19 00:00 70 06/24/19 00:00 99.4 72 22 147/71 (96) 94 06/24/19 00:00 50 06/24/19 00:00 Mechanical Ventilator 06/23/19 23:30 72 22 50 06/23/19 23:00 72 21 144/72 (96) 95 06/23/19 22:15 72 22 96 06/23/19 22:00 99.0 71 21 147/70 (95) 96 06/23/19 21:15 72 21 135/72 (93) 94 06/23/19 20:43 72 24 50 06/23/19 20:00 Mechanical Ventilator 06/23/19 20:00 71 06/23/19 19:30 73 26 50 06/23/19 19:00 73 18 134/64 (87) 94 06/23/19 18:00 74 18 136/68 (90) 95 06/23/19 17:00 98.8 73 18 142/78 (99) 95 06/23/19 16:00 50 06/23/19 16:00 Mechanical Ventilator 06/23/19 16:00 71 19 133/70 (91) 95 06/23/19 16:00 72 06/23/19 15:27 77 20 100 06/23/19 15:00 72 18 134/69 (90) 94 06/23/19 14:00 72 19 137/68 (91) 94 06/23/19 13:00 73 18 118/64 (82) 94 06/23/19 12:00 98.8 68 19 126/65 (85) 94 06/23/19 12:00 71 06/23/19 12:00 Mechanical Ventilator 06/23/19 12:00 50 06/23/19 11:23 80 24 100 06/23/19 11:00 60 19 131/73 (92) 97 06/23/19 10:00 72 18 133/68 (89) 98 Labs: Labs Test 06/22/19 04:30 06/23/19 04:00 06/23/19 11:10 06/24/19 04:07 Sodium Level 150 MMOL/L (136-145) 146 MMOL/L (136-145) 141 MMOL/L (136-145) Potassium Level 3.2 MMOL/L (3.5-5.1) 3.2 MMOL/L (3.5-5.1) 3.8 MMOL/L (3.5-5.1) Chloride Level 108 MMOL/L (98-107) 106 MMOL/L (98-107) 103 MMOL/L (98-107) Carbon Dioxide Level 30 MMOL/L (21-32) 31 MMOL/L (21-32) 29 MMOL/L (21-32) Anion Gap 12 mmol/L (5-15) 9 mmol/L (5-15) 9 mmol/L (5-15) Blood Urea Nitrogen 80 mg/dL (7-18) 71 mg/dL (7-18) 64 mg/dL (7-18) Creatinine 2.9 MG/DL (0.55-1.30) 2.6 MG/DL (0.55-1.30) 2.6 MG/DL (0.55-1.30) Estimat Glomerular Filtration Rate 21.2 mL/min (>60) 24.1 mL/min (>60) 24.1 mL/min (>60) Glucose Level 197 MG/DL (74-106) 184 MG/DL (74-106) 251 MG/DL (74-106) Calcium Level 8.5 MG/DL (8.5-10.1) 8.0 MG/DL (8.5-10.1) 8.2 MG/DL (8.5-10.1) Total Bilirubin 0.9 MG/DL (0.2-1.0) 0.9 MG/DL (0.2-1.0) 0.9 MG/DL (0.2-1.0) Aspartate Amino Transf (AST/SGOT) 19 U/L (15-37) 23 U/L (15-37) 26 U/L (15-37) Alanine Aminotransferase (ALT/SGPT) 20 U/L (12-78) 22 U/L (12-78) 28 U/L (12-78) Alkaline Phosphatase 59 U/L (46-116) 55 U/L (46-116) 69 U/L (46-116) Total Protein 6.9 G/DL (6.4-8.2) 6.8 G/DL (6.4-8.2) 6.9 G/DL (6.4-8.2) Albumin 2.5 G/DL (3.4-5.0) 2.4 G/DL (3.4-5.0) 2.3 G/DL (3.4-5.0) Globulin 4.4 g/dL 4.4 g/dL 4.6 g/dL Albumin/Globulin Ratio 0.6 (1.0-2.7) 0.5 (1.0-2.7) 0.5 (1.0-2.7) White Blood Count 12.5 K/UL (4.8-10.8) 10.9 K/UL (4.8-10.8) Red Blood Count 4.65 M/UL (4.70-6.10) 4.55 M/UL (4.70-6.10) Hemoglobin 13.5 G/DL (14.2-18.0) 13.1 G/DL (14.2-18.0) Hematocrit 41.1 % (42.0-52.0) 40.2 % (42.0-52.0) Mean Corpuscular Volume 88 FL (80-99) 88 FL (80-99) Mean Corpuscular Hemoglobin 29.1 PG (27.0-31.0) 28.7 PG (27.0-31.0) Mean Corpuscular Hemoglobin Concent 32.9 G/DL (32.0-36.0) 32.6 G/DL (32.0-36.0) Red Cell Distribution Width 14.2 % (11.6-14.8) 14.7 % (11.6-14.8) Platelet Count 183 K/UL (150-450) 186 K/UL (150-450) Mean Platelet Volume 6.5 FL (6.5-10.1) 6.8 FL (6.5-10.1) Neutrophils (%) (Auto) 80.5 % (45.0-75.0) 80.2 % (45.0-75.0) Lymphocytes (%) (Auto) 10.0 % (20.0-45.0) 10.1 % (20.0-45.0) Monocytes (%) (Auto) 5.2 % (1.0-10.0) 5.0 % (1.0-10.0) Eosinophils (%) (Auto) 3.6 % (0.0-3.0) 3.8 % (0.0-3.0) Basophils (%) (Auto) 0.7 % (0.0-2.0) 1.0 % (0.0-2.0) Magnesium Level 2.3 MG/DL (1.8-2.4) Troponin I 0.271 ng/mL (0.000-0.056) Pro-B-Type Natriuretic Peptide 1569 pg/mL (0-125) Arterial Blood pH 7.480 (7.350-7.450) Arterial Blood Partial Pressure CO2 35.8 mmHg (35.0-45.0) Arterial Blood Partial Pressure O2 131.3 mmHg (75.0-100.0) Arterial Blood HCO3 26.1 mmol/L (22.0-26.0) Arterial Blood Oxygen Saturation 98.6 % (95-100) Arterial Blood Base Excess 2.8 (-2-2) Ramo Test Positive Objective: WDWN sedated orally intubated reduced breath sounds bilaterally without rhonchi or wheeze [id number] without MRG NABS nontender no HSM no CC some edema nonfocal reviewed and edited Micro: Microbiology Date/Time Source Procedure Growth Status 06/22/19 11:56 Nasopharynx Coronavirus COVID-19 PCR ([facility]O) - Final Complete Accucheck: 216 Paul Muniz MD Jun 24, 2019 09:16
--- NOTE | 2019-06-24 09:38 | NUR ---
RD ASSESSMENT & RECOMMENDATIONS SEE CARE ACTIVITY FOR COMPLETE ASSESSMENT DAILY ESTIMATED NEEDS: Needs based on Critical care/ 66kg 22-28 kcals/kg 9768-3313 total kcals 1-1.5 (increase w/ improved renal fxn) g protein/kg 66-99 g total protein 20-25 mL/kg 9718-0465 total fluid mLs NUTRITION DIAGNOSIS: * Swallowing difficulty R/T respiratory failure as evidenced by pt orally intubated, on NGT feeding. CURRENT TF:Vital AF 1.2 @ 55ml/hr x 24 hrs PO DIET RECOMMENDATIONS: GUEST RELATION OFFICER EVAL POST EXTUBATION ENTERAL NUTRITION RECOMMENDATIONS: Vital AF 1.2 @ 55ml/hr x 24 hrs to provide 1320ml, 1584kcal, 99g prot, 1070ml free water * Continue Vital AF for critical care and carb control * TF @ goal meets 100% est kcal/prot needs * HOB over 30 degrees/ water flush per MD ADDITIONAL RECOMMENDATIONS: * Per SNF: HT=64" MR=115ept (as of 06/03/19) -> obtain calibrated bedscale wt * Monitor BGs w/ TF, need for long acting insulin * Monitor lytes, replete as needed * Monitor renal fxn (Creat 2.7-> 3.0-> 2.6) . .
--- NOTE | 2019-06-24 10:14 | NUR ---
NURSE NOTES: Dr. Canales at bedside, updated regarding covid 19 test negative x2, per Dr. Canales patient is no longer on droplet precaution. No need to reswab for covid19 at this time. Dr. Portillo also at bedside updated regarding patient's status.
--- NOTE | 2019-06-24 10:19 | General Progress Note ---
Assessment/Plan Problem List: (1) Atrial flutter ICD Codes: I48.92 - Unspecified atrial flutter SNOMED: 9931471 (2) Aspiration pneumonia ICD Codes: J69.0 - Pneumonitis due to inhalation of food and vomit SNOMED: 323797981 (3) Hypoxia ICD Codes: R09.02 - Hypoxemia SNOMED: 588695671 (4) Elevated troponin ICD Codes: R79.89 - Other specified abnormal findings of blood chemistry SNOMED: 865010324, 113659964, 449994101 (5) Acute on chronic renal insufficiency ICD Codes: N28.9 - Disorder of kidney and ureter, unspecified; N18.9 - Chronic kidney disease, unspecified SNOMED: 179913746, 313065786, 491952158 (6) CHF exacerbation ICD Codes: I50.9 - Heart failure, unspecified SNOMED: 277520101, 76479061149908, 873615877 (7) CAD (coronary artery disease) ICD Codes: I25.10 - Atherosclerotic heart disease of [place] coronary artery without angina pectoris SNOMED: 10814884 (8) CVA (cerebral vascular accident) ICD Codes: I63.9 - Cerebral infarction, unspecified SNOMED: 011634709 (9) HTN (hypertension) ICD Codes: I10 - Essential (primary) hypertension SNOMED: 73596087 Status: stable, unchanged Assessment/Plan: Continue vent support. wean per pulm Respiratory treatments diuresis per cards Hypotonic fluids monitor chest x-ray IV antibiotics per ID feeds ordered Remains critical and guarded. Subjective ROS Limited/Unobtainable: No Constitutional: Reports: malaise, weakness HEENT: Reports: no symptoms Cardiovascular: Reports: no symptoms Respiratory: Reports: cough, shortness of breath Gastrointestinal/Abdominal: Reports: no symptoms Genitourinary: Reports: no symptoms Neurologic/Psychiatric: Reports: pre-existing deficit Endocrine: Reports: no symptoms Hematologic/Lymphatic: Reports: anemia Allergies: Coded Allergies: ATORVASTATIN (Unverified Allergy, Unknown, 01/10/18) ROSUVASTATIN (Unverified Allergy, Unknown, 01/10/18) SITAGLIPTIN (Unverified Allergy, Unknown, 01/10/18) All Systems: reviewed and negative except above Subjective No overnight events. Remained stable on the ventilator. fio2 weaned to 50%. covid neg x 2.. labs reviewed. cr trending down. Objective Last 24 Hour Vital Signs Date Time Temp Pulse Resp B/P (MAP) Pulse Ox O2 Delivery O2 Flow Rate FiO2 06/24/19 09:39 75 21 50 06/24/19 09:00 76 19 142/76 (98) 92 06/24/19 08:00 50 06/24/19 08:00 Mechanical Ventilator 06/24/19 08:00 71 19 125/74 (91) 93 06/24/19 07:20 75 21 50 06/24/19 07:00 99.4 75 21 143/68 (93) 95 06/24/19 06:25 134/70 06/24/19 06:00 74 21 134/67 (89) 94 06/24/19 05:30 70 20 50 06/24/19 05:00 71 22 145/78 (100) 95 06/24/19 04:00 79 06/24/19 04:00 Mechanical Ventilator 06/24/19 04:00 50 06/24/19 04:00 99.8 71 23 135/72 (93) 93 06/24/19 03:27 73 22 50 06/24/19 03:00 75 24 139/72 (94) 93 06/24/19 02:00 79 21 160/87 (111) 95 06/24/19 01:00 73 22 153/68 (96) 93 06/24/19 00:58 71 21 50 06/24/19 00:00 70 06/24/19 00:00 99.4 72 22 147/71 (96) 94 06/24/19 00:00 50 06/24/19 00:00 Mechanical Ventilator 06/23/19 23:30 72 22 50 06/23/19 23:00 72 21 144/72 (96) 95 06/23/19 22:15 72 22 96 06/23/19 22:00 99.0 71 21 147/70 (95) 96 06/23/19 21:15 72 21 135/72 (93) 94 06/23/19 20:43 72 24 50 06/23/19 20:00 Mechanical Ventilator 06/23/19 20:00 71 06/23/19 19:30 73 26 50 06/23/19 19:00 73 18 134/64 (87) 94 06/23/19 18:00 74 18 136/68 (90) 95 06/23/19 17:00 98.8 73 18 142/78 (99) 95 06/23/19 16:00 50 06/23/19 16:00 Mechanical Ventilator 06/23/19 16:00 71 19 133/70 (91) 95 06/23/19 16:00 72 06/23/19 15:27 77 20 100 06/23/19 15:00 72 18 134/69 (90) 94 06/23/19 14:00 72 19 137/68 (91) 94 06/23/19 13:00 73 18 118/64 (82) 94 06/23/19 12:00 98.8 68 19 126/65 (85) 94 06/23/19 12:00 71 06/23/19 12:00 Mechanical Ventilator 06/23/19 12:00 50 06/23/19 11:23 80 24 100 06/23/19 11:00 60 19 131/73 (92) 97 Intake and Output 06/23/19 06/24/19 19:00 07:00 Intake Total 1370.0 ml 1670 ml Output Total 550 ml 640 ml Balance 820.0 ml 1030 ml Intake Oral 0 ml Free Water 90 ml IV Total 1110.0 ml 1100 ml Tube Feeding 210 ml 480 ml Other 50 ml Output Urine Total 550 ml 640 ml # Bowel Movements 2 Laboratory Tests 06/23/19 11:10: Arterial Blood pH 7.480H, Arterial Blood Partial Pressure CO2 35.8, Arterial Blood Partial Pressure O2 131.3H, Arterial Blood HCO3 26.1H, Arterial Blood Oxygen Saturation 98.6, Arterial Blood Base Excess 2.8H, Ramo Test Positive 06/24/19 04:07: White Blood Count 10.9H, Red Blood Count 4.55L, Hemoglobin 13.1L, Hematocrit 40.2L, Mean Corpuscular Volume 88, Mean Corpuscular Hemoglobin 28.7, Mean Corpuscular Hemoglobin Concent 32.6, Red Cell Distribution Width 14.7, Platelet Count 186, Mean Platelet Volume 6.8, Neutrophils (%) (Auto) 80.2H, Lymphocytes ( %) (Auto) 10.1L, Monocytes (%) (Auto) 5.0, Eosinophils (%) (Auto) 3.8H, Basophils (%) (Auto) 1.0, Sodium Level 141, Potassium Level 3.8, Chloride Level 103, Carbon Dioxide Level 29, Anion Gap 9, Blood Urea Nitrogen 64H, Creatinine 2.6H, Estimat Glomerular Filtration Rate 24.1, Glucose Level 251H, Calcium Level 8.2L, Total Bilirubin 0.9, Aspartate Amino Transf (AST/SGOT) 26, Alanine Aminotransferase (ALT/SGPT) 28, Alkaline Phosphatase 69, Total Protein 6.9, Albumin 2.3L, Globulin 4.6, Albumin/Globulin Ratio 0.5L Height (Feet): 5 Height (Inches): 3.00 Weight (Pounds): 229 Objective General Appearance: WD/WN, lethargic, confused EENT: normal ENT inspection. orally intubated Neck: non-tender, normal alignment, supple Cardiovascular: normal peripheral pulses, normal rate, regular rhythm Respiratory/Chest: chest wall non-tender, lungs clear, normal breath sounds, no respiratory distress, no accessory muscle use Abdomen: normal bowel sounds, non tender, soft, no organomegaly, no mass Neurologic: disoriented, unresponsive Skin: normal pigmentation. no rash Juanpablo Downey MD Jun 24, 2019 10:18
--- NOTE | 2019-06-24 10:44 | NUR ---
NURSE NOTES: renal ultrasound done at bedside.
--- NOTE | 2019-06-24 11:08 | Infectious Diseases Prog Note ---
Assessment/Plan Assessment/Plan antibiotics : zosyn 4.23.20 - A 1. pneumonia COVID 19 test negative 4.23.20, 4.26.20 2. respiratory failure 3. leucocytosis resolved 4. diabetes mellitus 5. hypertension 6. CHF 7. renal failure improving P 1. continue zosyn 2. will follow up cultures Subjective ROS Limited/Unobtainable: Yes Allergies: Coded Allergies: ATORVASTATIN (Unverified Allergy, Unknown, 01/10/18) ROSUVASTATIN (Unverified Allergy, Unknown, 01/10/18) SITAGLIPTIN (Unverified Allergy, Unknown, 01/10/18) Objective Vital Signs Last 24 Hour Vital Signs Date Time Temp Pulse Resp B/P (MAP) Pulse Ox O2 Delivery O2 Flow Rate FiO2 06/24/19 10:00 74 20 134/60 (84) 93 06/24/19 09:39 75 21 50 06/24/19 09:00 76 19 142/76 (98) 92 06/24/19 08:00 77 06/24/19 08:00 50 06/24/19 08:00 Mechanical Ventilator 06/24/19 08:00 71 19 125/74 (91) 93 06/24/19 07:20 75 21 50 06/24/19 07:00 99.4 75 21 143/68 (93) 95 06/24/19 06:25 134/70 06/24/19 06:00 74 21 134/67 (89) 94 06/24/19 05:30 70 20 50 06/24/19 05:00 71 22 145/78 (100) 95 06/24/19 04:00 79 06/24/19 04:00 Mechanical Ventilator 06/24/19 04:00 50 06/24/19 04:00 99.8 71 23 135/72 (93) 93 06/24/19 03:27 73 22 50 06/24/19 03:00 75 24 139/72 (94) 93 06/24/19 02:00 79 21 160/87 (111) 95 06/24/19 01:00 73 22 153/68 (96) 93 06/24/19 00:58 71 21 50 06/24/19 00:00 70 06/24/19 00:00 99.4 72 22 147/71 (96) 94 06/24/19 00:00 50 06/24/19 00:00 Mechanical Ventilator 06/23/19 23:30 72 22 50 06/23/19 23:00 72 21 144/72 (96) 95 06/23/19 22:15 72 22 96 06/23/19 22:00 99.0 71 21 147/70 (95) 96 06/23/19 21:15 72 21 135/72 (93) 94 06/23/19 20:43 72 24 50 06/23/19 20:00 Mechanical Ventilator 06/23/19 20:00 71 06/23/19 19:30 73 26 50 06/23/19 19:00 73 18 134/64 (87) 94 06/23/19 18:00 74 18 136/68 (90) 95 06/23/19 17:00 98.8 73 18 142/78 (99) 95 06/23/19 16:00 50 06/23/19 16:00 Mechanical Ventilator 06/23/19 16:00 71 19 133/70 (91) 95 06/23/19 16:00 72 06/23/19 15:27 77 20 100 06/23/19 15:00 72 18 134/69 (90) 94 06/23/19 14:00 72 19 137/68 (91) 94 06/23/19 13:00 73 18 118/64 (82) 94 06/23/19 12:00 98.8 68 19 126/65 (85) 94 06/23/19 12:00 71 06/23/19 12:00 Mechanical Ventilator 06/23/19 12:00 50 06/23/19 11:23 80 24 100 Height (Feet): 5 Height (Inches): 3.00 Weight (Pounds): 229 HEENT: other - intubated on FiO2 50 percent, saturation 92 percent Respiratory/Chest: lungs clear Cardiovascular: normal rate, regular rhythm, no gallop/murmur Abdomen: soft, non tender Extremities: no edema Microbiology Date/Time Source Procedure Growth Status 06/22/19 11:56 Nasopharynx Coronavirus COVID-19 PCR (BETO) - Final Complete Laboratory Tests Test 06/23/19 11:10 06/24/19 04:07 Arterial Blood pH 7.480 (7.350-7.450) Arterial Blood Partial Pressure CO2 35.8 mmHg (35.0-45.0) Arterial Blood Partial Pressure O2 131.3 mmHg (75.0-100.0) H Arterial Blood HCO3 26.1 mmol/L (22.0-26.0) H Arterial Blood Oxygen Saturation 98.6 % (95-100) Arterial Blood Base Excess 2.8 (-2-2) H Ramo Test Positive White Blood Count 10.9 K/UL (4.8-10.8) H Red Blood Count 4.55 M/UL (4.70-6.10) L Hemoglobin 13.1 G/DL (14.2-18.0) L Hematocrit 40.2 % (42.0-52.0) L Mean Corpuscular Volume 88 FL (80-99) Mean Corpuscular Hemoglobin 28.7 PG (27.0-31.0) Mean Corpuscular Hemoglobin Concent 32.6 G/DL (32.0-36.0) Red Cell Distribution Width 14.7 % (11.6-14.8) Platelet Count 186 K/UL (150-450) Mean Platelet Volume 6.8 FL (6.5-10.1) Neutrophils (%) (Auto) 80.2 % (45.0-75.0) H Lymphocytes (%) (Auto) 10.1 % (20.0-45.0) L Monocytes (%) (Auto) 5.0 % (1.0-10.0) Eosinophils (%) (Auto) 3.8 % (0.0-3.0) H Basophils (%) (Auto) 1.0 % (0.0-2.0) Sodium Level 141 MMOL/L (136-145) Potassium Level 3.8 MMOL/L (3.5-5.1) Chloride Level 103 MMOL/L (98-107) Carbon Dioxide Level 29 MMOL/L (21-32) Anion Gap 9 mmol/L (5-15) Blood Urea Nitrogen 64 mg/dL (7-18) H Creatinine 2.6 MG/DL (0.55-1.30) H Estimat Glomerular Filtration Rate 24.1 mL/min (>60) Glucose Level 251 MG/DL (74-106) H Calcium Level 8.2 MG/DL (8.5-10.1) L Total Bilirubin 0.9 MG/DL (0.2-1.0) Aspartate Amino Transf (AST/SGOT) 26 U/L (15-37) Alanine Aminotransferase (ALT/SGPT) 28 U/L (12-78) Alkaline Phosphatase 69 U/L (46-116) Total Protein 6.9 G/DL (6.4-8.2) Albumin 2.3 G/DL (3.4-5.0) L Globulin 4.6 g/dL Albumin/Globulin Ratio 0.5 (1.0-2.7) L Current Medications Medications (Trade) Dose Ordered Sig/Diana Route PRN Reason Start Time Stop Time Status Last Admin Dose Admin Acetaminophen (Tylenol) 650 mg Q6H PRN NG Temp >100.5 06/20/19 17:15 07/20/19 17:14 06/20/19 17:35 Albuterol Sulfate (Proventil MDI) 2 puff Q4H PRN INH Shortness of Breath 06/20/19 00:15 09/17/19 00:14 Allopurinol (Zyloprim) 100 mg DAILY NG 06/20/19 09:00 07/20/19 08:59 06/24/19 08:56 Apixaban (Eliquis) 2.5 mg BID NG 06/20/19 09:00 09/17/19 17:59 06/24/19 08:56 Aspirin (ASA) 81 mg DAILY NG 06/20/19 09:00 08/04/19 08:59 06/24/19 08:56 Chlorhexidine Gluconate (Jesica-Hex 2%) 1 applic DAILY@2000 TOPIC 06/20/19 20:00 09/18/19 19:59 06/23/19 21:29 Clonidine HCl (Catapres Tab) 0.1 mg Q4H PRN ORAL For High Blood Pressure 06/22/19 14:30 09/20/19 14:29 Dextrose (Dextrose 50%) 25 ml Q30M PRN IV Hypoglycemia 06/20/19 00:15 09/17/19 16:44 Dextrose (Dextrose 50%) 50 ml Q30M PRN IV Hypoglycemia 06/20/19 00:15 09/17/19 16:44 Famotidine (Pepcid) 20 mg DAILY GT 06/20/19 09:00 09/18/19 08:59 06/24/19 08:55 Furosemide (Lasix) 40 mg DAILY GT 06/24/19 09:00 07/24/19 08:59 06/24/19 08:56 Insulin Aspart (NovoLOG) BEFORE MEALS AND HS SUBQ 06/20/19 06:30 09/17/19 20:59 06/24/19 06:27 Latanoprost (Xalatan) 1 drop BEDTIME BOTH EYES 06/20/19 21:00 07/19/19 20:59 06/23/19 21:26 Mirtazapine (Remeron) 7.5 mg BEDTIME NG 06/20/19 21:00 09/17/19 20:59 06/23/19 21:23 Nitroglycerin (Nitro-Bid) 1 inch TID@0600,1200,1800 TOPIC 06/24/19 06:00 07/24/19 05:59 06/24/19 06:25 Piperacillin Sod/ Tazobactam Sod 3.375 gm/Sodium Chloride 110 ml @ 27.5 mls/hr Q12HR IVPB 06/20/19 09:00 06/26/19 20:59 06/24/19 08:57 Potassium Chloride (K-Dur) 20 meq DAILY GT 06/24/19 09:00 09/22/19 08:59 06/24/19 08:56 Omar Canales MD Jun 24, 2019 11:08
--- NOTE | 2019-06-24 11:17 | NUR ---
CASE MANAGEMENT: REVIEW SI: HYPOXEMIA . RESP FAILURE . RENAL FAILURE . CHF EXACERBATION T 99.8 HR 71 RR 21 BP 145/78 SAT 93% MECH VENT FIO2 50 WBC 10.9 BUN 64 CR 2.6 GLUCOSE 251 IS: ZOSYN IV Q12HR NOVOLOG SUBQ AC+HS KCl IVF @100ML/HR LASIX 40MG IV Q12HR NGT FEEDING ICU STATUS DCP: PATIENT IS FROM [facility]
--- NOTE | 2019-06-24 11:55 | Diagnostic Imaging Report ---
Indication: Acute renal failure Technique: Grayscale and duplex images of the kidneys, retroperitoneum, and bladder were obtained. Comparison: none Findings: Right kidney measures 10.7 cm in length. Left kidney measures 9.7 cm in length. Both kidneys demonstrate normal echogenicity. No hydronephrosis. There is a small left renal cyst. Normal inferior vena cava. Bladder is empty, contains a Chamberlain catheter. Impression: Negative for hydronephrosis Empty bladder with a Chamberlain catheter Incidental finding left renal cyst.
--- NOTE | 2019-06-24 19:17 | NUR ---
HAND-OFF: Report given to Joey Arreola RN using SBAR
--- NOTE | 2019-06-24 19:23 | NUR ---
RESPIRATORY NOTE: Received pt on AC 18, 450VT, 50%, PEEP +10. Pt intubated w/ ETT 7.5 @ 23cm. Pt awake/disoriented. B/S andrew. rhonchi, sxn moderate amounts of thick, trivedi-yellow secretions w/ occasional red specks. Vent plugged into red outlet, ambubag at bedside. Pt in no apparent distress at this time. Will continue to monitor pt.
--- NOTE | 2019-06-24 19:50 | NUR ---
NURSE NOTES: LE: PATIENT DROWSY, RESISTANCE TO CARE, ON ETT TO VENT, AC18/TV450/FIO2 50%/PEEP10, O2 SATURATION OVER 95% NOTED, HR 70'S/MIN SR W/PVC'S NOTED AT THIS TIME, NGT INTACT AND PATENT, ONGOING VITAL AF 1.2 AT 55ML/HR, RESIDUE 110ML NOTED, HELD FEEDING, KEPT HOB 30 DEGREES AND ASPIRATION PRECAUTION, F/C INTACT AND PATENT, RASHMI COLOR URINE OUTED, 2 POINT SOFT RESTRAINTS STATUS, PICC LINE TO LEFT UPPER ARM AND PPL TO RIGHT HAND, INTACT AND PATENT, MADE LOWER BED POSITION, ON BED ALARM AND LOCKED, PLACED CALL LIGHT WITHIN REACH, WILL CONTINUE TO MONITOR.
[2019-06-24] MEDS: Dyna-Hex 2% Top Sol 2oz TOPIC SCH (20:43)
[2019-06-24] MEDS: Latanoprost 0.005% Opth 2.5ml Soln BOTH EYES SCH (20:44)
--- NOTE | 2019-06-24 22:10 | NUR ---
NURSE NOTES: PATIENT ASLEEP STATUS, CALM STATUS.
[2019-06-25] VITALS (24 sets, daily range): BP systolic 106–152; BP diastolic 60–94
--- NOTE | 2019-06-25 00:34 | NUR ---
NURSE NOTES: LE; PATIENT CALM, NO RESISTANCE TO CARE, DISCONTINUED RESTRAINTS AT THIS TIME, WILL CONTINUE TO MONITOR.
--- NOTE | 2019-06-25 02:08 | NUR ---
NURSE NOTES: SEEN THE PATIENT BY DR. DUMONT, MADE NEW ORDER, WILL FOLLOW UP.
--- NOTE | 2019-06-25 03:30 | NUR ---
NURSE NOTES: LE: MORNING CARE WAS AND ORAL CARE WAS DONE, RESISTANCE TO CARE, TEMP 100.1F NOTED, COOLING MEASURE WAS DONE, WILL CONTINUE TO MONITOR.
--- NOTE | 2019-06-25 04:29 | Progress Note ---
DATE: 06/24/2019 SUBJECTIVE: The patient remains critical and guarded prognosis, remaining on ventilator support. COVID is negative x2. OBJECTIVE: VITAL SIGNS: Blood pressure 142/76, pulse 76, respiratory rate 19. LUNGS: Bilateral breath sounds with rhonchi. HEART: Irregularly irregular rhythm. Normal S1 and S2. A 1/6 systolic murmur at apex. ABDOMEN: Soft. EXTREMITIES: Trace edema. LABORATORY DATA: Monitor reveals atrial flutter with variable block. White count 10.9 and hemoglobin 13.1. Sodium 141, potassium 3.8, bicarb 29, BUN 64, and creatinine 2.6. Troponin ____ albumin 2.3. IMPRESSION: 1. Respiratory failure. 2. Healthcare associated pneumonia. 3. Paroxysmal atrial flutter. 4. Conduction system disease of the heart. 5. Hypertensive heart disease. 6. Acute on chronic diastolic congestive heart failure. 7. Acute on chronic renal failure. 8. Nonsustained ventricular ectopy. 9. Non-ST elevation myocardial infarction, uncomplicated. PLAN: 1. Ventilator support. 2. Cautious diuresis. 3. Antimicrobials. 4. Respiratory hygiene. 5. Optimize anti-failure regimen. 6. Maintain anti-platelet therapy. 7. Trend natriuretic peptide assay. 8. Anticoagulation for cardioembolic prophylaxis. Ottoniel Devi M.D. DR: KERRI JOB#: [id number] CC:
--- NOTE | 2019-06-25 05:45 | NUR ---
NURSE NOTES: PATIENT AWOKE, TEMP 99F NOTED AT THIS TIME.
[2019-06-25 05:56] LABS: BASOPHILS % (AUTO) 0.5 % (0.0-2.0); EOSINOPHILS % (AUTO) 3.8 % (0.0-3.0); HEMATOCRIT 39.1 % (42.0-52.0); HEMOGLOBIN 12.7 G/DL (14.2-18.0); LYMPHOCYTES % (AUTO) 10.1 % (20.0-45.0); MEAN CORPUSCULAR VOLUME 88 FL (80-99); MONOCYTES % (AUTO) 5.2 % (1.0-10.0); NEUTROPHILS % (AUTO) 80.4 % (45.0-75.0); PLATELET COUNT 185 K/UL (150-450); RED BLOOD COUNT 4.45 M/UL (4.70-6.10); RED CELL DISTRIBUTION WIDTH 14.5 % (11.6-14.8); WHITE BLOOD COUNT 11.5 K/UL (4.8-10.8)
[2019-06-25] MEDS: Nitroglycerin 2% oint pkt TOPIC SCH ×3 (05:56→18:03)
[2019-06-25] MEDS: NovoLOG Insulin Flexpen SUBQ SCH ×4 (05:57→21:20)
[2019-06-25 06:03] LABS: ALANINE AMINOTRANSFERASE 28 U/L (12-78); ALBUMIN 2.2 G/DL (3.4-5.0); ALBUMIN/GLOBULIN RATIO 0.5 (1.0-2.7); ALKALINE PHOSPHATASE 63 U/L (46-116); ANION GAP 8 mmol/L (5-15); ASPARTATE AMINO TRANSFERASE 22 U/L (15-37); BILIRUBIN,TOTAL 0.8 MG/DL (0.2-1.0); BLOOD UREA NITROGEN 72 mg/dL (7-18); CALCIUM 8.5 MG/DL (8.5-10.1); CARBON DIOXIDE 31 MMOL/L (21-32); CHLORIDE 102 MMOL/L (98-107); CREATININE 2.9 MG/DL (0.55-1.30); POTASSIUM 3.9 MMOL/L (3.5-5.1); SODIUM 141 MMOL/L (136-145)
--- NOTE | 2019-06-25 07:15 | NUR ---
NURSE NOTES: LE: SEEN THE PATIENT BY DR. HAN, RECEIVED NEW ORDER, WILL FOLLOW UP.
--- NOTE | 2019-06-25 07:25 | NUR ---
HAND-OFF: Report given to MARK LAY.
--- NOTE | 2019-06-25 07:30 | NUR ---
NURSE NOTES: Dr. dangelo made aware of patient status at the bedside, no verbal orders given at this time.
[2019-06-25] MEDS: Aspirin Baby 81mg NG SCH (09:10)
[2019-06-25] MEDS: Eliquis 2.5mg tablet NG SCH ×2 (09:11→18:03)
[2019-06-25] MEDS: Furosemide 40mg tab GT SCH (09:11)
[2019-06-25] MEDS: Allopurinol 100mg Tab NG SCH (09:11)
[2019-06-25] MEDS: Piperacillin/Tazobactam 3.375 GM in NS 110 ML IVPB SCH ×2 (09:12→21:18)
--- NOTE | 2019-06-25 09:30 | NUR ---
NURSE NOTES: Dr. Muniz updated on patient respiratory status and remain on setting of AC 18, TV: 450, Fio2 50% with peep of 10. patient is breathing at 18-19 bpm with tv of approximately 440-550ml. no orders to begin weaning given at this time.
--- NOTE | 2019-06-25 10:20 | General Progress Note ---
Assessment/Plan Problem List: (1) Atrial flutter ICD Codes: I48.92 - Unspecified atrial flutter SNOMED: 0728538 (2) Aspiration pneumonia ICD Codes: J69.0 - Pneumonitis due to inhalation of food and vomit SNOMED: 164483977 (3) Hypoxia ICD Codes: R09.02 - Hypoxemia SNOMED: 491486726 (4) Elevated troponin ICD Codes: R79.89 - Other specified abnormal findings of blood chemistry SNOMED: 007136755, 053130741, 925057793 (5) Acute on chronic renal insufficiency ICD Codes: N28.9 - Disorder of kidney and ureter, unspecified; N18.9 - Chronic kidney disease, unspecified SNOMED: 695775920, 487233952, 763494591 (6) CHF exacerbation ICD Codes: I50.9 - Heart failure, unspecified SNOMED: 183040658, 41843746483730, 949145026 (7) CAD (coronary artery disease) ICD Codes: I25.10 - Atherosclerotic heart disease of [place] coronary artery without angina pectoris SNOMED: 33365130 (8) CVA (cerebral vascular accident) ICD Codes: I63.9 - Cerebral infarction, unspecified SNOMED: 783564551 (9) HTN (hypertension) ICD Codes: I10 - Essential (primary) hypertension SNOMED: 19710082 Status: stable, unchanged Assessment/Plan: Continue vent support. wean per pulm Respiratory treatments and suctioning as needed diuresis per cards monitor renal fxn monitor chest x-ray IV antibiotics per ID feeds ordered stress prophylaxis eliquis Remains critical and guarded. dw cards and pulm and id Subjective ROS Limited/Unobtainable: Yes Constitutional: Reports: malaise, weakness HEENT: Reports: no symptoms Cardiovascular: Reports: no symptoms Respiratory: Reports: cough, shortness of breath Gastrointestinal/Abdominal: Reports: difficulty swallowing Genitourinary: Reports: no symptoms Neurologic/Psychiatric: Reports: anxiety Endocrine: Reports: no symptoms Hematologic/Lymphatic: Reports: anemia Allergies: Coded Allergies: ATORVASTATIN (Unverified Allergy, Unknown, 01/10/18) ROSUVASTATIN (Unverified Allergy, Unknown, 01/10/18) SITAGLIPTIN (Unverified Allergy, Unknown, 01/10/18) All Systems: reviewed and negative except above Subjective No overnight events. Remains stable on the ventilator. fio2 weaned to 50%. covid neg x 2.. labs reviewed. Chest x-ray still shows pulmonary edema. Creatinine trending slightly up. Renal ultrasound shows no evidence of hydronephrosis. According staff patient gets agitated easily. Has Ativan as needed. Objective Last 24 Hour Vital Signs Date Time Temp Pulse Resp B/P (MAP) Pulse Ox O2 Delivery O2 Flow Rate FiO2 06/25/19 07:11 64 20 50 06/25/19 07:00 67 21 134/69 (90) 94 06/25/19 06:00 50 06/25/19 06:00 99.0 69 21 136/70 (92) 94 06/25/19 05:56 145/73 06/25/19 05:11 78 22 50 06/25/19 05:00 77 22 145/73 (97) 96 06/25/19 04:00 79 06/25/19 04:00 100.1 79 21 135/68 (90) 95 06/25/19 04:00 Mechanical Ventilator 06/25/19 03:03 81 23 50 06/25/19 03:00 74 23 137/73 (94) 94 06/25/19 02:00 73 21 129/69 (89) 94 06/25/19 01:10 75 23 50 06/25/19 01:00 70 21 126/65 (85) 93 06/25/19 00:00 50 06/25/19 00:00 Mechanical Ventilator 06/25/19 00:00 99.0 72 21 134/62 (86) 93 06/24/19 23:22 74 06/24/19 23:19 71 20 50 06/24/19 23:00 72 22 133/69 (90) 93 06/24/19 22:00 71 22 128/60 (82) 93 06/24/19 21:12 70 21 99 Mechanical Ventilator 50 06/24/19 21:11 70 21 50 06/24/19 21:00 70 23 119/59 (79) 93 06/24/19 20:00 64 24 131/59 (83) 94 06/24/19 20:00 Mechanical Ventilator 06/24/19 20:00 50 06/24/19 19:19 71 21 50 06/24/19 19:16 72 06/24/19 19:00 74 25 157/70 (99) 94 06/24/19 18:00 73 21 130/65 (86) 93 06/24/19 17:41 71 22 50 06/24/19 17:30 119/61 06/24/19 17:00 99.4 73 21 119/61 (80) 92 06/24/19 16:00 50 06/24/19 16:00 71 06/24/19 16:00 68 18 121/55 (77) 93 06/24/19 16:00 Mechanical Ventilator 06/24/19 15:15 74 22 50 06/24/19 15:00 70 20 96/64 (75) 93 06/24/19 14:00 71 20 116/63 (80) 92 06/24/19 13:07 69 19 50 06/24/19 13:00 72 23 141/71 (94) 93 06/24/19 12:00 98.9 73 22 132/74 (93) 93 06/24/19 12:00 Mechanical Ventilator 06/24/19 12:00 77 06/24/19 12:00 50 06/24/19 11:48 137/68 06/24/19 11:23 73 24 50 06/24/19 11:00 75 18 137/69 (91) 92 Intake and Output 06/24/19 06/25/19 19:00 07:00 Intake Total 1120.0 ml 490.0 ml Output Total 485 ml 505 ml Balance 635.0 ml -15.0 ml Free Water 60 ml IV Total 410.0 ml 110.0 ml Tube Feeding 650 ml 330 ml Other 50 ml Output Urine Total 485 ml 505 ml # Bowel Movements 2 Laboratory Tests 06/25/19 03:30: White Blood Count 11.5H, Red Blood Count 4.45L, Hemoglobin 12.7L, Hematocrit 39.1L, Mean Corpuscular Volume 88, Mean Corpuscular Hemoglobin 28.6, Mean Corpuscular Hemoglobin Concent 32.5, Red Cell Distribution Width 14.5, Platelet Count 185, Mean Platelet Volume 6.7, Neutrophils (%) (Auto) 80.4H, Lymphocytes ( %) (Auto) 10.1L, Monocytes (%) (Auto) 5.2, Eosinophils (%) (Auto) 3.8H, Basophils (%) (Auto) 0.5, Sodium Level 141, Potassium Level 3.9, Chloride Level 102, Carbon Dioxide Level 31, Anion Gap 8, Blood Urea Nitrogen 72H, Creatinine 2.9H, Estimat Glomerular Filtration Rate 21.2, Glucose Level 240H, Calcium Level 8.5, Magnesium Level 2.5H, Total Bilirubin 0.8, Aspartate Amino Transf ( AST/SGOT) 22, Alanine Aminotransferase (ALT/SGPT) 28, Alkaline Phosphatase 63, Troponin I 0.163H, Pro-B-Type Natriuretic Peptide 4949H, Total Protein 6.8, Albumin 2.2L, Globulin 4.6, Albumin/Globulin Ratio 0.5L Height (Feet): 5 Height (Inches): 3.00 Weight (Pounds): 220 Objective General Appearance: WD/WN, lethargic, confused EENT: normal ENT inspection. orally intubated Neck: non-tender, normal alignment, supple Cardiovascular: normal peripheral pulses, normal rate, regular rhythm Respiratory/Chest: chest wall non-tender, lungs clear, normal breath sounds, no respiratory distress, no accessory muscle use Abdomen: normal bowel sounds, non tender, soft, no organomegaly, no mass Neurologic: disoriented, unresponsive Skin: normal pigmentation. no rash Juanpablo Downey MD Jun 25, 2019 10:20
--- NOTE | 2019-06-25 10:22 | NUR ---
CASE MANAGEMENT: REVIEW SI: HYPOXEMIA . RESP FAILURE . RENAL FAILURE . CHF EXACERBATION T 100.1 HR 79 RR 21 BP 135/68 SAT 95% MECH VENT FIO2 50 WBC 11.5 BUN 72 RR 29 GLUCOSE 240 MAG 2.5 TROP I 0.163 IS: ZOSYN IV Q12HR NOVOLOG SUBQ AC+HS KCl IVF @100ML/HR LASIX 40MG IV Q12HR NGT FEEDING ICU STATUS DCP: PATIENT IS FROM [facility]
--- NOTE | 2019-06-25 10:48 | Infectious Diseases Prog Note ---
Assessment/Plan Assessment/Plan antibiotics : zosyn 4.23.20 - A 1. pneumonia COVID 19 test negative 4.23.20, 4.26.20 2. respiratory failure 3. leucocytosis resolved 4. diabetes mellitus 5. hypertension 6. CHF 7. renal failure P 1. continue zosyn 2. will follow up cultures Subjective ROS Limited/Unobtainable: Yes Allergies: Coded Allergies: ATORVASTATIN (Unverified Allergy, Unknown, 01/10/18) ROSUVASTATIN (Unverified Allergy, Unknown, 01/10/18) SITAGLIPTIN (Unverified Allergy, Unknown, 01/10/18) Objective Vital Signs Last 24 Hour Vital Signs Date Time Temp Pulse Resp B/P (MAP) Pulse Ox O2 Delivery O2 Flow Rate FiO2 06/25/19 07:11 64 20 50 06/25/19 07:00 67 21 134/69 (90) 94 06/25/19 06:00 50 06/25/19 06:00 99.0 69 21 136/70 (92) 94 06/25/19 05:56 145/73 06/25/19 05:11 78 22 50 06/25/19 05:00 77 22 145/73 (97) 96 06/25/19 04:00 79 06/25/19 04:00 100.1 79 21 135/68 (90) 95 06/25/19 04:00 Mechanical Ventilator 06/25/19 03:03 81 23 50 06/25/19 03:00 74 23 137/73 (94) 94 06/25/19 02:00 73 21 129/69 (89) 94 06/25/19 01:10 75 23 50 06/25/19 01:00 70 21 126/65 (85) 93 06/25/19 00:00 50 06/25/19 00:00 Mechanical Ventilator 06/25/19 00:00 99.0 72 21 134/62 (86) 93 06/24/19 23:22 74 06/24/19 23:19 71 20 50 06/24/19 23:00 72 22 133/69 (90) 93 06/24/19 22:00 71 22 128/60 (82) 93 06/24/19 21:12 70 21 99 Mechanical Ventilator 50 06/24/19 21:11 70 21 50 06/24/19 21:00 70 23 119/59 (79) 93 06/24/19 20:00 64 24 131/59 (83) 94 06/24/19 20:00 Mechanical Ventilator 06/24/19 20:00 50 06/24/19 19:19 71 21 50 06/24/19 19:16 72 06/24/19 19:00 74 25 157/70 (99) 94 06/24/19 18:00 73 21 130/65 (86) 93 06/24/19 17:41 71 22 50 06/24/19 17:30 119/61 06/24/19 17:00 99.4 73 21 119/61 (80) 92 06/24/19 16:00 50 06/24/19 16:00 71 06/24/19 16:00 68 18 121/55 (77) 93 06/24/19 16:00 Mechanical Ventilator 06/24/19 15:15 74 22 50 06/24/19 15:00 70 20 96/64 (75) 93 06/24/19 14:00 71 20 116/63 (80) 92 06/24/19 13:07 69 19 50 06/24/19 13:00 72 23 141/71 (94) 93 06/24/19 12:00 98.9 73 22 132/74 (93) 93 06/24/19 12:00 Mechanical Ventilator 06/24/19 12:00 77 06/24/19 12:00 50 06/24/19 11:48 137/68 06/24/19 11:23 73 24 50 06/24/19 11:00 75 18 137/69 (91) 92 Height (Feet): 5 Height (Inches): 3.00 Weight (Pounds): 220 HEENT: other - intubated Respiratory/Chest: lungs clear Cardiovascular: normal rate, regular rhythm, no gallop/murmur Abdomen: soft, non tender Extremities: no edema Microbiology Date/Time Source Procedure Growth Status 06/22/19 11:56 Nasopharynx Coronavirus COVID-19 PCR (BETO) - Final Complete Laboratory Tests Test 06/25/19 03:30 White Blood Count 11.5 K/UL (4.8-10.8) H Red Blood Count 4.45 M/UL (4.70-6.10) L Hemoglobin 12.7 G/DL (14.2-18.0) L Hematocrit 39.1 % (42.0-52.0) L Mean Corpuscular Volume 88 FL (80-99) Mean Corpuscular Hemoglobin 28.6 PG (27.0-31.0) Mean Corpuscular Hemoglobin Concent 32.5 G/DL (32.0-36.0) Red Cell Distribution Width 14.5 % (11.6-14.8) Platelet Count 185 K/UL (150-450) Mean Platelet Volume 6.7 FL (6.5-10.1) Neutrophils (%) (Auto) 80.4 % (45.0-75.0) H Lymphocytes (%) (Auto) 10.1 % (20.0-45.0) L Monocytes (%) (Auto) 5.2 % (1.0-10.0) Eosinophils (%) (Auto) 3.8 % (0.0-3.0) H Basophils (%) (Auto) 0.5 % (0.0-2.0) Sodium Level 141 MMOL/L (136-145) Potassium Level 3.9 MMOL/L (3.5-5.1) Chloride Level 102 MMOL/L (98-107) Carbon Dioxide Level 31 MMOL/L (21-32) Anion Gap 8 mmol/L (5-15) Blood Urea Nitrogen 72 mg/dL (7-18) H Creatinine 2.9 MG/DL (0.55-1.30) H Estimat Glomerular Filtration Rate 21.2 mL/min (>60) Glucose Level 240 MG/DL (74-106) H Calcium Level 8.5 MG/DL (8.5-10.1) Magnesium Level 2.5 MG/DL (1.8-2.4) H Total Bilirubin 0.8 MG/DL (0.2-1.0) Aspartate Amino Transf (AST/SGOT) 22 U/L (15-37) Alanine Aminotransferase (ALT/SGPT) 28 U/L (12-78) Alkaline Phosphatase 63 U/L (46-116) Troponin I 0.163 ng/mL (0.000-0.056) Pro-B-Type Natriuretic Peptide 4949 pg/mL (0-125) H Total Protein 6.8 G/DL (6.4-8.2) Albumin 2.2 G/DL (3.4-5.0) L Globulin 4.6 g/dL Albumin/Globulin Ratio 0.5 (1.0-2.7) L Current Medications Medications (Trade) Dose Ordered Sig/Diana Route PRN Reason Start Time Stop Time Status Last Admin Dose Admin Acetaminophen (Tylenol) 650 mg Q6H PRN NG Temp >100.5 06/20/19 17:15 07/20/19 17:14 06/20/19 17:35 Albuterol Sulfate (Proventil MDI) 2 puff Q4H PRN INH Shortness of Breath 06/20/19 00:15 09/17/19 00:14 Allopurinol (Zyloprim) 100 mg DAILY NG 06/20/19 09:00 07/20/19 08:59 06/25/19 09:11 Apixaban (Eliquis) 2.5 mg BID NG 06/20/19 09:00 09/17/19 17:59 06/25/19 09:11 Aspirin (ASA) 81 mg DAILY NG 06/20/19 09:00 08/04/19 08:59 06/25/19 09:10 Chlorhexidine Gluconate (Jesica-Hex 2%) 1 applic DAILY@2000 TOPIC 06/20/19 20:00 09/18/19 19:59 06/24/19 20:43 Clonidine HCl (Catapres Tab) 0.1 mg Q4H PRN ORAL For High Blood Pressure 06/22/19 14:30 09/20/19 14:29 Dextrose (Dextrose 50%) 25 ml Q30M PRN IV Hypoglycemia 06/20/19 00:15 09/17/19 16:44 Dextrose (Dextrose 50%) 50 ml Q30M PRN IV Hypoglycemia 06/20/19 00:15 09/17/19 16:44 Famotidine (Pepcid) 20 mg DAILY GT 06/20/19 09:00 09/18/19 08:59 06/25/19 09:11 Furosemide (Lasix) 40 mg DAILY GT 06/24/19 09:00 07/24/19 08:59 06/25/19 09:11 Insulin Aspart (NovoLOG) BEFORE MEALS AND HS SUBQ 06/20/19 06:30 09/17/19 20:59 06/25/19 05:57 Latanoprost (Xalatan) 1 drop BEDTIME BOTH EYES 06/20/19 21:00 07/19/19 20:59 06/24/19 20:44 Mirtazapine (Remeron) 7.5 mg BEDTIME NG 06/20/19 21:00 09/17/19 20:59 06/24/19 20:44 Nitroglycerin (Nitro-Bid) 1 inch TID@0600,1200,1800 TOPIC 06/24/19 06:00 07/24/19 05:59 06/25/19 05:56 Piperacillin Sod/ Tazobactam Sod 3.375 gm/Sodium Chloride 110 ml @ 27.5 mls/hr Q12HR IVPB 06/20/19 09:00 06/26/19 20:59 06/25/19 09:12 Potassium Chloride (K-Dur) 20 meq DAILY GT 06/24/19 09:00 09/22/19 08:59 06/25/19 09:10 Omar Canales MD Jun 25, 2019 10:48
--- NOTE | 2019-06-25 11:20 | NUR ---
NURSE NOTES: Dr. Canales made aware of the patient WBC count at 11.5 and temperature of 98.9 taken axillary, no verbal orders given at this time.
--- NOTE | 2019-06-25 11:27 | Critical Care Progress Note ---
Assessment/Plan Assessment/Plan Hypoxemia Hypercapnic respiratory failure pulmonary edema possible ARDS negative COVID x2 renal failure toxic met encephalopathy hypernatremia CRF leukocytosis possible sepsis PLAN vent as is ? dc isolation monitor ABG monitor AC rate PEEP as is taper FIO2 - now on 50% ID follow up possible weaning trials in am if can reduce PEEP monitor feeds and isolation medications/laboratory data/nursing notes/ICU care reviewed in detail note reviewed and edited care discussed with RN and RT ICU time spent >40 minutes Critical Care - Subjective Interval Events: on 50% PEEP 10 Condition: critical EKG Rhythm: Sinus Rhythm Residuals: minimal Tube Feeding Tolerated: yes I&O: Intake and Output 06/24/19 06/25/19 19:00 07:00 Intake Total 1120.0 ml 490.0 ml Output Total 485 ml 505 ml Balance 635.0 ml -15.0 ml Free Water 60 ml IV Total 410.0 ml 110.0 ml Tube Feeding 650 ml 330 ml Other 50 ml Output Urine Total 485 ml 505 ml # Bowel Movements 2 Critical Care - Objective ET-Tube: 7.5 ET Position: 23 Last 24 Hour Vital Signs Date Time Temp Pulse Resp B/P (MAP) Pulse Ox O2 Delivery O2 Flow Rate FiO2 06/25/19 11:00 76 19 125/75 (92) 96 06/25/19 10:00 76 19 106/62 (77) 96 06/25/19 09:00 72 20 130/64 (86) 95 06/25/19 08:00 99.2 68 21 136/71 (92) 94 06/25/19 07:11 64 20 50 06/25/19 07:00 67 21 134/69 (90) 94 06/25/19 06:00 50 06/25/19 06:00 99.0 69 21 136/70 (92) 94 06/25/19 05:56 145/73 06/25/19 05:11 78 22 50 06/25/19 05:00 77 22 145/73 (97) 96 06/25/19 04:00 79 06/25/19 04:00 100.1 79 21 135/68 (90) 95 06/25/19 04:00 Mechanical Ventilator 06/25/19 03:03 81 23 50 06/25/19 03:00 74 23 137/73 (94) 94 06/25/19 02:00 73 21 129/69 (89) 94 06/25/19 01:10 75 23 50 06/25/19 01:00 70 21 126/65 (85) 93 06/25/19 00:00 50 06/25/19 00:00 Mechanical Ventilator 06/25/19 00:00 99.0 72 21 134/62 (86) 93 06/24/19 23:22 74 06/24/19 23:19 71 20 50 06/24/19 23:00 72 22 133/69 (90) 93 06/24/19 22:00 71 22 128/60 (82) 93 06/24/19 21:12 70 21 99 Mechanical Ventilator 50 06/24/19 21:11 70 21 50 06/24/19 21:00 70 23 119/59 (79) 93 06/24/19 20:00 64 24 131/59 (83) 94 06/24/19 20:00 Mechanical Ventilator 06/24/19 20:00 50 06/24/19 19:19 71 21 50 06/24/19 19:16 72 06/24/19 19:00 74 25 157/70 (99) 94 06/24/19 18:00 73 21 130/65 (86) 93 06/24/19 17:41 71 22 50 06/24/19 17:30 119/61 06/24/19 17:00 99.4 73 21 119/61 (80) 92 06/24/19 16:00 50 06/24/19 16:00 71 06/24/19 16:00 68 18 121/55 (77) 93 06/24/19 16:00 Mechanical Ventilator 06/24/19 15:15 74 22 50 06/24/19 15:00 70 20 96/64 (75) 93 06/24/19 14:00 71 20 116/63 (80) 92 06/24/19 13:07 69 19 50 06/24/19 13:00 72 23 141/71 (94) 93 06/24/19 12:00 98.9 73 22 132/74 (93) 93 06/24/19 12:00 Mechanical Ventilator 06/24/19 12:00 77 06/24/19 12:00 50 06/24/19 11:48 137/68 Labs: Labs Test 06/23/19 04:00 06/23/19 11:10 06/24/19 04:07 06/25/19 03:30 White Blood Count 12.5 K/UL (4.8-10.8) 10.9 K/UL (4.8-10.8) 11.5 K/UL (4.8-10.8) Red Blood Count 4.65 M/UL (4.70-6.10) 4.55 M/UL (4.70-6.10) 4.45 M/UL (4.70-6.10) Hemoglobin 13.5 G/DL (14.2-18.0) 13.1 G/DL (14.2-18.0) 12.7 G/DL (14.2-18.0) Hematocrit 41.1 % (42.0-52.0) 40.2 % (42.0-52.0) 39.1 % (42.0-52.0) Mean Corpuscular Volume 88 FL (80-99) 88 FL (80-99) 88 FL (80-99) Mean Corpuscular Hemoglobin 29.1 PG (27.0-31.0) 28.7 PG (27.0-31.0) 28.6 PG (27.0-31.0) Mean Corpuscular Hemoglobin Concent 32.9 G/DL (32.0-36.0) 32.6 G/DL (32.0-36.0) 32.5 G/DL (32.0-36.0) Red Cell Distribution Width 14.2 % (11.6-14.8) 14.7 % (11.6-14.8) 14.5 % (11.6-14.8) Platelet Count 183 K/UL (150-450) 186 K/UL (150-450) 185 K/UL (150-450) Mean Platelet Volume 6.5 FL (6.5-10.1) 6.8 FL (6.5-10.1) 6.7 FL (6.5-10.1) Neutrophils (%) (Auto) 80.5 % (45.0-75.0) 80.2 % (45.0-75.0) 80.4 % (45.0-75.0) Lymphocytes (%) (Auto) 10.0 % (20.0-45.0) 10.1 % (20.0-45.0) 10.1 % (20.0-45.0) Monocytes (%) (Auto) 5.2 % (1.0-10.0) 5.0 % (1.0-10.0) 5.2 % (1.0-10.0) Eosinophils (%) (Auto) 3.6 % (0.0-3.0) 3.8 % (0.0-3.0) 3.8 % (0.0-3.0) Basophils (%) (Auto) 0.7 % (0.0-2.0) 1.0 % (0.0-2.0) 0.5 % (0.0-2.0) Sodium Level 146 MMOL/L (136-145) 141 MMOL/L (136-145) 141 MMOL/L (136-145) Potassium Level 3.2 MMOL/L (3.5-5.1) 3.8 MMOL/L (3.5-5.1) 3.9 MMOL/L (3.5-5.1) Chloride Level 106 MMOL/L (98-107) 103 MMOL/L (98-107) 102 MMOL/L (98-107) Carbon Dioxide Level 31 MMOL/L (21-32) 29 MMOL/L (21-32) 31 MMOL/L (21-32) Anion Gap 9 mmol/L (5-15) 9 mmol/L (5-15) 8 mmol/L (5-15) Blood Urea Nitrogen 71 mg/dL (7-18) 64 mg/dL (7-18) 72 mg/dL (7-18) Creatinine 2.6 MG/DL (0.55-1.30) 2.6 MG/DL (0.55-1.30) 2.9 MG/DL (0.55-1.30) Estimat Glomerular Filtration Rate 24.1 mL/min (>60) 24.1 mL/min (>60) 21.2 mL/min (>60) Glucose Level 184 MG/DL (74-106) 251 MG/DL (74-106) 240 MG/DL (74-106) Calcium Level 8.0 MG/DL (8.5-10.1) 8.2 MG/DL (8.5-10.1) 8.5 MG/DL (8.5-10.1) Magnesium Level 2.3 MG/DL (1.8-2.4) 2.5 MG/DL (1.8-2.4) Total Bilirubin 0.9 MG/DL (0.2-1.0) 0.9 MG/DL (0.2-1.0) 0.8 MG/DL (0.2-1.0) Aspartate Amino Transf (AST/SGOT) 23 U/L (15-37) 26 U/L (15-37) 22 U/L (15-37) Alanine Aminotransferase (ALT/SGPT) 22 U/L (12-78) 28 U/L (12-78) 28 U/L (12-78) Alkaline Phosphatase 55 U/L (46-116) 69 U/L (46-116) 63 U/L (46-116) Troponin I 0.271 ng/mL (0.000-0.056) 0.163 ng/mL (0.000-0.056) Pro-B-Type Natriuretic Peptide 1569 pg/mL (0-125) 4949 pg/mL (0-125) Total Protein 6.8 G/DL (6.4-8.2) 6.9 G/DL (6.4-8.2) 6.8 G/DL (6.4-8.2) Albumin 2.4 G/DL (3.4-5.0) 2.3 G/DL (3.4-5.0) 2.2 G/DL (3.4-5.0) Globulin 4.4 g/dL 4.6 g/dL 4.6 g/dL Albumin/Globulin Ratio 0.5 (1.0-2.7) 0.5 (1.0-2.7) 0.5 (1.0-2.7) Arterial Blood pH 7.480 (7.350-7.450) Arterial Blood Partial Pressure CO2 35.8 mmHg (35.0-45.0) Arterial Blood Partial Pressure O2 131.3 mmHg (75.0-100.0) Arterial Blood HCO3 26.1 mmol/L (22.0-26.0) Arterial Blood Oxygen Saturation 98.6 % (95-100) Arterial Blood Base Excess 2.8 (-2-2) Ramo Test Positive Objective: WDWN sedated orally intubated reduced breath sounds bilaterally without rhonchi or wheeze [id number] without MRG NABS nontender no HSM no CC some edema nonfocal reviewed and edited Micro: Microbiology Date/Time Source Procedure Growth Status 06/22/19 11:56 Nasopharynx Coronavirus COVID-19 PCR (BETO) - Final Complete Accucheck: 217 Paul Muniz MD Jun 25, 2019 11:27
--- NOTE | 2019-06-25 13:30 | NUR ---
NURSE NOTES: Patient tube feeding started at 55ml/hr.
--- NOTE | 2019-06-25 17:50 | NUR ---
NURSE NOTES: Patient repositioned and provided oral care with oral mucosa moist, patient remains able to open eyes spontaneously. denies any pain over body,
--- NOTE | 2019-06-25 19:22 | NUR ---
HAND-OFF: Report given to MARK Hidalgo.
--- NOTE | 2019-06-25 19:37 | NUR ---
NURSE NOTES: received pt with eyes close , orally intubated on ac mode ,Bp stable, afebrile at this time Pt on SR w/1st degree AVB. Pt on Vital AF 1.2 at 55ml/hr at this time, tolerating well. Bilateral soft wrist restraints on for safety to avoid pulling out therapeutic devices.Abdomen distended with normoactive bowel sounds as well as bowel movement Dr Downey was aware. Chamberlain to gravity with straw colored urine, moderate in amt.Will continue to monitor.
[2019-06-25] MEDS: Dyna-Hex 2% Top Sol 2oz TOPIC SCH (20:28)
[2019-06-25] MEDS: Latanoprost 0.005% Opth 2.5ml Soln BOTH EYES SCH (21:18)
--- NOTE | 2019-06-25 21:30 | NUR ---
NURSE NOTES: Suctioned tn tk beige secretions lr in amt. Oral care done.
--- NOTE | 2019-06-25 23:30 | NUR ---
NURSE NOTES: accucheck 252mg/dl with coverage. pls see emar.
[2019-06-26] VITALS (24 sets, daily range): BP systolic 103–156; BP diastolic 58–91
--- NOTE | 2019-06-26 02:00 | NUR ---
NURSE NOTES: No resp. distress noted. Afebrile.
--- NOTE | 2019-06-26 02:14 | Progress Note ---
DATE: 06/25/2019 CARDIOLOGY PROGRESS NOTE SUBJECTIVE: Patient remains in the intensive care unit. Critical condition and guarded prognosis. On full ventilator support. Monitor, atrial flutter with variable block and ventricular ectopics. Weaning efforts have failed. Chest x-ray reveals pulmonary edema and infiltrate. PHYSICAL EXAMINATION: VITAL SIGNS: Blood pressure 134/69, pulse 67, respirations 21, temperature max 100.1. HEENT: Thin secretions. LUNGS: Bilateral rhonchi. CARDIAC: Irregularly irregular rhythm. Normal S1, S2. ABDOMEN: Soft. EXTREMITIES: Trace edema. LABORATORY DATA: White count 11, hemoglobin 12.7. Sodium 141, potassium 3.9, bicarb 31, BUN 72, creatinine 2.9, magnesium 2.5. Troponin 0.163. Pro natriuretic peptide 4949. Albumin 2.2. IMPRESSION: 1. Acute myocardial infarction. 2. Acute myocardial ischemia. 3. Paroxysmal atrial flutter. 4. Ventricular ectopy. 5. Acute on chronic diastolic and systolic congestive heart failure. 6. Respiratory failure. 7. Healthcare-associated pneumonia. 8. Remains critical and guarded. PLAN: 1. Antimicrobials. 2. Ventilator support. 3. Diuresis. 4. Continue full anticoagulation. 5. Monitor renal function. 6. Antianginal therapy. 7. Protein supplement. Ottoniel Devi M.D. DR: BULMARO JOB#: [id number] CC:
--- NOTE | 2019-06-26 04:00 | NUR ---
NURSE NOTES: Complete bed bath with bed changed was done.
[2019-06-26 05:49] LABS: BASOPHILS % (AUTO) 0.5 % (0.0-2.0); EOSINOPHILS % (AUTO) 4.9 % (0.0-3.0); HEMATOCRIT 38.4 % (42.0-52.0); HEMOGLOBIN 12.6 G/DL (14.2-18.0); LYMPHOCYTES % (AUTO) 9.2 % (20.0-45.0); MEAN CORPUSCULAR VOLUME 87 FL (80-99); MONOCYTES % (AUTO) 4.4 % (1.0-10.0); NEUTROPHILS % (AUTO) 81.1 % (45.0-75.0); PLATELET COUNT 213 K/UL (150-450); RED BLOOD COUNT 4.42 M/UL (4.70-6.10); RED CELL DISTRIBUTION WIDTH 14.3 % (11.6-14.8)
--- NOTE | 2019-06-26 06:00 | NUR ---
NURSE NOTES: Afebrlle. VSS. No resp. distress noted.
[2019-06-26] MEDS: Nitroglycerin 2% oint pkt TOPIC SCH ×3 (06:01→17:45)
[2019-06-26] MEDS: NovoLOG Insulin Flexpen SUBQ SCH ×5 (06:03→21:07)
[2019-06-26 06:41] LABS: ALANINE AMINOTRANSFERASE 24 U/L (12-78); ALBUMIN 2.1 G/DL (3.4-5.0); ALBUMIN/GLOBULIN RATIO 0.5 (1.0-2.7); ALKALINE PHOSPHATASE 67 U/L (46-116); ANION GAP 9 mmol/L (5-15); ASPARTATE AMINO TRANSFERASE 25 U/L (15-37); BILIRUBIN,TOTAL 0.7 MG/DL (0.2-1.0); BLOOD UREA NITROGEN 79 mg/dL (7-18); CALCIUM 8.9 MG/DL (8.5-10.1); CARBON DIOXIDE 29 MMOL/L (21-32); CHLORIDE 103 MMOL/L (98-107); CREATININE 2.9 MG/DL (0.55-1.30); POTASSIUM 3.8 MMOL/L (3.5-5.1); SODIUM 141 MMOL/L (136-145)
--- NOTE | 2019-06-26 07:08 | NUR ---
HAND-OFF: Report given to Ottoniel FLORES for continuity of care..
[2019-06-26] MEDS: Aspirin Baby 81mg NG SCH (08:35)
[2019-06-26] MEDS: Allopurinol 100mg Tab NG SCH (08:36)
[2019-06-26] MEDS: Piperacillin/Tazobactam 3.375 GM in NS 110 ML IVPB SCH ×2 (08:36→21:06)
[2019-06-26] MEDS: Eliquis 2.5mg tablet NG SCH ×2 (08:36→17:45)
--- NOTE | 2019-06-26 08:48 | Critical Care Progress Note ---
Assessment/Plan Assessment/Plan Hypoxemia Hypercapnic respiratory failure pulmonary edema possible ARDS negative COVID x2 renal failure toxic met encephalopathy hypernatremia CRF leukocytosis possible sepsis PLAN vent as is no clear need for isolation monitor ABG monitor AC rate PEEP taper taper FIO2 - now still on 50% ID follow up wean as able monitor feeds and isolation medications/laboratory data/nursing notes/ICU care reviewed in detail note reviewed and edited care discussed with RN and RT ICU time spent >40 minutes Critical Care - Subjective ROS Limited/Unobtainable: Yes Condition: critical EKG Rhythm: Sinus Rhythm Residuals: minimal Tube Feeding Tolerated: yes I&O: Intake and Output 06/25/19 06/26/19 19:00 07:00 Intake Total 495.0 ml 665 ml Output Total 505 ml 620 ml Balance -10.0 ml 45 ml Free Water 60 ml IV Total 55.0 ml Tube Feeding 440 ml 605 ml Output Urine Total 505 ml 620 ml Critical Care - Objective ET-Tube: 7.5 ET Position: 23 Last 24 Hour Vital Signs Date Time Temp Pulse Resp B/P (MAP) Pulse Ox O2 Delivery O2 Flow Rate FiO2 06/26/19 07:27 72 19 50 06/26/19 06:01 135/63 06/26/19 06:00 75 20 120/63 (82) 96 06/26/19 05:02 82 24 50 06/26/19 05:00 71 18 135/63 (87) 94 06/26/19 04:00 50 06/26/19 04:00 Mechanical Ventilator 06/26/19 04:00 72 06/26/19 04:00 98.4 75 20 103/58 (73) 95 06/26/19 03:11 81 26 50 06/26/19 03:00 72 19 144/72 (96) 95 06/26/19 02:00 72 20 137/77 (97) 95 06/26/19 01:30 79 25 50 06/26/19 01:00 91 20 104/68 (80) 94 06/26/19 00:00 Mechanical Ventilator 06/26/19 00:00 99.0 91 20 104/68 (80) 94 06/26/19 00:00 50 06/25/19 23:22 76 24 50 06/25/19 23:00 80 20 122/65 (84) 94 06/25/19 22:00 68 20 139/74 (95) 93 4/29/20 21:28 76 24 50 06/25/19 21:00 67 19 116/60 (78) 94 06/25/19 20:00 98.6 75 22 141/75 (97) 95 06/25/19 20:00 50 06/25/19 20:00 Mechanical Ventilator 06/25/19 20:00 73 06/25/19 19:24 74 26 50 06/25/19 19:00 71 21 127/65 (85) 93 06/25/19 18:03 130/74 06/25/19 18:00 74 21 130/74 (92) 96 06/25/19 17:00 73 20 152/94 (113) 97 06/25/19 16:00 97.6 73 20 118/62 (80) 95 06/25/19 16:00 73 06/25/19 16:00 Mechanical Ventilator 06/25/19 16:00 50 06/25/19 15:23 72 20 50 06/25/19 15:00 73 20 108/69 (82) 95 06/25/19 14:00 73 19 130/72 (91) 95 06/25/19 13:00 73 20 119/69 (86) 95 06/25/19 12:02 125/75 06/25/19 12:00 98.9 75 22 133/72 (92) 95 06/25/19 12:00 50 06/25/19 12:00 Mechanical Ventilator 06/25/19 12:00 70 06/25/19 11:17 73 19 50 06/25/19 11:00 76 19 125/75 (92) 96 06/25/19 10:00 76 19 106/62 (77) 96 06/25/19 09:00 72 20 130/64 (86) 95 Labs: Labs Test 06/23/19 11:10 06/24/19 04:07 06/25/19 03:30 06/26/19 03:30 Arterial Blood pH 7.480 (7.350-7.450) Arterial Blood Partial Pressure CO2 35.8 mmHg (35.0-45.0) Arterial Blood Partial Pressure O2 131.3 mmHg (75.0-100.0) Arterial Blood HCO3 26.1 mmol/L (22.0-26.0) Arterial Blood Oxygen Saturation 98.6 % (95-100) Arterial Blood Base Excess 2.8 (-2-2) Ramo Test Positive White Blood Count 10.9 K/UL (4.8-10.8) 11.5 K/UL (4.8-10.8) 12.0 K/UL (4.8-10.8) Red Blood Count 4.55 M/UL (4.70-6.10) 4.45 M/UL (4.70-6.10) 4.42 M/UL (4.70-6.10) Hemoglobin 13.1 G/DL (14.2-18.0) 12.7 G/DL (14.2-18.0) 12.6 G/DL (14.2-18.0) Hematocrit 40.2 % (42.0-52.0) 39.1 % (42.0-52.0) 38.4 % (42.0-52.0) Mean Corpuscular Volume 88 FL (80-99) 88 FL (80-99) 87 FL (80-99) Mean Corpuscular Hemoglobin 28.7 PG (27.0-31.0) 28.6 PG (27.0-31.0) 28.4 PG (27.0-31.0) Mean Corpuscular Hemoglobin Concent 32.6 G/DL (32.0-36.0) 32.5 G/DL (32.0-36.0) 32.7 G/DL (32.0-36.0) Red Cell Distribution Width 14.7 % (11.6-14.8) 14.5 % (11.6-14.8) 14.3 % (11.6-14.8) Platelet Count 186 K/UL (150-450) 185 K/UL (150-450) 213 K/UL (150-450) Mean Platelet Volume 6.8 FL (6.5-10.1) 6.7 FL (6.5-10.1) 7.9 FL (6.5-10.1) Neutrophils (%) (Auto) 80.2 % (45.0-75.0) 80.4 % (45.0-75.0) 81.1 % (45.0-75.0) Lymphocytes (%) (Auto) 10.1 % (20.0-45.0) 10.1 % (20.0-45.0) 9.2 % (20.0-45.0) Monocytes (%) (Auto) 5.0 % (1.0-10.0) 5.2 % (1.0-10.0) 4.4 % (1.0-10.0) Eosinophils (%) (Auto) 3.8 % (0.0-3.0) 3.8 % (0.0-3.0) 4.9 % (0.0-3.0) Basophils (%) (Auto) 1.0 % (0.0-2.0) 0.5 % (0.0-2.0) 0.5 % (0.0-2.0) Sodium Level 141 MMOL/L (136-145) 141 MMOL/L (136-145) 141 MMOL/L (136-145) Potassium Level 3.8 MMOL/L (3.5-5.1) 3.9 MMOL/L (3.5-5.1) 3.8 MMOL/L (3.5-5.1) Chloride Level 103 MMOL/L (98-107) 102 MMOL/L (98-107) 103 MMOL/L (98-107) Carbon Dioxide Level 29 MMOL/L (21-32) 31 MMOL/L (21-32) 29 MMOL/L (21-32) Anion Gap 9 mmol/L (5-15) 8 mmol/L (5-15) 9 mmol/L (5-15) Blood Urea Nitrogen 64 mg/dL (7-18) 72 mg/dL (7-18) 79 mg/dL (7-18) Creatinine 2.6 MG/DL (0.55-1.30) 2.9 MG/DL (0.55-1.30) 2.9 MG/DL (0.55-1.30) Estimat Glomerular Filtration Rate 24.1 mL/min (>60) 21.2 mL/min (>60) 21.2 mL/min (>60) Glucose Level 251 MG/DL (74-106) 240 MG/DL (74-106) 237 MG/DL (74-106) Calcium Level 8.2 MG/DL (8.5-10.1) 8.5 MG/DL (8.5-10.1) 8.9 MG/DL (8.5-10.1) Total Bilirubin 0.9 MG/DL (0.2-1.0) 0.8 MG/DL (0.2-1.0) 0.7 MG/DL (0.2-1.0) Aspartate Amino Transf (AST/SGOT) 26 U/L (15-37) 22 U/L (15-37) 25 U/L (15-37) Alanine Aminotransferase (ALT/SGPT) 28 U/L (12-78) 28 U/L (12-78) 24 U/L (12-78) Alkaline Phosphatase 69 U/L (46-116) 63 U/L (46-116) 67 U/L (46-116) Total Protein 6.9 G/DL (6.4-8.2) 6.8 G/DL (6.4-8.2) 6.7 G/DL (6.4-8.2) Albumin 2.3 G/DL (3.4-5.0) 2.2 G/DL (3.4-5.0) 2.1 G/DL (3.4-5.0) Globulin 4.6 g/dL 4.6 g/dL 4.6 g/dL Albumin/Globulin Ratio 0.5 (1.0-2.7) 0.5 (1.0-2.7) 0.5 (1.0-2.7) Magnesium Level 2.5 MG/DL (1.8-2.4) Troponin I 0.163 ng/mL (0.000-0.056) 0.083 ng/mL (0.000-0.056) Pro-B-Type Natriuretic Peptide 4949 pg/mL (0-125) 4105 pg/mL (0-125) Uric Acid 6.4 MG/DL (2.6-7.2) Objective: [facility]DWN sedated orally intubated reduced breath sounds bilaterally without rhonchi or wheeze [id number] without MRG NABS nontender no HSM no CC some edema nonfocal reviewed and edited Accucheck: 226 Paul Muniz MD Jun 26, 2019 08:48
--- NOTE | 2019-06-26 09:10 | General Progress Note ---
Assessment/Plan Problem List: (1) Atrial flutter ICD Codes: I48.92 - Unspecified atrial flutter SNOMED: 4223369 (2) Aspiration pneumonia ICD Codes: J69.0 - Pneumonitis due to inhalation of food and vomit SNOMED: 095048139 (3) Hypoxia ICD Codes: R09.02 - Hypoxemia SNOMED: 581222721 (4) Elevated troponin ICD Codes: R79.89 - Other specified abnormal findings of blood chemistry SNOMED: 256942728, 408010584, 352595006 (5) Acute on chronic renal insufficiency ICD Codes: N28.9 - Disorder of kidney and ureter, unspecified; N18.9 - Chronic kidney disease, unspecified SNOMED: 223727428, 214616947, 811050966 (6) CHF exacerbation ICD Codes: I50.9 - Heart failure, unspecified SNOMED: 699518297, 59831860579175, 705780297 (7) CAD (coronary artery disease) ICD Codes: I25.10 - Atherosclerotic heart disease of [place] coronary artery without angina pectoris SNOMED: 02159782 (8) CVA (cerebral vascular accident) ICD Codes: I63.9 - Cerebral infarction, unspecified SNOMED: 868538800 (9) HTN (hypertension) ICD Codes: I10 - Essential (primary) hypertension SNOMED: 89180916 Status: stable, unchanged Assessment/Plan: Continue vent support. wean per pulm Respiratory treatments and suctioning as needed diuresis per cards monitor renal fxn monitor chest x-ray IV antibiotics per ID feeds check kub stress prophylaxis eliquis Remains critical and guarded. dw cards and pulm and id Subjective ROS Limited/Unobtainable: Yes Constitutional: Reports: malaise, weakness HEENT: Reports: no symptoms Cardiovascular: Reports: no symptoms Gastrointestinal/Abdominal: Reports: abdomen distended Genitourinary: Reports: no symptoms Neurologic/Psychiatric: Reports: no symptoms Endocrine: Reports: no symptoms Hematologic/Lymphatic: Reports: anemia Allergies: Coded Allergies: ATORVASTATIN (Unverified Allergy, Unknown, 01/10/18) ROSUVASTATIN (Unverified Allergy, Unknown, 01/10/18) SITAGLIPTIN (Unverified Allergy, Unknown, 01/10/18) All Systems: reviewed and negative except above Subjective No overnight events. Remains stable on the ventilator. fio2 weaned to 50%. covid neg x 2.. labs reviewed. Chest x-ray still shows pulmonary edema. Creatinine stable. Renal ultrasound shows no evidence of hydronephrosis. abd noted to be distended. +bowel movements. According staff patient gets agitated easily. Has Ativan as needed. Objective Last 24 Hour Vital Signs Date Time Temp Pulse Resp B/P (MAP) Pulse Ox O2 Delivery O2 Flow Rate FiO2 06/26/19 08:00 72 06/26/19 07:27 72 19 50 06/26/19 06:01 135/63 06/26/19 06:00 75 20 120/63 (82) 96 06/26/19 05:02 82 24 50 06/26/19 05:00 71 18 135/63 (87) 94 06/26/19 04:00 50 06/26/19 04:00 Mechanical Ventilator 06/26/19 04:00 72 06/26/19 04:00 98.4 75 20 103/58 (73) 95 06/26/19 03:11 81 26 50 06/26/19 03:00 72 19 144/72 (96) 95 06/26/19 02:00 72 20 137/77 (97) 95 06/26/19 01:30 79 25 50 06/26/19 01:00 91 20 104/68 (80) 94 06/26/19 00:00 Mechanical Ventilator 06/26/19 00:00 99.0 91 20 104/68 (80) 94 06/26/19 00:00 50 06/25/19 23:22 76 24 50 06/25/19 23:00 80 20 122/65 (84) 94 06/25/19 22:00 68 20 139/74 (95) 93 06/25/19 21:28 76 24 50 06/25/19 21:00 67 19 116/60 (78) 94 06/25/19 20:00 98.6 75 22 141/75 (97) 95 06/25/19 20:00 50 06/25/19 20:00 Mechanical Ventilator 06/25/19 20:00 73 06/25/19 19:24 74 26 50 06/25/19 19:00 71 21 127/65 (85) 93 06/25/19 18:03 130/74 06/25/19 18:00 74 21 130/74 (92) 96 06/25/19 17:00 73 20 152/94 (113) 97 06/25/19 16:00 97.6 73 20 118/62 (80) 95 06/25/19 16:00 73 06/25/19 16:00 Mechanical Ventilator 06/25/19 16:00 50 06/25/19 15:23 72 20 50 06/25/19 15:00 73 20 108/69 (82) 95 06/25/19 14:00 73 19 130/72 (91) 95 06/25/19 13:00 73 20 119/69 (86) 95 06/25/19 12:02 125/75 06/25/19 12:00 98.9 75 22 133/72 (92) 95 06/25/19 12:00 50 06/25/19 12:00 Mechanical Ventilator 06/25/19 12:00 70 06/25/19 11:17 73 19 50 06/25/19 11:00 76 19 125/75 (92) 96 06/25/19 10:00 76 19 106/62 (77) 96 Intake and Output 06/25/19 06/26/19 19:00 07:00 Intake Total 495.0 ml 665 ml Output Total 505 ml 620 ml Balance -10.0 ml 45 ml Free Water 60 ml IV Total 55.0 ml Tube Feeding 440 ml 605 ml Output Urine Total 505 ml 620 ml Laboratory Tests 06/26/19 03:30: White Blood Count 12.0H, Red Blood Count 4.42L, Hemoglobin 12.6L, Hematocrit 38.4L, Mean Corpuscular Volume 87, Mean Corpuscular Hemoglobin 28.4, Mean Corpuscular Hemoglobin Concent 32.7, Red Cell Distribution Width 14.3, Platelet Count 213, Mean Platelet Volume 7.9, Neutrophils (%) (Auto) 81.1H, Lymphocytes ( %) (Auto) 9.2L, Monocytes (%) (Auto) 4.4, Eosinophils (%) (Auto) 4.9H, Basophils (%) (Auto) 0.5, Sodium Level 141, Potassium Level 3.8, Chloride Level 103, Carbon Dioxide Level 29, Anion Gap 9, Blood Urea Nitrogen 79H, Creatinine 2.9H, Estimat Glomerular Filtration Rate 21.2, Glucose Level 237H, Uric Acid 6.4 , Calcium Level 8.9, Total Bilirubin 0.7, Aspartate Amino Transf (AST/SGOT) 25, Alanine Aminotransferase (ALT/SGPT) 24, Alkaline Phosphatase 67, Troponin I 0.083H, Pro-B-Type Natriuretic Peptide 4105H, Total Protein 6.7, Albumin 2.1L, Globulin 4.6, Albumin/Globulin Ratio 0.5L Height (Feet): 5 Height (Inches): 3.00 Weight (Pounds): 220 Objective General Appearance: WD/WN, lethargic, confused EENT: normal ENT inspection. orally intubated Neck: non-tender, normal alignment, supple Cardiovascular: normal peripheral pulses, normal rate, regular rhythm Respiratory/Chest: chest wall non-tender, lungs clear, normal breath sounds, no respiratory distress, no accessory muscle use Abdomen: normal bowel sounds, non tender, soft, no organomegaly, no mass Neurologic: disoriented, unresponsive Skin: normal pigmentation. no rash Juanpablo Downey MD Jun 26, 2019 09:10
--- NOTE | 2019-06-26 09:19 | NUR ---
NURSE NOTES: Dr. Muniz update at the patient bedside, changed ventilator setting this morning to assess if the patient is ready to wean.
--- NOTE | 2019-06-26 10:53 | Infectious Diseases Prog Note ---
Assessment/Plan Assessment/Plan A; 1. Aspiration pneumonia. 2. Hypercapnic, hypoxemic respiratory failure 3. Diabetes. 4. Hypertension. 5. Renal failure. 6. Congestive heart failure. PLAN: 1. Continue Zosyn. 2. COVID19 test X 2: negative Subjective ROS Limited/Unobtainable: Yes Constitutional: Denies: fever Neurologic: Reports: other - on restraint Allergies: Coded Allergies: ATORVASTATIN (Unverified Allergy, Unknown, 01/10/18) ROSUVASTATIN (Unverified Allergy, Unknown, 01/10/18) SITAGLIPTIN (Unverified Allergy, Unknown, 01/10/18) Objective Vital Signs Last 24 Hour Vital Signs Date Time Temp Pulse Resp B/P (MAP) Pulse Ox O2 Delivery O2 Flow Rate FiO2 06/26/19 08:00 72 06/26/19 08:00 Mechanical Ventilator 06/26/19 08:00 50 06/26/19 07:27 72 19 50 06/26/19 06:01 135/63 06/26/19 06:00 75 20 120/63 (82) 96 06/26/19 05:02 82 24 50 06/26/19 05:00 71 18 135/63 (87) 94 06/26/19 04:00 50 06/26/19 04:00 Mechanical Ventilator 06/26/19 04:00 72 06/26/19 04:00 98.4 75 20 103/58 (73) 95 06/26/19 03:11 81 26 50 06/26/19 03:00 72 19 144/72 (96) 95 06/26/19 02:00 72 20 137/77 (97) 95 06/26/19 01:30 79 25 50 06/26/19 01:00 91 20 104/68 (80) 94 06/26/19 00:00 Mechanical Ventilator 06/26/19 00:00 99.0 91 20 104/68 (80) 94 06/26/19 00:00 50 06/25/19 23:22 76 24 50 06/25/19 23:00 80 20 122/65 (84) 94 06/25/19 22:00 68 20 139/74 (95) 93 06/25/19 21:28 76 24 50 06/25/19 21:00 67 19 116/60 (78) 94 06/25/19 20:00 98.6 75 22 141/75 (97) 95 06/25/19 20:00 50 06/25/19 20:00 Mechanical Ventilator 06/25/19 20:00 73 06/25/19 19:24 74 26 50 06/25/19 19:00 71 21 127/65 (85) 93 06/25/19 18:03 130/74 06/25/19 18:00 74 21 130/74 (92) 96 06/25/19 17:00 73 20 152/94 (113) 97 06/25/19 16:00 97.6 73 20 118/62 (80) 95 06/25/19 16:00 73 06/25/19 16:00 Mechanical Ventilator 06/25/19 16:00 50 06/25/19 15:23 72 20 50 06/25/19 15:00 73 20 108/69 (82) 95 06/25/19 14:00 73 19 130/72 (91) 95 06/25/19 13:00 73 20 119/69 (86) 95 06/25/19 12:02 125/75 06/25/19 12:00 98.9 75 22 133/72 (92) 95 06/25/19 12:00 50 06/25/19 12:00 Mechanical Ventilator 06/25/19 12:00 70 06/25/19 11:17 73 19 50 06/25/19 11:00 76 19 125/75 (92) 96 Height (Feet): 5 Height (Inches): 3.00 Weight (Pounds): 220 Respiratory/Chest: other - on ventilator, coarse sounds Cardiovascular: normal rate, other - left arm PICC line Abdomen: soft, non tender, other - NGT feeding Extremities: other - generalized edema Neurologic/Psychiatric: unresponsiveness Laboratory Tests Test 06/26/19 03:30 White Blood Count 12.0 K/UL (4.8-10.8) H Red Blood Count 4.42 M/UL (4.70-6.10) L Hemoglobin 12.6 G/DL (14.2-18.0) L Hematocrit 38.4 % (42.0-52.0) L Mean Corpuscular Volume 87 FL (80-99) Mean Corpuscular Hemoglobin 28.4 PG (27.0-31.0) Mean Corpuscular Hemoglobin Concent 32.7 G/DL (32.0-36.0) Red Cell Distribution Width 14.3 % (11.6-14.8) Platelet Count 213 K/UL (150-450) Mean Platelet Volume 7.9 FL (6.5-10.1) Neutrophils (%) (Auto) 81.1 % (45.0-75.0) H Lymphocytes (%) (Auto) 9.2 % (20.0-45.0) L Monocytes (%) (Auto) 4.4 % (1.0-10.0) Eosinophils (%) (Auto) 4.9 % (0.0-3.0) H Basophils (%) (Auto) 0.5 % (0.0-2.0) Sodium Level 141 MMOL/L (136-145) Potassium Level 3.8 MMOL/L (3.5-5.1) Chloride Level 103 MMOL/L (98-107) Carbon Dioxide Level 29 MMOL/L (21-32) Anion Gap 9 mmol/L (5-15) Blood Urea Nitrogen 79 mg/dL (7-18) H Creatinine 2.9 MG/DL (0.55-1.30) H Estimat Glomerular Filtration Rate 21.2 mL/min (>60) Glucose Level 237 MG/DL (74-106) H Uric Acid 6.4 MG/DL (2.6-7.2) Calcium Level 8.9 MG/DL (8.5-10.1) Total Bilirubin 0.7 MG/DL (0.2-1.0) Aspartate Amino Transf (AST/SGOT) 25 U/L (15-37) Alanine Aminotransferase (ALT/SGPT) 24 U/L (12-78) Alkaline Phosphatase 67 U/L (46-116) Troponin I 0.083 ng/mL (0.000-0.056) Pro-B-Type Natriuretic Peptide 4105 pg/mL (0-125) H Total Protein 6.7 G/DL (6.4-8.2) Albumin 2.1 G/DL (3.4-5.0) L Globulin 4.6 g/dL Albumin/Globulin Ratio 0.5 (1.0-2.7) L Current Medications Medications (Trade) Dose Ordered Sig/Diana Route PRN Reason Start Time Stop Time Status Last Admin Dose Admin Acetaminophen (Tylenol) 650 mg Q6H PRN NG Temp >100.5 06/20/19 17:15 07/20/19 17:14 06/20/19 17:35 Albuterol Sulfate (Proventil MDI) 2 puff Q4H PRN INH Shortness of Breath 06/20/19 00:15 09/17/19 00:14 Allopurinol (Zyloprim) 100 mg DAILY NG 06/20/19 09:00 07/20/19 08:59 06/26/19 08:36 Apixaban (Eliquis) 2.5 mg BID NG 06/20/19 09:00 09/17/19 17:59 06/26/19 08:36 Aspirin (ASA) 81 mg DAILY NG 06/20/19 09:00 08/04/19 08:59 06/26/19 08:35 Chlorhexidine Gluconate (Jesica-Hex 2%) 1 applic DAILY@1999 TOPIC 06/20/19 20:00 09/18/19 19:59 06/25/19 20:28 Clonidine HCl (Catapres Tab) 0.1 mg Q4H PRN ORAL For High Blood Pressure 06/22/19 14:30 09/20/19 14:29 Dextrose (Dextrose 50%) 25 ml Q30M PRN IV Hypoglycemia 06/20/19 00:15 09/17/19 16:44 Dextrose (Dextrose 50%) 50 ml Q30M PRN IV Hypoglycemia 06/20/19 00:15 09/17/19 16:44 Famotidine (Pepcid) 20 mg DAILY GT 06/20/19 09:00 09/18/19 08:59 06/26/19 08:35 Furosemide (Lasix) 40 mg DAILY IV 06/26/19 09:00 07/26/19 08:59 06/26/19 08:35 Insulin Aspart (NovoLOG) BEFORE MEALS AND HS SUBQ 06/20/19 06:30 09/17/19 20:59 06/26/19 06:03 Latanoprost (Xalatan) 1 drop BEDTIME BOTH EYES 06/20/19 21:00 07/19/19 20:59 06/25/19 21:18 Mirtazapine (Remeron) 7.5 mg BEDTIME NG 06/20/19 21:00 09/17/19 20:59 06/25/19 21:18 Nitroglycerin (Nitro-Bid) 1 inch TID@0600,1200,1800 TOPIC 06/24/19 06:00 07/24/19 05:59 06/26/19 06:01 Piperacillin Sod/ Tazobactam Sod 3.375 gm/Sodium Chloride 110 ml @ 27.5 mls/hr Q12HR IVPB 06/20/19 09:00 06/28/19 08:59 06/26/19 08:36 Potassium Chloride (K-Dur) 20 meq DAILY GT 06/24/19 09:00 09/22/19 08:59 06/26/19 08:35 Harley Taylor MD Jun 26, 2019 10:53
--- NOTE | 2019-06-26 11:30 | NUR ---
NURSE NOTES: Dr. 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 no verbal orders given at this time.
--- NOTE | 2019-06-26 12:13 | Diagnostic Imaging Report ---
Indication: Abdominal distention Technique: Supine view of the abdomen Comparison: For 16/05/2019 Findings: Interim placement of an orogastric tube, tip projecting at the level gastric fundus body junction, also demonstrated on recent chest radiographs. A metallic foreign body projects at the expected level of the gastric antrum, also evident on prior 2018 CT scan in the posterior antral luminal wall. The bowel gas pattern is unremarkable. Surgical clips are seen in the right groin. No masses or unusual calcifications Impression: No acute abnormality Orogastric tube in satisfactory position Probable endoscopic gastric antral clips again noted.
--- NOTE | 2019-06-26 12:29 | NUR ---
RADIOLOGY DEPT., ABDOMEN X-RAY DONE.-P.DYE
--- NOTE | 2019-06-26 12:30 | NUR ---
NURSE NOTES: Ventilator setting changed to AC 12, TV: 500, and peep of 5. patient remains saturating at 94-96% with no distress, oral care provided and coughed thick tannish brown secretions. tube feeding remains at 55ml/hr running vital a.f. 1.2.
--- NOTE | 2019-06-26 15:28 | NUR ---
NURSE NOTES: Dr. Muniz informed patient is tolerating setting of AC 12, TV: 500, Peep of 5 with FIO2 of 50%. ordered to have patient started on weaning on 06/27/19 in AM.
--- NOTE | 2019-06-26 19:15 | NUR ---
NURSE NOTES: Dr. Muniz ordered to have insulin scale increased to average since patient BS are 332 at 1630
--- NOTE | 2019-06-26 19:20 | NUR ---
HAND-OFF: Report given to MARK Suarez.
--- NOTE | 2019-06-26 19:30 | NUR ---
NURSE NOTES: Received pt awake, orally intubated, on ac mode, SR with 1st degree avb , Bp stable afebrile. Bilateral soft wrist restraints on for safety to avoid self extubation. Tolerated Fdg at this time at 55ml/hr Abdomen distended Dr Downey was aware with normoactive bowel sounds, Abdominal JIM was done mds were aware with the result,no other orders given. Chamberlain to gravity with moderate amt of straw colored urine. Monitor i and O. Monitor lytes. Blood sugar been high Dr Muniz was aware , sliding scale was changed to moderate. Will continue to monitor.
--- NOTE | 2019-06-26 20:00 | NUR ---
NURSE NOTES: Noted 1 port of PICC line was clogged , 1 port was working with tko iv. notify charger testerMARK Wilkinson.
[2019-06-26] MEDS: Dyna-Hex 2% Top Sol 2oz TOPIC SCH (20:06)
--- NOTE | 2019-06-26 21:00 | NUR ---
NURSE NOTES: Accucheck 307 covered with 8 units NOV. Lindsay MAURER
[2019-06-26] MEDS: Latanoprost 0.005% Opth 2.5ml Soln BOTH EYES SCH (21:06)
[2019-06-27] VITALS (24 sets, daily range): BP systolic 129–181; BP diastolic 58–97
--- NOTE | 2019-06-27 | NUR ---
NURSE NOTES: Suctioned tk beige to blood tinged secretions HOb kept elevated. watch for any resp. distress.
--- NOTE | 2019-06-27 02:00 | NUR ---
NURSE NOTES: Turned q 2hrs prn with good skin care done.
--- NOTE | 2019-06-27 04:00 | NUR ---
NURSE NOTES: Tolerated ngt fdg. HOB kept elevated. On aspiration precaution.
--- NOTE | 2019-06-27 04:45 | Progress Note ---
DATE: 06/26/2019 CARDIOLOGY PROGRESS NOTE SUBJECTIVE: The patient on ventilator support. Weaning efforts ongoing. Continues with respiratory suctioning and hygiene. Condition remains critical with guarded prognosis. The patient remains in atrial flutter with variable block, rate controlled. PHYSICAL EXAMINATION: VITAL SIGNS: Blood pressure 120/63, heart rate 75, respiratory rate 20, oxygen saturation 94% to 96% on 50% FiO2. LUNGS: Thin secretions per endotracheal tube. CARDIAC: Irregularly irregular rhythm. Normal S1, S2. A 1/6 systolic murmur at apex. ABDOMEN: NG-tube intact. EXTREMITIES: No edema. LABORATORY DATA: White count 12, hemoglobin 12.6. BUN 79, creatinine 2.9. Troponin 0.083. Pro-natriuretic peptide 4100. IMPRESSION: 1. Acute myocardial infarction. 2. Acute on chronic diastolic congestive heart failure. 3. Chronic kidney disease. 4. Respiratory failure. 5. Negative COVID-19 status. 6. Statin intolerance. 7. Paroxysmal atrial flutter, rate controlled. PLAN: Continue diuresis efforts. Full anticoagulation with respiratory hygiene, weaning efforts. Antimicrobials. Monitor and replace electrolytes as needed. Ottoniel Devi M.D. DR: YANIV JOB#: [id number] CC:
--- NOTE | 2019-06-27 06:00 | NUR ---
NURSE NOTES: Accucheck 214, with coverage. pls see emar.
[2019-06-27] MEDS: Nitroglycerin 2% oint pkt TOPIC SCH ×3 (06:20→17:08)
[2019-06-27] MEDS: NovoLOG Insulin Flexpen SUBQ SCH ×4 (06:21→21:00)
--- NOTE | 2019-06-27 07:20 | NUR ---
HAND-OFF: Report given to Savannah FLORES for continuity of care..
--- NOTE | 2019-06-27 07:30 | NUR ---
RESPIRATORY NOTE: Received pt on AC 12-500ml-50%FiO2-peep 5. Pt intubated with ETT 7.5 @23cm lip line, secured bu anchor fast. Placed pt on CPAP PS 8 40%FiO2 peep 5 per weaning order. pt is tolerating well.RSBI 59, NIF -27, VC 470ml. No SOB or resp distress noted. MARK Nuñez made aware. Will continue to monitor.
--- NOTE | 2019-06-27 07:35 | NUR ---
NURSE NOTES: Pt received from MARK Mcgraw with no apparent acute distress. Pt easily arousal to verbal and tactile stimuli.SR on the monitor and orally intubated 7.5 AC 12 VT 500 Peep 5% Fio2 50%.Pt placed on CPAP PS 8 at 40% at 0730 for weaning.Tolerated well at this time.Patient afebrile and saturating at 94%.Abdomen distended, skin intact, bilateral soft wrist restraints with no apparent skin impairment.NGT right nare running Vital AF tolerated well and placement check and intact. Held for weaning.Picc CAMMIE and left and right hand peripheral line 18G with no apparent infiltration.Seen by Dr Downey,will follow up with new orders.Patient keep on close monitoring. Proper isolation precautions taken and good hand washing done before and after care.
--- NOTE | 2019-06-27 07:40 | NUR ---
RD ASSESSMENT & RECOMMENDATIONS SEE CARE ACTIVITY FOR COMPLETE ASSESSMENT DAILY ESTIMATED NEEDS: Needs based on Critical care/ 66kg 22-28 kcals/kg 1605-0974 total kcals 1-1.5 (increase w/ improved renal fxn) g protein/kg 66-99 g total protein 20-25 mL/kg 4989-7331 total fluid mLs NUTRITION DIAGNOSIS: * Swallowing difficulty R/T respiratory failure as evidenced by pt orally intubated, on NGT feeding. CURRENT TF:Vital AF 1.2 @ 55ml/hr x 24 hrs PO DIET RECOMMENDATIONS: WESTERN FELT HAT BLOCKER EVAL POST EXTUBATION -> LOW NA, CCHO LOW ENTERAL NUTRITION RECOMMENDATIONS: Vital AF 1.2 @ 55ml/hr x 24 hrs to provide 1320ml, 1584kcal, 99g prot, 1070ml free water * Continue Vital AF for critical care and carb control * TF @ goal meets 100% est kcal/prot needs * HOB over 30 degrees/ water flush per MD ADDITIONAL RECOMMENDATIONS: * Per SNF: HT=64" TV=257nni (as of 06/03/19) -> obtain calibrated bedscale wt * Rec adding long acting insulin for improved BG control POC glu in the 200's and 300's * Monitor renal fxn (Creat 2.7-> 3.0-> 2.9) * Monitor lytes, replete as needed .
--- NOTE | 2019-06-27 07:50 | General Progress Note ---
Assessment/Plan Problem List: (1) Atrial flutter ICD Codes: I48.92 - Unspecified atrial flutter SNOMED: 4553904 (2) Aspiration pneumonia ICD Codes: J69.0 - Pneumonitis due to inhalation of food and vomit SNOMED: 060852490 (3) Hypoxia ICD Codes: R09.02 - Hypoxemia SNOMED: 324881972 (4) Elevated troponin ICD Codes: R79.89 - Other specified abnormal findings of blood chemistry SNOMED: 887419676, 057381759, 951966662 (5) Acute on chronic renal insufficiency ICD Codes: N28.9 - Disorder of kidney and ureter, unspecified; N18.9 - Chronic kidney disease, unspecified SNOMED: 335514044, 945594541, 263946123 (6) CHF exacerbation ICD Codes: I50.9 - Heart failure, unspecified SNOMED: 012460973, 65543372558829, 158562149 (7) CAD (coronary artery disease) ICD Codes: I25.10 - Atherosclerotic heart disease of [place] coronary artery without angina pectoris SNOMED: 32053845 (8) CVA (cerebral vascular accident) ICD Codes: I63.9 - Cerebral infarction, unspecified SNOMED: 328015155 (9) HTN (hypertension) ICD Codes: I10 - Essential (primary) hypertension SNOMED: 29086236 Status: stable, unchanged Assessment/Plan: Continue vent support. wean per pulm Respiratory treatments and suctioning as needed diuresis per cards monitor renal fxn monitor chest x-ray IV antibiotics per ID feeds add simethicone stress prophylaxis eliquis Remains critical and guarded. dw cards and pulm and id Subjective ROS Limited/Unobtainable: No Constitutional: Reports: malaise, weakness HEENT: Reports: no symptoms Cardiovascular: Reports: no symptoms Respiratory: Reports: shortness of breath Gastrointestinal/Abdominal: Reports: no symptoms Genitourinary: Reports: no symptoms Neurologic/Psychiatric: Reports: anxiety Endocrine: Reports: no symptoms Hematologic/Lymphatic: Reports: no symptoms Allergies: Coded Allergies: ATORVASTATIN (Unverified Allergy, Unknown, 01/10/18) ROSUVASTATIN (Unverified Allergy, Unknown, 01/10/18) SITAGLIPTIN (Unverified Allergy, Unknown, 01/10/18) All Systems: reviewed and negative except above Subjective no change. the same. Remains stable on the ventilator. fio2 weaned to 50%. covid neg x 2.. labs reviewed. Chest x-ray still shows pulmonary edema. Creatinine stable. Renal ultrasound shows no evidence of hydronephrosis. abd noted to be distended. +bowel movements. +gas on kub. According staff patient gets agitated easily. Has Ativan as needed. more alert today Objective Last 24 Hour Vital Signs Date Time Temp Pulse Resp B/P (MAP) Pulse Ox O2 Delivery O2 Flow Rate FiO2 06/27/19 07:00 74 137/73 (94) 95 06/27/19 06:20 129/73 06/27/19 06:00 75 18 129/73 (91) 95 06/27/19 05:00 72 19 138/67 (90) 95 06/27/19 04:47 72 18 50 06/27/19 04:00 98.8 69 19 141/72 (95) 95 06/27/19 04:00 Mechanical Ventilator 06/27/19 04:00 50 06/27/19 04:00 72 06/27/19 03:11 79 21 50 06/27/19 03:00 68 18 139/71 (93) 95 06/27/19 02:00 63 18 130/73 (92) 95 06/27/19 01:22 75 18 50 06/27/19 01:00 73 18 143/75 (97) 95 06/27/19 00:00 69 06/27/19 00:00 Mechanical Ventilator 06/27/19 00:00 50 06/27/19 00:00 99.2 73 17 134/67 (89) 95 06/26/19 23:22 77 19 50 06/26/19 23:00 75 18 144/81 (102) 96 06/26/19 22:00 72 15 143/91 (108) 95 06/26/19 21:00 72 15 143/91 (108) 95 06/26/19 20:42 73 17 50 06/26/19 20:00 99.0 72 15 143/91 (108) 95 06/26/19 20:00 Mechanical Ventilator 06/26/19 20:00 70 06/26/19 19:00 76 17 156/77 (103) 96 06/26/19 18:56 73 17 50 06/26/19 18:00 71 17 137/71 (93) 94 06/26/19 17:45 146/71 06/26/19 17:00 73 18 153/76 (101) 97 06/26/19 16:00 50 06/26/19 16:00 72 06/26/19 16:00 75 17 148/74 (98) 97 06/26/19 16:00 Mechanical Ventilator 06/26/19 15:11 72 16 50 06/26/19 15:00 70 15 128/70 (89) 96 06/26/19 14:00 71 15 117/68 (84) 95 06/26/19 13:00 73 16 128/60 (82) 94 06/26/19 12:01 143/71 06/26/19 12:00 Mechanical Ventilator 06/26/19 12:00 97.4 77 18 152/65 (94) 95 06/26/19 12:00 72 06/26/19 11:22 72 17 50 06/26/19 11:00 69 16 143/71 (95) 95 06/26/19 10:00 69 16 143/70 (94) 96 06/26/19 09:00 69 18 119/64 (82) 95 06/26/19 08:00 72 06/26/19 08:00 Mechanical Ventilator 06/26/19 08:00 71 20 141/77 (98) 96 06/26/19 08:00 50 Intake and Output 06/26/19 06/27/19 19:00 07:00 Intake Total 770.0 ml 805 ml Output Total 865 ml 770 ml Balance -95.0 ml 35 ml Free Water 90 ml IV Total 110.0 ml Tube Feeding 660 ml 715 ml Output Urine Total 865 ml 770 ml Height (Feet): 5 Height (Inches): 3.00 Weight (Pounds): 220 Objective General Appearance: WD/WN, lethargic, confused EENT: normal ENT inspection. orally intubated Neck: non-tender, normal alignment, supple Cardiovascular: normal peripheral pulses, normal rate, regular rhythm Respiratory/Chest: chest wall non-tender, lungs clear, normal breath sounds, no respiratory distress, no accessory muscle use Abdomen: normal bowel sounds, non tender, soft, no organomegaly, no mass Neurologic: disoriented, unresponsive Skin: normal pigmentation. no rash Juanpablo Downey MD June 27, 2019 07:50
--- NOTE | 2019-06-27 08:24 | Critical Care Progress Note ---
Assessment/Plan Assessment/Plan Hypoxemia Hypercapnic respiratory failure pulmonary edema possible ARDS negative COVID x2 renal failure toxic met encephalopathy hypernatremia CRF leukocytosis possible sepsis PLAN vent as is dc droplet isolation monitor ABG with wean PEEP low taper FIO2 ID follow up wean as able monitor feeds and isolation medications/laboratory data/nursing notes/ICU care reviewed in detail note reviewed and edited care discussed with RN and RT ICU time spent >40 minutes Critical Care - Subjective Interval Events: care noted and reviewed on weaning currently imaging noted ICU noted ROS Limited/Unobtainable: Yes Condition: critical EKG Rhythm: Sinus Rhythm Residuals: minimal Tube Feeding Tolerated: yes I&O: Intake and Output 06/26/19 06/27/19 19:00 07:00 Intake Total 770.0 ml 805 ml Output Total 865 ml 770 ml Balance -95.0 ml 35 ml Free Water 90 ml IV Total 110.0 ml Tube Feeding 660 ml 715 ml Output Urine Total 865 ml 770 ml Critical Care - Objective ET-Tube: 7.5 ET Position: 23 Last 24 Hour Vital Signs Date Time Temp Pulse Resp B/P (MAP) Pulse Ox O2 Delivery O2 Flow Rate FiO2 06/27/19 08:00 99.0 73 19 151/73 (99) 91 06/27/19 07:30 74 23 40 40 06/27/19 07:00 74 137/73 (94) 95 06/27/19 06:20 129/73 06/27/19 06:00 75 18 129/73 (91) 95 06/27/19 05:00 72 19 138/67 (90) 95 06/27/19 04:47 72 18 50 06/27/19 04:00 98.8 69 19 141/72 (95) 95 06/27/19 04:00 Mechanical Ventilator 06/27/19 04:00 50 06/27/19 04:00 72 06/27/19 03:11 79 21 50 06/27/19 03:00 68 18 139/71 (93) 95 06/27/19 02:00 63 18 130/73 (92) 95 06/27/19 01:22 75 18 50 06/27/19 01:00 73 18 143/75 (97) 95 06/27/19 00:00 69 06/27/19 00:00 Mechanical Ventilator 06/27/19 00:00 50 06/27/19 00:00 99.2 73 17 134/67 (89) 95 06/26/19 23:22 77 19 50 06/26/19 23:00 75 18 144/81 (102) 96 06/26/19 22:00 72 15 143/91 (108) 95 06/26/19 21:00 72 15 143/91 (108) 95 06/26/19 20:42 73 17 50 06/26/19 20:00 99.0 72 15 143/91 (108) 95 06/26/19 20:00 Mechanical Ventilator 06/26/19 20:00 70 06/26/19 19:00 76 17 156/77 (103) 96 06/26/19 18:56 73 17 50 06/26/19 18:00 71 17 137/71 (93) 94 06/26/19 17:45 146/71 06/26/19 17:00 73 18 153/76 (101) 97 06/26/19 16:00 50 06/26/19 16:00 72 06/26/19 16:00 75 17 148/74 (98) 97 06/26/19 16:00 Mechanical Ventilator 06/26/19 15:11 72 16 50 06/26/19 15:00 70 15 128/70 (89) 96 06/26/19 14:00 71 15 117/68 (84) 95 06/26/19 13:00 73 16 128/60 (82) 94 06/26/19 12:01 143/71 06/26/19 12:00 Mechanical Ventilator 06/26/19 12:00 97.4 77 18 152/65 (94) 95 06/26/19 12:00 72 06/26/19 11:22 72 17 50 06/26/19 11:00 69 16 143/71 (95) 95 06/26/19 10:00 69 16 143/70 (94) 96 06/26/19 09:00 69 18 119/64 (82) 95 Labs: Labs Test 06/25/19 03:30 06/26/19 03:30 White Blood Count 11.5 K/UL (4.8-10.8) 12.0 K/UL (4.8-10.8) Red Blood Count 4.45 M/UL (4.70-6.10) 4.42 M/UL (4.70-6.10) Hemoglobin 12.7 G/DL (14.2-18.0) 12.6 G/DL (14.2-18.0) Hematocrit 39.1 % (42.0-52.0) 38.4 % (42.0-52.0) Mean Corpuscular Volume 88 FL (80-99) 87 FL (80-99) Mean Corpuscular Hemoglobin 28.6 PG (27.0-31.0) 28.4 PG (27.0-31.0) Mean Corpuscular Hemoglobin Concent 32.5 G/DL (32.0-36.0) 32.7 G/DL (32.0-36.0) Red Cell Distribution Width 14.5 % (11.6-14.8) 14.3 % (11.6-14.8) Platelet Count 185 K/UL (150-450) 213 K/UL (150-450) Mean Platelet Volume 6.7 FL (6.5-10.1) 7.9 FL (6.5-10.1) Neutrophils (%) (Auto) 80.4 % (45.0-75.0) 81.1 % (45.0-75.0) Lymphocytes (%) (Auto) 10.1 % (20.0-45.0) 9.2 % (20.0-45.0) Monocytes (%) (Auto) 5.2 % (1.0-10.0) 4.4 % (1.0-10.0) Eosinophils (%) (Auto) 3.8 % (0.0-3.0) 4.9 % (0.0-3.0) Basophils (%) (Auto) 0.5 % (0.0-2.0) 0.5 % (0.0-2.0) Sodium Level 141 MMOL/L (136-145) 141 MMOL/L (136-145) Potassium Level 3.9 MMOL/L (3.5-5.1) 3.8 MMOL/L (3.5-5.1) Chloride Level 102 MMOL/L (98-107) 103 MMOL/L (98-107) Carbon Dioxide Level 31 MMOL/L (21-32) 29 MMOL/L (21-32) Anion Gap 8 mmol/L (5-15) 9 mmol/L (5-15) Blood Urea Nitrogen 72 mg/dL (7-18) 79 mg/dL (7-18) Creatinine 2.9 MG/DL (0.55-1.30) 2.9 MG/DL (0.55-1.30) Estimat Glomerular Filtration Rate 21.2 mL/min (>60) 21.2 mL/min (>60) Glucose Level 240 MG/DL (74-106) 237 MG/DL (74-106) Calcium Level 8.5 MG/DL (8.5-10.1) 8.9 MG/DL (8.5-10.1) Magnesium Level 2.5 MG/DL (1.8-2.4) Total Bilirubin 0.8 MG/DL (0.2-1.0) 0.7 MG/DL (0.2-1.0) Aspartate Amino Transf (AST/SGOT) 22 U/L (15-37) 25 U/L (15-37) Alanine Aminotransferase (ALT/SGPT) 28 U/L (12-78) 24 U/L (12-78) Alkaline Phosphatase 63 U/L (46-116) 67 U/L (46-116) Troponin I 0.163 ng/mL (0.000-0.056) 0.083 ng/mL (0.000-0.056) Pro-B-Type Natriuretic Peptide 4949 pg/mL (0-125) 4105 pg/mL (0-125) Total Protein 6.8 G/DL (6.4-8.2) 6.7 G/DL (6.4-8.2) Albumin 2.2 G/DL (3.4-5.0) 2.1 G/DL (3.4-5.0) Globulin 4.6 g/dL 4.6 g/dL Albumin/Globulin Ratio 0.5 (1.0-2.7) 0.5 (1.0-2.7) Uric Acid 6.4 MG/DL (2.6-7.2) Objective: WDWN sedated orally intubated reduced breath sounds bilaterally without rhonchi or wheeze [id number] without MRG NABS nontender no HSM no CC some edema nonfocal reviewed and edited Accucheck: 216 Paul Muniz MD June 27, 2019 08:24
[2019-06-27] MEDS: Aspirin Baby 81mg NG SCH (08:59)
[2019-06-27] MEDS: Eliquis 2.5mg tablet NG SCH ×2 (08:59→17:08)
[2019-06-27] MEDS: Allopurinol 100mg Tab NG SCH (09:00)
[2019-06-27] MEDS: Piperacillin/Tazobactam 3.375 GM in NS 110 ML IVPB SCH ×2 (09:00→21:15)
[2019-06-27 09:13] LABS: BASOPHILS % (AUTO) 0.6 % (0.0-2.0); EOSINOPHILS % (AUTO) 5.1 % (0.0-3.0); HEMATOCRIT 39.6 % (42.0-52.0); LYMPHOCYTES % (AUTO) 11.5 % (20.0-45.0); MEAN CORPUSCULAR VOLUME 88 FL (80-99); MONOCYTES % (AUTO) 4.6 % (1.0-10.0); NEUTROPHILS % (AUTO) 78.1 % (45.0-75.0); PLATELET COUNT 232 K/UL (150-450); RED BLOOD COUNT 4.52 M/UL (4.70-6.10); RED CELL DISTRIBUTION WIDTH 14.1 % (11.6-14.8); WHITE BLOOD COUNT 11.4 K/UL (4.8-10.8)
[2019-06-27] MEDS: Simethicone 80mg tab ORAL PRN (09:16)
--- NOTE | 2019-06-27 09:33 | NUR ---
NURSE NOTES: Pt awake , tolerated well weaning,ABG done and per seen by Dr Muniz with order to extubate the pt.Order noted and carried out.Alejandrina ROSARIO made aware.No significant change in condition at this time.Will continue close monitoring
[2019-06-27 09:34] LABS: ALANINE AMINOTRANSFERASE 39 U/L (12-78); ALBUMIN 2.2 G/DL (3.4-5.0); ALBUMIN/GLOBULIN RATIO 0.4 (1.0-2.7); ALKALINE PHOSPHATASE 85 U/L (46-116); ANION GAP 10 mmol/L (5-15); ASPARTATE AMINO TRANSFERASE 28 U/L (15-37); BILIRUBIN,TOTAL 0.6 MG/DL (0.2-1.0); BLOOD UREA NITROGEN 77 mg/dL (7-18); CALCIUM 9.2 MG/DL (8.5-10.1); CARBON DIOXIDE 28 MMOL/L (21-32); CHLORIDE 107 MMOL/L (98-107); CREATININE 2.7 MG/DL (0.55-1.30); POTASSIUM 4.1 MMOL/L (3.5-5.1); SODIUM 145 MMOL/L (136-145)
--- NOTE | 2019-06-27 10:17 | NUR ---
NURSE NOTES: Pt extubated on cool air at 10L/50% . No acute distress, tolerate well
--- NOTE | 2019-06-27 10:55 | NUR ---
SONAXR COMPLETED 0930HRS. NF
--- NOTE | 2019-06-27 11:05 | Diagnostic Imaging Report ---
Indication: Shortness of breath Technique: One view of the chest Comparison: June 23, 2019 Findings: Bilateral interstitial and airspace infiltrates versus edema appear unchanged. Stable satisfactory positions of endotracheal and orogastric tubes. Pleural spaces remain clear. The heart remains borderline enlarged. Impression: Unchanged, over 4 days, findings as above.
--- NOTE | 2019-06-27 11:08 | Infectious Diseases Prog Note ---
Assessment/Plan Assessment/Plan antibiotics : zosyn 4.23.20 - A 1. pneumonia COVID 19 test negative 4.23.20, 4.26.20 2. respiratory failure resolved 3. leucocytosis resolved 4. diabetes mellitus 5. hypertension 6. CHF 7. renal failure improving P 1. continue zosyn 1 more day 2. will follow up cultures Subjective ROS Limited/Unobtainable: Yes Allergies: Coded Allergies: ATORVASTATIN (Unverified Allergy, Unknown, 01/10/18) ROSUVASTATIN (Unverified Allergy, Unknown, 01/10/18) SITAGLIPTIN (Unverified Allergy, Unknown, 01/10/18) Objective Vital Signs Last 24 Hour Vital Signs Date Time Temp Pulse Resp B/P (MAP) Pulse Ox O2 Delivery O2 Flow Rate FiO2 06/27/19 10:00 Venturi Mask 10.0 50 06/27/19 10:00 79 19 163/58 (93) 91 06/27/19 09:00 73 19 148/76 (100) 93 06/27/19 08:55 73 23 40 50 06/27/19 08:00 68 06/27/19 08:00 40 06/27/19 08:00 Mechanical Ventilator 06/27/19 08:00 99.0 73 19 151/73 (99) 91 06/27/19 07:30 74 23 40 40 06/27/19 07:30 94 06/27/19 07:00 74 137/73 (94) 95 06/27/19 06:20 129/73 06/27/19 06:00 75 18 129/73 (91) 95 06/27/19 05:00 72 19 138/67 (90) 95 06/27/19 04:47 72 18 50 06/27/19 04:00 98.8 69 19 141/72 (95) 95 06/27/19 04:00 Mechanical Ventilator 06/27/19 04:00 50 06/27/19 04:00 72 06/27/19 03:11 79 21 50 06/27/19 03:00 68 18 139/71 (93) 95 06/27/19 02:00 63 18 130/73 (92) 95 06/27/19 01:22 75 18 50 06/27/19 01:00 73 18 143/75 (97) 95 06/27/19 00:00 69 06/27/19 00:00 Mechanical Ventilator 06/27/19 00:00 50 06/27/19 00:00 99.2 73 17 134/67 (89) 95 06/26/19 23:22 77 19 50 06/26/19 23:00 75 18 144/81 (102) 96 06/26/19 22:00 72 15 143/91 (108) 95 06/26/19 21:00 72 15 143/91 (108) 95 06/26/19 20:42 73 17 50 06/26/19 20:00 99.0 72 15 143/91 (108) 95 06/26/19 20:00 Mechanical Ventilator 06/26/19 20:00 70 06/26/19 19:00 76 17 156/77 (103) 96 06/26/19 18:56 73 17 50 06/26/19 18:00 71 17 137/71 (93) 94 06/26/19 17:45 146/71 06/26/19 17:00 73 18 153/76 (101) 97 06/26/19 16:00 50 06/26/19 16:00 72 06/26/19 16:00 75 17 148/74 (98) 97 06/26/19 16:00 Mechanical Ventilator 06/26/19 15:11 72 16 50 06/26/19 15:00 70 15 128/70 (89) 96 06/26/19 14:00 71 15 117/68 (84) 95 06/26/19 13:00 73 16 128/60 (82) 94 06/26/19 12:01 143/71 06/26/19 12:00 Mechanical Ventilator 06/26/19 12:00 97.4 77 18 152/65 (94) 95 06/26/19 12:00 72 06/26/19 11:22 72 17 50 Height (Feet): 5 Height (Inches): 3.00 Weight (Pounds): 220 HEENT: other - extubated Laboratory Tests Test 06/27/19 08:40 06/27/19 09:00 Arterial Blood pH 7.410 (7.350-7.450) Arterial Blood Partial Pressure CO2 45.1 mmHg (35.0-45.0) H Arterial Blood Partial Pressure O2 57.5 mmHg (75.0-100.0) L Arterial Blood HCO3 27.9 mmol/L (22.0-26.0) H Arterial Blood Oxygen Saturation 89.9 % (95-100) *L Arterial Blood Base Excess 2.8 (-2-2) H Ramo Test Positive White Blood Count 11.4 K/UL (4.8-10.8) H Red Blood Count 4.52 M/UL (4.70-6.10) L Hemoglobin 13.0 G/DL (14.2-18.0) L Hematocrit 39.6 % (42.0-52.0) L Mean Corpuscular Volume 88 FL (80-99) Mean Corpuscular Hemoglobin 28.7 PG (27.0-31.0) Mean Corpuscular Hemoglobin Concent 32.8 G/DL (32.0-36.0) Red Cell Distribution Width 14.1 % (11.6-14.8) Platelet Count 232 K/UL (150-450) Mean Platelet Volume 7.0 FL (6.5-10.1) Neutrophils (%) (Auto) 78.1 % (45.0-75.0) H Lymphocytes (%) (Auto) 11.5 % (20.0-45.0) L Monocytes (%) (Auto) 4.6 % (1.0-10.0) Eosinophils (%) (Auto) 5.1 % (0.0-3.0) H Basophils (%) (Auto) 0.6 % (0.0-2.0) Sodium Level 145 MMOL/L (136-145) Potassium Level 4.1 MMOL/L (3.5-5.1) Chloride Level 107 MMOL/L (98-107) Carbon Dioxide Level 28 MMOL/L (21-32) Anion Gap 10 mmol/L (5-15) Blood Urea Nitrogen 77 mg/dL (7-18) H Creatinine 2.7 MG/DL (0.55-1.30) H Estimat Glomerular Filtration Rate 23.0 mL/min (>60) Glucose Level 266 MG/DL (74-106) H Calcium Level 9.2 MG/DL (8.5-10.1) Total Bilirubin 0.6 MG/DL (0.2-1.0) Aspartate Amino Transf (AST/SGOT) 28 U/L (15-37) Alanine Aminotransferase (ALT/SGPT) 39 U/L (12-78) Alkaline Phosphatase 85 U/L (46-116) Total Protein 7.3 G/DL (6.4-8.2) Albumin 2.2 G/DL (3.4-5.0) L Globulin 5.1 g/dL Albumin/Globulin Ratio 0.4 (1.0-2.7) L Current Medications Medications (Trade) Dose Ordered Sig/Diana Route PRN Reason Start Time Stop Time Status Last Admin Dose Admin Acetaminophen (Tylenol) 650 mg Q6H PRN NG Temp >100.5 06/20/19 17:15 07/20/19 17:14 06/20/19 17:35 Albuterol Sulfate (Proventil MDI) 2 puff Q4H PRN INH Shortness of Breath 06/20/19 00:15 09/17/19 00:14 Allopurinol (Zyloprim) 100 mg DAILY NG 06/20/19 09:00 07/20/19 08:59 06/27/19 09:00 Apixaban (Eliquis) 2.5 mg BID NG 06/20/19 09:00 09/17/19 17:59 06/27/19 08:59 Aspirin (ASA) 81 mg DAILY NG 06/20/19 09:00 08/04/19 08:59 06/27/19 08:59 Chlorhexidine Gluconate (Jesica-Hex 2%) 1 applic DAILY@2000 TOPIC 06/20/19 20:00 09/18/19 19:59 06/26/19 20:06 Clonidine HCl (Catapres Tab) 0.1 mg Q4H PRN ORAL For High Blood Pressure 06/22/19 14:30 09/20/19 14:29 Dextrose (Dextrose 50%) 25 ml Q30M PRN IV Hypoglycemia 06/20/19 00:15 09/17/19 16:44 Dextrose (Dextrose 50%) 50 ml Q30M PRN IV Hypoglycemia 06/20/19 00:15 09/17/19 16:44 Famotidine (Pepcid) 20 mg DAILY GT 06/20/19 09:00 09/18/19 08:59 06/27/19 09:00 Furosemide (Lasix) 40 mg DAILY IV 06/26/19 09:00 07/26/19 08:59 06/27/19 09:00 Insulin Aspart (NovoLOG) BEFORE MEALS AND HS SUBQ 06/26/19 21:00 09/24/19 20:59 06/27/19 06:21 Latanoprost (Xalatan) 1 drop BEDTIME BOTH EYES 06/20/19 21:00 07/19/19 20:59 06/26/19 21:06 Mirtazapine (Remeron) 7.5 mg BEDTIME NG 06/20/19 21:00 09/17/19 20:59 06/26/19 21:06 Nitroglycerin (Nitro-Bid) 1 inch TID@0600,1200,1800 TOPIC 06/24/19 06:00 07/24/19 05:59 06/27/19 06:20 Piperacillin Sod/ Tazobactam Sod 3.375 gm/Sodium Chloride 110 ml @ 27.5 mls/hr Q12HR IVPB 06/20/19 09:00 06/29/19 08:59 06/27/19 09:00 Potassium Chloride (K-Dur) 20 meq DAILY GT 06/24/19 09:00 09/22/19 08:59 06/27/19 08:59 Simethicone (Mylicon) 80 mg QID PRN ORAL Abdominal cramps 06/27/19 08:00 09/25/19 07:59 06/27/19 09:16 Omar Canales MD June 27, 2019 11:08
--- NOTE | 2019-06-27 12:37 | NUR ---
NURSE NOTES: Pt awake, no significant change of condition.Tolerate well post intubation with no acute address.Breathing exercise teaching provided.Will continue with same care plan
--- NOTE | 2019-06-27 12:53 | NUR ---
CASE MANAGEMENT: REVIEW 06/27/2019 SI:ACUTE RESP FAILURE W/ HYPOXIA T: 98.8 HR 79 RR 20 B/P 159/71 SATS 91% ON 10L/VENTURI MASK LABS: WBC 11.4 BUN 77 CR 2.7 GLU 266 ABGs PCO2 45.1 PO2 57.5 HCO3 27.9 O2 SAT 89.9 BE 2.8 IS:ELIQUIS NG BID ALLOPURINOL NG QD ASA NG QD KDUR GT QD LASIX IV QD INSULIN ASPART SUBQ AC/HS ZOSYN IV Q12H ICU PLAN OF CARE: EXTUBATE 06/26 CXR ABGs WEANING DETERMINATION
--- NOTE | 2019-06-27 14:11 | NUR ---
NURSE NOTES: Pt noted to removed oxygen mask , education and reinforcement provided.Turned and repositioned, ADLs done and pt kept clean dry and comfortable. Call light within easy reach, will continue to monitor. No apparent sign of acute distress at this time, will continue close monitoring.
[2019-06-27] MEDS ORDERED: Racemic EPINEPHrine 2.25% 0.5ml HHN SCH (15:45)
[2019-06-27] MEDS ORDERED: Albuterol/Ipratropium 3ml neb HHN PRN (15:45)
--- NOTE | 2019-06-27 16:11 | NUR ---
NURSE NOTES: Pt turned and repositioned,oxygen mask in place.Call light within easy reach, mouth care done.HOB elevated to prevent aspiration.Will continue to monitor
--- NOTE | 2019-06-27 18:18 | NUR ---
NURSE NOTES: Pt awake and still noted to remove oxygen mask. Reeducation provided and continue same care plan. No apparent acute distress and afebrile
--- NOTE | 2019-06-27 19:16 | NUR ---
HAND-OFF: Report given to MARK Blankenship.
--- NOTE | 2019-06-27 20:00 | NUR ---
NURSE NOTES: received pt awake and confuse and restless pulled out his ngt and reinsert kub done and ngt in place andrew soft wrest restraint nan complaint reposition and suction
[2019-06-27] MEDS: Dyna-Hex 2% Top Sol 2oz TOPIC SCH (21:13)
[2019-06-27] MEDS: Latanoprost 0.005% Opth 2.5ml Soln BOTH EYES SCH (21:13)
--- NOTE | 2019-06-27 22:00 | NUR ---
NURSE NOTES: reposition and suction iv infusing well
--- NOTE | 2019-06-27 23:00 | Diagnostic Imaging Report ---
EXAM: XR Abdomen, 2 Views CLINICAL HISTORY: LINE TECHNIQUE: Frontal view of the abdomen/pelvis with upright view of the abdomen. COMPARISON: No relevant prior studies available. FINDINGS: Enteric tube terminates within the stomach. Patchy opacities within the lungs. Cardiomegaly. IMPRESSION: Enteric tube terminates within the stomach.
[2019-06-28] VITALS (24 sets, daily range): BP systolic 149–187; BP diastolic 68–100
--- NOTE | 2019-06-28 | NUR ---
NURSE NOTES: asleep at interval
--- NOTE | 2019-06-28 04:00 | NUR ---
NURSE NOTES: complete bed bath oral care done
[2019-06-28] MEDS: Nitroglycerin 2% oint pkt TOPIC SCH ×3 (05:56→18:01)
[2019-06-28] MEDS: NovoLOG Insulin Flexpen SUBQ SCH ×4 (05:57→21:00)
--- NOTE | 2019-06-28 06:44 | NUR ---
NURSE NOTES: tube feeding off and connected to suction with coffee bro drainage
--- NOTE | 2019-06-28 07:25 | General Progress Note ---
Assessment/Plan Problem List: (1) Atrial flutter ICD Codes: I48.92 - Unspecified atrial flutter SNOMED: 5771305 (2) Aspiration pneumonia ICD Codes: J69.0 - Pneumonitis due to inhalation of food and vomit SNOMED: 780193601 (3) Hypoxia ICD Codes: R09.02 - Hypoxemia SNOMED: 082933072 (4) Elevated troponin ICD Codes: R79.89 - Other specified abnormal findings of blood chemistry SNOMED: 988946234, 309438262, 352453689 (5) Acute on chronic renal insufficiency ICD Codes: N28.9 - Disorder of kidney and ureter, unspecified; N18.9 - Chronic kidney disease, unspecified SNOMED: 567338065, 236413277, 711646326 (6) CHF exacerbation ICD Codes: I50.9 - Heart failure, unspecified SNOMED: 515802113, 00024653916931, 991951189 (7) CAD (coronary artery disease) ICD Codes: I25.10 - Atherosclerotic heart disease of [place] coronary artery without angina pectoris SNOMED: 56307496 (8) CVA (cerebral vascular accident) ICD Codes: I63.9 - Cerebral infarction, unspecified SNOMED: 576930768 (9) HTN (hypertension) ICD Codes: I10 - Essential (primary) hypertension SNOMED: 87290154 Status: stable, unchanged Assessment/Plan: o2- wean monitor abg Respiratory treatments and suctioning as needed diuresis per cards monitor renal fxn monitor chest x-ray IV antibiotics per ID feeds check stool ob dc eliquis gi eval iv protonix bid Remains critical and guarded. dw cards and pulm and id Subjective ROS Limited/Unobtainable: Yes Constitutional: Reports: malaise, weakness HEENT: Reports: no symptoms Cardiovascular: Reports: no symptoms Respiratory: Reports: shortness of breath, sputum Gastrointestinal/Abdominal: Reports: other - coffee ground output from gt Genitourinary: Reports: no symptoms Neurologic/Psychiatric: Reports: anxiety, emotional problems, pre-existing deficit Endocrine: Reports: no symptoms Hematologic/Lymphatic: Reports: no symptoms Allergies: Coded Allergies: ATORVASTATIN (Unverified Allergy, Unknown, 01/10/18) ROSUVASTATIN (Unverified Allergy, Unknown, 01/10/18) SITAGLIPTIN (Unverified Allergy, Unknown, 01/10/18) All Systems: reviewed and negative except above Subjective extubated. on ventimask. confused. trying to pull out iv/lines. GT placed to LIS - +600cc coffee ground output. labs pending for this am. Objective Last 24 Hour Vital Signs Date Time Temp Pulse Resp B/P (MAP) Pulse Ox O2 Delivery O2 Flow Rate FiO2 06/28/19 06:50 91 Cool Aerosol 10.0 80 06/28/19 06:00 84 23 88 06/28/19 05:59 84 182/95 (124) 91 06/28/19 05:56 176/90 06/28/19 05:00 84 175/81 (112) 91 06/28/19 04:00 Venturi Mask 10.0 Venturi Mask 10.0 06/28/19 04:00 10.0 40 06/28/19 04:00 80 06/28/19 04:00 98.0 82 180/72 (108) 92 06/28/19 03:00 82 176/74 (108) 91 06/28/19 02:00 82 165/69 (101) 91 06/28/19 01:00 90 26 168/88 (114) 90 06/28/19 00:22 92 Cool Aerosol 10.0 70 06/28/19 00:00 Venturi Mask 10.0 Venturi Mask 10.0 06/28/19 00:00 10.0 40 06/28/19 00:00 98.8 90 25 177/100 (125) 91 06/28/19 00:00 89 06/27/19 23:00 90 24 179/75 (109) 92 06/27/19 22:30 90 20 92 Cool Aerosol 10.0 70 86 20 90 06/27/19 22:30 92 Cool Aerosol 10.0 70 06/27/19 22:00 93 181/97 (125) 85 06/27/19 21:00 85 153/79 (103) 79 06/27/19 20:00 85 06/27/19 20:00 10.0 40 06/27/19 20:00 Venturi Mask 10.0 Venturi Mask 10.0 06/27/19 20:00 98.5 84 157/63 (94) 81 06/27/19 20:00 84 06/27/19 19:00 83 22 148/77 (100) 86 06/27/19 18:55 92 Cool Aerosol 10.0 50 06/27/19 18:00 86 22 156/78 (104) 92 06/27/19 17:08 152/66 06/27/19 17:00 92 22 152/66 (94) 81 06/27/19 16:00 82 06/27/19 16:00 Venturi Mask 10.0 Venturi Mask 10.0 06/27/19 16:00 10.0 40 06/27/19 16:00 98.5 96 21 160/87 (111) 93 06/27/19 15:55 90 25 90 Cool Aerosol 10.0 70 89 24 89 06/27/19 15:00 87 19 168/84 (112) 87 06/27/19 14:00 88 19 152/79 (103) 79 06/27/19 14:00 86 20 158/87 (110) 91 06/27/19 13:30 90 Cool Aerosol 10.0 50 06/27/19 13:00 86 20 158/87 (110) 91 06/27/19 12:00 70 06/27/19 12:00 10.0 06/27/19 12:00 Venturi Mask 10.0 Venturi Mask 10.0 06/27/19 12:00 98.8 79 20 159/71 (100) 91 06/27/19 11:47 160/66 06/27/19 11:00 82 21 160/66 (97) 90 06/27/19 10:00 Venturi Mask 10.0 50 06/27/19 10:00 79 19 163/58 (93) 91 06/27/19 09:00 73 19 148/76 (100) 93 06/27/19 08:55 73 23 40 50 06/27/19 08:00 68 06/27/19 08:00 40 06/27/19 08:00 Mechanical Ventilator 06/27/19 08:00 99.0 73 19 151/73 (99) 91 06/27/19 07:30 74 23 40 40 06/27/19 07:30 94 Intake and Output 06/27/19 06/28/19 19:00 07:00 Intake Total 785.0 ml 500.0 ml Output Total 1020 ml 1550 ml Balance -235.0 ml -1050.0 ml Free Water 180 ml 60 ml IV Total 110.0 ml 110.0 ml Tube Feeding 495 ml 330 ml Output Urine Total 1020 ml 850 ml Gastric Drainage Total 700 ml Laboratory Tests 06/27/19 08:40: Arterial Blood pH 7.410, Arterial Blood Partial Pressure CO2 45.1H, Arterial Blood Partial Pressure O2 57.5L, Arterial Blood HCO3 27.9H, Arterial Blood Oxygen Saturation 89.9*L, Arterial Blood Base Excess 2.8H, Ramo Test Positive 06/27/19 09:00: White Blood Count 11.4H, Red Blood Count 4.52L, Hemoglobin 13.0L, Hematocrit 39.6L, Mean Corpuscular Volume 88, Mean Corpuscular Hemoglobin 28.7, Mean Corpuscular Hemoglobin Concent 32.8, Red Cell Distribution Width 14.1, Platelet Count 232, Mean Platelet Volume 7.0, Neutrophils (%) (Auto) 78.1H, Lymphocytes ( %) (Auto) 11.5L, Monocytes (%) (Auto) 4.6, Eosinophils (%) (Auto) 5.1H, Basophils (%) (Auto) 0.6, Sodium Level 145, Potassium Level 4.1, Chloride Level 107, Carbon Dioxide Level 28, Anion Gap 10, Blood Urea Nitrogen 77H, Creatinine 2.7H, Estimat Glomerular Filtration Rate 23.0, Glucose Level 266H, Calcium Level 9.2, Total Bilirubin 0.6, Aspartate Amino Transf (AST/SGOT) 28, Alanine Aminotransferase (ALT/SGPT) 39, Alkaline Phosphatase 85, Total Protein 7.3, Albumin 2.2L, Globulin 5.1, Albumin/Globulin Ratio 0.4L 06/28/19 06:20: Sodium Level [Pending], Potassium Level [Pending], Chloride Level [Pending], Carbon Dioxide Level [Pending], Blood Urea Nitrogen [Pending], Creatinine [ Pending], Estimat Glomerular Filtration Rate [Pending], Glucose Level [Pending] , Calcium Level [Pending], Total Bilirubin [Pending], Aspartate Amino Transf ( AST/SGOT) [Pending], Alanine Aminotransferase (ALT/SGPT) [Pending], Alkaline Phosphatase [Pending], Total Protein [Pending], Albumin [Pending], Globulin [ Pending] Height (Feet): 5 Height (Inches): 3.00 Weight (Pounds): 220 Objective General Appearance: WD/WN, lethargic, confused EENT: normal ENT inspection. on ventimask Neck: non-tender, normal alignment, supple Cardiovascular: normal peripheral pulses, normal rate, regular rhythm Respiratory/Chest: chest wall non-tender, lungs clear, normal breath sounds, no respiratory distress, no accessory muscle use Abdomen: normal bowel sounds, non tender, soft, no organomegaly, no mass Neurologic: disoriented, unresponsive Skin: normal pigmentation. no rash Juanpablo Downey MD June 28, 2019 07:25
--- NOTE | 2019-06-28 07:30 | NUR ---
NURSE NOTES: Pt received from MARK Batres. Pt opens eyes spontaneously, does not follow commands and combative, pupils are equal and round 3 mm bilat with brisk light rxn. Pt noted in A-tach to monitoring tech. Bilat radial and dorsalis pedis pulses 2+ bilaterally. Non-pitting edema noted to both hands. Pt is on cool aerosol via venturi mask 10L O2 with FiO2 40%. All lung lobes noted diminished with slight wheezing upon auscultation. Right nares NGT noted to low intermittent suction with dark brown gastric drainage noted- Dr Marmolejo also at bedside assessing pt and is aware. Abd is non-form, large and distended with Bowel sounds active to all quadrants. Pt has a alicia draining yellow, clear urine. Skin alterations noted. Pt has a LH and RH 20g IVs saline locked and a CAMMIE PICC with dry and intact dressing running NS TKO at 5 cc/hr. [employer] restraints noted, radial pulses palpable, skin to wrists intact without redness. Bed is in lowest position, alarm on, side rails up x 3, call light within reach. No acute distress noted. Will continue with plan of care.
--- NOTE | 2019-06-28 07:31 | NUR ---
HAND-OFF: Report given to [].
--- NOTE | 2019-06-28 08:00 | NUR ---
NURSE NOTES: Pt cleaned and repositioned, no distress noted.
[2019-06-28 08:02] LABS: ALANINE AMINOTRANSFERASE 30 U/L (12-78); ALBUMIN 2.5 G/DL (3.4-5.0); ALBUMIN/GLOBULIN RATIO 0.5 (1.0-2.7); ALKALINE PHOSPHATASE 75 U/L (46-116); ANION GAP 12 mmol/L (5-15); ASPARTATE AMINO TRANSFERASE 33 U/L (15-37); BILIRUBIN,TOTAL 0.6 MG/DL (0.2-1.0); BLOOD UREA NITROGEN 75 mg/dL (7-18); CALCIUM 10.2 MG/DL (8.5-10.1); CARBON DIOXIDE 31 MMOL/L (21-32); CHLORIDE 106 MMOL/L (98-107); CREATININE 2.5 MG/DL (0.55-1.30); POTASSIUM 4.6 MMOL/L (3.5-5.1); SODIUM 149 MMOL/L (136-145)
[2019-06-28 08:58] LABS: BASOPHILS % (AUTO) 0.5 % (0.0-2.0); HEMATOCRIT 41.3 % (42.0-52.0); HEMOGLOBIN 13.2 G/DL (14.2-18.0); LYMPHOCYTES % (AUTO) 12.5 % (20.0-45.0); MEAN CORPUSCULAR VOLUME 88 FL (80-99); MONOCYTES % (AUTO) 5.3 % (1.0-10.0); NEUTROPHILS % (AUTO) 77.7 % (45.0-75.0); PLATELET COUNT 265 K/UL (150-450); RED BLOOD COUNT 4.68 M/UL (4.70-6.10); RED CELL DISTRIBUTION WIDTH 14.8 % (11.6-14.8); WHITE BLOOD COUNT 10.3 K/UL (4.8-10.8)
[2019-06-28] MEDS ORDERED: Docusate 100mg cap ORAL SCH (09:00)
[2019-06-28] MEDS: Allopurinol 100mg Tab NG SCH (09:14)
[2019-06-28] MEDS: Pantoprazole Inj IVP SCH ×2 (09:14→20:02)
[2019-06-28] MEDS ORDERED: Docusate 100mg/10ml Liq GT PRN (09:15)
[2019-06-28] MEDS: Docusate 100mg/10ml Liq GT SCH ×2 (09:18→18:01)
[2019-06-28] MEDS: Piperacillin/Tazobactam 3.375 GM in NS 110 ML IVPB SCH ×2 (09:36→20:02)
--- NOTE | 2019-06-28 10:00 | NUR ---
NURSE NOTES: Left message for Dr Devi regarding frequent PVCs. Awaiting call back. Pt repositioned at this time, no distress noted.
--- NOTE | 2019-06-28 12:15 | NUR ---
NURSE NOTES: Received call back from Dr Downey to hold Novolog while pt is NPO and order venous duplex (bilat lower extremities)- if negative, put pt on SCDs (for DVT prophylaxis). Novolog held.
--- NOTE | 2019-06-28 12:30 | NUR ---
NURSE NOTES: Pt afebrile, repositioned without distress noted at this time. Left message for Dr Downey regarding accucheck results of 245 and to request instruction on whether to hold or administer Novolog at this time since pt is temporarily NPO. Also requested alternate DVT prophylaxis since cheli was d/c earlier. Awaiting response. Addendum: 06/28/19 at 1353 by Valerie Cunningham RN Correct time: 1200
--- NOTE | 2019-06-28 13:30 | NUR ---
NURSE NOTES: Received call back from Dr. Devi with no new orders at this time.
--- NOTE | 2019-06-28 15:08 | Diagnostic Imaging Report ---
EXAM: US Duplex Bilateral Lower Extremities Veins CLINICAL HISTORY: DVT TECHNIQUE: Real-time duplex ultrasound scan of the bilateral lower extremity veins integrating B-mode two-dimensional vascular structure, Doppler spectral analysis, color flow Doppler imaging and compression. COMPARISON: None FINDINGS: Right deep veins: Unremarkable. No DVT in the right common femoral, femoral, proximal deep femoral or popliteal veins. The veins demonstrate normal color flow, are normally compressible, with normal phasic flow and/or augmentation response. Right superficial veins: Unremarkable. No thrombus in the visualized right great saphenous vein. Left deep veins: Unremarkable. No DVT in the left common femoral, femoral, proximal deep femoral or popliteal veins. The veins demonstrate normal color flow, are normally compressible, with normal phasic flow and/or augmentation response. Left superficial veins: Unremarkable. No thrombus in the visualized left great saphenous vein. Soft tissues: No acute findings. No popliteal cyst. IMPRESSION: No deep venous thrombosis identified in either lower extremity.
[2019-06-28] MEDS: Ipratropium 0.02% Inh Soln 2.5ml UD HHN SCH ×3 (15:21→23:08)
--- NOTE | 2019-06-28 16:00 | NUR ---
NURSE NOTES: Pt repositioned, Temp 98.8 F ax, no distress noted.
--- NOTE | 2019-06-28 16:44 | Consultation ---
DATE OF CONSULTATION: 06/28/2019 CONSULTING PHYSICIAN: Sen Marmolejo MD. CHIEF COMPLAINT: GI bleeding. HISTORY OF PRESENT ILLNESS: Most of the history is per chart. The patient is in ICU. He just got extubated. He is not able to give any history. This is a 78-year-old male with numerous medical problems, which I will dictate in a second, who was admitted to the hospital with respiratory failure, intubated, now extubated, has an NG tube in place, which showed evidence of coughing 600 mL of coffee-ground material last night. So, GI consult requested for evaluation of GI bleeding. PAST MEDICAL HISTORY: 1. CVA. 2. Hypertension. 3. Coronary artery disease. 4. CHF. 5. Chronic kidney disease. 6. Diabetes type 2. 7. Hyperlipidemia. 8. Paroxysmal atrial fibrillation. ALLERGIES: To atorvastatin and sitagliptin. MEDICATIONS: Please see medication reconciliation list. SOCIAL HISTORY: Unknown. FAMILY HISTORY: Unknown. PAST SURGICAL HISTORY: Unknown. REVIEW OF SYSTEMS: Limited. PHYSICAL EXAMINATION: VITAL SIGNS: The patient is in ICU, extubated, mild respiratory distress. VITAL SIGNS: Temperature 98, pulse 84, respirations 23, blood pressure is 182/95. HEENT: Normocephalic and atraumatic. Sclerae anicteric. NECK: Supple. No evidence of obvious lymphadenopathy. CARDIOVASCULAR: Tachy. Regular rate. LUNGS: Decreased breath sounds bilaterally and diffusely with some expiratory wheezing. ABDOMEN: Distended. Bowel sounds are hypoactive. No rebound. No guarding. No peritoneal sign. EXTREMITIES: The patient has trace bilateral lower extremity edema. LABORATORY DATA: White count is 11.4, hemoglobin 13, hematocrit 39, platelet count is 232. Chem-7 sodium is 145, potassium 4.1, BUN is 77, creatinine is 2.7, glucose is 265. ASSESSMENT AND PLAN: This is a 78-year-old male with multiple medical problems just extubated, now with some coffee-ground material per NG tube. Discussed with the nurse at the bedside. We are going to hold off the tube feeding today. The patient to be on Protonix 40 mg q.12h. Repeat CBC for tomorrow, stool for OB. Hold anticoagulation for now. The patient also apparently been constipated per nurses. No bowel movement for few days. We are going to add Colace and MiraLAX, collect the stool for OB. The patient is very high risk for GI procedures at this time. Given the hemoglobin of 13, we have some residuals to work with, so we are going to hold off on doing endoscopy for now. I want to thank Dr. Downey, for this kind referral. Sen Marmolejo M.D. DR: KENNETH JOB#: [id number] CC: Juanpablo Downey M.D.
--- NOTE | 2019-06-28 18:00 | NUR ---
NURSE NOTES: Pt repositioned, no distress noted.
--- NOTE | 2019-06-28 19:04 | NUR ---
HAND-OFF: Report given to MARK Griffin.
--- NOTE | 2019-06-28 19:05 | NUR ---
NURSE NOTES: Received patient from MARK Padilla. patient awake but confused with mumbled words noted. patient on venturi Mask 10L 40% FiO2 oxygen saturation 91% with diminished lung sounds. BP153/71 HR 92 RR24. patient with Right Nare NGT set to low intermittent suction with brown secretions noted. Left hand gauge 22 saline lock, right hand gauge 22 puffy and tender. Left upper arm Picc clean and asymptomatic. abdomen round and distended with active bowel sounds x4 quadrants. alicia catheter draining smooth urine. will continue to monitor.
--- NOTE | 2019-06-28 19:14 | Pulmonology Progress Note ---
Assessment/Plan Assessment/Plan Pulmonary CCM Progress Note Assessment/Plan Hypoxemia Hypercapnic respiratory failure pulmonary edema possible ARDS negative COVID x2 s/p succesful extubation renal failure toxic met encephalopathy hypernatremia CRF leukocytosis possible sepsis PLAN dc droplet isolation taper FIO2 ID follow up wean as able monitor feeds and isolation medications/laboratory data/nursing notes/ICU care reviewed in detail note reviewed and edited care discussed with RN and RT ICU time spent >40 minutes Critical Care - Subjective Interval Events: care noted and reviewed imaging noted ICU noted ROS Limited/Unobtainable: Yes Condition: critical EKG Rhythm: Sinus Rhythm Residuals: minimal Tube Feeding Tolerated: yes Vital Signs Noted Labs Noted Test 06/25/19 03:30 06/26/19 03:30 White Blood Count 11.5 K/UL (4.8-10.8) 12.0 K/UL (4.8-10.8) Red Blood Count 4.45 M/UL (4.70-6.10) 4.42 M/UL (4.70-6.10) Hemoglobin 12.7 G/DL (14.2-18.0) 12.6 G/DL (14.2-18.0) Hematocrit 39.1 % (42.0-52.0) 38.4 % (42.0-52.0) Mean Corpuscular Volume 88 FL (80-99) 87 FL (80-99) Mean Corpuscular Hemoglobin 28.6 PG (27.0-31.0) 28.4 PG (27.0-31.0) Mean Corpuscular Hemoglobin Concent 32.5 G/DL (32.0-36.0) 32.7 G/DL (32.0-36.0) Red Cell Distribution Width 14.5 % (11.6-14.8) 14.3 % (11.6-14.8) Platelet Count 185 K/UL (150-450) 213 K/UL (150-450) Mean Platelet Volume 6.7 FL (6.5-10.1) 7.9 FL (6.5-10.1) Neutrophils (%) (Auto) 80.4 % (45.0-75.0) 81.1 % (45.0-75.0) Lymphocytes (%) (Auto) 10.1 % (20.0-45.0) 9.2 % (20.0-45.0) Monocytes (%) (Auto) 5.2 % (1.0-10.0) 4.4 % (1.0-10.0) Eosinophils (%) (Auto) 3.8 % (0.0-3.0) 4.9 % (0.0-3.0) Basophils (%) (Auto) 0.5 % (0.0-2.0) 0.5 % (0.0-2.0) Sodium Level 141 MMOL/L (136-145) 141 MMOL/L (136-145) Potassium Level 3.9 MMOL/L (3.5-5.1) 3.8 MMOL/L (3.5-5.1) Chloride Level 102 MMOL/L (98-107) 103 MMOL/L (98-107) Carbon Dioxide Level 31 MMOL/L (21-32) 29 MMOL/L (21-32) Anion Gap 8 mmol/L (5-15) 9 mmol/L (5-15) Blood Urea Nitrogen 72 mg/dL (7-18) 79 mg/dL (7-18) Creatinine 2.9 MG/DL (0.55-1.30) 2.9 MG/DL (0.55-1.30) Estimat Glomerular Filtration Rate 21.2 mL/min (>60) 21.2 mL/min (>60) Glucose Level 240 MG/DL (74-106) 237 MG/DL (74-106) Calcium Level 8.5 MG/DL (8.5-10.1) 8.9 MG/DL (8.5-10.1) Magnesium Level 2.5 MG/DL (1.8-2.4) Total Bilirubin 0.8 MG/DL (0.2-1.0) 0.7 MG/DL (0.2-1.0) Aspartate Amino Transf (AST/SGOT) 22 U/L (15-37) 25 U/L (15-37) Alanine Aminotransferase (ALT/SGPT) 28 U/L (12-78) 24 U/L (12-78) Alkaline Phosphatase 63 U/L (46-116) 67 U/L (46-116) Troponin I 0.163 ng/mL (0.000-0.056) 0.083 ng/mL (0.000-0.056) Pro-B-Type Natriuretic Peptide 4949 pg/mL (0-125) 4105 pg/mL (0-125) Total Protein 6.8 G/DL (6.4-8.2) 6.7 G/DL (6.4-8.2) Albumin 2.2 G/DL (3.4-5.0) 2.1 G/DL (3.4-5.0) Globulin 4.6 g/dL 4.6 g/dL Albumin/Globulin Ratio 0.5 (1.0-2.7) 0.5 (1.0-2.7) Uric Acid 6.4 MG/DL (2.6-7.2) Objective: WDWN awake reduced breath sounds bilaterally without rhonchi or wheeze [id number] without MRG NABS nontender no HSM no CC some edema nonfocal reviewed and edited Subjective ROS Limited/Unobtainable: No Constitutional: Denies: fever Allergies: Coded Allergies: ATORVASTATIN (Unverified Allergy, Unknown, 01/10/18) ROSUVASTATIN (Unverified Allergy, Unknown, 01/10/18) SITAGLIPTIN (Unverified Allergy, Unknown, 01/10/18) All Systems: reviewed and negative except above Objective Last 24 Hour Vital Signs Date Time Temp Pulse Resp B/P (MAP) Pulse Ox O2 Delivery O2 Flow Rate FiO2 06/28/19 19:00 92 24 153/71 (98) 91 06/28/19 18:01 149/74 06/28/19 18:00 93 21 158/71 (100) 92 06/28/19 17:00 92 27 149/74 (99) 91 06/28/19 16:00 98.8 92 27 154/85 (108) 90 06/28/19 16:00 10.0 40 06/28/19 16:00 91 06/28/19 16:00 Venturi Mask 10.0 Venturi Mask 10.0 06/28/19 15:31 91 23 92 Cool Aerosol 10.0 80 85 24 92 06/28/19 15:09 90 Cool Aerosol 10.0 80 06/28/19 15:00 89 24 157/82 (107) 91 06/28/19 14:00 90 21 168/74 (105) 91 5/2/20 13:00 88 26 152/73 (99) 92 06/28/19 12:36 156/74 06/28/19 12:00 98.0 90 26 156/74 (101) 90 06/28/19 12:00 10.0 40 06/28/19 12:00 Venturi Mask 10.0 Venturi Mask 10.0 06/28/19 12:00 89 06/28/19 11:00 89 24 151/68 (95) 90 06/28/19 10:00 95 28 172/91 (118) 88 06/28/19 09:18 178/81 06/28/19 09:00 80 24 178/81 (113) 91 06/28/19 08:00 90 06/28/19 08:00 97.8 79 25 187/84 (118) 90 06/28/19 08:00 Venturi Mask 10.0 Venturi Mask 10.0 06/28/19 08:00 10.0 40 06/28/19 07:00 81 25 179/82 (114) 90 06/28/19 06:50 91 Cool Aerosol 10.0 80 06/28/19 06:00 84 23 88 06/28/19 05:59 84 182/95 (124) 91 06/28/19 05:56 176/90 06/28/19 05:00 84 175/81 (112) 91 06/28/19 04:00 Venturi Mask 10.0 Venturi Mask 10.0 06/28/19 04:00 10.0 40 06/28/19 04:00 80 06/28/19 04:00 98.0 82 180/72 (108) 92 06/28/19 03:00 82 176/74 (108) 91 06/28/19 02:00 82 165/69 (101) 91 06/28/19 01:00 90 26 168/88 (114) 90 06/28/19 00:22 92 Cool Aerosol 10.0 70 06/28/19 00:00 Venturi Mask 10.0 Venturi Mask 10.0 06/28/19 00:00 10.0 40 06/28/19 00:00 98.8 90 25 177/100 (125) 91 06/28/19 00:00 89 06/27/19 23:00 90 24 179/75 (109) 92 5/1/20 22:30 90 20 92 Cool Aerosol 10.0 70 86 20 90 06/27/19 22:30 92 Cool Aerosol 10.0 70 06/27/19 22:00 93 181/97 (125) 85 06/27/19 21:00 85 153/79 (103) 79 06/27/19 20:00 85 06/27/19 20:00 10.0 40 06/27/19 20:00 Venturi Mask 10.0 Venturi Mask 10.0 06/27/19 20:00 98.5 84 157/63 (94) 81 06/27/19 20:00 84 Intake and Output 06/27/19 06/28/19 19:00 07:00 Intake Total 785.0 ml 500.0 ml Output Total 1020 ml 1650 ml Balance -235.0 ml -1150.0 ml Free Water 180 ml 60 ml IV Total 110.0 ml 110.0 ml Tube Feeding 495 ml 330 ml Output Urine Total 1020 ml 950 ml Gastric Drainage Total 700 ml General Appearance: other - obese HEENT: other - extubated Abdomen: soft, non tender, other - NGT feeding Extremities: other - generalized edema Skin: other - hyperpigmention of legs Neurologic/Psychiatric: unresponsiveness Laboratory Tests 06/28/19 06:20: White Blood Count 10.3, Red Blood Count 4.68L, Hemoglobin 13.2L, Hematocrit 41.3L, Mean Corpuscular Volume 88, Mean Corpuscular Hemoglobin 28.2, Mean Corpuscular Hemoglobin Concent 32.0, Red Cell Distribution Width 14.8, Platelet Count 265, Mean Platelet Volume 7.1, Neutrophils (%) (Auto) 77.7H, Lymphocytes ( %) (Auto) 12.5L, Monocytes (%) (Auto) 5.3, Eosinophils (%) (Auto) 4.0H, Basophils (%) (Auto) 0.5, Sodium Level 149H, Potassium Level 4.6, Chloride Level 106, Carbon Dioxide Level 31, Anion Gap 12, Blood Urea Nitrogen 75H, Creatinine 2.5H, Estimat Glomerular Filtration Rate 25.2, Glucose Level 209H, Calcium Level 10.2H, Total Bilirubin 0.6, Aspartate Amino Transf (AST/SGOT) 33, Alanine Aminotransferase (ALT/SGPT) 30, Alkaline Phosphatase 75, Total Protein 7.8, Albumin 2.5L, Globulin 5.3, Albumin/Globulin Ratio 0.5L Current Medications Medications (Trade) Dose Ordered Sig/Diana Route PRN Reason Start Time Stop Time Status Last Admin Dose Admin Acetaminophen (Tylenol) 650 mg Q6H PRN NG Temp >100.5 06/20/19 17:15 07/20/19 17:14 06/20/19 17:35 Allopurinol (Zyloprim) 100 mg DAILY NG 06/20/19 09:00 07/20/19 08:59 06/28/19 09:14 Chlorhexidine Gluconate (Jesica-Hex 2%) 1 applic DAILY@1999 TOPIC 06/20/19 20:00 09/18/19 19:59 06/27/19 21:13 Clonidine HCl (Catapres Tab) 0.1 mg Q4H PRN ORAL For High Blood Pressure 06/22/19 14:30 09/20/19 14:29 Dextrose (Dextrose 50%) 25 ml Q30M PRN IV Hypoglycemia 06/20/19 00:15 09/17/19 16:44 Dextrose (Dextrose 50%) 50 ml Q30M PRN IV Hypoglycemia 06/20/19 00:15 09/17/19 16:44 Docusate Sodium (Colace) 100 mg BID GT 06/28/19 09:30 07/28/19 09:29 06/28/19 18:01 Hydralazine HCl (Apresoline) 10 mg Q4H PRN IV For High Blood Pressure 06/28/19 07:30 09/26/19 07:29 06/28/19 09:18 Insulin Aspart (NovoLOG) BEFORE MEALS AND HS SUBQ 06/26/19 21:00 09/24/19 20:59 06/27/19 16:56 Ipratropium Sandy (Atrovent) 500 mcg Q4H HHN 06/28/19 15:00 07/03/19 14:59 06/28/19 15:21 Latanoprost (Xalatan) 1 drop BEDTIME BOTH EYES 06/20/19 21:00 07/19/19 20:59 06/27/19 21:13 Mirtazapine (Remeron) 7.5 mg BEDTIME NG 06/20/19 21:00 09/17/19 20:59 06/27/19 21:15 Nitroglycerin (Nitro-Bid) 1 inch TID@0600,1200,1800 TOPIC 06/24/19 06:00 07/24/19 05:59 06/28/19 18:01 Pantoprazole (Protonix) 40 mg EVERY 12 HOURS IVP 06/28/19 09:00 07/28/19 08:59 06/28/19 09:14 Piperacillin Sod/ Tazobactam Sod 3.375 gm/Sodium Chloride 110 ml @ 27.5 mls/hr Q12HR IVPB 06/20/19 09:00 06/29/19 08:59 06/28/19 09:36 Simethicone (Mylicon) 80 mg QID PRN ORAL Abdominal cramps 06/27/19 08:00 09/25/19 07:59 06/27/19 09:16 Sodium Chloride 1,000 ml @ 100 mls/hr Q10H IV 06/28/19 19:00 07/28/19 18:59 06/28/19 19:06 Ottoniel Jiang MD June 28, 2019 19:14
[2019-06-28] MEDS: Dyna-Hex 2% Top Sol 2oz TOPIC SCH (20:01)
[2019-06-28] MEDS ORDERED: Miralax 17gm pkt ORAL SCH (21:00)
[2019-06-28] MEDS: Latanoprost 0.005% Opth 2.5ml Soln BOTH EYES SCH (21:22)
--- NOTE | 2019-06-28 22:00 | NUR ---
NURSE NOTES: patient awake, responds to name but confused. patient on venturi Mask 10L 40% FiO2 oxgen saturation 92% with diminished lung sounds. BP161/83 HR 90 RR24. patient with Right Nare NGT set to low intermittent suction with brown secretions noted. right hand gauge 22 D/C. Left upper arm Picc clean and asymptomatic. alicia catheter draining smooth urine. CHG bath provided, patient repositioned and oral care provided. will continue to monitor.
[2019-06-28] MEDS ORDERED: Albuterol/Ipratropium 3ml neb HHN PRN ×2 (23:30)
[2019-06-29] VITALS (27 sets, daily range): BP systolic 0–176; BP diastolic 0–111
--- NOTE | 2019-06-29 | NUR ---
NURSE NOTES: patient asleep, arousable to name but confused. patient on venturi Mask 10L 80% FiO2 oxgen saturation 94% with inspiratory and expiratory wheezing noted. BP163/70 HR 92 RR23. patient with Right Nare NGT set to low intermittent suction with brown secretions noted. Left upper arm Picc clean and asymptomatic. alicia catheter draining smooth urine. patient repositioned and oral care provided. will continue to monitor.
--- NOTE | 2019-06-29 01:45 | Progress Note ---
DATE: 06/28/2019 CARDIOLOGY PROGRESS NOTE SUBJECTIVE: The patient is in the intensive care unit. Condition remains critical. Prognosis guarded. He remains in atrial fibrillation/flutter with frequent ventricular arrhythmias, mostly nonsustained. The patient is on a Ventimask now and was extubated. OBJECTIVE: VITAL SIGNS: Blood pressure labile up to 182/95, heart rate 84, respiratory rate 23. GENERAL: The patient has a G-tube placed to low intermittent suction with coffee-ground output. LUNGS: Bilateral breath sounds with rhonchi. CARDIAC: Irregularly irregular rhythm. Normal S1, S2. ABDOMEN: Soft. G-tube intact. EXTREMITIES: Trace edema. LABORATORY DATA: White count 10, hemoglobin 13. Sodium 149, potassium 4.6, BUN 75, creatinine 2.5, bicarb 31, albumin 2.5. Venous duplex scan, negative for DVT. IMPRESSION: 1. Respiratory failure. 2. Healthcare-associated pneumonia. 3. Paroxysmal atrial flutter. 4. Nonsustained ventricular ectopy. 5. Possible GI bleeding. 6. Insulin-requiring diabetes mellitus. 7. Acute on chronic diastolic congestive heart failure. 8. Acute myocardial ischemia, recovered. 9. Dehydration with hypernatremia. PLAN: 1. Aspirin on hold. 2. Apixaban on hold due to bleeding. 3. Serial hemoglobin. 4. Proton-pump inhibitor therapy. 5. Hold diuresis. 6. Free water replacement. 7. Hold parameters for antihypertensives. 8. Potassium replacement as needed. Ottoniel Devi M.D. DR: Savage JOB#: [id number] CC:
--- NOTE | 2019-06-29 02:00 | NUR ---
NURSE NOTES: patient asleep, arousable to name but confused. patient on venturi Mask 10L 80% FiO2 oxgen saturation 90% with inspiratory and expiratory wheezing noted and nonproductive cough. RT adjusted venturi mask, oxygen saturation increased to 97%. BP169/74 HR 93 RR23. patient with Right Nare NGT set to low intermittent suction. Left upper arm Picc clean and asymptomatic. alicia catheter draining smooth urine. patient repositioned and oral care provided. will continue to monitor.
[2019-06-29] MEDS: Ipratropium 0.02% Inh Soln 2.5ml UD HHN SCH ×5 (03:20→19:41)
--- NOTE | 2019-06-29 04:00 | NUR ---
NURSE NOTES: patient asleep, arousable to name but confused. patient on venturi Mask 10L 80% FiO2 oxgen saturation 100% with inspiratory and expiratory wheezing noted. BP176/81 HR 99 RR25. prn hydralazine administered. patient with Right Nare NGT set to low intermittent suction. Left upper arm Picc clean and asymptomatic. alicia catheter draining smooth urine. patient repositioned and oral care provided. will continue to monitor.
[2019-06-29] MEDS: Nitroglycerin 2% oint pkt TOPIC SCH ×3 (05:58→17:44)
--- NOTE | 2019-06-29 06:00 | NUR ---
NURSE NOTES: patient awake and confused. patient on venturi Mask 10L 80% FiO2 oxgen saturation 99% with diminished lung sounds. BP168/79 HR 113 RR25 after prn hydralazine was administered. patient with Right Nare NGT set to low intermittent suction with dark brown output noted. Left upper arm PICC line clean and asymptomatic. alicia catheter draining smooth urine. patient repositioned and oral care provided. will continue to monitor.
[2019-06-29] MEDS: NovoLOG Insulin Flexpen SUBQ SCH ×4 (06:30→21:21)
[2019-06-29 06:34] LABS: BASOPHILS % (AUTO) 0.7 % (0.0-2.0); EOSINOPHILS % (AUTO) 2.6 % (0.0-3.0); HEMOGLOBIN 11.8 G/DL (14.2-18.0); LYMPHOCYTES % (AUTO) 9.9 % (20.0-45.0); MEAN CORPUSCULAR VOLUME 89 FL (80-99); MONOCYTES % (AUTO) 6.1 % (1.0-10.0); NEUTROPHILS % (AUTO) 80.7 % (45.0-75.0); PLATELET COUNT 260 K/UL (150-450); RED BLOOD COUNT 4.16 M/UL (4.70-6.10); RED CELL DISTRIBUTION WIDTH 14.5 % (11.6-14.8); WHITE BLOOD COUNT 10.9 K/UL (4.8-10.8)
[2019-06-29 06:50] LABS: ANION GAP 12 mmol/L (5-15); BLOOD UREA NITROGEN 55 mg/dL (7-18); CALCIUM 8.5 MG/DL (8.5-10.1); CARBON DIOXIDE 27 MMOL/L (21-32); CHLORIDE 106 MMOL/L (98-107); CREATININE 2.2 MG/DL (0.55-1.30); POTASSIUM 3.7 MMOL/L (3.5-5.1); SODIUM 145 MMOL/L (136-145)
--- NOTE | 2019-06-29 07:00 | NUR ---
NURSE NOTES: spoke with Dr. Lake to report dark brown emesis from NGT suction container and no bowel movement. no orders received at this time. will continue to monitor.
--- NOTE | 2019-06-29 07:03 | General Progress Note ---
Assessment/Plan Status: stable, unchanged Assessment/Plan: 1. CVA. 2. Hypertension. 3. Coronary artery disease. 4. CHF. 5. Chronic kidney disease. 6. Diabetes type 2. 7. Hyperlipidemia. 8. Paroxysmal atrial fibrillation. 9. Dysphagia 10. GIB on 10 lit Venti mask no BM no obvious significant GIB ppi BID bowel regimen not stable for GI procedures unless medical emergency keep npo for one more day will fu Subjective ROS Limited/Unobtainable: No Allergies: Coded Allergies: ATORVASTATIN (Unverified Allergy, Unknown, 01/10/18) ROSUVASTATIN (Unverified Allergy, Unknown, 01/10/18) SITAGLIPTIN (Unverified Allergy, Unknown, 01/10/18) Objective Last 24 Hour Vital Signs Date Time Temp Pulse Resp B/P (MAP) Pulse Ox O2 Delivery O2 Flow Rate FiO2 06/29/19 06:53 92 Cool Aerosol 10.0 80 06/29/19 06:00 113 24 168/79 (108) 06/29/19 05:58 148/86 06/29/19 05:00 113 25 148/86 (106) 99 06/29/19 04:22 176/81 06/29/19 04:00 98.9 99 25 176/81 (112) 100 06/29/19 04:00 Venturi Mask 10.0 Venturi Mask 10.0 06/29/19 04:00 10.0 80 06/29/19 04:00 99 06/29/19 03:20 96 24 100 Cool Aerosol 10.0 80 95 25 100 06/29/19 03:00 95 23 166/92 (116) 98 06/29/19 02:00 93 23 169/74 (105) 94 06/29/19 01:02 93 Cool Aerosol 10.0 80 06/29/19 01:00 94 23 163/75 (104) 93 06/29/19 00:42 163/70 06/29/19 00:00 92 06/29/19 00:00 10.0 80 06/29/19 00:00 Venturi Mask 10.0 Venturi Mask 10.0 06/29/19 00:00 99.0 92 23 163/70 (101) 94 06/28/19 23:47 90 23 95 Venturi Mask 10.0 80 87 24 94 06/28/19 23:10 94 22 95 Cool Aerosol 10.0 80 93 23 93 06/28/19 23:00 92 29 160/99 (119) 92 06/28/19 22:00 90 24 161/83 (109) 92 06/28/19 21:00 87 24 165/84 (111) 93 06/28/19 20:00 98.0 88 24 158/87 (110) 93 06/28/19 20:00 Venturi Mask 10.0 Venturi Mask 10.0 06/28/19 20:00 88 06/28/19 20:00 10.0 80 06/28/19 19:46 94 22 95 Cool Aerosol 10.0 80 92 23 92 06/28/19 19:32 92 Cool Aerosol 10.0 80 06/28/19 19:00 92 24 153/71 (98) 91 06/28/19 18:01 149/74 06/28/19 18:00 93 21 158/71 (100) 92 06/28/19 17:00 92 27 149/74 (99) 91 06/28/19 16:00 98.8 92 27 154/85 (108) 90 06/28/19 16:00 10.0 40 06/28/19 16:00 91 06/28/19 16:00 Venturi Mask 10.0 Venturi Mask 10.0 06/28/19 15:31 91 23 92 Cool Aerosol 10.0 80 85 24 92 06/28/19 15:09 90 Cool Aerosol 10.0 80 06/28/19 15:00 89 24 157/82 (107) 91 06/28/19 14:00 90 21 168/74 (105) 91 06/28/19 13:00 88 26 152/73 (99) 92 06/28/19 12:36 156/74 06/28/19 12:00 98.0 90 26 156/74 (101) 90 06/28/19 12:00 10.0 40 06/28/19 12:00 Venturi Mask 10.0 Venturi Mask 10.0 06/28/19 12:00 89 06/28/19 11:00 89 24 151/68 (95) 90 06/28/19 10:00 95 28 172/91 (118) 88 06/28/19 09:18 178/81 06/28/19 09:00 80 24 178/81 (113) 91 06/28/19 08:00 90 5/2/20 08:00 97.8 79 25 187/84 (118) 90 06/28/19 08:00 Venturi Mask 10.0 Venturi Mask 10.0 06/28/19 08:00 10.0 40 Intake and Output 06/28/19 06/29/19 19:00 07:00 Intake Total 110.0 ml 1073.3333 ml Output Total 2575 ml 1000 ml Balance -2465.0 ml 73.3333 ml IV Total 110.0 ml 1073.3333 ml Tube Feeding 0 ml 0 ml Output Urine Total 2575 ml 1000 ml Laboratory Tests 06/29/19 05:00: White Blood Count 10.9H, Red Blood Count 4.16L, Hemoglobin 11.8L, Hematocrit 37.0L, Mean Corpuscular Volume 89, Mean Corpuscular Hemoglobin 28.5, Mean Corpuscular Hemoglobin Concent 32.0, Red Cell Distribution Width 14.5, Platelet Count 260, Mean Platelet Volume 7.0, Neutrophils (%) (Auto) 80.7H, Lymphocytes ( %) (Auto) 9.9L, Monocytes (%) (Auto) 6.1, Eosinophils (%) (Auto) 2.6, Basophils (%) (Auto) 0.7, Sodium Level [Pending], Potassium Level [Pending], Chloride Level [Pending], Carbon Dioxide Level [Pending], Blood Urea Nitrogen [Pending], Creatinine [Pending], Estimat Glomerular Filtration Rate [Pending], Glucose Level [Pending], Calcium Level [Pending], Magnesium Level [Pending], Troponin I [Pending] 06/29/19 06:32: Arterial Blood pH 7.433, Arterial Blood Partial Pressure CO2 44.5, Arterial Blood Partial Pressure O2 57.5L, Arterial Blood HCO3 29.1H, Arterial Blood Oxygen Saturation 90.4L, Arterial Blood Base Excess 4.2H, Ramo Test Positive Height (Feet): 5 Height (Inches): 3.00 Weight (Pounds): 220 General Appearance: lethargic EENT: normal ENT inspection Neck: supple Cardiovascular: tachycardia Respiratory/Chest: decreased breath sounds Abdomen: soft, hypoactive bowel sounds Extremities: non-tender Sen Marmolejo MD June 29, 2019 07:03
--- NOTE | 2019-06-29 07:14 | NUR ---
NURSE NOTES: Paged Dr. Jiang to report ABG result. orders received read back and carried out.
--- NOTE | 2019-06-29 07:22 | NUR ---
HAND-OFF: Report given to CN. Sarath
--- NOTE | 2019-06-29 07:30 | NUR ---
NURSE NOTES: post nubia care done [place] [facility] [place]
--- NOTE | 2019-06-29 08:06 | NUR ---
NURSE NOTES: REPORT RECEIVED FROM MARK LOMAS
--- NOTE | 2019-06-29 08:44 | General Progress Note ---
Assessment/Plan Problem List: (1) Atrial flutter ICD Codes: I48.92 - Unspecified atrial flutter SNOMED: 9402556 (2) Aspiration pneumonia ICD Codes: J69.0 - Pneumonitis due to inhalation of food and vomit SNOMED: 913642203 (3) Hypoxia ICD Codes: R09.02 - Hypoxemia SNOMED: 129809935 (4) Elevated troponin ICD Codes: R79.89 - Other specified abnormal findings of blood chemistry SNOMED: 987170381, 931074621, 379513918 (5) Acute on chronic renal insufficiency ICD Codes: N28.9 - Disorder of kidney and ureter, unspecified; N18.9 - Chronic kidney disease, unspecified SNOMED: 887876860, 142732674, 707377264 (6) CHF exacerbation ICD Codes: I50.9 - Heart failure, unspecified SNOMED: 209988223, 29221108313403, 960724122 (7) CAD (coronary artery disease) ICD Codes: I25.10 - Atherosclerotic heart disease of [place] coronary artery without angina pectoris SNOMED: 02987014 (8) CVA (cerebral vascular accident) ICD Codes: I63.9 - Cerebral infarction, unspecified SNOMED: 716759145 (9) HTN (hypertension) ICD Codes: I10 - Essential (primary) hypertension SNOMED: 70420968 Status: stable, unchanged Assessment/Plan: o2- wean monitor abg- noted may need bipap Respiratory treatments and suctioning as needed diuresis per cards monitor renal fxn monitor chest x-ray IV antibiotics per ID feeds check stool ob dc eliquis gi eval appreciated iv protonix bid no plans for endoscopy due to high risk- emergent only Remains critical and guarded. dw cards and pulm and id Subjective ROS Limited/Unobtainable: No Constitutional: Reports: malaise, weakness HEENT: Reports: no symptoms Cardiovascular: Reports: no symptoms Respiratory: Reports: shortness of breath Gastrointestinal/Abdominal: Reports: abdomen distended, difficulty swallowing Genitourinary: Reports: no symptoms Neurologic/Psychiatric: Reports: pre-existing deficit Endocrine: Reports: no symptoms Hematologic/Lymphatic: Reports: no symptoms Allergies: Coded Allergies: ATORVASTATIN (Unverified Allergy, Unknown, 01/10/18) ROSUVASTATIN (Unverified Allergy, Unknown, 01/10/18) SITAGLIPTIN (Unverified Allergy, Unknown, 01/10/18) All Systems: reviewed and negative except above Subjective extubated. on ventimask. confused but seems more calm. tracks. doesnt really follow commands.+sob. using some accessory muscles. no bleeding noted Objective Last 24 Hour Vital Signs Date Time Temp Pulse Resp B/P (MAP) Pulse Ox O2 Delivery O2 Flow Rate FiO2 06/29/19 07:10 100 27 96 Cool Aerosol 10.0 80 104 25 92 06/29/19 07:00 109 25 170/91 (117) 06/29/19 06:53 92 Cool Aerosol 15.0 80 06/29/19 06:00 113 24 168/79 (108) 06/29/19 05:58 148/86 06/29/19 05:00 113 25 148/86 (106) 99 06/29/19 04:22 176/81 06/29/19 04:00 98.9 99 25 176/81 (112) 100 06/29/19 04:00 Venturi Mask 10.0 Venturi Mask 10.0 06/29/19 04:00 10.0 80 06/29/19 04:00 99 06/29/19 03:20 96 24 100 Cool Aerosol 10.0 80 95 25 100 06/29/19 03:00 95 23 166/92 (116) 98 06/29/19 02:00 93 23 169/74 (105) 94 06/29/19 01:02 93 Cool Aerosol 10.0 80 06/29/19 01:00 94 23 163/75 (104) 93 06/29/19 00:42 163/70 06/29/19 00:00 92 06/29/19 00:00 10.0 80 06/29/19 00:00 Venturi Mask 10.0 Venturi Mask 10.0 06/29/19 00:00 99.0 92 23 163/70 (101) 94 06/28/19 23:47 90 23 95 Venturi Mask 10.0 80 87 24 94 06/28/19 23:10 94 22 95 Cool Aerosol 10.0 80 93 23 93 06/28/19 23:00 92 29 160/99 (119) 92 06/28/19 22:00 90 24 161/83 (109) 92 06/28/19 21:00 87 24 165/84 (111) 93 06/28/19 20:00 98.0 88 24 158/87 (110) 93 06/28/19 20:00 Venturi Mask 10.0 Venturi Mask 10.0 06/28/19 20:00 88 06/28/19 20:00 10.0 80 06/28/19 19:46 94 22 95 Cool Aerosol 10.0 80 92 23 92 06/28/19 19:32 92 Cool Aerosol 10.0 80 06/28/19 19:00 92 24 153/71 (98) 91 06/28/19 18:01 149/74 06/28/19 18:00 93 21 158/71 (100) 92 06/28/19 17:00 92 27 149/74 (99) 91 06/28/19 16:00 98.8 92 27 154/85 (108) 90 06/28/19 16:00 10.0 40 06/28/19 16:00 91 06/28/19 16:00 Venturi Mask 10.0 Venturi Mask 10.0 06/28/19 15:31 91 23 92 Cool Aerosol 10.0 80 85 24 92 06/28/19 15:09 90 Cool Aerosol 10.0 80 06/28/19 15:00 89 24 157/82 (107) 91 06/28/19 14:00 90 21 168/74 (105) 91 06/28/19 13:00 88 26 152/73 (99) 92 06/28/19 12:36 156/74 06/28/19 12:00 98.0 90 26 156/74 (101) 90 06/28/19 12:00 10.0 40 06/28/19 12:00 Venturi Mask 10.0 Venturi Mask 10.0 06/28/19 12:00 89 06/28/19 11:00 89 24 151/68 (95) 90 06/28/19 10:00 95 28 172/91 (118) 88 06/28/19 09:18 178/81 06/28/19 09:00 80 24 178/81 (113) 91 Intake and Output 06/28/19 06/29/19 19:00 07:00 Intake Total 110.0 ml 1073.3333 ml Output Total 2575 ml 1090 ml Balance -2465.0 ml -16.6667 ml IV Total 110.0 ml 1073.3333 ml Tube Feeding 0 ml 0 ml Output Urine Total 2575 ml 1040 ml Gastric Drainage Total 50 ml Laboratory Tests 06/29/19 05:00: White Blood Count 10.9H, Red Blood Count 4.16L, Hemoglobin 11.8L, Hematocrit 37.0L, Mean Corpuscular Volume 89, Mean Corpuscular Hemoglobin 28.5, Mean Corpuscular Hemoglobin Concent 32.0, Red Cell Distribution Width 14.5, Platelet Count 260, Mean Platelet Volume 7.0, Neutrophils (%) (Auto) 80.7H, Lymphocytes ( %) (Auto) 9.9L, Monocytes (%) (Auto) 6.1, Eosinophils (%) (Auto) 2.6, Basophils (%) (Auto) 0.7, Sodium Level 145, Potassium Level 3.7, Chloride Level 106, Carbon Dioxide Level 27, Anion Gap 12, Blood Urea Nitrogen 55H, Creatinine 2.2H , Estimat Glomerular Filtration Rate 29.2, Glucose Level 214H, Calcium Level 8.5 , Magnesium Level 2.2, Troponin I 0.124H 06/29/19 06:32: Arterial Blood pH 7.433, Arterial Blood Partial Pressure CO2 44.5, Arterial Blood Partial Pressure O2 57.5L, Arterial Blood HCO3 29.1H, Arterial Blood Oxygen Saturation 90.4L, Arterial Blood Base Excess 4.2H, Ramo Test Positive Height (Feet): 5 Height (Inches): 3.00 Weight (Pounds): 220 Objective General Appearance: WD/WN, lethargic, confused EENT: normal ENT inspection. on ventimask Neck: non-tender, normal alignment, supple Cardiovascular: normal peripheral pulses, normal rate, regular rhythm Respiratory/Chest: chest wall non-tender, lungs clear, normal breath sounds, no respiratory distress, no accessory muscle use Abdomen: normal bowel sounds, non tender, soft, no organomegaly, no mass Neurologic: disoriented, unresponsive Skin: normal pigmentation. no rash Juanpablo Downey MD June 29, 2019 08:44
[2019-06-29] MEDS: Acetaminophen 650mg/20.3ml NG PRN (08:46)
[2019-06-29] MEDS: Lactulose 20gm/30ml UDC ORAL SCH ×2 (08:46→17:43)
[2019-06-29] MEDS: Pantoprazole Inj IVP SCH ×2 (08:46→20:38)
[2019-06-29] MEDS: Docusate 100mg/10ml Liq GT SCH ×2 (08:47→17:43)
[2019-06-29] MEDS: Simethicone 80mg tab ORAL PRN (08:47)
[2019-06-29] MEDS: Allopurinol 100mg Tab NG SCH (08:47)
--- NOTE | 2019-06-29 09:44 | NUR ---
NURSE NOTES: Pt asleep with Bipap 5/5 at 100%. Noted with episode of dyspnea.Remains in critical condition.HOB kept elevated to prevent aspiration.Running 1/2 NS at 50cc/hr.Will continue close monitoring. Call light within easy reach.
--- NOTE | 2019-06-29 12:03 | Infectious Diseases Prog Note ---
Assessment/Plan Assessment/Plan A; 1. Aspiration pneumonia. 2. Hypercapnic, hypoxemic respiratory failure 3. Diabetes. 4. Hypertension. 5. Renal failure. 6. Congestive heart failure. PLAN: 1. Observe off antibiotic 2. COVID19 test X 2: negative Subjective ROS Limited/Unobtainable: Yes Constitutional: Denies: fever Respiratory: Reports: other - extubated Neurologic: Reports: confusion, other - on restraint Allergies: Coded Allergies: ATORVASTATIN (Unverified Allergy, Unknown, 01/10/18) ROSUVASTATIN (Unverified Allergy, Unknown, 01/10/18) SITAGLIPTIN (Unverified Allergy, Unknown, 01/10/18) Objective Vital Signs Last 24 Hour Vital Signs Date Time Temp Pulse Resp B/P (MAP) Pulse Ox O2 Delivery O2 Flow Rate FiO2 06/29/19 11:04 110 21 100 Bi-Pap 80 113 19 100 80 06/29/19 10:00 109 24 164/88 (113) 100 06/29/19 09:59 170/101 06/29/19 09:16 98.8 06/29/19 09:00 95 21 174/101 (125) 100 06/29/19 09:00 80 06/29/19 08:30 103 23 100 80 06/29/19 08:00 98.8 111 20 170/67 (101) 88 06/29/19 08:00 98 06/29/19 08:00 Venturi Mask 10.0 Venturi Mask 10.0 06/29/19 08:00 10.0 80 06/29/19 07:10 100 27 96 Cool Aerosol 10.0 80 104 25 92 06/29/19 07:00 109 25 170/91 (117) 06/29/19 06:53 92 Cool Aerosol 15.0 80 06/29/19 06:00 113 24 168/79 (108) 06/29/19 05:58 148/86 06/29/19 05:00 113 25 148/86 (106) 99 06/29/19 04:22 176/81 06/29/19 04:00 98.9 99 25 176/81 (112) 100 06/29/19 04:00 Venturi Mask 10.0 Venturi Mask 10.0 06/29/19 04:00 10.0 80 06/29/19 04:00 99 06/29/19 03:20 96 24 100 Cool Aerosol 10.0 80 95 25 100 06/29/19 03:00 95 23 166/92 (116) 98 06/29/19 02:00 93 23 169/74 (105) 94 06/29/19 01:02 93 Cool Aerosol 10.0 80 06/29/19 01:00 94 23 163/75 (104) 93 06/29/19 00:42 163/70 06/29/19 00:00 92 06/29/19 00:00 10.0 80 06/29/19 00:00 Venturi Mask 10.0 Venturi Mask 10.0 06/29/19 00:00 99.0 92 23 163/70 (101) 94 06/28/19 23:47 90 23 95 Venturi Mask 10.0 80 87 24 94 06/28/19 23:10 94 22 95 Cool Aerosol 10.0 80 93 23 93 06/28/19 23:00 92 29 160/99 (119) 92 06/28/19 22:00 90 24 161/83 (109) 92 06/28/19 21:00 87 24 165/84 (111) 93 06/28/19 20:00 98.0 88 24 158/87 (110) 93 06/28/19 20:00 Venturi Mask 10.0 Venturi Mask 10.0 06/28/19 20:00 88 06/28/19 20:00 10.0 80 06/28/19 19:46 94 22 95 Cool Aerosol 10.0 80 92 23 92 06/28/19 19:32 92 Cool Aerosol 10.0 80 06/28/19 19:00 92 24 153/71 (98) 91 06/28/19 18:01 149/74 06/28/19 18:00 93 21 158/71 (100) 92 06/28/19 17:00 92 27 149/74 (99) 91 06/28/19 16:00 98.8 92 27 154/85 (108) 90 06/28/19 16:00 10.0 40 06/28/19 16:00 91 06/28/19 16:00 Venturi Mask 10.0 Venturi Mask 10.0 06/28/19 15:31 91 23 92 Cool Aerosol 10.0 80 85 24 92 06/28/19 15:09 90 Cool Aerosol 10.0 80 06/28/19 15:00 89 24 157/82 (107) 91 06/28/19 14:00 90 21 168/74 (105) 91 06/28/19 13:00 88 26 152/73 (99) 92 06/28/19 12:36 156/74 Height (Feet): 5 Height (Inches): 3.00 Weight (Pounds): 220 HEENT: mucous membranes moist Respiratory/Chest: decreased breath sounds, other - on BIPAP Cardiovascular: tachycardia Abdomen: distended Extremities: other - edema of hands Neurologic/Psychiatric: other - opens eyes Laboratory Tests Test 06/29/19 05:00 06/29/19 06:32 White Blood Count 10.9 K/UL (4.8-10.8) H Red Blood Count 4.16 M/UL (4.70-6.10) L Hemoglobin 11.8 G/DL (14.2-18.0) L Hematocrit 37.0 % (42.0-52.0) L Mean Corpuscular Volume 89 FL (80-99) Mean Corpuscular Hemoglobin 28.5 PG (27.0-31.0) Mean Corpuscular Hemoglobin Concent 32.0 G/DL (32.0-36.0) Red Cell Distribution Width 14.5 % (11.6-14.8) Platelet Count 260 K/UL (150-450) Mean Platelet Volume 7.0 FL (6.5-10.1) Neutrophils (%) (Auto) 80.7 % (45.0-75.0) H Lymphocytes (%) (Auto) 9.9 % (20.0-45.0) L Monocytes (%) (Auto) 6.1 % (1.0-10.0) Eosinophils (%) (Auto) 2.6 % (0.0-3.0) Basophils (%) (Auto) 0.7 % (0.0-2.0) Sodium Level 145 MMOL/L (136-145) Potassium Level 3.7 MMOL/L (3.5-5.1) Chloride Level 106 MMOL/L (98-107) Carbon Dioxide Level 27 MMOL/L (21-32) Anion Gap 12 mmol/L (5-15) Blood Urea Nitrogen 55 mg/dL (7-18) H Creatinine 2.2 MG/DL (0.55-1.30) H Estimat Glomerular Filtration Rate 29.2 mL/min (>60) Glucose Level 214 MG/DL (74-106) H Calcium Level 8.5 MG/DL (8.5-10.1) Magnesium Level 2.2 MG/DL (1.8-2.4) Troponin I 0.124 ng/mL (0.000-0.056) Arterial Blood pH 7.433 (7.350-7.450) Arterial Blood Partial Pressure CO2 44.5 mmHg (35.0-45.0) Arterial Blood Partial Pressure O2 57.5 mmHg (75.0-100.0) L Arterial Blood HCO3 29.1 mmol/L (22.0-26.0) H Arterial Blood Oxygen Saturation 90.4 % (95-100) L Arterial Blood Base Excess 4.2 (-2-2) H Ramo Test Positive Current Medications Medications (Trade) Dose Ordered Sig/Diana Route PRN Reason Start Time Stop Time Status Last Admin Dose Admin Acetaminophen (Tylenol) 650 mg Q6H PRN NG Temp >100.5 06/20/19 17:15 07/20/19 17:14 06/29/19 08:46 Albuterol/ Ipratropium (Albuterol/ Ipratropium) 3 ml Q4H PRN HHN Shortness of Breath 06/28/19 23:30 07/03/19 23:29 Allopurinol (Zyloprim) 100 mg DAILY NG 06/20/19 09:00 07/20/19 08:59 06/29/19 08:47 Chlorhexidine Gluconate (Jesica-Hex 2%) 1 applic DAILY@1999 TOPIC 06/20/19 20:00 09/18/19 19:59 06/28/19 20:01 Clonidine HCl (Catapres Tab) 0.1 mg Q4H PRN ORAL For High Blood Pressure 06/22/19 14:30 09/20/19 14:29 06/29/19 00:42 Dextrose (Dextrose 50%) 25 ml Q30M PRN IV Hypoglycemia 06/20/19 00:15 09/17/19 16:44 Dextrose (Dextrose 50%) 50 ml Q30M PRN IV Hypoglycemia 06/20/19 00:15 09/17/19 16:44 Docusate Sodium (Colace) 100 mg BID GT 06/28/19 09:30 07/28/19 09:29 06/29/19 08:47 Furosemide (Lasix) 40 mg DAILY IV 06/29/19 09:00 07/29/19 08:59 06/29/19 08:47 Hydralazine HCl (Apresoline) 10 mg Q4H PRN IV For High Blood Pressure 06/28/19 07:30 09/26/19 07:29 06/29/19 09:59 Insulin Aspart (NovoLOG) BEFORE MEALS AND HS SUBQ 06/26/19 21:00 09/24/19 20:59 06/27/19 16:56 Ipratropium [place] (Atrovent) 500 mcg Q4H HHN 06/28/19 15:00 07/03/19 14:59 06/29/19 10:53 Lactulose (Cephulac) 20 gm BID ORAL 06/29/19 09:00 07/29/19 08:59 06/29/19 08:46 Latanoprost (Xalatan) 1 drop BEDTIME BOTH EYES 06/20/19 21:00 07/19/19 20:59 06/28/19 21:22 Mirtazapine (Remeron) 7.5 mg BEDTIME NG 06/20/19 21:00 09/17/19 20:59 06/28/19 20:02 Nitroglycerin (Nitro-Bid) 1 inch TID@0600,1200,1800 TOPIC 06/24/19 06:00 07/24/19 05:59 06/29/19 05:58 Pantoprazole (Protonix) 40 mg EVERY 12 HOURS IVP 06/28/19 09:00 07/28/19 08:59 06/29/19 08:46 Polyethylene Glycol (Miralax) 17 gm BEDTIME ORAL 06/29/19 21:00 07/29/19 20:59 Simethicone (Mylicon) 80 mg QID PRN ORAL Abdominal cramps 06/27/19 08:00 09/25/19 07:59 06/29/19 08:47 Sodium Chloride 1,000 ml @ 50 mls/hr Q20H IV 06/29/19 08:00 07/29/19 07:59 06/29/19 08:48 Harley Taylor MD June 29, 2019 12:03
--- NOTE | 2019-06-29 12:38 | NUR ---
NURSE NOTES: No significant change and tolerate well Bipap.Turned and repositioned. HOB elevated to prevent aspiration. Call light within easy reach.Will continue with same care plan
--- NOTE | 2019-06-29 14:01 | NUR ---
NURSE NOTES: Pt turned and repositioned.Hemodynamically stable at this time.Will continue same plan of care
[2019-06-29] MEDS ORDERED: Sterile Water Irrig 1000ml IRRIG ONE (14:11)
[2019-06-29] MEDS ORDERED: NS 275ml ONE ×2 (14:11→16:01)
[2019-06-29] MEDS ORDERED: Tubing Ominiflow Primary IV ONE (14:11)
[2019-06-29] MEDS ORDERED: 1/2 NS 1000ml IV ONE (16:01)
--- NOTE | 2019-06-29 16:12 | NUR ---
NURSE NOTES: Pt asleep, tolerate well Bipap.HOB elevated to prevent aspiration.No significant change in condition at this time.Will continue to monitor
--- NOTE | 2019-06-29 18:30 | NUR ---
NURSE NOTES: Adls done, mouth care provided and good pericare done.Remains hemodynamically stable with no major change.HOB elevated to prevent aspiration. Pt turned and repositioned.Total gastric drainage during shift 50cc coffee ground.No BM during shift.Call light within easy reach.Will continue with same care plan.
--- NOTE | 2019-06-29 18:31 | Pulmonology Progress Note ---
Assessment/Plan Assessment/Plan Pulmonary CCM Progress Note Assessment/Plan Hypoxemia Hypercapnic respiratory failure, on PRN Bipap pulmonary edema possible ARDS negative COVID x2 s/p succesful extubation renal failure toxic met encephalopathy hypernatremia CRF leukocytosis possible sepsis PLAN dc droplet isolation Bipap PRN, ABG improved CXR stable taper FIO2 as able ID follow up monitor feeds and isolation medications/laboratory data/nursing notes/ICU care reviewed in detail note reviewed and edited care discussed with RN and RT ICU time spent >40 minutes Critical Care - Subjective Interval Events: care noted and reviewed imaging noted ICU noted ROS Limited/Unobtainable: Yes Condition: critical EKG Rhythm: Sinus Rhythm Residuals: minimal Tube Feeding Tolerated: yes Vital Signs Noted Labs Noted Objective: WDWN awake, on Bipap reduced breath sounds bilaterally without rhonchi or wheeze [id number] without MRG NABS nontender no HSM no CC some edema nonfocal reviewed and edited Subjective ROS Limited/Unobtainable: No Constitutional: Denies: fever Allergies: Coded Allergies: ATORVASTATIN (Unverified Allergy, Unknown, 01/10/18) ROSUVASTATIN (Unverified Allergy, Unknown, 01/10/18) SITAGLIPTIN (Unverified Allergy, Unknown, 01/10/18) All Systems: reviewed and negative except above Objective Last 24 Hour Vital Signs Date Time Temp Pulse Resp B/P (MAP) Pulse Ox O2 Delivery O2 Flow Rate FiO2 06/29/19 17:44 167/99 06/29/19 17:03 107 17 100 80 06/29/19 17:00 116 18 167/99 (121) 100 06/29/19 16:00 Bi-pap Bi-pap 06/29/19 16:00 101 15 148/92 (110) 100 06/29/19 16:00 80 06/29/19 16:00 101 06/29/19 15:00 105 18 148/92 (110) 100 06/29/19 14:44 100 19 100 Bi-Pap 80 103 20 100 80 06/29/19 14:00 114 20 163/83 (109) 100 06/29/19 13:00 98.4 113 19 168/88 (114) 100 06/29/19 12:41 113 24 100 80 06/29/19 12:27 159/95 06/29/19 12:00 98 5/3/20 12:00 Venturi Mask 10.0 Venturi Mask 10.0 06/29/19 12:00 112 20 159/83 (108) 100 06/29/19 11:04 110 21 100 Bi-Pap 80 113 19 100 80 06/29/19 11:00 104 21 138/82 (100) 100 06/29/19 10:00 109 24 164/88 (113) 100 06/29/19 09:59 170/101 06/29/19 09:16 98.8 06/29/19 09:00 95 21 174/101 (125) 100 06/29/19 09:00 80 06/29/19 08:30 103 23 100 80 06/29/19 08:00 98.8 111 20 170/67 (101) 88 06/29/19 08:00 98 06/29/19 08:00 Venturi Mask 10.0 Venturi Mask 10.0 06/29/19 08:00 10.0 80 06/29/19 07:10 100 27 96 Cool Aerosol 10.0 80 104 25 92 06/29/19 07:00 109 25 170/91 (117) 06/29/19 07:00 109 25 170/91 (117) 06/29/19 06:53 92 Cool Aerosol 15.0 80 06/29/19 06:00 113 24 168/79 (108) 06/29/19 06:00 113 24 168/79 (108) 06/29/19 05:58 148/86 06/29/19 05:00 113 25 148/86 (106) 99 06/29/19 05:00 113 25 148/86 (106) 99 06/29/19 04:22 176/81 06/29/19 04:00 98.9 99 25 176/81 (112) 100 06/29/19 04:00 Venturi Mask 10.0 Venturi Mask 10.0 06/29/19 04:00 99 25 176/81 (112) 100 06/29/19 04:00 10.0 80 06/29/19 04:00 99 06/29/19 03:20 96 24 100 Cool Aerosol 10.0 80 95 25 100 06/29/19 03:00 95 23 166/92 (116) 98 06/29/19 03:00 95 23 166/92 (116) 98 06/29/19 02:00 93 23 169/74 (105) 94 06/29/19 02:00 93 23 169/74 (105) 94 06/29/19 01:02 93 Cool Aerosol 10.0 80 06/29/19 01:00 94 23 163/75 (104) 93 06/29/19 01:00 94 23 163/75 (104) 93 06/29/19 00:42 163/70 06/29/19 00:00 92 06/29/19 00:00 10.0 80 06/29/19 00:00 Venturi Mask 10.0 Venturi Mask 10.0 06/29/19 00:00 99.0 92 23 163/70 (101) 94 06/29/19 00:00 92 23 163/70 (101) 94 06/28/19 23:47 90 23 95 Venturi Mask 10.0 80 87 24 94 06/28/19 23:10 94 22 95 Cool Aerosol 10.0 80 93 23 93 06/28/19 23:00 92 29 160/99 (119) 92 06/28/19 22:00 90 24 161/83 (109) 92 06/28/19 21:00 87 24 165/84 (111) 93 06/28/19 20:00 98.0 88 24 158/87 (110) 93 06/28/19 20:00 Venturi Mask 10.0 Venturi Mask 10.0 06/28/19 20:00 88 06/28/19 20:00 10.0 80 06/28/19 19:46 94 22 95 Cool Aerosol 10.0 80 92 23 92 06/28/19 19:32 92 Cool Aerosol 10.0 80 06/28/19 19:00 92 24 153/71 (98) 91 Intake and Output 06/28/19 06/29/19 19:00 07:00 Intake Total 110.0 ml 1073.3333 ml Output Total 2575 ml 1090 ml Balance -2465.0 ml -16.6667 ml IV Total 110.0 ml 1073.3333 ml Tube Feeding 0 ml 0 ml Output Urine Total 2575 ml 1040 ml Gastric Drainage Total 50 ml General Appearance: other - obese HEENT: mucous membranes moist Abdomen: distended Extremities: other Skin: other - hyperpigmention of legs Neurologic/Psychiatric: other Laboratory Tests 06/29/19 05:00: White Blood Count 10.9H, Red Blood Count 4.16L, Hemoglobin 11.8L, Hematocrit 37.0L, Mean Corpuscular Volume 89, Mean Corpuscular Hemoglobin 28.5, Mean Corpuscular Hemoglobin Concent 32.0, Red Cell Distribution Width 14.5, Platelet Count 260, Mean Platelet Volume 7.0, Neutrophils (%) (Auto) 80.7H, Lymphocytes ( %) (Auto) 9.9L, Monocytes (%) (Auto) 6.1, Eosinophils (%) (Auto) 2.6, Basophils (%) (Auto) 0.7, Sodium Level 145, Potassium Level 3.7, Chloride Level 106, Carbon Dioxide Level 27, Anion Gap 12, Blood Urea Nitrogen 55H, Creatinine 2.2H , Estimat Glomerular Filtration Rate 29.2, Glucose Level 214H, Calcium Level 8.5 , Magnesium Level 2.2, Troponin I 0.124H 06/29/19 06:32: Arterial Blood pH 7.433, Arterial Blood Partial Pressure CO2 44.5, Arterial Blood Partial Pressure O2 57.5L, Arterial Blood HCO3 29.1H, Arterial Blood Oxygen Saturation 90.4L, Arterial Blood Base Excess 4.2H, Ramo Test Positive Current Medications Medications (Trade) Dose Ordered Sig/Diana Route PRN Reason Start Time Stop Time Status Last Admin Dose Admin Acetaminophen (Tylenol) 650 mg Q6H PRN NG Temp >100.5 06/20/19 17:15 07/20/19 17:14 06/29/19 08:46 Albuterol/ Ipratropium (Albuterol/ Ipratropium) 3 ml Q4H PRN HHN Shortness of Breath 06/28/19 23:30 07/03/19 23:29 Allopurinol (Zyloprim) 100 mg DAILY NG 06/20/19 09:00 07/20/19 08:59 06/29/19 08:47 Amlodipine Besylate (Norvasc) 5 mg DAILY NG 06/29/19 18:15 07/29/19 18:14 Chlorhexidine Gluconate (Jesica-Hex 2%) 1 applic DAILY@2000 TOPIC 06/20/19 20:00 09/18/19 19:59 06/28/19 20:01 Clonidine HCl (Catapres Tab) 0.1 mg Q4H PRN ORAL For High Blood Pressure 06/22/19 14:30 09/20/19 14:29 06/29/19 00:42 Dextrose (Dextrose 50%) 25 ml Q30M PRN IV Hypoglycemia 06/20/19 00:15 09/17/19 16:44 Dextrose (Dextrose 50%) 50 ml Q30M PRN IV Hypoglycemia 06/20/19 00:15 09/17/19 16:44 Docusate Sodium (Colace) 100 mg BID GT 06/28/19 09:30 07/28/19 09:29 06/29/19 17:43 Furosemide (Lasix) 40 mg DAILY IV 06/29/19 09:00 07/29/19 08:59 06/29/19 08:47 Hydralazine HCl (Apresoline) 10 mg Q4H PRN IV For High Blood Pressure 06/28/19 07:30 09/26/19 07:29 06/29/19 09:59 Insulin Aspart (NovoLOG) BEFORE MEALS AND HS SUBQ 06/26/19 21:00 09/24/19 20:59 06/29/19 16:27 Ipratropium [place] (Atrovent) 500 mcg Q4H HHN 06/28/19 15:00 07/03/19 14:59 06/29/19 14:34 Lactulose (Cephulac) 20 gm BID ORAL 06/29/19 09:00 07/29/19 08:59 06/29/19 17:43 Latanoprost (Xalatan) 1 drop BEDTIME BOTH EYES 06/20/19 21:00 07/19/19 20:59 06/28/19 21:22 Mirtazapine (Remeron) 7.5 mg BEDTIME NG 06/20/19 21:00 09/17/19 20:59 06/28/19 20:02 Nitroglycerin (Nitro-Bid) 1 inch TID@0600,1200,1800 TOPIC 06/24/19 06:00 07/24/19 05:59 06/29/19 17:44 Pantoprazole (Protonix) 40 mg EVERY 12 HOURS IVP 06/28/19 09:00 07/28/19 08:59 06/29/19 08:46 Polyethylene Glycol (Miralax) 17 gm BEDTIME ORAL 06/29/19 21:00 07/29/19 20:59 Simethicone (Mylicon) 80 mg QID PRN ORAL Abdominal cramps 06/27/19 08:00 09/25/19 07:59 06/29/19 08:47 Sodium Chloride 1,000 ml @ 50 mls/hr Q20H IV 06/29/19 08:00 07/29/19 07:59 06/29/19 08:48 Ottoniel Jiang MD June 29, 2019 18:31
--- NOTE | 2019-06-29 19:21 | NUR ---
HAND-OFF: Report given to MARK Blankenship.
--- NOTE | 2019-06-29 20:00 | NUR ---
NURSE NOTES: received pt asleep open eyes to touch on andrew soft rest non comp on bipap 15/5 o2 stat 100% pt npo abdomen distended to low interment suction
[2019-06-29] MEDS: Dyna-Hex 2% Top Sol 2oz TOPIC SCH (20:38)
[2019-06-29] MEDS: Latanoprost 0.005% Opth 2.5ml Soln BOTH EYES SCH (20:38)
[2019-06-29] MEDS ORDERED: Miralax 17gm pkt ORAL SCH (21:00)
--- NOTE | 2019-06-29 21:15 | NUR ---
NURSE NOTES: pt unresponsive no pulse no bp code blue call pt intubated -vent with o2 sat95% HR 90-120 ST
--- NOTE | 2019-06-29 22:10 | NUR ---
NURSE NOTES: Called [facility] at this time. no answer. Will call back again.
--- NOTE | 2019-06-29 22:15 | NUR ---
NURSE NOTES: PT UN RESPONSIVE NO BP CODE BLUE WAS CALL PT AT 2230 WAS NOTIFY [facility] DONE AND TRANSPER TO VANDANA 2 RN
--- NOTE | 2019-06-29 22:26 | Emergency Room Report ---
History of Present Illness General Chief Complaint: Dyspnea/Respdistress Source: Medical Record Present Illness Allergies: Coded Allergies: ATORVASTATIN (Unverified Allergy, Unknown, 01/10/18) ROSUVASTATIN (Unverified Allergy, Unknown, 01/10/18) SITAGLIPTIN (Unverified Allergy, Unknown, 01/10/18) COVID-19 Screening Contact w/high risk pt: No Recent Travel to affected area: No Experienced COVID-19 symptoms?: Yes COVID-19 symptoms experienced: Shortness of Breath Nursing Documentation-[facility] Past Medical History Deferred: Pt Cognitively Impaired Past Medical History: Deferred Hx Cardiac Problems: Yes - Atrial Flutter Hx Hypertension: Yes Hx Diabetes: Yes Hx Cancer: No Hx Gastrointestinal Problems: Yes Hx Neurological Problems: Yes Hx Cerebrovascular Accident: Yes Hx Transient Ischemic Attacks: Yes Hx Weakness: Yes Physical Exam Vital Signs Date Time Temp Pulse Resp B/P (MAP) Pulse Ox O2 Delivery O2 Flow Rate FiO2 06/25/19 07:00 67 21 134/69 (90) 94 06/25/19 07:11 50 06/25/19 08:00 99.2 06/25/19 08:00 Mechanical Ventilator 06/27/19 10:00 10.0 Procedures CPR/Code Blue CPR/Code Blue Narrative See CODE BLUE sheet for CODE BLUE narrative Intubation Intubation : Consent: Emergent Intubation Method: orotracheal Tube Size (cm): 7.5 Breath Sounds after Intubation: equal Intubation Complications: no complications Post Intubation Xray: No Attempts: One Patient Tolerated: Well Complications: None Medical Decision Making Diagnostic Impression: Primary Impression: Cardiopulmonary arrest ER Course I was called to the ICU for a CODE BLUE. Patient was in asystole. Per nursing report patient had started having respiratory distress earlier in the day was placed on BiPAP. On my arrival CPR was in progress. Was continued. Full rounds of epinephrine were given. Bicarbonate was given. Patient intubated by me. See intubation note for further details. After approximately 10 minutes of ACLS we did have return of spontaneous circulation. After Approximately 15 minutes I was called back to the ICU for the same patient. Patient was then PEA arrest. ACLS was continued. Patient received multiple rounds of epinephrine, calcium and bicarbonate. We did not have return of spontaneous circulation and the CODE BLUE was called at 2236. Last Vital Signs Date Time Temp Pulse Resp B/P (MAP) Pulse Ox O2 Delivery O2 Flow Rate FiO2 5/3/20 19:41 10 18 100 Bi-Pap 80 104 19 100 80 06/29/19 18:45 163/105 06/29/19 13:00 98.4 06/29/19 12:00 10.0 10.0 Disposition: Condition: Referrals: JOSÉ MIGUEL GILES (PCP) Lance Spann M.D. June 29, 2019 22:26
--- NOTE | 2019-06-29 22:40 | NUR ---
NURSE NOTES: Called and spoke with [employer]. Notified her has at. Explained to her about two code blues called. Stated "I'm Very upset and will call administration tomorrow". No arrangements at this time, Informed her when she has the information she call can and give us the information over the phone. States she is very " unhappy" at this time and will call the boss tomorrow.
--- NOTE | 2019-06-29 22:57 | Diagnostic Imaging Report ---
EXAM: XR Chest, 1 View CLINICAL HISTORY: S/P INTUB TECHNIQUE: Frontal view of the chest. COMPARISON: 06/27/2019 IMPRESSION: ET tube terminates 1.6 cm from the patti. Recommend pulling back 2-3 cm. Feeding tube terminates in the proximal to mid stomach. Lung opacities are again seen, worsened in the right lung.
--- NOTE | 2019-06-29 22:59 | NUR ---
NURSE NOTES: Called and spoke with [facility] at this time. [facility] number [phone] They will call back in one hour to get more information.
--- NOTE | 2019-06-29 23:10 | NUR ---
NURSE NOTES: [facility]. patient is not a [facility]. "Body may be released to the family" as per Tylor.
--- NOTE | 2019-06-30 01:14 | Progress Note ---
DATE: 06/29/2019 CARDIOLOGY PROGRESS NOTE SUBJECTIVE: The patient is extubated on Ventimask with some congestion and respiratory distress. He is noncommunicative but seems to have eye contact. PHYSICAL EXAMINATION: VITAL SINGS: Blood pressure 148/86 to 170/91, heart rate below 100, respiratory rate 24 to 27. Patient is afebrile. CARDIAC: Monitored atrial fibrillation with rapid rate. LUNGS: Diminished breath sounds. Bilateral rhonchi. Accessory muscle use is noted by staff as well. LABORATORY DATA: White count 10.9, hemoglobin 11.8. ABG, 7.43, 44, 57. Sodium 145, potassium 3.7, BUN 55, creatinine 2.2, troponin 0.124. IMPRESSION: 1. Status post respiratory failure. 2. Persistent tachypnea and paroxysmal atrial fibrillation with increased ventricular rate. 3. Aspiration pneumonia. 4. COVID-19 negative. 5. Labile hypertension. 6. [id number]-[id number] diastolic congestive heart failure. 7. Status post GI bleeding. PLAN: 1. Recheck chest x-ray. 2. Continue ICU care. 3. Additional diuresis. 4. Replace potassium. 5. Trend natriuretic peptide assay. 6. Remains critical and guarded. 7. No anticoagulation due to potential for GI blood loss. Ottoniel Devi M.D. DR: UTE JOB#: [id number] CC:
--- NOTE | 2019-07-01 12:21 | Discharge Summary ---
Discharge Summary Discharge Summary _ SUMMARY DATE OF ADMISSION: 06/19/2019 DATE OF EXPIRATION: 06/29/2019 REASON FOR ADMISSION: 78 years old male, resident of [facility] facility, with past medical history of congestive heart failure, cardiomyopathy, hypercapnic respiratory failure, atrial flutter, diabetes mellitus, hypertension, angina, chronic kidney disease, was sent for evaluation due to shortness of breath. Patient on chronic BiPAP at the facility. with pulse oximetry in the 70s prior to sending him for evaluation. No reported fever or chills. No cough or congestion. Upon evaluation in emergency room patient initially was on placed on nonrebreather mask due to hypoxia and eventually orally intubated due to worsening respiratory acidosis, noted on ABG. Patient was swabbed for COVID-19. Patient subsequently admitted to ICU for further management. CONSULTANTS: building maintenance technician Dr Devi pulmonary Dr Muniz ID specialist Dr. Canales GI specialist Dr. Marmolejo [facility] COURSE: Patient admitted to ICU. Patient was kept in isolation. Ventilator support provided. Pulmonary toilet provided. Patient started on empiric antibiotics and diuresis with close monitoring of volumes and cardiorenal parameters. SARS-CoV-2 by PCR came back negative on 06/18. Repeated SARS-CoV-2 by PCR on 06/21 was not detected as well. Isolation was discontinued. Blood cultures were negative. Sputum culture came back negative. Patient completed treatment with empiric antibiotics for pneumonia. Echocardiogram revealed proximal anteroseptal wall hypokinesis with ejection fraction estimated to be 45 to 50%. No evidence of left ventricular hypertrophy. No evidence of pericardial effusion. Moderately elevated left atrial pressure grade 2. Right ventricular systolic pressure of 67, consistent with moderate pulmonary hypertension. Antianginal and anti-failure regimen titrated as per building maintenance technician. Serial troponin remained elevated. Antiplatelet therapy and beta blockade provided. Venous duplex bilateral lower extremity revealed no evidence of acute DVT. Anticoagulation for cardioembolic prophylaxis provided. Patient was able to be weaned from ventilator. Patient initially was on Venturi mask, however his condition became worse, and he was started on BiPAP. Renal parameters and electrolytes were closely monitored, electrolytes corrected as needed. Diuresis stopped due to worsening renal parameters. GI consulted for possible GI bleeding. Hemoglobin and hematocrit remained stable. GI prophylaxis with PPI IV every 12 hours provided. Bowel regimen instituted. Per GI specialist, patient was not stable for GI procedure unless medical emergency. LOUISA MERLOS was called on 06/28 since the patient was noted to be in asystole. ACLS protocol initiated. After 10 minutes of ACLS Patient had return of spontaneous circulation. However about 15 minutes after , another CODE BLUE was called. Patient was noted to be in a pulseless electrical activity arrest. ACLS initiated. However despite multiply rounds of medications all efforts appeared to be futile. Patient was pronounced at 22: 36 on 06/28 . Cause of : cardiopulmonary arrest FINAL DIAGNOSES: Status post cardiopulmonary arrest x2 Acute hypoxemic hypercapnic respiratory failure ,requiring intubation ,status post extubation Pulmonary edema Possible ARDS NSTEMI Possible sepsis Aspiration pneumonia Atrial fibrillation/flutter Conduction system disease of the heart Hypertensive heart disease Acute on chronic diastolic congestive heart failure Suspected COVID-19 - was ruled out Toxic metabolic encephalopathy Acute on chronic renal failure Nonsustained ventricular ectopy. Cerebrovascular disease I have been assigned to dictate discharge summary for this account. I was not involved in the patient's management. Kallie Hart NP July 01, 2019 12:21
== END 2019-06-29 22:36 | disposition expired | DRG 207 ==
LOC: EDBD 09:07 → EMR 09:19 → 2W 09:34 → EDBEDREQSVC 10:45 → EDBEDREQ 10:46 → 2W 23:00 → ICU 06-22 14:16
PROC: 0BH17EZ Insertion of Endotracheal Airway into Trachea, Via Natural or Artificial Opening (ICD-10-PCS; principal; 2019-06-19)
PROC: 5A1955Z Respiratory Ventilation, Greater than 96 Consecutive Hours (ICD-10-PCS; principal; 2019-06-19)
PROC: 02HV33Z Insertion of Infusion Device into Superior Vena Cava, Percutaneous Approach (ICD-10-PCS; 2019-06-20)
PROC: B548ZZA Ultrasonography of Superior Vena Cava, Guidance (ICD-10-PCS; 2019-06-20)
PROC: 5A12012 Performance of Cardiac Output, Single, Manual (ICD-10-PCS; 2019-06-29)
PROC: 0BH17EZ Insertion of Endotracheal Airway into Trachea, Via Natural or Artificial Opening (ICD-10-PCS; 2019-06-29)
DX: J96.01 Acute respiratory failure with hypoxia (principal); I21.4 Non-ST elevation (NSTEMI) myocardial infarction; I50.33 Acute on chronic diastolic (congestive) heart failure; J69.0 Pneumonitis due to inhalation of food and vomit; G92 Toxic encephalopathy; A41.9 Sepsis, unspecified organism; I13.0 Hypertensive heart and chronic kidney disease with heart failure and stage 1 through stage 4 chronic kidney disease, or unspecified chronic kidney disease; E44.1 Mild protein-calorie malnutrition; N17.9 Acute kidney failure, unspecified; K92.2 Gastrointestinal hemorrhage, unspecified; E87.0 Hyperosmolality and hypernatremia; I48.92 Unspecified atrial flutter; J96.02 Acute respiratory failure with hypercapnia; N18.9 Chronic kidney disease, unspecified; E11.22 Type 2 diabetes mellitus with diabetic chronic kidney disease; E11.65 Type 2 diabetes mellitus with hyperglycemia; I46.9 Cardiac arrest, cause unspecified; Z86.73 Personal history of transient ischemic attack (TIA), and cerebral infarction without residual deficits; I48.0 Paroxysmal atrial fibrillation; I25.10 Atherosclerotic heart disease of native coronary artery without angina pectoris; Z20.828 Contact with and (suspected) exposure to other viral communicable diseases
CPT/HCPCS: 31500; 36415; 36569; 36600; 71045; 74018; 76770; 76937; 80048; 80053; 80202; 81003; 82550; 82553; 82803; 82962; 83605; 83735; 83880; 84478; 84484; 84550; 85025; 85610; 85730; 87040; 87070; 87081; 87205; 87635; 92950; 93005; 93306; 93970; 94002; 94003; 94640; 94664; 96374; 99291; J1815; J7620; J8499